=== PATIENT | male | born 1965 | race Caucasian/White ===

== ENCOUNTER 2019-12-31 07:48 | Outpatient (REF) | payer MEDICARE, MEDICAID, SELFPAY ==
[2019-12-31 09:22] LABS: MANUAL DIFF FLAG NO
[2019-12-31 09:36] LABS: Basophils Percent Auto 0.7 % (0-2); Eosinophils Absolute Auto 0.2 X10*3/uL (0.0-0.4); Eosinophils Percent Auto 3.9 % (0-4); Hematocrit 42.5 % (42-52); Hemoglobin 13.9 g/dl (14.0-18.0); Imm Gran Abs Auto 0.02 X10*3/uL (0.00-0.03); Imm Gran Pct Auto 0.5 % (0.0-0.4); Lymphocytes Absolute Auto 1.1 X10*3/uL (1.2-4.9); Lymphocytes Percent Auto 26.8 % (20-40); Mean Corpuscular HGB Conc 32.7 g/dl (31.0-36.0); Mean Corpuscular Hemoglobin 29.8 pg (27.0-33.0); Mean Corpuscular Volume 91.2 fL (80-98); Mean Platelet Volume 10.4 fL (9.4-12.4); Monocytes Absolute Auto 0.3 X10*3/uL (0.1-1.2); Monocytes Percent Auto 7.1 % (2-11); Neutrophils Absolute Auto 2.5 X10*3/uL (2.0-8.3); Platelet Count 204 X10*3/uL (160-400); Red Blood Count 4.66 X10*6/uL (4.60-5.80); White Blood Count 4.1 X10*3/uL (4.8-10.8)
[2019-12-31 10:09] LABS: Iron 78 mcg/dL (45-160); Percent Iron Saturation 22 % (15-50); Total Iron Binding Capacity 360 mcg/dL (228-428); Unsaturated Iron Binding 282 ug/dL
[2019-12-31 10:33] LABS: Ferritin 47 ng/mL (20-250); Free T4 (Free Thyroxine) 0.99 ng/dL (0.71-1.85); Prostate Specific Antigen Scr 1.31 ng/mL (<0.05-4.0); Thyroid Stimulating Hormone 1.93 mIU/mL (0.32-4.0)
[2020-01-01 07:32] LABS: Follicle Stimulating Hormone 2.2 mIU/mL (1.6-8.0); Lutenizing Hormone 1.6 mIU/mL (1.5-9.3); Prolactin 5.1 ng/mL (2.0-18.0)
[2020-01-02 03:11] LABS: Sex Hormone Binding Globulin 15 nmol/L (10-50)
[2020-01-05 11:47] LABS: Testosterone, Free 51.4 pg/mL (35.0-155.0); Testosterone, Total 217 ng/dL (250-1100)
== END 2019-12-31 07:49 | disposition home or self-care (01) ==
LOC: HO.LAB 07:48
PROVIDERS: PCP Internal Medicine; Visit Provider Student in an Organized Health Care Education/Training Program
DX: Z12.5 Encounter for screening for malignant neoplasm of prostate (principal); E29.1 Testicular hypofunction
CPT/HCPCS: 36415; 82728; 83001; 83002; 83540; 84146; 84153; 84270; 84402; 84403; 84439; 84443; 85025

== ENCOUNTER 2020-01-02 10:32 | Outpatient (REF) | payer MEDICARE, MEDICAID, SELFPAY ==
--- NOTE | 2020-01-02 10:43 | MM_ITS ---
EXAMINATION: BONE DENSITOMETRY CLINICAL INDICATION: Hypogonadism. COMPARISON: None (current study represents initial baseline exam). TECHNIQUE: Using a [employer] DXA System (software version: 13.1) manufactured by [employer], dual-energy x-ray absorptiometry was performed of the lumbar spine and left hip. The images are of good technical quality. Summary results are attached. FINDINGS: AP SPINE L1-L4: There is levocurvature lumbar spine and degenerative changes which may cause overestimation of the lumbar bone mineral density. BMD 1.431 g/cm2, Z-score 1.3, T-score 1.8, normal. LEFT FEMUR, NECK: BMD 1.536 g/cm2, Z-score 3.9, T-score 3.6, normal. LEFT FEMUR, TOTAL: BMD 1.487 g/cm2, Z-score 2.6, T-score 2.7, normal. IDENTIFIED RISK FACTORS: Secondary osteoporosis (hypogonadism). Anticonvulsant. HISTORY OF FRACTURE: None listed. MEDICATIONS: None listed. IMPRESSION: 1. DIAGNOSIS: Normal bone density based on the lowest T-score value of 1.8 in the lumbar spine applying World Health Organization criteria. 2. 10-YEAR FRACTURE RISK PREDICTION, FRAX: Major osteoporotic fracture (clinical spine, forearm, hip or shoulder) 2.7%. Hip fracture 0.0%. 3. Treatment Recommendations: NOF guidelines recommend consideration for treatment in postmenopausal women and men age 50 and older presenting with the following: -A hip or vertebral (clinical or morphometric) fracture. -T-score less than or equal to -2.5 at the femoral neck or spine after appropriate evaluation to exclude secondary causes. -Low bone mass at the hip or spine and a 10-year fracture probability by FRAX of greater than or equal to 3% for hip fracture or greater than or equal to 20% for major osteoporotic fracture based on the [place] adapted WHO algorithm. 4. Other Recommendations: All treatment decisions require clinical judgment and consideration of individual patient factors, including patient preferences, comorbidities, previous drug use, risk factors not captured in the FRAX model (e.g. frailty, falls, vitamin D deficiency, increased bone turnover, interval significant decline in bone density) and possible under or overestimation of fracture risk by FRAX. FUTURE SCAN RECOMMENDATION: People with diagnosed cases of osteoporosis or at high risk for fracture should have regular bone mineral density tests. For patients eligible for Medicare, routine testing is allowed once every 2 years. The testing frequency can be increased to one year for patients who have rapidly progressing disease, those who are receiving or discontinuing medical therapy to restore bone mass, or have additional risk factors.
== END 2020-01-02 10:33 | disposition home or self-care (01) ==
LOC: HO.MAMMO 10:32
PROVIDERS: PCP Internal Medicine; Visit Provider Internal Medicine
DX: Z13.820 Encounter for screening for osteoporosis (principal); E29.1 Testicular hypofunction; Z79.899 Other long term (current) drug therapy
CPT/HCPCS: 77080

== ENCOUNTER → 2020-02-26 13:27 | Outpatient (BNVA) | payer MEDICARE, MEDICAID, SELFPAY | PROVIDERS: PCP Internal Medicine; Visit Provider Urology | DX: Z76.89 Persons encountering health services in other specified circumstances (principal) | CPT/HCPCS: 99212 ==

== ENCOUNTER 2020-04-02 09:27 | Outpatient (REF) | payer MEDICARE, MEDICAID, SELFPAY ==
[2020-04-03 09:52] LABS: Lutenizing Hormone 1.4 mIU/mL (1.5-9.3)
[2020-04-10 09:17] LABS: Testosterone, Total 196 ng/dL (250-1100)
== END 2020-04-02 09:28 | disposition home or self-care (01) ==
LOC: HO.HMGCLDS 09:27
PROVIDERS: PCP Internal Medicine; Visit Provider Urology
DX: N52.01 Erectile dysfunction due to arterial insufficiency (principal); E29.1 Testicular hypofunction
CPT/HCPCS: 36415; 83002; 84403

== ENCOUNTER → 2020-04-11 11:35 | Outpatient (BNVA) | payer MEDICARE, MEDICAID, SELFPAY | PROVIDERS: PCP Internal Medicine; Visit Provider Urology | DX: N52.01 Erectile dysfunction due to arterial insufficiency (principal); E29.1 Testicular hypofunction | CPT/HCPCS: 99212 ==

== ENCOUNTER 2020-07-02 09:37 | Outpatient (REF) | payer MEDICARE, MEDICAID, SELFPAY ==
[2020-07-02 11:26] LABS: MANUAL DIFF FLAG NO
[2020-07-02 11:32] LABS: Basophils Percent Auto 0.4 % (0-2); Eosinophils Absolute Auto 0.3 X10*3/uL (0.0-0.4); Hematocrit 41.5 % (42-52); Hemoglobin 13.9 g/dl (14.0-18.0); Imm Gran Abs Auto 0.02 X10*3/uL (0.00-0.03); Imm Gran Pct Auto 0.4 % (0.0-0.4); Lymphocytes Absolute Auto 1.3 X10*3/uL (1.2-4.9); Lymphocytes Percent Auto 25.1 % (20-40); Mean Corpuscular HGB Conc 33.5 g/dl (31.0-36.0); Mean Corpuscular Hemoglobin 30.3 pg (27.0-33.0); Mean Corpuscular Volume 90.6 fL (80-98); Mean Platelet Volume 10.4 fL (9.4-12.4); Monocytes Absolute Auto 0.4 X10*3/uL (0.1-1.2); Monocytes Percent Auto 7.6 % (2-11); Neutrophils Absolute Auto 3.1 X10*3/uL (2.0-8.3); Neutrophils Percent Auto 61.5 % (45-73); Platelet Count 214 X10*3/uL (160-400); Red Blood Count 4.58 X10*6/uL (4.60-5.80); Red Cell Distribution Width 11.9 % (11.0-16.0)
[2020-07-02 12:27] LABS: Alanine Aminotransferase 13 U/L (0-40); Albumin Level 4.8 g/dL (3.5-5.0); Alkaline Phosphatase 51 U/L (39-117); Anion Gap 15 (12-20); Aspartate Amino Transferase 17 U/L (5-37); Bilirubin Total 0.8 mg/dL (0.0-1.0); Blood Urea Nitrogen 17 mg/dL (9-16); Calcium 9.3 mg/dL (8.4-10.2); Carbon Dioxide 24 mmol/L (22-29); Chloride 103 mmol/L (96-108); Cholesterol 196 mg/dL; Estimated Glomerular Filt Rate > 60; Glucose Fasting 97 mg/dL (60-99); HDL Cholesterol 28 mg/dL; LDL Cholesterol Calculated 101 mg/dl; Potassium 4.4 mmol/L (3.3-5.1); Sodium 138 mmol/L (135-145); Total Protein 7.7 g/dL (6.5-8.0); Triglycerides 335 mg/dL
== END 2020-07-02 09:38 | disposition home or self-care (01) ==
LOC: HO.HMGCLDS 09:37
PROVIDERS: PCP Internal Medicine; Visit Provider Internal Medicine
DX: E78.5 Hyperlipidemia, unspecified (principal)
CPT/HCPCS: 36415; 80053; 80061; 85025

== ENCOUNTER 2020-09-23 09:42 | Outpatient (REF) | payer MEDICARE, MEDICAID, SELFPAY ==
[2020-09-23 12:05] LABS: Prostate Specific Antigen 1.39 ng/mL (<0.05-4.0)
[2020-09-25 06:23] LABS: Lutenizing Hormone 1.9 mIU/mL (1.5-9.3)
[2020-09-25 23:26] LABS: Estradiol Ultra Sensitive 18 pg/mL (< OR = 29)
[2020-09-28 17:56] LABS: Testosterone, Free 54.3 pg/mL (35.0-155.0); Testosterone, Total 227 ng/dL (250-1100)
== END 2020-09-23 09:43 | disposition home or self-care (01) ==
LOC: HO.HMGCLDS 09:42
PROVIDERS: PCP Internal Medicine; Visit Provider Urology
DX: Z12.5 Encounter for screening for malignant neoplasm of prostate (principal); E29.1 Testicular hypofunction; N13.8 Other obstructive and reflux uropathy; N40.1 Benign prostatic hyperplasia with lower urinary tract symptoms
CPT/HCPCS: 36415; 82670; 83002; 84153; 84402; 84403

== ENCOUNTER 2020-10-09 11:22 | Outpatient (AMB) | payer MEDICARE, MEDICAID, SELFPAY ==
[2020-10-09 11:50] VITALS: BP 128/74; TEMP 35.8; BMI 29.7
--- NOTE | 2020-10-09 11:50 | A.OFFVIS_ITS ---
Intake Vital Signs 10/09/20 11:50 Height 6 ft Weight 219 lb BMI 29.7 BP 128/74 Blood Pressure Location Rt brachial Position Sitting Temp 96.5 F L Intake Visit Reasons: 6 month follow up labs Intake Note: patient here for follow up labs. Allergies aspirin [ASPIRIN] Allergy (Intermediate, Verified 10/07/22 11:57) STOMACH UPSET Medication List - Last Reconciled 10/09/20 by Israel Almonte MD albuterol sulfate 90 mcg/actuation inhalation alclometasone 0.05% appl topical DAILY PRN gabapentin 100 mg PO TID lithium carbonate ER 300 mg PO BID lorazepam 0 mg PO omeprazole 20 mg PO DAILY propranolol 10 mg PO Q6H tadalafil 20 mg PO DAILY tadalafil 20 mg PO DAILY 30 days PRN HPI HPI Comments History of Present Illness Details Mr Huerta is a very pleasant male. They are a patient of Dr Kelly and Dr Mooney. They are seen in the office today for the following urologic conditions. - hypogonadism. Testosterone 10/01 227, LH 1.9 Hypogonadism: Seen at [facility] for investigation Has depressed mood denies in hormone and low testosterone. This continues Does well with Cialis Have occurred with secondary hypogonadal hypogonadism. Presumed due to SSRI use. Treatment has previously been topical testosterone. Has been evaluated with Dr. Mooney and previously saw Dr Villalobos. Initial symptoms include erectile dysfunction Yes decreased libido Yes change in mood/depression Yes in muscle size/strength Yes increased fatigue/malaise Yes increased abdominal fat No tender breasts/gynecomastia No hair loss No osteopenia No The onset of symptoms has been gradual since 2009. Erectile status current ZHAO Score 1. Associate conditions include obstructive sleep apnea No CAD No obesity No stress - financial, family, employment No heavy alcohol or illicit drug use No prior ithium use, SSRI's He has been taking Prior therapy - injectable exogenous testosterone - SERM - positive response to clomiphene but not covered - trial of GnRH 12/27 with partial response - did have T recovery with combination of hCG and anastrazole. Laboratory results 10/2013 , testosterone 200, , FSH 1.9, , LH 1.9, prolactin 5.8 Other labs from [facility] - normal except low gonadotrophins, 10/2015 T 750 02/26 T 454, E 54 08/28 T 244, LH 1.6, E 19 03/31 T 490, Est 64 LH 8.8 07/29 T 385, Est 9, LH 9 09/28 T 195 LH 1.6 11/30 T 192, LH 1.6, FSH 2.1 09/30 T 192, LH 1.6, FSH 2.1 - 04/03 T 196, LH 1.4 Current therapy includes gonadotrophin - hCG - will add , aromatase inhibitor - anastrazole. Response to therapy has been improved, energy/wellbeing. Prior therapy includes - testosterone gels with minimal effect - SERM without effect - Brain dopaminergic stimulator without effect - GnRH low dose pulsed without effect - hCG and anstrazole with lower E but lower T as well 06/28. Diagnosis based on history and laboratory results Hypogonadotrophic Hypogonadism - imaging negative. Pituitary vs hypothalamic - other pituitary components normal. Therapuetic plan see in 6m LH low with low T. [facility] Medical History Anxiety Depression Erectile dysfunction Gait abnormality Hyperlipidemia Hypogonadism in male Hypopituitarism Knee pain Mild acid reflux OA (osteoarthritis) of knee Tendinitis of left rotator cuff Thrombosed external hemorrhoid Review of Systems Const Denies chills and Denies fever(s) Card Reports no additional complaints and Denies syncope Resp Denies cough GI Denies abdominal pain and Denies heartburn Reports as per HPI and Denies change in libido Neuro Denies syncope Psych Denies change in libido Endo Denies change in libido Physical Exam Vital Signs: Last Vital Signs Temp 96.5 F L 10/09/20 11:50 BP 128/74 10/09/20 11:50 BMI result Body Mass Index 29.7 Const General: cooperative, healthy appearing, comfortable and no acute distress Orientation/consciousness: patient oriented x3 HENMT Face and sinus: Yes normal facial exam Mouth: moist mucous membranes Neck Neck: Yes normal visual inspection, Yes full ROM and Yes trachea midline Chest Chest palpation & inspection: normal inspection of the chest Resp Effort & Inspection: normal respiratory effort, able to speak in complete sentences and no respiratory distress GI Inspection: Yes normal to inspection Back/Spine/Pelvis Cervical Spine: normal cervical lordosis Thoracic/Lumbar Spine: thoracic and lumbar spine normal to inspection Skin General skin exam: no rashes or lesions noted Neuro General: patient oriented x3, gait normal, tone normal and moves all extremities Extrem General: Yes normal to inspection and Yes capillary refill normal Results AMB Urinalysis, Automated UA Leukoctes 0 Tess/uL Last Edit by NORAH Sheikh on 10/09/20 12:07 UA Nitrite Negative Last Edit by María Elena Leach A on 10/09/20 12:07 UA Urobilinogen 0.2 mg/dL Last Edit by María Elena Leach [facility] on 10/09/20 12:07 UA Protein 0 mg/dL Last Edit by María Elena Leach A on 10/09/20 12:07 UA pH 6.0 Last Edit by María Elena Leach [facility] on 10/09/20 12:07 UA Blood 0 Yuriy/uL Last Edit by María Elena Leach [facility] on 10/09/20 12:07 UA Specific [place] 1.010 Last Edit by María Elena Leach [facility] on 10/09/20 12:07 UA Ketone Negative Last Edit by María Elena Leach [facility] on 10/09/20 12:07 UA Bilirubin 0 mg/dL Last Edit by María Elena Leach A on 10/09/20 12:07 UA Glucose 0 mg/dL Last Edit by María Elena Leach [facility] on 10/09/20 12:07 Results Reviewed Results Reviewed: Laboratory Last Values Urine pH (Auto) 6.0 10/09/20 12:00 Specific [place] (Auto) 1.010 10/09/20 12:00 Urine Protein (Auto) 0 mg/dL 10/09/20 12:00 Glucose (UA)(Auto) 0 mg/dL 10/09/20 12:00 Urine Ketones (Auto) Negative 10/09/20 12:00 Urine Blood (Auto) 0 Yuriy/uL 10/09/20 12:00 Urine Nitrite (Auto) Negative 10/09/20 12:00 Urine Bilirubin (Auto) 0 mg/dL 10/09/20 12:00 Urine Urobilinogen (Auto) 0.2 mg/dL 10/09/20 12:00 Leukocyte Esterase (Auto) 0 Tess/uL 10/09/20 12:00 Assessment & Plan Assessment & Plan (1) 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 - Hypopituitarism Plan 6m f/u labs Orders: Orders AMB Urinalysis Automated 10/09/20 Z13.9 - Encounter for screening, unspecified Testosterone, Total 6 Months [id number], E29.1 - Testicular hypofunction Lutenizing Hormone 6 Months E29.1 - Testicular hypofunction Medications: Refilled tadalafil 20 mg PO DAILY PRN 30 tabs 5RF sexual activity 30 days N52.01 - Erectile dysfunction due to arterial insufficiency Patient Instructions: Imaging studies, laboratory and physical exam results were discussed and reviewed in detail. No major barriers to patient understanding were identified. An opportunity to ask questions regarding the treatment plan was provided. All questions were answered. The patient expressed understanding and agreement with the above treatment plan. The patient is aware they should contact our office by phone for worsening of their current condition or the appearance of new urologic symptoms. Compliance is encouraged with any medications and followup testing that is ordered. It is a privilege to participate in the urologic care of your patient. If you have any questions or concerns regarding treatment for the above conditions, or other urologic issues, please do not hesitate to contact me. The office telephone contact is [phone]. This note is constructed using voice recognition software. While every effort has been made to ensure accuracy powerhouse electrician apprentice errors may have been included. Yours sincerely, Dr Israel Almonte MD, [facility] - Urology Providers of Expert, Compassionate Care for the Genitourinary System Coding Level of Care Code Est Pt Level 3 (33280) Diagnoses Hypogonadotropic hypogonadism E23.0
== END 2020-10-09 12:40 | disposition home or self-care (01) ==
LOC: HO.HUSH 11:22
PROVIDERS: PCP Internal Medicine; Visit Provider Urology
DX: E23.0 Hypopituitarism (principal)
CPT/HCPCS: 99499

== ENCOUNTER → 2020-10-09 11:22 | Outpatient (BNVA) | payer MEDICARE, MEDICAID, SELFPAY | PROVIDERS: PCP Internal Medicine; Visit Provider Urology ==

== ENCOUNTER 2020-12-29 10:17 | Outpatient (REF) | payer MEDICARE, MEDICAID, SELFPAY ==
[2020-12-29 11:34] LABS: MANUAL DIFF FLAG NO
[2020-12-29 11:37] LABS: Basophils Percent Auto 0.6 % (0-2); Eosinophils Absolute Auto 0.2 X10*3/uL (0.0-0.4); Hematocrit 40.8 % (42-52); Hemoglobin 13.7 g/dl (14.0-18.0); Imm Gran Abs Auto 0.02 X10*3/uL (0.00-0.03); Imm Gran Pct Auto 0.4 % (0.0-0.4); Lymphocytes Absolute Auto 1.1 X10*3/uL (1.2-4.9); Lymphocytes Percent Auto 23.1 % (20-40); Mean Corpuscular HGB Conc 33.6 g/dl (31.0-36.0); Mean Corpuscular Hemoglobin 30.2 pg (27.0-33.0); Mean Corpuscular Volume 90.1 fL (80-98); Mean Platelet Volume 10.2 fL (9.4-12.4); Monocytes Absolute Auto 0.3 X10*3/uL (0.1-1.2); Monocytes Percent Auto 6.7 % (2-11); Neutrophils Absolute Auto 3.1 X10*3/uL (2.0-8.3); Neutrophils Percent Auto 65.2 % (45-73); Platelet Count 201 X10*3/uL (160-400); Red Blood Count 4.53 X10*6/uL (4.60-5.80); Red Cell Distribution Width 11.9 % (11.0-16.0); White Blood Count 4.8 X10*3/uL (4.8-10.8)
[2020-12-29 12:08] LABS: Lithium < 0.10 mmol/L (0.60-1.20)
[2020-12-29 12:15] LABS: Alanine Aminotransferase 16 U/L (0-40); Albumin Level 4.7 g/dL (3.5-5.0); Alkaline Phosphatase 52 U/L (39-117); Anion Gap 13 (12-20); Aspartate Amino Transferase 19 U/L (5-37); Bilirubin Total 0.4 mg/dL (0.0-1.0); Blood Urea Nitrogen 14 mg/dL (9-16); Calcium 9.4 mg/dL (8.4-10.2); Carbon Dioxide 27 mmol/L (22-29); Chloride 105 mmol/L (96-108); Cholesterol 205 mg/dL; Estimated Glomerular Filt Rate > 60; Glucose Fasting 96 mg/dL (60-99); HDL Cholesterol 29 mg/dL; Iron 85 mcg/dL (45-160); Percent Iron Saturation 24 % (15-50); Potassium 4.5 mmol/L (3.3-5.1); Sodium 140 mmol/L (135-145); Total Iron Binding Capacity 353 mcg/dL (228-428); Total Protein 7.7 g/dL (6.5-8.0); Triglycerides 479 mg/dL; Unsaturated Iron Binding 268 ug/dL
== END 2020-12-29 10:18 | disposition home or self-care (01) ==
LOC: HO.HMGCLDS 10:17
PROVIDERS: PCP Internal Medicine; Visit Provider Internal Medicine
DX: E78.5 Hyperlipidemia, unspecified (principal); K21.9 Gastro-esophageal reflux disease without esophagitis; D64.9 Anemia, unspecified; F31.9 Bipolar disorder, unspecified; Z79.899 Other long term (current) drug therapy
CPT/HCPCS: 36415; 80053; 80061; 80178; 83540; 85025

== ENCOUNTER 2021-03-25 09:56 | Outpatient (REF) | payer MEDICARE, MEDICAID, SELFPAY ==
[2021-03-25 11:52] LABS: MANUAL DIFF FLAG NO
[2021-03-25 11:56] LABS: Basophils Percent Auto 0.6 % (0-2); Eosinophils Absolute Auto 0.3 X10*3/uL (0.0-0.4); Eosinophils Percent Auto 5.1 % (0-4); Hematocrit 43.2 % (42.0-52.0); Hemoglobin 14.3 g/dl (14.0-18.0); Imm Gran Abs Auto 0.03 X10*3/uL (0.00-0.03); Imm Gran Pct Auto 0.6 % (0.0-0.4); Lymphocytes Absolute Auto 1.3 X10*3/uL (1.2-4.9); Lymphocytes Percent Auto 24.4 % (20-40); Mean Corpuscular HGB Conc 33.1 g/dl (31.0-36.0); Mean Corpuscular Hemoglobin 30.2 pg (27.0-33.0); Mean Corpuscular Volume 91.1 fL (80.0-98.0); Mean Platelet Volume 10.7 fL (9.4-12.4); Monocytes Absolute Auto 0.4 X10*3/uL (0.1-1.2); Monocytes Percent Auto 7.2 % (2-11); Neutrophils Absolute Auto 3.3 x10*3/uL (2.0-8.3); Neutrophils Percent Auto 62.1 % (45-73); Platelet Count 217 X10*3/uL (160-400); Red Blood Count 4.74 X10*6/uL (4.60-5.80); Red Cell Distribution Width 11.8 % (11.0-16.0); White Blood Count 5.3 X10*3/uL (4.8-10.8)
[2021-03-25 12:25] LABS: Cholesterol 208 mg/dL; HDL Cholesterol 30 mg/dL; LDL Cholesterol Calculated 110 mg/dl; Triglycerides 344 mg/dL
[2021-03-26 10:41] LABS: Lutenizing Hormone 1.2 mIU/mL (1.5-9.3)
[2021-03-30 12:16] LABS: Testosterone, Total 280 ng/dL (250-1100)
== END 2021-03-25 09:57 | disposition home or self-care (01) ==
LOC: HO.HMGCLDS 09:56
PROVIDERS: Absent Provider Internal Medicine; PCP Internal Medicine; Visit Provider Urology
DX: K21.9 Gastro-esophageal reflux disease without esophagitis (principal); D64.9 Anemia, unspecified; E29.1 Testicular hypofunction
CPT/HCPCS: 36415; 80061; 83002; 84403; 85025

== ENCOUNTER → 2021-04-09 11:27 | Outpatient (BNVA) | payer MEDICARE, MEDICAID, SELFPAY | PROVIDERS: PCP Internal Medicine; Visit Provider Urology | DX: E23.0 Hypopituitarism (principal) | CPT/HCPCS: 99212 ==

== ENCOUNTER 2021-09-22 09:54 | Outpatient (REF) | payer MEDICARE, MEDICAID, SELFPAY ==
[2021-09-24 16:37] LABS: Follicle Stimulating Hormone 2.9 mIU/mL (1.6-8.0); Lutenizing Hormone 1.4 mIU/mL (1.5-9.3)
[2021-09-28 17:42] LABS: Testosterone, Free 63.6 pg/mL (35.0-155.0); Testosterone, Total 224 ng/dL (250-1100)
[2021-09-29 00:48] LABS: Estradiol Ultra Sensitive 16 pg/mL (< OR = 29)
== END 2021-09-22 09:55 | disposition home or self-care (01) ==
LOC: HO.HMGCLDS 09:54
PROVIDERS: PCP Internal Medicine; Visit Provider Urology
DX: Z12.5 Encounter for screening for malignant neoplasm of prostate (principal); E29.1 Testicular hypofunction
CPT/HCPCS: 36415; 81235; 82670; 83001; 83002; 84153; 84402; 84403

== ENCOUNTER 2021-10-08 11:32 | Outpatient (AMB) | payer MEDICARE, MEDICAID, SELFPAY ==
--- NOTE | 2021-10-08 11:42 | MHC.OFFVIS ---
Intake Intake Visit Reasons: 6 mth follow up labs(set) Intake Note: Patient is present for labs follow up patient reports no medication changes Currently taking tadalafil Clearance Cutter Required: No Accompanied by: Self / Same As Patient Allergies aspirin [ASPIRIN] Allergy (Intermediate, Verified 10/07/22 11:57) STOMACH UPSET HPI HPI Comments History of Present Illness Details Mr Huerta is a very pleasant male. They are a patient of Dr Kelly and Dr Mooney. They are seen in the office today for the following urologic conditions. - hypogonadism. Labs 04/04 T 289-, LH 1.2/FSH 2.2 - 10/02 LH 1.4 Discussed laboratories Borderline low testosterone with impaired pituitary function When previously had normalization with external testosterone did not have resolution of severe depressive symptoms Erections to respond to higher dose tadalafil which he sources through [email or web address] for particular generic product Continue with 6 month follow-up laboratories Hypogonadism: Seen at [facility] for investigation 2019 Has depressed mood denies in hormone and low testosterone. This continues Does well with Cialis Have occurred with secondary hypogonadal hypogonadism. Presumed due to SSRI use. Treatment has previously been topical testosterone. Has been evaluated with Dr. Mooney and previously saw Dr Villalobos. Initial symptoms include erectile dysfunction Yes decreased libido Yes change in mood/depression Yes in muscle size/strength Yes increased fatigue/malaise Yes increased abdominal fat No tender breasts/gynecomastia No hair loss No osteopenia No The onset of symptoms has been gradual since 2009. Erectile status current ZHAO Score 1. Associate conditions include obstructive sleep apnea No CAD No obesity No stress - financial, family, employment No heavy alcohol or illicit drug use No prior ithium use, SSRI's He has been taking Prior therapy - injectable exogenous testosterone - SERM - positive response to clomiphene but not covered - trial of GnRH 12/27 with partial response - did have T recovery with combination of hCG and anastrazole. Laboratory results 10/2013 , testosterone 200, , FSH 1.9, , LH 1.9, prolactin 5.8 Other labs from [facility] - normal except low gonadotrophins, 10/2015 T 750 02/26 T 454, E 54 08/28 T 244, LH 1.6, E 19 03/31 T 490, Est 64 LH 8.8 07/29 T 385, Est 9, LH 9 09/28 T 195 LH 1.6 11/30 T 192, LH 1.6, FSH 2.1 09/30 T 192, LH 1.6, FSH 2.1 - 04/03 T 196, LH 1.4 Current therapy includes gonadotrophin - hCG - will add , aromatase inhibitor - anastrazole. Response to therapy has been improved, energy/wellbeing. Prior therapy includes - testosterone gels with minimal effect - SERM without effect - Brain dopaminergic stimulator without effect - GnRH low dose pulsed without effect - hCG and anstrazole with lower E but lower T as well 06/28. Diagnosis based on history and laboratory results Hypogonadotrophic Hypogonadism - imaging negative. Pituitary vs hypothalamic - other pituitary components normal. Therapuetic plan see in 6m LH low with low T. [facility] Medical History Anxiety Depression Erectile dysfunction Gait abnormality Hyperlipidemia Hypogonadism in male Hypopituitarism Knee pain Mild acid reflux OA (osteoarthritis) of knee Tendinitis of left rotator cuff Thrombosed external hemorrhoid Review of Systems Const Denies chills and Denies fever(s) Card Reports no additional complaints and Denies syncope Resp Denies cough GI Denies abdominal pain and Denies heartburn Reports as per HPI and Denies change in libido Neuro Denies syncope Psych Denies change in libido Endo Denies change in libido Physical Exam Const General: cooperative, healthy appearing, comfortable and no acute distress Orientation/consciousness: patient oriented x3 HEENT Face and sinus: Yes normal facial exam Mouth: moist mucous membranes Neck Neck: Yes normal visual inspection, Yes full ROM and Yes trachea midline Chest Chest palpation & inspection: normal inspection of the chest Resp Effort & Inspection: normal respiratory effort, able to speak in complete sentences and no respiratory distress GI Inspection: Yes normal to inspection Back/Spine/Pelvis Cervical Spine: normal cervical lordosis Thoracic/Lumbar Spine: thoracic and lumbar spine normal to inspection Skin General skin exam: no rashes or lesions noted Neuro General: patient oriented x3, gait normal, tone normal and moves all extremities Extrem General: Yes normal to inspection and Yes capillary refill normal Assessment & Plan Assessment & Plan (1) 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 No major barriers to patient understanding were identified. An opportunity to ask questions regarding the treatment plan was provided. All questions were answered. The patient expressed understanding and agreement with the above treatment plan. The patient is aware they should contact our office by phone for worsening of their current condition or the appearance of new urologic symptoms. Compliance is encouraged with any medications and followup testing that is ordered. It is a privilege to participate in the urologic care of your patient. If you have any questions or concerns regarding treatment for the above conditions, or other urologic issues, please do not hesitate to contact me. The office telephone contact is [phone]. This note is constructed using voice recognition software. While every effort has been made to ensure accuracy service department manager errors may have been included. Yours sincerely, Dr Israel Almonte MD, [facility] - Urology Providers of Expert, Compassionate Care for the Genitourinary System Coding Level of Care Code Est Pt Level 3 (36738) Diagnoses Hypogonadotropic hypogonadism E23.0
== END 2021-10-08 12:41 | disposition home or self-care (01) ==
LOC: HO.HUSH 11:32
PROVIDERS: PCP Internal Medicine; Visit Provider Urology
DX: E23.0 Hypopituitarism (principal)
CPT/HCPCS: 99499

== ENCOUNTER 2021-12-30 09:51 | Outpatient (REF) | payer MEDICARE, MEDICAID, SELFPAY ==
[2021-12-30 11:27] LABS: MANUAL DIFF FLAG NO
[2021-12-30 11:39] LABS: Basophils Percent Auto 0.6 % (0-2); Eosinophils Absolute Auto 0.2 X10*3/uL (0.0-0.4); Eosinophils Percent Auto 4.9 % (0-4); Hematocrit 41.9 % (42.0-52.0); Hemoglobin 13.9 g/dl (14.0-18.0); Imm Gran Abs Auto 0.01 X10*3/uL (0.00-0.03); Imm Gran Pct Auto 0.2 % (0.0-0.4); Lymphocytes Absolute Auto 1.2 X10*3/uL (1.2-4.9); Mean Corpuscular HGB Conc 33.2 g/dl (31.0-36.0); Mean Corpuscular Volume 90.5 fL (80.0-98.0); Mean Platelet Volume 10.9 fL (9.4-12.4); Monocytes Absolute Auto 0.4 X10*3/uL (0.1-1.2); Monocytes Percent Auto 7.4 % (2-11); Neutrophils Absolute Auto 2.9 x10*3/uL (2.0-8.3); Neutrophils Percent Auto 61.9 % (45-73); Platelet Count 199 X10*3/uL (160-400); Red Blood Count 4.63 X10*6/uL (4.60-5.80); Red Cell Distribution Width 11.9 % (11.0-16.0); White Blood Count 4.7 X10*3/uL (4.8-10.8)
[2021-12-30 11:48] LABS: Alanine Aminotransferase 14 U/L (0-40); Albumin Level 4.7 g/dL (3.5-5.0); Alkaline Phosphatase 47 U/L (39-117); Anion Gap 16 (12-20); Aspartate Amino Transferase 18 U/L (5-37); Bilirubin Total 0.5 mg/dL (0.0-1.0); Blood Urea Nitrogen 21 mg/dL (9-16); Calcium 9.7 mg/dL (8.4-10.2); Carbon Dioxide 26 mmol/L (22-29); Chloride 102 mmol/L (96-108); Cholesterol 193 mg/dL; Estimated Glomerular Filt Rate > 60; Glucose Fasting 96 mg/dL (60-99); HDL Cholesterol 29 mg/dL; Potassium 4.5 mmol/L (3.3-5.1); Sodium 139 mmol/L (135-145); Total Protein 7.6 g/dL (6.5-8.0); Triglycerides 405 mg/dL
== END 2021-12-30 09:52 | disposition home or self-care (01) ==
LOC: HO.LAB 09:51
PROVIDERS: PCP Internal Medicine; Visit Provider Internal Medicine
DX: R79.89 Other specified abnormal findings of blood chemistry (principal)
CPT/HCPCS: 36415; 80053; 80061; 85025

== ENCOUNTER 2022-03-24 10:18 | Outpatient (REF) | payer MEDICARE, MEDICAID, SELFPAY ==
[2022-03-25 22:29] LABS: Follicle Stimulating Hormone 2.7 mIU/mL (1.6-8.0); Lutenizing Hormone 1.7 mIU/mL (1.5-9.3)
[2022-04-01 20:53] LABS: Testosterone, Total 209 ng/dL (250-1100)
== END 2022-03-24 10:19 | disposition home or self-care (01) ==
LOC: HO.HMGCLDS 10:18
PROVIDERS: PCP Internal Medicine; Visit Provider Urology
DX: E29.1 Testicular hypofunction (principal); E23.0 Hypopituitarism
CPT/HCPCS: 36415; 83001; 83002; 84403

== ENCOUNTER → 2022-04-08 11:35 | Outpatient (BNVA) | payer MEDICARE, MEDICAID, SELFPAY | PROVIDERS: PCP Internal Medicine; Visit Provider Urology | DX: E23.0 Hypopituitarism (principal); N52.01 Erectile dysfunction due to arterial insufficiency | CPT/HCPCS: 99212 ==

== ENCOUNTER 2022-06-30 10:11 | Outpatient (REF) | payer MEDICARE, MEDICAID, SELFPAY ==
[2022-06-30 11:23] LABS: MANUAL DIFF FLAG NO
[2022-06-30 11:36] LABS: Basophils Percent Auto 0.7 % (0-2); Eosinophils Absolute Auto 0.2 X10*3/uL (0.0-0.4); Eosinophils Percent Auto 4.1 % (0-4); Hematocrit 41.1 % (42.0-52.0); Hemoglobin 13.9 g/dl (14.0-18.0); Imm Gran Abs Auto 0.02 X10*3/uL (0.00-0.03); Imm Gran Pct Auto 0.4 % (0.0-0.4); Lymphocytes Absolute Auto 1.1 X10*3/uL (1.2-4.9); Mean Corpuscular HGB Conc 33.8 g/dl (31.0-36.0); Mean Corpuscular Hemoglobin 30.5 pg (27.0-33.0); Mean Corpuscular Volume 90.3 fL (80.0-98.0); Mean Platelet Volume 10.5 fL (9.4-12.4); Monocytes Absolute Auto 0.4 X10*3/uL (0.1-1.2); Monocytes Percent Auto 7.1 % (2-11); Neutrophils Absolute Auto 3.6 x10*3/uL (2.0-8.3); Neutrophils Percent Auto 66.7 % (45-73); Platelet Count 200 X10*3/uL (160-400); Red Blood Count 4.55 X10*6/uL (4.60-5.80); Red Cell Distribution Width 12.1 % (11.0-16.0); White Blood Count 5.4 X10*3/uL (4.8-10.8)
[2022-06-30 11:59] LABS: Cholesterol 191 mg/dL; HDL Cholesterol 29 mg/dL; Iron 89 mcg/dL (45-160); LDL Cholesterol Calculated 106 mg/dl; Percent Iron Saturation 28 % (15-50); Total Iron Binding Capacity 321 mcg/dL (228-428); Triglycerides 284 mg/dL; Unsaturated Iron Binding 232 ug/dL
== END 2022-06-30 10:12 | disposition home or self-care (01) ==
LOC: HO.HMGCLDS 10:11
PROVIDERS: PCP Internal Medicine; Visit Provider Internal Medicine
DX: E78.5 Hyperlipidemia, unspecified (principal)
CPT/HCPCS: 36415; 80061; 83540; 85025

== ENCOUNTER 2022-09-21 09:58 | Outpatient (REF) | payer MEDICARE, MEDICAID, SELFPAY ==
[2022-09-23 10:09] LABS: Follicle Stimulating Hormone 3.1 mIU/mL (1.6-8.0); Prolactin 5.2 ng/mL (2.0-18.0)
[2022-09-26 16:13] LABS: Testosterone, Total 192 ng/dL (250-1100)
== END 2022-09-21 09:59 | disposition home or self-care (01) ==
LOC: HO.HMGCLDS 09:58
PROVIDERS: PCP Internal Medicine; Visit Provider Urology
DX: E23.0 Hypopituitarism (principal)
CPT/HCPCS: 36415; 83001; 83002; 84146; 84403

== ENCOUNTER 2022-10-07 11:53 | Outpatient (AMB) | payer MEDICARE, MEDICAID, SELFPAY ==
--- NOTE | 2022-10-07 11:56 | A.OFFVIS_ITS ---
Intake Intake Visit Reasons: 6M LABS(set) Intake Note: Patient is present for Follow Up LABS Urology Med: Tadalafil Antibiotic Allergy: none Blood Thinner: none Pharmacy: [facility] Allergies aspirin [ASPIRIN] Allergy (Intermediate, Verified 10/07/22 11:57) STOMACH UPSET Medication List - Last Reconciled 10/07/22 by Israel Almonte MD albuterol sulfate 90 mcg/actuation inhalation alclometasone 0.05% appl topical DAILY PRN gabapentin 100 mg PO TID ketamine 20 mg (0.2 mL) intranasal .2x a week 30 days lithium carbonate ER 300 mg PO BID lorazepam 0 mg PO omeprazole 20 mg PO DAILY propranolol 10 mg PO Q6H tadalafil 20 mg PO DAILY tadalafil 20 mg PO DAILY 0 days HPI HPI Comments History of Present Illness Details Mr Huerta is a very pleasant male. They are a patient of Dr Kelly and Dr Mooney. They are seen in the office today for the following urologic conditions. - hypogonadism Labs - 04/04 T 289-, LH 1.2/FSH 2.2 - 10/02 LH 1.4 - 04/05 T 209 P 1.2 LH 1.7 FSH 2.7 - 10/03 192 F 65 1.2 3.1 2.0 Discussed laboratories Borderline low testosterone with impaired pituitary function When previously had normalization with external testosterone did not have resolution of severe depressive symptoms Erections do respond to higher dose tadalafil which he sources through [employer] for particular generic product Has post SSRI libido suppression Printed information regarding potential use of Tenex. Prescription provided Hypogonadism: Seen at [facility] for [facility] 2019 Has depressed mood denies in hormone and low testosterone. This continues Does well with Cialis Have occurred with secondary hypogonadal hypogonadism. Presumed due to SSRI use. Treatment has previously been topical testosterone. Has been evaluated with Dr. Mooney and previously saw Dr Villalobos. Initial symptoms include erectile dysfunction Yes decreased libido Yes change in mood/depression Yes in muscle size/strength Yes increased fatigue/malaise Yes increased abdominal fat No tender breasts/gynecomastia No hair loss No osteopenia No The onset of symptoms has been gradual since 2009. Erectile status current ZHAO Score 1. Associate conditions include obstructive sleep apnea No CAD No obesity No stress - financial, family, employment No heavy alcohol or illicit drug use No prior ithium use, SSRI's He has been taking Prior therapy - injectable exogenous testosterone - SERM - positive response to clomiphene but not covered - trial of GnRH 12/27 with partial response - did have T recovery with combination of hCG and anastrazole. Laboratory results 10/2013 , testosterone 200, , FSH 1.9, , LH 1.9, prolactin 5.8 Other labs from [facility] - normal except low gonadotrophins, 10/2015 T 750 02/26 T 454, E 54 08/28 T 244, LH 1.6, E 19 03/31 T 490, Est 64 LH 8.8 07/29 T 385, Est 9, LH 9 09/28 T 195 LH 1.6 11/30 T 192, LH 1.6, FSH 2.1 09/30 T 192, LH 1.6, FSH 2.1 - 04/03 T 196, LH 1.4 Current therapy includes gonadotrophin - hCG - will add , aromatase inhibitor - anastrazole. Response to therapy has been improved, energy/wellbeing. Prior therapy includes - testosterone gels with minimal effect - SERM without effect - Brain dopaminergic stimulator without effect - GnRH low dose pulsed without effect - hCG and anstrazole with lower E but lower T as well 06/28. Diagnosis based on history and laboratory results Hypogonadotrophic Hypogonadism - imaging negative. Pituitary vs hypothalamic - other pituitary components normal. Therapuetic plan see in 6m LH low with low T. [facility] Medical History Anxiety Depression Erectile dysfunction Gait abnormality Hyperlipidemia Hypogonadism in male Hypopituitarism Knee pain Mild acid reflux OA (osteoarthritis) of knee Tendinitis of left rotator cuff Thrombosed external hemorrhoid Review of Systems Const Denies chills and Denies fever(s) Card Reports no additional complaints and Denies syncope Resp Denies cough GI Denies abdominal pain and Denies heartburn Reports as per HPI and Denies change in libido Neuro Denies syncope Psych Denies change in libido Endo Denies change in libido Physical Exam Const General: cooperative, healthy appearing, comfortable and no acute distress Orientation/consciousness: patient oriented x3 HEENT Face and sinus: Yes normal facial exam Mouth: moist mucous membranes Neck Neck: Yes normal visual inspection, Yes full ROM and Yes trachea midline Chest Chest palpation & inspection: normal inspection of the chest Resp Effort & Inspection: normal respiratory effort, able to speak in complete sentences and no respiratory distress GI Inspection: Yes normal to inspection Back/Spine/Pelvis Cervical Spine: normal cervical lordosis Thoracic/Lumbar Spine: thoracic and lumbar spine normal to inspection Skin General skin exam: no rashes or lesions noted Neuro General: patient oriented x3, gait normal, tone normal and moves all extremities Extrem General: Yes normal to inspection and Yes capillary refill normal Assessment & Plan Assessment & Plan (1) Erectile dysfunction due to arterial insufficiency: Code(s): N52.01 - Erectile dysfunction due to arterial insufficiency (2) Hypogonadism in male: Code(s): E29.1 - Testicular hypofunction Plan Three month follow-up tele visit Orders: Orders Follicle Stimulating Hormone 6 Months E29.1 - Testicular hypofunction Lutenizing Hormone 6 Months E23.0 - Hypopituitarism Prostate Specific Antigen 6 Months E23.0 - Hypopituitarism Testosterone, Free/Total 6 Months E23.0 - Hypopituitarism Medications: New guanfacine 2 mg PO BEDTIME 30 tabs 1RF 30 days E29.1 - Testicular hypofunction Patient Instructions: Imaging studies, laboratory and physical exam results were discussed and reviewed in detail. No major barriers to patient understanding were identified. An opportunity to ask questions regarding the treatment plan was provided. All questions were answered. The patient expressed understanding and agreement with the above treatment plan. The patient is aware they should contact our office by phone for worsening of their current condition or the appearance of new urologic symptoms. Compliance is encouraged with any medications and followup testing that is ordered. It is a privilege to participate in the urologic care of your patient. If you have any questions or concerns regarding treatment for the above conditions, or other urologic issues, please do not hesitate to contact me. The office telephone contact is [phone]. This note is constructed using voice recognition software. While every effort has been made to ensure accuracy pharmacy informaticist errors may have been included. Yours sincerely, Dr Israel Almonte MD, [facility] - Urology Providers of Expert, Compassionate Care for the Genitourinary System Coding Level of Care Code Est Pt Level 4 (48558) Diagnoses Erectile dysfunction due to arterial insufficiency N52.01 Hypogonadism in male E29.1
== END 2022-10-07 13:35 | disposition home or self-care (01) ==
PROVIDERS: Visit Provider Urology
DX: N52.01 Erectile dysfunction due to arterial insufficiency (principal); E29.1 Testicular hypofunction
CPT/HCPCS: 99214

== ENCOUNTER → 2022-10-07 11:53 | Outpatient (BNVA) | payer MEDICARE, MEDICAID, SELFPAY | PROVIDERS: Visit Provider Urology | DX: N52.01 Erectile dysfunction due to arterial insufficiency (principal); E29.1 Testicular hypofunction | CPT/HCPCS: 99212 ==

== ENCOUNTER 2022-12-28 10:55 | Outpatient (REF) | payer MEDICARE, MEDICAID, SELFPAY ==
[2022-12-28 13:40] LABS: MANUAL DIFF FLAG NO
[2022-12-28 13:51] LABS: Basophils Percent Auto 0.9 % (0-2); Eosinophils Absolute Auto 0.3 X10*3/uL (0.0-0.4); Eosinophils Percent Auto 6.5 % (0-4); Hematocrit 41.3 % (42.0-52.0); Hemoglobin 13.8 g/dl (14.0-18.0); Imm Gran Abs Auto 0.02 X10*3/uL (0.00-0.03); Imm Gran Pct Auto 0.4 % (0.0-0.4); Lymphocytes Absolute Auto 1.1 X10*3/uL (1.2-4.9); Lymphocytes Percent Auto 23.3 % (20-40); Mean Corpuscular HGB Conc 33.4 g/dl (31.0-36.0); Mean Corpuscular Hemoglobin 30.3 pg (27.0-33.0); Mean Corpuscular Volume 90.8 fL (80.0-98.0); Mean Platelet Volume 11.1 fL (9.4-12.4); Monocytes Absolute Auto 0.4 X10*3/uL (0.1-1.2); Monocytes Percent Auto 8.1 % (2-11); Neutrophils Absolute Auto 2.8 x10*3/uL (2.0-8.3); Neutrophils Percent Auto 60.8 % (45-73); Platelet Count 209 X10*3/uL (160-400); Red Blood Count 4.55 X10*6/uL (4.60-5.80); Red Cell Distribution Width 12.2 % (11.0-16.0); White Blood Count 4.6 X10*3/uL (4.8-10.8)
[2022-12-28 14:38] LABS: Anion Gap 15 (12-20)
[2022-12-28 14:41] LABS: Alanine Aminotransferase 16 U/L (0-40); Albumin Level 4.5 g/dL (3.5-5.0); Alkaline Phosphatase 51 U/L (39-117); Aspartate Amino Transferase 19 U/L (5-37); Bilirubin Total 0.6 mg/dL (0.0-1.0); Blood Urea Nitrogen 20 mg/dL (9-16); Calcium 9.8 mg/dL (8.4-10.2); Carbon Dioxide 23 mmol/L (22-29); Chloride 104 mmol/L (96-108); Cholesterol 187 mg/dL (<200); Estimated Glomerular Filt Rate > 60; Glucose Fasting 98 mg/dL (60-99); HDL Cholesterol 30 mg/dL (>40); LDL Cholesterol Calculated 104 mg/dL (<100); Potassium 4.2 mmol/L (3.3-5.1); Sodium 138 mmol/L (135-145); Total Protein 7.8 g/dL (6.5-8.0); Triglycerides 265 mg/dL (<150)
== END 2022-12-28 10:56 | disposition home or self-care (01) ==
LOC: HO.HMGCLDS 10:55
PROVIDERS: PCP Internal Medicine; Visit Provider Internal Medicine
DX: E78.5 Hyperlipidemia, unspecified (principal); K21.9 Gastro-esophageal reflux disease without esophagitis; D64.9 Anemia, unspecified; M19.90 Unspecified osteoarthritis, unspecified site
CPT/HCPCS: 36415; 80053; 80061; 85025

== ENCOUNTER 2023-01-06 11:36 | Outpatient (AMB) | payer MEDICARE, MEDICAID, SELFPAY ==
--- NOTE | 2023-01-06 11:28 | MHC.OFFVIS ---
Intake Intake Visit Reasons: 3m follow up (pt will call) Allergies aspirin [ASPIRIN] Allergy (Intermediate, Verified 10/07/22 11:57) STOMACH UPSET Medication List - Last Reconciled 01/06/23 by Israel Almonte MD albuterol sulfate 90 mcg/actuation inhalation alclometasone 0.05% appl topical DAILY PRN gabapentin 100 mg PO TID guanfacine 2 mg PO BEDTIME 30 days ketamine 20 mg (0.2 mL) intranasal .2x a week 30 days lithium carbonate ER 300 mg PO BID lorazepam 0 mg PO omeprazole 20 mg PO DAILY pramipexole 1.5 mg PO BEDTIME 30 days propranolol 10 mg PO Q6H tadalafil 20 mg PO DAILY tadalafil 20 mg PO DAILY 0 days HPI HPI Comments History of Present Illness Details Mr Huerta is a very pleasant male. They are a patient of Dr Kelly and Dr Mooney. They are seen in the office today for the following urologic conditions. - hypogonadism Information regarding trial of pramipexole - in setting of post SSRI hypogonadism Labs - 04/04 T 289-, LH 1.2/FSH 2.2 - 10/02 LH 1.4 - 04/05 T 209 P 1.2 LH 1.7 FSH 2.7 - 10/03 192 F 65 1.2 3.1 2.0 - 01/03 Discussed laboratories Borderline low testosterone with impaired pituitary function When previously had normalization with external testosterone did not have resolution of severe depressive symptoms Erections do respond to higher dose tadalafil which he sources through [employer] for particular generic product Has post SSRI libido suppression Printed information regarding potential use of Tenex. Prescription provided Hypogonadism: Seen at [facility] for investigation 2019 Has depressed mood denies in hormone and low testosterone. This continues Does well with Cialis Have occurred with secondary hypogonadal hypogonadism. Presumed due to SSRI use. Treatment has previously been topical testosterone. Has been evaluated with Dr. Mooney and previously saw Dr Villalobos. Initial symptoms include erectile dysfunction Yes decreased libido Yes change in mood/depression Yes in muscle size/strength Yes increased fatigue/malaise Yes increased abdominal fat No tender breasts/gynecomastia No hair loss No osteopenia No The onset of symptoms has been gradual since 2009. Erectile status current ZHAO Score 1. Associate conditions include obstructive sleep apnea No CAD No obesity No stress - financial, family, employment No heavy alcohol or illicit drug use No prior ithium use, SSRI's He has been taking Prior therapy - injectable exogenous testosterone - SERM - positive response to clomiphene but not covered - trial of GnRH 12/27 with partial response - did have T recovery with combination of hCG and anastrazole. Laboratory results 10/2013 , testosterone 200, , FSH 1.9, , LH 1.9, prolactin 5.8 Other labs from [facility] - normal except low gonadotrophins, 10/2015 T 750 02/26 T 454, E 54 08/28 T 244, LH 1.6, E 19 03/31 T 490, Est 64 LH 8.8 07/29 T 385, Est 9, LH 9 09/28 T 195 LH 1.6 11/30 T 192, LH 1.6, FSH 2.1 09/30 T 192, LH 1.6, FSH 2.1 - 04/03 T 196, LH 1.4 Current therapy includes gonadotrophin - hCG - will add , aromatase inhibitor - anastrazole. Response to therapy has been improved, energy/wellbeing. Prior therapy includes - testosterone gels with minimal effect - SERM without effect - Brain dopaminergic stimulator without effect - GnRH low dose pulsed without effect - hCG and anstrazole with lower E but lower T as well 06/28. Diagnosis based on history and laboratory results Hypogonadotrophic Hypogonadism - imaging negative. Pituitary vs hypothalamic - other pituitary components normal. Therapuetic plan see in 6m LH low with low T. [facility] Medical History Anxiety Depression Erectile dysfunction Gait abnormality Hyperlipidemia Hypogonadism in male Hypopituitarism Knee pain Mild acid reflux OA (osteoarthritis) of knee Tendinitis of left rotator cuff Thrombosed external hemorrhoid Review of Systems Const Denies chills and Denies fever(s) Card Reports no additional complaints and Denies syncope Resp Denies cough GI Denies abdominal pain and Denies heartburn Reports as per HPI and Denies change in libido Neuro Denies syncope Psych Denies change in libido Endo Denies change in libido Physical Exam Const General: cooperative, healthy appearing, comfortable and no acute distress Orientation/consciousness: patient oriented x3 HEENT Face and sinus: Yes normal facial exam Mouth: moist mucous membranes Neck Neck: Yes normal visual inspection, Yes full ROM and Yes trachea midline Chest Chest palpation & inspection: normal inspection of the chest Resp Effort & Inspection: normal respiratory effort, able to speak in complete sentences and no respiratory distress GI Inspection: Yes normal to inspection Back/Spine/Pelvis Cervical Spine: normal cervical lordosis Thoracic/Lumbar Spine: thoracic and lumbar spine normal to inspection Skin General skin exam: no rashes or lesions noted Neuro General: patient oriented x3, gait normal, tone normal and moves all extremities Extrem General: Yes normal to inspection and Yes capillary refill normal Assessment & Plan Assessment & Plan (1) 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 No major barriers to patient understanding were identified. An opportunity to ask questions regarding the treatment plan was provided. All questions were answered. The patient expressed understanding and agreement with the above treatment plan. The patient is aware they should contact our office by phone for worsening of their current condition or the appearance of new urologic symptoms. Compliance is encouraged with any medications and followup testing that is ordered. It is a privilege to participate in the urologic care of your patient. If you have any questions or concerns regarding treatment for the above conditions, or other urologic issues, please do not hesitate to contact me. The office telephone contact is [phone]. This note is constructed using voice recognition software. While every effort has been made to ensure accuracy ict trainer errors may have been included. Yours sincerely, Dr Israel Almotne MD, [facility] - Urology Providers of Expert, Compassionate Care for the Genitourinary System Coding Level of Care Code Est Pt Level 4 (19085) Diagnoses Hypogonadotropic hypogonadism E23.0 Depression F32.9
== END 2023-01-06 12:50 | disposition home or self-care (01) ==
LOC: HO.HUSH 11:36
PROVIDERS: PCP Internal Medicine; Visit Provider Urology
DX: E23.0 Hypopituitarism (principal); F32.9 Major depressive disorder, single episode, unspecified
CPT/HCPCS: 99214

== ENCOUNTER → 2023-01-06 11:36 | Outpatient (BNVA) | payer MEDICARE, MEDICAID, SELFPAY | PROVIDERS: PCP Internal Medicine; Visit Provider Urology | DX: E23.0 Hypopituitarism (principal); F32.A Depression, unspecified | CPT/HCPCS: 99212 ==

== ENCOUNTER 2023-03-23 10:08 | Outpatient (REF) | payer MEDICARE, MEDICAID, SELFPAY ==
[2023-03-25 02:48] LABS: Follicle Stimulating Hormone 2.2 mIU/mL (1.4-12.8)
[2023-03-29 14:24] LABS: Testosterone, Free 44.5 pg/mL (35.0-155.0); Testosterone, Total 208 ng/dL (250-1100)
== END 2023-03-23 10:09 | disposition home or self-care (01) ==
LOC: HO.HMGCLDS 10:08
PROVIDERS: PCP Internal Medicine; Visit Provider Urology
DX: Z12.5 Encounter for screening for malignant neoplasm of prostate (principal); E29.1 Testicular hypofunction
CPT/HCPCS: 36415; 83001; 83002; 84153; 84402; 84403

== ENCOUNTER 2023-04-07 14:20 | Outpatient (AMB) | payer MEDICARE, MEDICAID, SELFPAY ==
--- NOTE | 2023-04-07 14:33 | A.OFFVIS_ITS ---
Intake Intake Visit Reasons: 6M PSA/TESTO(set) Intake Note: Patient is Present for Follow Up labs Urology Medication: Tadalafil Antibiotic Allergies: none Blood Thinners: none Allergies aspirin [ASPIRIN] Allergy (Intermediate, Verified 10/07/22 11:57) STOMACH UPSET Medication List - Last Reconciled 04/07/23 by Israel Almonte MD albuterol sulfate 90 mcg/actuation inhalation alclometasone 0.05% appl topical DAILY PRN gabapentin 100 mg PO TID guanfacine 2 mg PO BEDTIME 30 days ketamine 20 mg (0.2 mL) intranasal .2x a week 30 days lithium carbonate ER 300 mg PO BID lorazepam 0 mg PO omeprazole 20 mg PO DAILY pramipexole 1.5 mg PO BEDTIME 30 days propranolol 10 mg PO Q6H tadalafil 20 mg PO DAILY tadalafil 20 mg PO DAILY 0 days HPI HPI Comments History of Present Illness Details Mr Huerta is a very pleasant male. They are a patient of Dr Kelly and Dr Mooney. They are seen in the office today for the following urologic conditions. - hypogonadism Information regarding trial of pramipexole - in setting of post SSRI hypogonadism Labs - 04/04 T 289-, LH 1.2/FSH 2.2 - 10/02 LH 1.4 - 04/05 T 209 P 1.2 LH 1.7 FSH 2.7 - 10/03 192 F 65 1.2 3.1 2.0 Discussed laboratories - borderline low testosterone with low LH. Consistent with hypogonadism hypogonadism Refill provided for daily tadalafil Failed trial of Tenex - changed mood. Borderline low testosterone with impaired pituitary function When previously had normalization with external testosterone did not have resolution of severe depressive symptoms Erections do respond to higher dose tadalafil which he sources through [employer] for particular generic product Has post SSRI libido suppression Hypogonadism: Seen at [facility] for investigation 2019 Has depressed mood denies in hormone and low testosterone. This continues Does well with Cialis Have occurred with secondary hypogonadal hypogonadism. Presumed due to SSRI use. Treatment has previously been topical testosterone. Has been evaluated with Dr. Mooney and previously saw Dr Villalobos. Initial symptoms include erectile dysfunction Yes decreased libido Yes change in mood/depression Yes in muscle size/strength Yes increased fatigue/malaise Yes increased abdominal fat No tender breasts/gynecomastia No hair loss No osteopenia No The onset of symptoms has been gradual since 2009. Erectile status current ZHAO Score 1. Associate conditions include obstructive sleep apnea No CAD No obesity No stress - financial, family, employment No heavy alcohol or illicit drug use No prior ithium use, SSRI's He has been taking Prior therapy - injectable exogenous testosterone - SERM - positive response to clomiphene but not covered - trial of GnRH 12/27 with partial response - did have T recovery with combination of hCG and anastrazole. Laboratory results 10/2013 , testosterone 200, , FSH 1.9, , LH 1.9, prolactin 5.8 Other labs from [facility] - normal except low gonadotrophins, 10/2015 T 750 02/26 T 454, E 54 08/28 T 244, LH 1.6, E 19 03/31 T 490, Est 64 LH 8.8 07/29 T 385, Est 9, LH 9 09/28 T 195 LH 1.6 11/30 T 192, LH 1.6, FSH 2.1 09/30 T 192, LH 1.6, FSH 2.1 - 04/03 T 196, LH 1.4 Current therapy includes gonadotrophin - hCG - will add , aromatase inhibitor - anastrazole. Response to therapy has been improved, energy/wellbeing. Prior therapy includes - testosterone gels with minimal effect - SERM without effect - Brain dopaminergic stimulator without effect - GnRH low dose pulsed without effect - hCG and anstrazole with lower E but lower T as well 06/28. Diagnosis based on history and laboratory results Hypogonadotrophic Hypogonadism - imaging negative. Pituitary vs hypothalamic - other pituitary components normal. Therapuetic plan see in 6m LH low with low T. [facility] Medical History Anxiety Depression Erectile dysfunction Gait abnormality Hyperlipidemia Hypogonadism in male Hypopituitarism Knee pain Mild acid reflux OA (osteoarthritis) of knee Tendinitis of left rotator cuff Thrombosed external hemorrhoid Review of Systems Const Denies chills and Denies fever(s) Card Reports no additional complaints and Denies syncope Resp Denies cough GI Denies abdominal pain and Denies heartburn Reports as per HPI and Denies change in libido Neuro Denies syncope Psych Denies change in libido Endo Denies change in libido Physical Exam Const General: cooperative, healthy appearing, comfortable and no acute distress Orientation/consciousness: patient oriented x3 HEENT Face and sinus: Yes normal facial exam Mouth: moist mucous membranes Neck Neck: Yes normal visual inspection, Yes full ROM and Yes trachea midline Chest Chest palpation & inspection: normal inspection of the chest Resp Effort & Inspection: normal respiratory effort, able to speak in complete sentences and no respiratory distress GI Inspection: Yes normal to inspection Back/Spine/Pelvis Cervical Spine: normal cervical lordosis Thoracic/Lumbar Spine: thoracic and lumbar spine normal to inspection Skin General skin exam: no rashes or lesions noted Neuro General: patient oriented x3, gait normal, tone normal and moves all extremities Extrem General: Yes normal to inspection and Yes capillary refill normal Assessment & Plan Assessment & Plan (1) 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 - Hypopituitarism (2) Erectile dysfunction due to arterial insufficiency: Code(s): N52.01 - Erectile dysfunction due to arterial insufficiency Plan Six-month follow-up Orders: Orders Testosterone, Free/Total 6 Months E23.0 - Hypopituitarism, R68.82 - Decreased libido Lutenizing Hormone 6 Months E11.69 - Type 2 diabetes mellitus with other specified complication, E23.0 - Hypopituitarism, N52.1 - Erectile dysfunction due to diseases classified elsewhere Medications: Refilled tadalafil 20 mg PO DAILY 180 tabs 0RF sexual activity 0 days N52.01 - Erectile dysfunction due to arterial insufficiency Patient Instructions: Imaging studies, laboratory and physical exam results were discussed and reviewed in detail. No major barriers to patient understanding were identified. An opportunity to ask questions regarding the treatment plan was provided. All questions were answered. The patient expressed understanding and agreement with the above treatment plan. The patient is aware they should contact our office by phone for worsening of their current condition or the appearance of new urologic symptoms. Compliance is encouraged with any medications and followup testing that is ordered. It is a privilege to participate in the urologic care of your patient. If you have any questions or concerns regarding treatment for the above conditions, or other urologic issues, please do not hesitate to contact me. The office telephone contact is [phone]. This note is constructed using voice recognition software. While every effort has been made to ensure accuracy backend python developer errors may have been included. Yours sincerely, Dr Israel Almonte MD, [facility] - Urology Providers of Expert, Compassionate Care for the Genitourinary System Coding Level of Care Code Est Pt Level 4 (56565) Diagnoses Hypogonadotropic hypogonadism E23.0 Erectile dysfunction due to arterial insufficiency N52.01
== END 2023-04-07 15:29 | disposition home or self-care (01) ==
PROVIDERS: PCP Internal Medicine; Visit Provider Urology
DX: E23.0 Hypopituitarism (principal); N52.01 Erectile dysfunction due to arterial insufficiency
CPT/HCPCS: 99214

== ENCOUNTER → 2023-04-07 14:20 | Outpatient (BNVA) | payer MEDICARE, MEDICAID, SELFPAY | PROVIDERS: PCP Internal Medicine; Visit Provider Urology | DX: E23.0 Hypopituitarism (principal); N52.01 Erectile dysfunction due to arterial insufficiency | CPT/HCPCS: 99212 ==

== ENCOUNTER 2023-07-14 14:24 | Outpatient (AMB) | payer MEDICARE, MEDICAID, SELFPAY ==
--- NOTE | 2023-07-14 14:30 | MHC.OFFVIS ---
Intake Visit Reasons: discuss T and treatment plan- call [phone] Intake Note: Patient is present for telephone follow up Allergies aspirin [ASPIRIN] Allergy (Intermediate, Verified 10/07/22 11:57) STOMACH UPSET Medication List - Last Reconciled 07/14/23 by Israel Almonte MD albuterol sulfate 90 mcg/actuation inhalation alclometasone 0.05% appl topical DAILY PRN gabapentin 100 mg PO TID guanfacine 2 mg PO BEDTIME 30 days ketamine 20 mg (0.2 mL) intranasal .2x a week 30 days lithium carbonate ER 300 mg PO BID lorazepam 0 mg PO needle (disp) 18 G (BD Regular Bevel [place]) As directed - draw up testosterone omeprazole 20 mg PO DAILY pramipexole 1.5 mg PO BEDTIME 30 days propranolol 10 mg PO Q6H safety needles (Easy Touch FlipLock Needle) For injection syringe (disposable) (BD Bulk Syringe Slip Tip) As directed tadalafil 20 mg PO DAILY tadalafil 20 mg PO DAILY 0 days testosterone cypionate (Depo-Testosterone) 100 mg (0.5 mL) subcut QWEEK 4 weeks HPI Comments Details: Mr Huerta is a very pleasant male. They are a patient of Dr Kelly and Dr Mooney. They are seen in the office today for the following urologic conditions. - hypogonadism Information regarding trial of pramipexole - in setting of post SSRI hypogonadism Labs - 04/04 T 289-, LH 1.2/FSH 2.2, 10/02 LH 1.4, 04/05 T 209 P 1.2 LH 1.7 FSH 2.7, 10/03 192 F 65 1.2 3.1 2.0 Discussed laboratories - borderline low testosterone with low LH. Consistent with hypogonadism hypogonadism Refill provided for daily tadalafil Failed trial of Tenex - changed mood. Borderline low testosterone with impaired pituitary function When previously had normalization with external testosterone did not have resolution of severe depressive symptoms Erections do respond to higher dose tadalafil which he sources through [employer] for particular generic product Has post SSRI libido suppression Hypogonadism: Seen at [facility] for investigation 2019 Has depressed mood denies in hormone and low testosterone. This continues Does well with Cialis Have occurred with secondary hypogonadal hypogonadism. Presumed due to SSRI use. Treatment has previously been topical testosterone. Has been evaluated with Dr. Mooney and previously saw Dr Villalobos. Initial symptoms include erectile dysfunction Yes decreased libido Yes change in mood/depression Yes in muscle size/strength Yes increased fatigue/malaise Yes The onset of symptoms has been gradual since 2009. Erectile status current ZHAO Score 1. Associate conditions include obstructive sleep apnea No CAD No obesity No stress - financial, family, employment No heavy alcohol or illicit drug use No prior ithium use, SSRI's He has been taking Prior therapy - injectable exogenous testosterone - SERM - positive response to clomiphene but not covered - trial of GnRH 12/27 with partial response - did have T recovery with combination of hCG and anastrazole. Laboratory results 10/2013 , testosterone 200, , FSH 1.9, , LH 1.9, prolactin 5.8 Other labs from [facility] - normal except low gonadotrophins, 10/2015 T 750, 02/26 T 454, E 54, 08/28 T 244, LH 1.6, E 19, 03/31 T 490, Est 64 LH 8.8, 07/29 T 385, Est 9, LH 9, 09/28 T 195 LH 1.6, 11/30 T 192, LH 1.6, FSH 2.1, 09/30 T 192, LH 1.6, FSH 2.1 - 04/03 T 196, LH 1.4 Current therapy includes gonadotrophin - hCG - will add , aromatase inhibitor - anastrazole. Response to therapy has been improved, energy/wellbeing. Prior therapy includes - testosterone gels with minimal effect - SERM without effect - Brain dopaminergic stimulator without effect - GnRH low dose pulsed without effect - hCG and anstrazole with lower E but lower T as well 06/28. Diagnosis based on history and laboratory results Hypogonadotrophic Hypogonadism - imaging negative. Pituitary vs hypothalamic - other pituitary components normal. Therapuetic plan see in 6m LH low with low T. [facility] Medical History Anxiety Depression Erectile dysfunction Gait abnormality Hyperlipidemia Hypogonadism in male Hypopituitarism Knee pain Mild acid reflux OA (osteoarthritis) of knee Tendinitis of left rotator cuff Thrombosed external hemorrhoid Telehealth Telehealth Location of provider rendering services: practice address Location of patient: address on file Patient Identification confirmed using: Name, : Yes Telehealth method: voice only Patient verbally consented to treatment: Yes Patient verbally consented to billing insurance company: Yes Patient informed of any privacy concerns related to visit: Yes Assessment & Plan Assessment & Plan (1) 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 - Hypopituitarism Category: Medical (2) Erectile dysfunction due to arterial insufficiency: Code(s): N52.01 - Erectile dysfunction due to arterial insufficiency Category: Medical Plan T use Teaching Orders: Orders Testosterone, Free/Total 6 Weeks E23.0 - Hypopituitarism, R68.82 - Decreased libido Estradiol Ultra Sensitive 6 Weeks E23.0 - Hypopituitarism, E29.1 - Testicular hypofunction Medications: New safety needles (Easy Touch FlipLock Needle) For injection 50 ea 0RF E23.0 - Hypopituitarism, E29.1 - Testicular hypofunction syringe (disposable) (BD Bulk Syringe Slip Tip) As directed 30 ea 0RF E23.0 - Hypopituitarism testosterone cypionate (Depo-Testosterone) 100 mg (0.5 mL) subcut QWEEK 4 weeks 2 mL 5RF E23.0 - Hypopituitarism needle (disp) 18 G (BD Regular [employer] [place]) As directed - draw up testosterone 30 ea 0RF E23.0 - Hypopituitarism, E29.1 - Testicular hypofunction Patient Instructions: Imaging studies, laboratory and physical exam results were discussed and reviewed in detail. No major barriers to patient understanding were identified. An opportunity to ask questions regarding the treatment plan was provided. All questions were answered. The patient expressed understanding and agreement with the above treatment plan. The patient is aware they should contact our office by phone for worsening of their current condition or the appearance of new urologic symptoms. Compliance is encouraged with any medications and followup testing that is ordered. It is a privilege to participate in the urologic care of your patient. If you have any questions or concerns regarding treatment for the above conditions, or other urologic issues, please do not hesitate to contact me. The office telephone contact is [phone]. This note is constructed using voice recognition software. While every effort has been made to ensure accuracy public relations counselor errors may have been included. Yours sincerely, Dr Israel Almonte MD, [facility] - Urology Providers of Expert, Compassionate Care for the Genitourinary System Coding Level of Care Code Tele Est Pt Level 3 (73172) Complex EM visit Add On G2211 Diagnoses Hypogonadotropic hypogonadism E23.0 Erectile dysfunction due to arterial insufficiency N52.01
== END 2023-07-14 14:59 | disposition home or self-care (01) ==
LOC: HO.HUSH 14:24
PROVIDERS: PCP Internal Medicine; Visit Provider Urology
DX: E23.0 Hypopituitarism (principal); N52.01 Erectile dysfunction due to arterial insufficiency
CPT/HCPCS: 99442

== ENCOUNTER → 2023-07-14 14:24 | Outpatient (BNVA) | payer MEDICARE, MEDICAID, SELFPAY | PROVIDERS: PCP Internal Medicine; Visit Provider Urology ==

== ENCOUNTER → 2023-07-20 11:32 | Outpatient (BNVA) | payer MEDICARE, MEDICAID, SELFPAY | PROVIDERS: PCP Internal Medicine; Visit Provider Urology ==

== ENCOUNTER 2023-09-06 08:59 | Outpatient (REF) | payer MEDICARE, MEDICAID, SELFPAY ==
[2023-09-06 11:26] LABS: MANUAL DIFF FLAG NO
[2023-09-06 11:49] LABS: Basophils Percent Auto 0.8 % (0-2); Eosinophils Absolute Auto 0.2 X10*3/uL (0.0-0.4); Eosinophils Percent Auto 3.2 % (0-4); Hematocrit 42.5 % (42.0-52.0); Imm Gran Abs Auto 0.01 X10*3/uL (0.00-0.03); Imm Gran Pct Auto 0.2 % (0.0-0.4); Mean Corpuscular HGB Conc 32.9 g/dl (31.0-36.0); Mean Corpuscular Hemoglobin 30.2 pg (27.0-33.0); Mean Corpuscular Volume 91.8 fL (80.0-98.0); Monocytes Absolute Auto 0.4 X10*3/uL (0.1-1.2); Monocytes Percent Auto 7.9 % (2-11); Neutrophils Absolute Auto 3.7 x10*3/uL (2.0-8.3); Neutrophils Percent Auto 68.9 % (45-73); Platelet Count 200 X10*3/uL (160-400); Red Blood Count 4.63 X10*6/uL (4.60-5.80); Red Cell Distribution Width 12.3 % (11.0-16.0); White Blood Count 5.3 X10*3/uL (4.8-10.8)
[2023-09-06 12:19] LABS: Alanine Aminotransferase 9 U/L (0-40); Albumin Level 4.3 g/dL (3.5-5.0); Alkaline Phosphatase 47 U/L (39-117); Anion Gap 15 (12-20); Aspartate Amino Transferase 16 U/L (5-37); Bilirubin Total 0.4 mg/dL (0.0-1.0); Blood Urea Nitrogen 15 mg/dL (9-16); Calcium 9.5 mg/dL (8.4-10.2); Carbon Dioxide 22 mmol/L (22-29); Chloride 106 mmol/L (96-108); Estimated Glomerular Filt Rate > 60; Glucose Random 106 mg/dL (60-115); Iron 63 mcg/dL (45-160); Percent Iron Saturation 19 % (15-50); Potassium 4.3 mmol/L (3.3-5.1); Sodium 139 mmol/L (135-145); Total Iron Binding Capacity 328 mcg/dL (228-428); Total Protein 7.2 g/dL (6.5-8.0); Unsaturated Iron Binding 265 ug/dL
[2023-09-08 08:56] LABS: Lutenizing Hormone 0.2 mIU/mL (1.5-9.3)
[2023-09-11 15:28] LABS: Testosterone, Free 61.1 pg/mL (35.0-155.0); Testosterone, Total 287 ng/dL (250-1100)
[2023-09-13 02:22] LABS: Estradiol Ultra Sensitive 18 pg/mL (< OR = 29)
== END 2023-09-06 09:00 | disposition home or self-care (01) ==
LOC: HO.HMGCLDS 08:59
PROVIDERS: PCP Internal Medicine; Referring Provider Urology; Visit Provider Internal Medicine
DX: D64.9 Anemia, unspecified (principal); K21.9 Gastro-esophageal reflux disease without esophagitis; C80.1 Malignant (primary) neoplasm, unspecified; R68.82 Decreased libido; E23.0 Hypopituitarism; E11.69 Type 2 diabetes mellitus with other specified complication; N52.1 Erectile dysfunction due to diseases classified elsewhere
CPT/HCPCS: 36415; 80053; 82670; 83002; 83540; 84402; 84403; 85025

== ENCOUNTER 2023-09-20 13:59 | Outpatient (AMB) | payer MEDICARE, MEDICAID, SELFPAY ==
--- NOTE | 2023-09-20 14:24 | MHC.OFFVIS ---
Intake Visit Reasons: Follow up/Labs Intake Note: Patient is Present for Follow Up Urology Medication: Tadalafil, Testosterone Antibiotic Allergies: none Blood Thinners: none Allergies aspirin [ASPIRIN] Allergy (Intermediate, Verified 10/07/22 11:57) STOMACH UPSET HPI Comments Details: Mr Huerta is a very pleasant male. They are a patient of Dr Kelly and Dr Mooney. They are seen in the office today for the following urologic conditions. - hypogonadism Increase testosterone dose to 0.75 cc weekly Refill tadalafil Information regarding trial of pramipexole - in setting of post SSRI hypogonadism Labs - 04/04 T 289-, LH 1.2/FSH 2.2, 10/02 LH 1.4, 04/05 T 209 P 1.2 LH 1.7 FSH 2.7, 10/03 192 F 65 1.2 3.1 2.0. 09/04 T 290, Free 61.1 LH 0.2 E 18 Discussed laboratories - borderline low testosterone with low LH. Consistent with hypogonadism hypogonadism Refill provided for daily tadalafil Failed trial of Tenex - changed mood. Borderline low testosterone with impaired pituitary function When previously had normalization with external testosterone did not have resolution of severe depressive symptoms Erections do respond to higher dose tadalafil which he sources through [employer] for particular generic product Has post SSRI libido suppression Hypogonadism: Seen at [facility] for investigation 2019 Has depressed mood denies in hormone and low testosterone. This continues Does well with Cialis Have occurred with secondary hypogonadal hypogonadism. Presumed due to SSRI use. Treatment has previously been topical testosterone. Has been evaluated with Dr. Mooney and previously saw Dr Villalobos. Initial symptoms include erectile dysfunction Yes decreased libido Yes change in mood/depression Yes in muscle size/strength Yes increased fatigue/malaise Yes The onset of symptoms has been gradual since 2009. Erectile status current ZHAO Score 1. Associate conditions include obstructive sleep apnea No CAD No obesity No stress - financial, family, employment No heavy alcohol or illicit drug use No prior ithium use, SSRI's He has been taking Prior therapy - injectable exogenous testosterone - SERM - positive response to clomiphene but not covered - trial of GnRH 12/27 with partial response - did have T recovery with combination of hCG and anastrazole. Laboratory results 10/2013 , testosterone 200, , FSH 1.9, , LH 1.9, prolactin 5.8 Other labs from [facility] - normal except low gonadotrophins, 10/2015 T 750, 02/26 T 454, E 54, 08/28 T 244, LH 1.6, E 19, 03/31 T 490, Est 64 LH 8.8, 07/29 T 385, Est 9, LH 9, 09/28 T 195 LH 1.6, 11/30 T 192, LH 1.6, FSH 2.1, 09/30 T 192, LH 1.6, FSH 2.1 - 04/03 T 196, LH 1.4 Current therapy includes gonadotrophin - hCG - will add , aromatase inhibitor - anastrazole. Response to therapy has been improved, energy/wellbeing. Prior therapy includes - testosterone gels with minimal effect - SERM without effect - Brain dopaminergic stimulator without effect - GnRH low dose pulsed without effect - hCG and anstrazole with lower E but lower T as well 06/28. Diagnosis based on history and laboratory results Hypogonadotrophic Hypogonadism - imaging negative. Pituitary vs hypothalamic - other pituitary components normal. Therapuetic plan see in 6m LH low with low T. [facility] Medical History Anxiety Depression Erectile dysfunction Gait abnormality Hyperlipidemia Hypogonadism in male Hypopituitarism Knee pain Mild acid reflux OA (osteoarthritis) of knee Tendinitis of left rotator cuff Thrombosed external hemorrhoid Review of Systems Const Denies chills and Denies fever(s) Card Reports no additional complaints and Denies syncope Resp Denies cough GI Denies abdominal pain and Denies heartburn Reports as per HPI and Denies change in libido Neuro Denies syncope Psych Denies change in libido Endo Denies change in libido Physical Exam Const General: cooperative, healthy appearing, comfortable and no acute distress Orientation/consciousness: patient oriented x3 HEENT Face and sinus: Yes normal facial exam Mouth: moist mucous membranes Neck Neck: Yes normal visual inspection, Yes full ROM and Yes trachea midline Chest Chest palpation & inspection: normal inspection of the chest Resp Effort & Inspection: normal respiratory effort, able to speak in complete sentences and no respiratory distress GI Inspection: Yes normal to inspection Back/Spine/Pelvis Cervical Spine: normal cervical lordosis Thoracic/Lumbar Spine: thoracic and lumbar spine normal to inspection Skin General skin exam: no rashes or lesions noted Neuro General: patient oriented x3, gait normal, tone normal and moves all extremities Extrem General: Yes normal to inspection and Yes capillary refill normal Assessment & Plan Assessment & Plan (1) 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 - Hypopituitarism Category: Medical (2) Erectile dysfunction due to arterial insufficiency: Code(s): N52.01 - Erectile dysfunction due to arterial insufficiency Category: Medical Plan repeat labs in 2 months Orders: Orders Testosterone, Free/Total 2 Months E23.0 - Hypopituitarism Patient Instructions: Imaging studies, laboratory and physical exam results were discussed and reviewed in detail. No major barriers to patient understanding were identified. An opportunity to ask questions regarding the treatment plan was provided. All questions were answered. The patient expressed understanding and agreement with the above treatment plan. The patient is aware they should contact our office by phone for worsening of their current condition or the appearance of new urologic symptoms. Compliance is encouraged with any medications and followup testing that is ordered. It is a privilege to participate in the urologic care of your patient. If you have any questions or concerns regarding treatment for the above conditions, or other urologic issues, please do not hesitate to contact me. The office telephone contact is [phone]. This note is constructed using voice recognition software. While every effort has been made to ensure accuracy kitchen worker errors may have been included. Yours sincerely, Dr Israel Almonte MD, [facility] - Urology Providers of Expert, Compassionate Care for the Genitourinary System Coding Level of Care Code Est Pt Level 3 (26680) Diagnoses Hypogonadotropic hypogonadism E23.0 Erectile dysfunction due to arterial insufficiency N52.01
== END 2023-09-20 15:09 | disposition home or self-care (01) ==
PROVIDERS: PCP Internal Medicine; Visit Provider Urology
DX: E23.0 Hypopituitarism (principal); N52.01 Erectile dysfunction due to arterial insufficiency
CPT/HCPCS: 99213

== ENCOUNTER → 2023-09-20 13:59 | Outpatient (BNVA) | payer MEDICARE, MEDICAID, SELFPAY | PROVIDERS: PCP Internal Medicine; Visit Provider Urology | DX: N52.01 Erectile dysfunction due to arterial insufficiency (principal); E23.0 Hypopituitarism | CPT/HCPCS: 99212 ==

== ENCOUNTER 2023-11-08 09:53 | Outpatient (REF) | payer MEDICARE, MEDICAID, SELFPAY ==
[2023-11-12 22:34] LABS: Testosterone, Free 128.3 pg/mL (35.0-155.0); Testosterone, Total 608 ng/dL (250-1100)
== END 2023-11-08 09:54 | disposition home or self-care (01) ==
LOC: HO.HMGCLDS 09:53
PROVIDERS: PCP Internal Medicine; Visit Provider Urology
DX: E23.0 Hypopituitarism (principal)
CPT/HCPCS: 36415; 84402; 84403

== ENCOUNTER 2023-11-23 11:16 | Outpatient (AMB) | payer MEDICARE, MEDICAID, SELFPAY ==
--- NOTE | 2023-11-23 11:33 | MHC.OFFVIS ---
Intake Visit Reasons: 2m/Testosterone(set) Intake Note: Patient is Present for Follow Up Testosterone Urology Medication: Tadalafil, Testosterone Antibiotic Allergies: None Blood Thinners: None Testosterone- 11/08/23- 608 Last PSA- 1.40 Soda Tester Required: No Accompanied by: Self / Same As Patient Allergies aspirin [ASPIRIN] Allergy (Intermediate, Verified 11/23/23 11:37) STOMACH UPSET HPI Comments Details: Mr Huerta is a very pleasant male. They are a patient of Dr Kelly and Dr Mooney. They are seen in the office today for the following urologic conditions. - hypogonadism Testosterone dose to 0.75 cc weekly Refill tadalafil Lab work is in normal range Discussion regarding his anxiety and OCD Information regarding trial of pramipexole - in setting of post SSRI hypogonadism Labs - 04/04 T 289-, LH 1.2/FSH 2.2, 10/02 LH 1.4, 04/05 T 209 P 1.2 LH 1.7 FSH 2.7, 10/03 192 F 65 1.2 3.1 2.0. 09/04 T 290, Free 61.1 LH 0.2 E 18, 11/04 T 600 42 1.4 Discussed laboratories - borderline low testosterone with low LH. Consistent with hypogonadism hypogonadism Refill provided for daily tadalafil Failed trial of Tenex - changed mood. Borderline low testosterone with impaired pituitary function When previously had normalization with external testosterone did not have resolution of severe depressive symptoms Erections do respond to higher dose tadalafil which he sources through [employer] for particular generic product Has post SSRI libido suppression Hypogonadism: Seen at [facility] for investigation 2019 Has depressed mood denies in hormone and low testosterone. This continues Does well with Cialis Have occurred with secondary hypogonadal hypogonadism. Presumed due to SSRI use. Treatment has previously been topical testosterone. Has been evaluated with Dr. Mooney and previously saw Dr Villalobos. Initial symptoms include erectile dysfunction Yes decreased libido Yes change in mood/depression Yes in muscle size/strength Yes increased fatigue/malaise Yes The onset of symptoms has been gradual since 2009. Erectile status current ZHAO Score 1. Associate conditions include obstructive sleep apnea No CAD No obesity No stress - financial, family, employment No heavy alcohol or illicit drug use No prior ithium use, SSRI's He has been taking Prior therapy - injectable exogenous testosterone - SERM - positive response to clomiphene but not covered - trial of GnRH 12/27 with partial response - did have T recovery with combination of hCG and anastrazole. Laboratory results 10/2013 , testosterone 200, , FSH 1.9, , LH 1.9, prolactin 5.8 Other labs from [facility] - normal except low gonadotrophins, 10/2015 T 750, 02/26 T 454, E 54, 08/28 T 244, LH 1.6, E 19, 03/31 T 490, Est 64 LH 8.8, 07/29 T 385, Est 9, LH 9, 09/28 T 195 LH 1.6, 11/30 T 192, LH 1.6, FSH 2.1, 09/30 T 192, LH 1.6, FSH 2.1 - 04/03 T 196, LH 1.4 Current therapy includes gonadotrophin - hCG - will add , aromatase inhibitor - anastrazole. Response to therapy has been improved, energy/wellbeing. Prior therapy includes - testosterone gels with minimal effect - SERM without effect - Brain dopaminergic stimulator without effect - GnRH low dose pulsed without effect - hCG and anstrazole with lower E but lower T as well 06/28. Diagnosis based on history and laboratory results Hypogonadotrophic Hypogonadism - imaging negative. Pituitary vs hypothalamic - other pituitary components normal. Therapuetic plan see in 6m LH low with low T. [facility] Medical History Mild acid reflux Erectile dysfunction Depression Anxiety Hyperlipidemia Hypopituitarism Hypogonadism in male Tendinitis of left rotator cuff Gait abnormality Knee pain OA (osteoarthritis) of knee Thrombosed external hemorrhoid Review of Systems Const Denies chills and Denies fever(s) Card Reports no additional complaints and Denies syncope Resp Denies cough GI Denies abdominal pain and Denies heartburn Reports as per HPI and Denies change in libido Neuro Denies syncope Psych Denies change in libido Endo Denies change in libido Physical Exam Const General: cooperative, healthy appearing, comfortable and no acute distress Orientation/consciousness: patient oriented x3 HEENT Face and sinus: Yes normal facial exam Mouth: moist mucous membranes Neck Neck: Yes normal visual inspection, Yes full ROM and Yes trachea midline Chest Chest palpation & inspection: normal inspection of the chest Resp Effort & Inspection: normal respiratory effort, able to speak in complete sentences and no respiratory distress GI Inspection: Yes normal to inspection Back/Spine/Pelvis Cervical Spine: normal cervical lordosis Thoracic/Lumbar Spine: thoracic and lumbar spine normal to inspection Skin General skin exam: no rashes or lesions noted Neuro General: patient oriented x3, gait normal, tone normal and moves all extremities Extrem General: Yes normal to inspection and Yes capillary refill normal Assessment & Plan Assessment & Plan (1) 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 - Hypopituitarism Category: Medical (2) Erectile dysfunction due to arterial insufficiency: Code(s): N52.01 - Erectile dysfunction due to arterial insufficiency Category: Medical Plan 4 month follow-up labs Orders: Orders Prostate Specific Antigen 4 Months E23.0 - Hypopituitarism Testosterone, Total 4 Months E23.0 - Hypopituitarism Medications: Refilled testosterone cypionate (Depo-Testosterone) Dispose of vial after each use 150 mg (0.75 mL) subcut QWEEK 4 mL 5RF 4 weeks E23.0 - Hypopituitarism Patient Instructions: Imaging studies, laboratory and physical exam results were discussed and reviewed in detail. No major barriers to patient understanding were identified. An opportunity to ask questions regarding the treatment plan was provided. All questions were answered. The patient expressed understanding and agreement with the above treatment plan. The patient is aware they should contact our office by phone for worsening of their current condition or the appearance of new urologic symptoms. Compliance is encouraged with any medications and followup testing that is ordered. It is a privilege to participate in the urologic care of your patient. If you have any questions or concerns regarding treatment for the above conditions, or other urologic issues, please do not hesitate to contact me. The office telephone contact is [phone]. This note is constructed using voice recognition software. While every effort has been made to ensure accuracy lead caster helper errors may have been included. Yours sincerely, Dr Israel Almonte MD, [facility] - Urology Providers of Expert, Compassionate Care for the Genitourinary System Coding Level of Care Code Est Pt Level 4 (83857) Diagnoses Hypogonadotropic hypogonadism E23.0 Erectile dysfunction due to arterial insufficiency N52.01
== END 2023-11-23 12:09 | disposition home or self-care (01) ==
PROVIDERS: PCP Internal Medicine; Visit Provider Urology
DX: E23.0 Hypopituitarism (principal); N52.01 Erectile dysfunction due to arterial insufficiency
CPT/HCPCS: 99214

== ENCOUNTER → 2023-11-23 11:16 | Outpatient (BNVA) | payer MEDICARE, MEDICAID, SELFPAY | PROVIDERS: PCP Internal Medicine; Visit Provider Urology | DX: E23.0 Hypopituitarism (principal); N52.01 Erectile dysfunction due to arterial insufficiency | CPT/HCPCS: 99212 ==

== ENCOUNTER 2024-03-13 09:52 | Outpatient (REF) | payer MEDICARE, MEDICAID, SELFPAY ==
[2024-03-13 10:13] LABS: MANUAL DIFF FLAG NO
[2024-03-13 10:59] LABS: Basophils Percent Auto 0.8 % (0-2); Eosinophils Absolute Auto 0.1 X10*3/uL (0.0-0.4); Eosinophils Percent Auto 2.4 % (0-4); Hematocrit 42.8 % (42.0-52.0); Hemoglobin 14.2 g/dl (14.0-18.0); Imm Gran Abs Auto 0.02 X10*3/uL (0.00-0.03); Imm Gran Pct Auto 0.4 % (0.0-0.4); Lymphocytes Absolute Auto 0.9 X10*3/uL (1.2-4.9); Lymphocytes Percent Auto 18.1 % (20-40); Mean Corpuscular HGB Conc 33.2 g/dl (31.0-36.0); Mean Corpuscular Hemoglobin 27.6 pg (27.0-33.0); Mean Corpuscular Volume 83.3 fL (80.0-98.0); Mean Platelet Volume 10.7 fL (9.4-12.4); Monocytes Absolute Auto 0.4 X10*3/uL (0.1-1.2); Monocytes Percent Auto 8.4 % (2-11); Neutrophils Absolute Auto 3.4 x10*3/uL (2.0-8.3); Neutrophils Percent Auto 69.9 % (45-73); Platelet Count 212 X10*3/uL (160-400); Red Blood Count 5.14 X10*6/uL (4.60-5.80); Red Cell Distribution Width 14.5 % (11.0-16.0); White Blood Count 4.9 X10*3/uL (4.8-10.8)
[2024-03-13 11:51] LABS: Alanine Aminotransferase 14 U/L (0-40); Albumin Level 4.4 g/dL (3.5-5.0); Alkaline Phosphatase 42 U/L (39-117); Anion Gap 10 (12-20); Aspartate Amino Transferase 25 U/L (5-37); Bilirubin Total 0.7 mg/dL (0.0-1.0); Blood Urea Nitrogen 14 mg/dL (9-16); Calcium 9.2 mg/dL (8.4-10.2); Carbon Dioxide 25 mmol/L (22-29); Chloride 107 mmol/L (96-108); Cholesterol 165 mg/dL (<200); Estimated Glomerular Filt Rate > 60; Glucose Fasting 95 mg/dL (60-99); HDL Cholesterol 30 mg/dL (>40); LDL Cholesterol Calculated 106 mg/dL (<100); Potassium 4.2 mmol/L (3.3-5.1); Sodium 138 mmol/L (135-145); Total Protein 7.3 g/dL (6.5-8.0); Triglycerides 148 mg/dL (<150)
[2024-03-13 11:57] LABS: Prostate Specific Antigen 1.45 ng/mL (<0.05-4.0)
[2024-03-18 15:03] LABS: Testosterone, Free 225.8 pg/mL (35.0-155.0); Testosterone, Total 821 ng/dL (250-1100)
== END 2024-03-13 09:53 | disposition home or self-care (01) ==
LOC: HO.LAB 09:52
PROVIDERS: PCP Internal Medicine; Referring Provider Internal Medicine; Visit Provider Urology
DX: E23.0 Hypopituitarism (principal); R68.82 Decreased libido; Z12.5 Encounter for screening for malignant neoplasm of prostate; E78.5 Hyperlipidemia, unspecified; K21.9 Gastro-esophageal reflux disease without esophagitis; D64.9 Anemia, unspecified
CPT/HCPCS: 36415; 80053; 80061; 84153; 84402; 84403; 85025

== ENCOUNTER 2024-03-27 11:41 | Outpatient (AMB) | payer MEDICARE, MEDICAID, SELFPAY ==
--- NOTE | 2024-03-27 11:44 | A.OFFVIS_ITS ---
Intake Visit Reasons: 4M Labs(set) Intake Note: Patient is present for 4M/LABS Urology Medication:TADALAFIL,TESTOSTERONE Antibiotic Allergy:NONE Blood Thinner:NONE Wireless Network Engineer Required: No Allergies aspirin [ASPIRIN] Allergy (Intermediate, Verified 03/27/24 11:45) STOMACH UPSET HPI Comments Details: Mr Huerta is a very pleasant male. They are a patient of Dr Kelly and Dr Mooney. They are seen in the office today for the following urologic conditions. 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 Testosterone running in the 600-800 range Refill tadalafil Lab work is in normal range Discussion regarding his anxiety and OCD Plan for trial of transcranial stimulation Previously discussed ECT Information regarding trial of pramipexole - in setting of post SSRI hypogonadism Labs - 04/04 T 289-, LH 1.2/FSH 2.2, 10/02 LH 1.4, 04/05 T 209 P 1.2 LH 1.7 FSH 2.7, 10/03 192 F 65 1.2 3.1 2.0. 09/04 T 290, Free 61.1 LH 0.2 E 18, 11/04 T 600 42 1.4, 03/06 820 1.4 Discussed laboratories - borderline low testosterone with low LH. Consistent with hypogonadism hypogonadism Refill provided for daily tadalafil Failed trial of Tenex - changed mood. Borderline low testosterone with impaired pituitary function When previously had normalization with external testosterone did not have resolution of severe depressive symptoms Erections do respond to higher dose tadalafil which he sources through [email or web address] for particular generic product Has post SSRI libido suppression Testosterone does result in morning erections Hypogonadism: Seen at [facility] for investigation 2019 Has depressed mood denies in hormone and low testosterone. This continues Does well with Cialis Have occurred with secondary hypogonadal hypogonadism. Presumed due to SSRI use. Treatment has previously been topical testosterone. Has been evaluated with Dr. Mooney and previously saw Dr Villalobos. Initial symptoms include erectile dysfunction Yes decreased libido Yes change in mood/depression Yes in muscle size/strength Yes increased fatigue/malaise Yes The onset of symptoms has been gradual since 2009. Erectile status current ZHAO Score 1. Associate conditions include obstructive sleep apnea No CAD No obesity No stress - financial, family, employment No heavy alcohol or illicit drug use No prior ithium use, SSRI's He has been taking Prior therapy - injectable exogenous testosterone - SERM - positive response to clomiphene but not covered - trial of GnRH 12/27 with partial response - did have T recovery with combination of hCG and anastrazole. Laboratory results 10/2013 , testosterone 200, , FSH 1.9, , LH 1.9, prolactin 5.8 Other labs from [facility] - normal except low gonadotrophins, 10/2015 T 750, 02/26 T 454, E 54, 08/28 T 244, LH 1.6, E 19, 03/31 T 490, Est 64 LH 8.8, 07/29 T 385, Est 9, LH 9, 09/28 T 195 LH 1.6, 11/30 T 192, LH 1.6, FSH 2.1, 09/30 T 192, LH 1.6, FSH 2.1 - 04/03 T 196, LH 1.4 Current therapy includes gonadotrophin - hCG - will add , aromatase inhibitor - anastrazole. Response to therapy has been improved, energy/wellbeing. Prior therapy includes - testosterone gels with minimal effect - SERM without effect - Brain dopaminergic stimulator without effect - GnRH low dose pulsed without effect - hCG and anstrazole with lower E but lower T as well 06/28. Diagnosis based on history and laboratory results Hypogonadotrophic Hypogonadism - imaging negative. Pituitary vs hypothalamic - other pituitary components normal. Therapuetic plan see in 6m LH low with low T Treatment resistant depression Prior SSRI use which significantly impacted testosterone signal in PFSH Medical History Mild acid reflux Erectile dysfunction Depression Anxiety Hyperlipidemia Hypopituitarism Hypogonadism in male Tendinitis of left rotator cuff Gait abnormality Knee pain OA (osteoarthritis) of knee Thrombosed external hemorrhoid Review of Systems Const Denies chills and Denies fever(s) Card Reports no additional complaints and Denies syncope Resp Denies cough GI Denies abdominal pain and Denies heartburn Reports as per HPI and Denies change in libido Neuro Denies syncope Psych Denies change in libido Endo Denies change in libido Physical Exam Const General: cooperative, healthy appearing, comfortable and no acute distress Orientation/consciousness: patient oriented x3 HEENT Face and sinus: Yes normal facial exam Mouth: moist mucous membranes Neck Neck: Yes normal visual inspection, Yes full ROM and Yes trachea midline Chest Chest palpation & inspection: normal inspection of the chest Resp Effort & Inspection: normal respiratory effort, able to speak in complete sentences and no respiratory distress GI Inspection: Yes normal to inspection Back/Spine/Pelvis Cervical Spine: normal cervical lordosis Thoracic/Lumbar Spine: thoracic and lumbar spine normal to inspection Skin General skin exam: no rashes or lesions noted Neuro General: patient oriented x3, gait normal, tone normal and moves all extremities Extrem General: Yes normal to inspection and Yes capillary refill normal Assessment & Plan Assessment & Plan (1) Hypogonadism in male: Code(s): E29.1 - Testicular hypofunction Category: Medical (2) Major depression, recurrent: Code(s): F33.9 - Major depressive disorder, recurrent, unspecified Category: Medical (3) Treatment-resistant depression: Code(s): F32.9 - Major depressive disorder, single episode, unspecified Category: Medical Plan Psychiatric referral for transcranial stimulation Continue tadalafil Rescheduled testosterone Orders: Orders Prostate Specific Antigen 6 Months E23.0 - Hypopituitarism Testosterone, Total 6 Months E23.0 - Hypopituitarism Complete Blood Count no Diff 6 Months E23.0 - Hypopituitarism Referrals Psychiatry Referral F32.9 - Major depressive disorder, single episode, unspecified Patient Instructions: Imaging studies, laboratory and physical exam results were discussed and reviewed in detail. No major barriers to patient understanding were identified. An opportunity to ask questions regarding the treatment plan was provided. All questions were answered. The patient expressed understanding and agreement with the above treatment plan. The patient is aware they should contact our office by phone for worsening of their current condition or the appearance of new urologic symptoms. Compliance is encouraged with any medications and followup testing that is ordered. It is a privilege to participate in the urologic care of your patient. If you have any questions or concerns regarding treatment for the above conditions, or other urologic issues, please do not hesitate to contact me. The office telephone contact is [phone]. This note is constructed using voice recognition software. While every effort has been made to ensure accuracy swimming pool cleaner errors may have been included. Yours sincerely, Dr Israel Almonte MD, [facility] - Urology Providers of Expert, Compassionate Care for the Genitourinary System Coding Level of Care Code Est Pt Level 3 (67471) Diagnoses Hypogonadism in male E29.1 Major depression, recurrent F33.9 Treatment-resistant depression F32.9
== END 2024-03-27 12:34 | disposition home or self-care (01) ==
PROVIDERS: PCP Internal Medicine; Visit Provider Urology
DX: E29.1 Testicular hypofunction (principal); F32.9 Major depressive disorder, single episode, unspecified
CPT/HCPCS: 99213

== ENCOUNTER → 2024-03-27 11:41 | Outpatient (BNVA) | payer MEDICARE, MEDICAID, SELFPAY | PROVIDERS: PCP Internal Medicine; Visit Provider Urology | DX: E29.1 Testicular hypofunction (principal); F33.9 Major depressive disorder, recurrent, unspecified; F32.9 Major depressive disorder, single episode, unspecified | CPT/HCPCS: 99212 ==

== ENCOUNTER 2024-05-14 13:46 | Emergency (ER) | payer MEDICARE, MEDICAID, SELFPAY ==
[2024-05-14 14:31] VITALS: BP 131/98; PULSE 65; RESP 18; TEMP 36.6; O2SAT 98; BMI 26.3
--- NOTE | 2024-05-14 14:31 | ED_ITS ---
HPI - General Adult General Chief complaint: Skin/Abscess/Foreign Body Stated complaint: tailbone issues Related Data Home Medications ?Medication ?Instructions ?Recorded ?Confirmed alclometasone 0.05 % topical cream appl topical DAILY PRN 02/26/20 07/14/23 lithium carbonate 300 mg 300 mg PO BID 02/26/20 07/14/23 tablet,extended release lorazepam 1 mg tablet 0 mg PO 02/26/20 07/14/23 omeprazole 20 mg capsule,delayed 20 mg PO DAILY 02/26/20 07/14/23 release propranolol 10 mg tablet 10 mg PO Q6H 02/26/20 07/14/23 tadalafil 20 mg tablet 20 mg PO DAILY 02/26/20 07/14/23 gabapentin 100 mg capsule 100 mg PO TID 04/11/20 07/14/23 Previous Rx's ?Medication ?Instructions ?Recorded ketamine 100 mg/mL injection 20 mg (0.2 mL) intranasal .2x a 10/16/20 solution week sedation 30 days #2 mL guanfacine 2 mg tablet 2 mg PO BEDTIME 30 days #30 tabs 10/07/22 pramipexole 1.5 mg tablet 1.5 mg PO BEDTIME 30 days #30 tabs 01/06/23 needle (disp) 25 gauge 25 gauge x #50 ea 07/14/2307/19 (BD Regular Bevel [place]) tadalafil 20 mg tablet 20 mg PO DAILY sexual activity 0 09/20/23 days #180 tabs needle (disp) 18 G 18 gauge x 1 #30 ea 11/28/23 (BD Regular Bevel [place]) syringe (disposable) 1 mL (BD Bulk #30 ea 12/27/23 Syringe Slip Tip) tadalafil 20 mg tablet 20 mg PO DAILY sexual activity 90 03/27/24 days #90 tabs testosterone cypionate 200 mg/mL 150 mg (0.75 mL) subcut QWEEK 4 05/15/24 intramuscular oil weeks #4 mL (Depo-Testosterone) Allergies Allergy/AdvReac Type Severity Reaction Status Date / Time aspirin [ASPIRIN] Allergy Intermediate STOMACH Verified 05/14/24 14:35 UPSET PMFSH Past Medical History Medical History (Updated 05/16/24 @ 08:12 by PAL Basilio) Panic disorder Generalized anxiety disorder Major depressive disorder, recurrent severe without psychotic features Depression Mild acid reflux Erectile dysfunction Depression Anxiety Hyperlipidemia Hypopituitarism Hypogonadism in male Tendinitis of left rotator cuff Gait abnormality Knee pain OA (osteoarthritis) of knee Thrombosed external hemorrhoid Physical Exam ED Vital Signs: BMI result Body Mass Index 26.3 Course Course Course Narrative: RME performed by Melania Finney PA-C. Patient is a 58 year old assigned male at presenting to the emergency department with upper buttock pain. Patient states over the last couple of days he has had some swelling to the upper buttock. Detailed physical exam and review of systems are deferred to the intake clinician. Patient placed back in the waiting room pending room availability. Melania Finney PA-C ---> Patient left without completing treatment. Physical examination of the patient's area of concern could not be visualized in triage due to the location of said area. Discharge Plan Discharge Clinical Impression: Coccyx pain Patient Disposition: Left W/O Completing Treatment Prescriptions: No Action ketamine 100 mg/mL solution 20 mg intranasal .2x a week 30 Days Qty: 2 0RF Rx Instructions: Two sprays on Tuesday and (DME) BD Regular Bevel A[place]ander 25 gauge x 5/8 needle See Rx Instructions .MEDSUPPLY Qty: 50 0RF Rx Instructions: As directed for weekly Testosterone injection (DME) needle (disp) 18 G [BD Regular Bevel A[place]ander] 18 gauge x 1 needle See Rx Instructions .MEDSUPPLY Qty: 30 0RF Rx Instructions: As directed - draw up testosterone (DME) BD Bulk Syringe Slip Tip 1 mL syringe See Rx Instructions miscellaneous .MEDSUPPLY Qty: 30 0RF Rx Instructions: As directed testosterone cypionate [Depo-Testosterone] 200 mg/mL oil 150 mg subcut QWEEK 28 Days Qty: 4 5RF Rx Instructions: Dispose of vial after each use gabapentin 100 mg capsule 100 mg PO TID lorazepam 1 mg tablet 0 mg PO lithium carbonate 300 mg tablet extended release 300 mg PO BID omeprazole 20 mg capsule,delayed release(DR/EC) 20 mg PO DAILY propranolol 10 mg tablet 10 mg PO Q6H alclometasone 0.05 % cream topical DAILY PRN tadalafil 20 mg tablet 20 mg PO DAILY guanfacine 2 mg tablet 2 mg PO BEDTIME 30 Days Qty: 30 1RF tadalafil 20 mg tablet 20 mg PO DAILY Qty: 180 0RF tadalafil 20 mg tablet 20 mg PO DAILY 90 Days Qty: 90 2RF pramipexole 1.5 mg tablet 1.5 mg PO BEDTIME 30 Days Qty: 30 4RF Discharge Date/Time: 05/15/24 03:58
[2024-05-14 23:42] VITALS: BP 150/97; PULSE 63; RESP 19; TEMP 36.6; O2SAT 97
--- NOTE | 2024-05-15 01:39 | PC.NURSE ---
Pt with complaints about wait times, t/w apologized for wait times and pt states he wishes someone could just put him in a bed in the hallway to examine him. Explained that to preserve his privacy we could not do that at this time. Also explained that we are making every effort to get people seen when we can, pt states he has a treatment later today that he has to get some sleep for, pt continued to be repetitive in conversation, became frustrated when answers did not change, and ultimately pt states that he is leaving at this time. States he wouldnt come back even if i had the plague . T/w again apologized and pt states no youre not, you dont care and stormed out out triage room with steady gait and in no acute distress.
== END 2024-05-15 03:58 | disposition left against medical advice (07) ==
PROVIDERS: Emergency Provider Emergency Medicine; PCP Internal Medicine
DX: M53.3 Sacrococcygeal disorders, not elsewhere classified (principal); Z79.899 Other long term (current) drug therapy
CPT/HCPCS: 99281; 99283

== ENCOUNTER 2024-05-23 10:59 | Outpatient (AMB) | payer MEDICARE, MEDICAID, SELFPAY ==
[2024-05-23 11:05] VITALS: BP 134/82; PULSE 82; RESP 14; TEMP 36.4; O2SAT 98; BMI 27.1
--- NOTE | 2024-05-23 11:05 | A.OFFPC_ITS ---
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 Required: No Accompanied by: Self / Same As Patient Allergies aspirin [ASPIRIN] Allergy (Intermediate, Verified 05/24/24 18:57) STOMACH UPSET Medication List - Last Reconciled 05/24/24 by Edward Snider MD alclometasone 0.05% appl topical DAILY PRN lithium carbonate ER 300 mg PO BID lorazepam 0 mg PO needle (disp) 18 G (BD Regular Bevel [place]) As directed - draw up testosterone needle (disp) 25 gauge (BD Regular Bevel [place]) As directed for weekly Testosterone injection omeprazole 20 mg PO DAILY syringe (disposable) (BD Bulk Syringe Slip Tip) As directed tadalafil 20 mg PO DAILY 0 days testosterone cypionate (Depo-Testosterone) 150 mg (0.75 mL) subcut QWEEK 4 weeks Tobacco use date assessed: 05/23/24 Dental Screening Dental Screen Date: 05/23/24 Did you have a dental visit in the last 12 months?: Yes Did you have a dental problem in the last 6 months where you did not have access to dental care?: No [facility] Medical History Panic disorder Generalized anxiety disorder Major depressive disorder, recurrent severe without psychotic features Depression Mild acid reflux Erectile dysfunction Depression Anxiety Hyperlipidemia Hypopituitarism Hypogonadism in male Tendinitis of left rotator cuff Gait abnormality Knee pain OA (osteoarthritis) of knee Thrombosed external hemorrhoid Social History (Updated 05/23/24 @ 11:17 by NORAH Mills) Housing: Apartment Alcohol intake: current Alcohol intake frequency: holidays/special occasions only Patient Tobacco Use Status: Never used Tobacco service: No Current occupational status: disabled Cognitive needs: No Hearing needs: No Vision needs: No Questionnaire PHQ-9 Over the last 2 weeks, how often have you been bothered by any of the following problems? 1. Little interest or pleasure in doing things: nearly every day 2. Feeling down, depressed, or hopeless: nearly every day 3. Trouble falling or staying asleep, or sleeping too much: nearly every day 4. Feeling tired or having little energy: nearly every day 5. Poor appetite or overeating: nearly every day 6. Feeling bad about yourself - or that you are a failure or have let yourself or your family down: nearly every day 7. Trouble concentrating on things, such as reading the newspaper or watching television: nearly every day 8. Moving or speaking so slowly that other people could have noticed. Or the opposite - being so fidgety or restless that you have been moving around a lot more than usual: not at all 9. Thoughts that you would be better off or of hurting yourself in some way: not at all Total score: 21 Source: Developed by Drs. Rico Rondon, Gladis Zhang, Silvio Tucker and colleagues, with an educational jessica from [employer]. Thrive Questionnaire Date Thrive assessed: 05/23/24 I am a: Patient What is your living situation today?: I have a steady place to live Within the past 12 months, did the food you bought not last and you didn't have the money to get more?: Never true Within the past 12 months, did you worry whether your food would run out before you got money to buy more?: Never true Do you have trouble paying for medicines?: No Do you have trouble getting transportation to medical appointments?: No Do you have trouble paying your heating and electricity bill?: No Do you have trouble taking care of your child, family member or friend?: No Do you have trouble with day-to-day activities such as bathing, preparing meals, shopping, managing finances, etc.?: No Are you currently unemployed and looking for a job?: No Are you interested in more education?: No THRIVE Score: 0 AUDIT C Alcohol Use Questionnaire (AUDIT-C) 1. How often do you have a drink containing alcohol?: Monthly or less 2. How many drinks containing alcohol do you have on a typical day when you are drinking?: 1 or 2 3. How often do you have six or more drinks on one occasion?: Never Total Score: 1 CHRISTOPHER-7 AMB Questionnaire CHRISTOPHER-7 Date CHRISTOPHER - 7 assessed: 05/23/24 Feeling nervous, anxious, or on edge: 3 = Nearly every day Not being able to stop or control worryin = Nearly every day Worrying too much about different things: 3 = Nearly every day Trouble relaxin = Nearly every day Being so restless that it is hard to sit still: 3 = Nearly every day Becoming easily annoyed or irritable: 0 = Not at all Feeling afraid as if something awful might happen: 0 = Not at all Total CHRISTOPHER-7 score (0-4 normal; 5-9 mild; 10-14 moderate; 15-21 severe): 15 Source: Developed by Drs. Rico Rondon, Gladis Zhang, Silvio Tucker and colleagues, with an educational jessica from [employer]. Physical exam (Primary Care) Vital Signs: Last Vital Signs Temp 97.6 F 05/23/24 11:05 Pulse 82 05/23/24 11:05 Resp 14 05/23/24 11:05 BP 134/82 05/23/24 11:05 Pulse Ox 98 05/23/24 11:05 Oxygen Delivery Method Room Air 05/23/24 11:05 BMI result Body Mass Index 27.1 Tobacco/Smoking Status: Tobacco use Status Tobacco use date assessed 05/23/24 05/23/24 11:19 Patient Tobacco Use Status Never used Tobacco 05/23/24 11:19 PHQ-9: PHQ-9 Score PHQ-9: Total score 21 05/23/24 11:20 Thrive Assessment: Date of Thrive Assessment Date Thrive assessed 05/23/24 05/23/24 11:19 Coding Level of Care Code New Pt Level 4 (86414) Complex EM visit Add On G2211 Diagnoses Major depression, recurrent F33.9 Assessment & Plan Assessment & Plan (1) Major depression, recurrent: Code(s): F33.9 - Major depressive disorder, recurrent, unspecified Category: Medical Plan: Continue current medications. Plan History of Present Illness The patient is a 58 year old male presenting with a request for a Medicare history and physical examination for health maintenance purposes. He also complains of discomfort in the coccygeal region, which was assessed at a walk-in clinic. The assessment ruled out a cyst and identified inflammation as the likely cause. The patient has a minor hemorrhoid for which he uses Tux medicated pads for symptomatic relief. In addition, he has longstanding issues with major depressive disorder and generalized anxiety disorder, managed with lorazepam. There is concern regarding prescription refill practices which may exacerbate his anxiety. Social History - No lifestyle or activity details discussed during the visit. Review of Systems - Musculoskeletal: Reports discomfort in the coccygeal region, exacerbated by prolonged sitting, with no history of injury or fall. Physical Exam General: Cooperative and healthy appearing Nutritional Appearance: Well nourished Orientation/consciousness: Patient oriented x3 Limitations: No limitations Head: Normal to inspection General: Appearance normal, both eyes and all related structures Neck: Normal visual inspection Chest: Normal palpation of entire chest wall Respiratory: Normal respiratory effort Neurology: Patient oriented x3 Results - Tests: X-rays of the coccygeal region noted inflammation, as per prior walk-in clinic visit. Plan The upcoming Medicare history and physical examination will be completed during the next appointment. For the coccygeal discomfort, the use of Salonpas and Tux medicated pads provide symptomatic relief, with no current requirement for further diagnostic assessments or interventions. The ongoing management of major depressive disorder and generalized anxiety disorder can continue with lorazepam, ensuring the stability of dosage and refill management to avert associated anxiety. Patient was informed and verbally consented to the use of an ambient scribe for clinic note documentation during this visit. Discussion Notes I confirmed with the patient that his coccyx is properly aligned and likely inflamed, as indicated by prior assessment and imaging results from the walk-in clinic. I assured the patient of our approach to maintaining his mental health management by guaranteeing regular lorazepam prescriptions, stressing the vigilance required when dealing with refill protocols. We discussed his coccygeal discomfort, emphasizing topical treatments for now, and agreed on fully addressing his Medicare physical examination in our next session. The patient exhibited understanding and compliance with this proposed approach. Patient Instructions - Continue use of Salonpas for coccygeal discomfort as self-directed. - Utilize Tux medicated pads for hemorrhoid symptoms. - Ensure lorazepam prescriptions are refilled monthly to maintain medication access. - Return in three months for the Medicare history and physical examination co mpletion. - Report any significant changes in symptoms or new concerns before the scheduled follow-up.
--- OUTSIDE RECORDS SUMMARY | 2024-05-23 12:51 | XMS_ITS | Clinical Summary ---
Author Organization [employer] Address [address] [place] [address] [address] [place] [address] Care Team Providers Care Vessel Slagman Name Role Phone Unavailable Primary Care Provider Unavailabl e Allergies No known active allergies Medications lithium ER (Lithobid) 300 MG 12 hr tablet TAKE 2 TABLETS BY MOUTH ONCE DAILY 4 Active LORazepam (Ativan) 1 MG tablet TAKE 1 TABLET BY MOUTH TWICE DAILY AND AN EXTRA 1/2 (ONE-HALF) TABLET NEEDED 4 Active omeprazole (PriLOSEC) [address] capsule Take 20 mg by mouth Once per day. 4 Active propranolol (Inderal) 10 MG tablet Take 10 mg by mouth every 6 (six) hours. 4 Active alclometasone (Aclovate) 0.05 % cream Apply topically every 12 (twelve) hours. Active Social History Tobacco Use Types Packs/Day Years Used Date Smoking Tobacco: Never Smokeless Tobacco: Never Tobacco Cessation:Counseling Given: Not Answered Sex and Gender Information Value Date Recorded Sex Assigned at Male 01/11/2022 10:22 AM EDT Legal Sex Male 10:22 AM EDT Gender Identity Male 01/11/2022 10:22 AM EDT Sexual Orientation Straight 01/11/2022 10 :22 AM EDT Last Filed Vital Signs Vital Sign Reading Time Taken Comments Blood Pressure 120/80 02/03/2024 11:12 AM EST Pulse 65 11/18/2023 1:03 PM EDT Temperature - - Respiratory Rate - - Oxygen Saturation - - Inhaled Oxygen Concentration - - Weight - - Height - - Body Mass Index - - Plan of Treatment Health Maintenance Due Date Last Done Comments CT Colonography 1964 Colonoscopy 1964 Colorectal Cancer Screening 1964 Depression Screening 1964 FIT DNA/Cologuard 1964 FIT 1964 FOBT 1964 HIV Screening 1964 Lipid Panel 1964 SDOH Screening 1964 Sigmoidoscopy 1964 Alcohol/Substance Use Screening 1976 Hepatitis C Screening 1982 DTaP/Tdap/Td Vaccines (1 - Tdap) 09/03/1983 Hepatitis B Vaccines (1 of 3 - 19+ 3-dose series) 09/03/1983 Pneumococcal Vaccine: 50+ Years (1 of 1 - PCV) 2014 Zoster Vaccines (1 of 2) 2014 COVID-19 Vaccine (5 - season) 2023 06/10/2021, 01/26/2021, 07/22/2020, Additional history exists Influenza Vaccine (#1) 2023 Dental Oral Exam 05/12/2024 11/11/2023, , 03/20/2019, Additional history exists Dental Prophylaxis 05/18/2024 11/18/2023, 1 04/30/2020, 09/30/2020, Additional history exists Dental X-Ray: Bitewings 11/11/2024 11/11/19 24, 10/21/2023, 02/16/2021, Additional history exists Tobacco Screening 02/02/2025 02/03/2024 Dental X-Ray: Full Mouth 11/11/2026 11/11/2023, 11/13 RSV Patients and Patients Aged 60 years or older (1 - 1-dose 75+ series) 09/03/2039 HIB Vaccines Aged Out No longer eligi ble based on patient's age to complete this topic HPV Vaccines Aged Out No longer eligi ble based on patient's age to complete this topic Hepatitis A Vaccines Aged Out No long er eligible based on patient's age to complete this topic IPV Vaccines Aged Out No longer eligi ble based on patient's age to complete this topic Meningococcal Vaccine Aged Out No dank eliane eligible based on patient's age to complete this topic RSV under 20 months Aged Out No longe r eligible based on patient's age to complete this topic Rotavirus Vaccines Aged Out No longer eligible based on patient's age to complete this topic Procedures Procedure Name Priority Date/Time Associated Diagnosis Comments PROPHYLAXIS - ADULT Routine 11/18/2023 1 :00 PM EDT INTRAORAL - COMPLETE SERIES OF RADIOGRAPHIC IMAGES Routine 11/11/2023 11:00 AM EDT PERIODIC ORAL EVALUATION - ESTABLISHED PATIENT Routine 11/11/2023 11:00 AM EDT from Last 3 Months or Most Recently Relevant to Health Maintenance Insurance [facility] MEDICAID STAND ADULT
--- OUTSIDE RECORDS SUMMARY | 2024-05-23 12:51 | XMS_ITS | Encounter Summary ---
Author Organization [employer] Address [address] [facility] [address] [place] [address] Care Team Providers Care Brand Inspector Name Role Phone Unavailable Primary Care Provider Unavailabl e Encounter Details Date Type Department Care Team (Latest Contact Info) Description 09/05/2018 Abstract C CONVERSIONS Dental, Provider, DDS Social History Tobacco Use Types Packs/Day Years Used Date Smoking Tobacco: Never Assessed Sex and Gender Information Value Date Recorded Sex Assigned at Male 01/11/2022 10:22 AM EDT Legal Sex Male 10:22 AM EDT Gender Identity Male 01/11/2022 10:22 AM EDT Sexual Orientation Straight 01/11/2022 10 :22 AM EDT documented as of this encounter Plan of Treatment Not on file documented as of this encounter Visit Diagnoses Not on filedocumented in this encounter
--- OUTSIDE RECORDS SUMMARY | 2024-05-23 12:51 | XMS_ITS | Encounter Summary ---
Author Organization [employer] Address [address] [place] [address] [address] [place] [address] Care Team Providers Care Cell Plasterer Name Role Phone Unavailable Primary Care Provider Unavailabl e Encounter Details Date Type Department Care Team (Latest Contact Info) Description 09/30/2020 Abstract [facility]HC CONVERSIONS Dental, Provider, DDS Social History Tobacco [...]
== END 2024-05-23 11:34 | disposition home or self-care (01) ==
LOC: HO.HMCHD 10:59
PROVIDERS: PCP Internal Medicine; Visit Provider Internal Medicine
DX: F33.9 Major depressive disorder, recurrent, unspecified (principal)

== ENCOUNTER → 2024-05-23 10:59 | Outpatient (BNVA) | payer MEDICARE, MEDICAID, SELFPAY | PROVIDERS: PCP Internal Medicine; Visit Provider Internal Medicine | DX: F33.9 Major depressive disorder, recurrent, unspecified (principal) | CPT/HCPCS: 99202 ==

== ENCOUNTER 2024-05-30 12:30 | Outpatient (RCR) | payer MEDICARE, MEDICAID, SELFPAY ==
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
--- NOTE | 2024-05-11 14:50 | HO.TMSDAILY2 ---
TMS Daily Progress Note Daily TMS Progress Note Date of Service: 04/18/24 Week #: 1 Treatment #(04-12): 1 PHQ-9 Pre-Treatment (-): 15 PHQ-9 Most Recent (04-09): 15 CHRISTOPHER-7 Pre-Treatment (0-21): 20 CHRISTOPHER-7 Most Recent (0-): 20 Reviewed: TMS Mapping/Re-mapping completed Verification: I have reviewed the TMS Inseam Trimmer Note and agree with the contents. The patient remains a candidate to continue TMS treatment per protocol. Assessment and Plan (1) Major depressive disorder, recurrent severe without psychotic features: Status: Acute (2) Panic disorder: Status: Acute (3) OCD (obsessive compulsive disorder): Status: Acute Plan The patient's with high anxiety obsessional thinking poor response to medication in the past. Informed consent obtained tolerated initial mapping. All questions answered
--- NOTE | 2024-05-28 11:06 | P.PNPS_ITS ---
TMS Daily Progress Note Daily TMS Progress Note Date of Service: 04/26/24 Week #: 2 Treatment #(-30): 6 PHQ-9 Pre-Treatment (-): 15 PHQ-9 Most Recent (04-09): 15 CHRISTOPHER-7 Pre-Treatment (0-21): 20 CHRISTOPHER-7 Most Recent (0-21): 20 Reviewed: TMS Tech Note Reviewed Verification: I have reviewed the TMS Torts Law Professor Note and agree with the contents. The patient remains a candidate to continue TMS treatment per protocol. Assessment and Plan (1) Major depressive disorder, recurrent severe without psychotic features: Status: Acute Plan Patient cooperative with care comes to treatment on time no significant side effects noted, hopeful regarding care. Continue current treatment plan.
--- NOTE | 2024-05-28 11:06 | P.PNPS_ITS ---
TMS Daily Progress Note Daily TMS Progress Note Date of Service: 04/24/24 Week #: 1 Treatment #(04-12): 4 PHQ-9 Pre-Treatment (-): 15 PHQ-9 Most Recent (04-09): 14 CHRISTOPHER-7 Pre-Treatment (0-21): 20 CHRISTOPHER-7 Most Recent (0-): 20 Reviewed: TMS Tech Note Reviewed Verification: I have reviewed the TMS Commercial Sewing Instructor Note and agree with the contents. The patient remains a candidate to continue TMS treatment per protocol. Assessment and Plan (1) Major depressive disorder, recurrent severe without psychotic features: Status: Acute (2) OCD (obsessive compulsive disorder): Status: Acute Plan He is considering working with a more specialized therapist some decrease in anxiety today tolerating treatment
--- NOTE | 2024-05-28 11:06 | P.PNPS_ITS ---
TMS Daily Progress Note Daily TMS Progress Note Date of Service: 04/19/24 Week #: 1 Treatment #(04-12): 2 PHQ-9 Pre-Treatment (-): 15 PHQ-9 Most Recent (04-09): 15 CHRISTOPHER-7 Pre-Treatment (0-): 20 CHRISTOPHER-7 Most Recent (0-): 20 Reviewed: TMS Tech Note Reviewed Verification: I have reviewed the TMS Founder And President Note and agree with the contents. The patient remains a candidate to continue TMS treatment per protocol. Assessment and Plan (1) Major depressive disorder, recurrent severe without psychotic features: Status: Acute (2) Panic disorder: Status: Acute (3) OCD (obsessive compulsive disorder): Status: Acute Plan Patient has some fatigue post treatment treated with typical left-sided protocol and added low-frequency right given significant anxiety
--- NOTE | 2024-05-28 11:06 | P.PNPS_ITS ---
TMS Daily Progress Note Daily TMS Progress Note Date of Service: 05/02/24 Week #: 2 Treatment #(04-12): 9 PHQ-9 Pre-Treatment (-): 15 PHQ-9 Most Recent (04-09): 15 CHRISTOPHER-7 Pre-Treatment (0-): 20 CHRISTOPHER-7 Most Recent (0-): 20 Reviewed: TMS Tech Note Reviewed Verification: I have reviewed the TMS Heavy Equipment Plumbing Supervisor Note and agree with the contents. The patient remains a candidate to continue TMS treatment per protocol. Assessment and Plan (1) Major depressive disorder, recurrent severe without psychotic features: Status: Acute (2) OCD (obsessive compulsive disorder): Status: Acute Plan Patient remains depressed anxious periods of irritability and frustration limited coping strategies. We have discussed possibility of partial hospital I have also discussed with him other treatment options including spravato and other therapy if this were not helpful
--- NOTE | 2024-05-28 11:06 | P.PNPS_ITS ---
TMS Daily Progress Note Daily TMS Progress Note Date of Service: 05/01/24 Week #: 2 Treatment #(04-12): 8 PHQ-9 Pre-Treatment (-): 15 PHQ-9 Most Recent (04-09): 15 CHRISTOPHER-7 Pre-Treatment (0-): 20 CHRISTOPHER-7 Most Recent (0-): 20 Reviewed: TMS Tech Note Reviewed Verification: I have reviewed the TMS Distillery Supervisor Note and agree with the contents. The patient remains a candidate to continue TMS treatment per protocol. Assessment and Plan (1) Major depressive disorder, recurrent severe without psychotic features: Status: Acute (2) OCD (obsessive compulsive disorder): Status: Acute Plan Have encourage patient to find a more regular therapist who might specialized and anxiety disorders. He had an episode irritability at home and has felt increasingly frustrated. 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
--- NOTE | 2024-05-28 11:06 | P.PNPS_ITS ---
TMS Daily Progress Note Daily TMS Progress Note Date of Service: 04/23/24 Week #: 1 Treatment #(04-12): 3 PHQ-9 Pre-Treatment (04-09): 15 PHQ-9 Most Recent (04-09): 14 CHRISTOPHER-7 Pre-Treatment (0-): 20 CHRISTOPHER-7 Most Recent (0-): 20 Reviewed: TMS Tech Note Reviewed Verification: I have reviewed the TMS Dry Room Attendant Note and agree with the contents. The patient remains a candidate to continue TMS treatment per protocol. 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 Almonte. Patient is hoping that this will cure his hypogonadism I have explained that that would not be the target , he has a difficult time ongoing with change in sexual functioning for many years ago
--- NOTE | 2024-05-28 11:06 | P.PNPS_ITS ---
TMS Daily Progress Note Daily TMS Progress Note Date of Service: 04/27/24 Week #: 2 Treatment #(-): 7 PHQ-9 Pre-Treatment (-): 15 PHQ-9 Most Recent (04-09): 14 CHRISTOPHER-7 Pre-Treatment (0-21): 20 CHRISTOPHER-7 Most Recent (0-): 20 Reviewed: TMS Tech Note Reviewed Verification: I have reviewed the TMS Steam Conditioning Operator Note and agree with the contents. The patient remains a candidate to continue TMS treatment per protocol. Assessment and Plan (1) Major depressive disorder, recurrent severe without psychotic features: Status: Acute (2) OCD (obsessive compulsive disorder): Status: Acute Plan Patient cooperative with care comes to treatment on time no significant side effects noted, hopeful regarding care. Continue current treatment plan
--- NOTE | 2024-05-28 11:06 | HO.TMSDAILY2 ---
TMS Daily Progress Note Daily TMS Progress Note Date of Service: 04/25/24 Week #: 1 Treatment #(04-12): 5 PHQ-9 Pre-Treatment (-): 15 PHQ-9 Most Recent (04-09): 14 CHRISTOPHER-7 Pre-Treatment (0-): 20 CHRISTOPHER-7 Most Recent (0-): 20 Reviewed: TMS Tech Note Reviewed Verification: I have reviewed the TMS Education Reporter Note and agree with the contents. The patient remains a candidate to continue TMS treatment per protocol. Assessment and Plan (1) Major depressive disorder, recurrent severe without psychotic features: Status: Acute (2) Generalized anxiety disorder: Status: Acute (3) OCD (obsessive compulsive disorder): Status: Acute Plan Patient states he has been tolerating treatment continue plan of care
--- NOTE | 2024-05-28 11:06 | HO.TMSDAILY2 ---
TMS Daily Progress Note Daily TMS Progress Note Date of Service: 05/03/24 Week #: 2 Treatment #(04-12): 10 PHQ-9 Pre-Treatment (-): 15 PHQ-9 Most Recent (04-09): 15 CHRISTOPHER-7 Pre-Treatment (0-): 20 CHRISTOPHER-7 Most Recent (0-): 20 Reviewed: TMS Tech Note Reviewed Verification: I have reviewed the TMS Certified Nurse Operating Room Note and agree with the contents. The patient remains a candidate to continue TMS treatment per protocol. Assessment and Plan (1) Major depressive disorder, recurrent severe without psychotic features: Status: Acute (2) OCD (obsessive compulsive disorder): Status: Acute (3) Generalized anxiety disorder: Status: Acute (4) Panic disorder: Status: Acute Plan The patient is starting to have significant anxiety in relationship to what happens if this treatment does not work complains of years of emotional blunting empathic listening and problem-solving also had discussed option of re mapping if needed and that this treatment is based on cumulative effects
--- NOTE | 2024-05-28 11:07 | HO.TMSDAILY2 ---
TMS Daily Progress Note Daily TMS Progress Note Date of Service: 05/04/24 Week #: 3 Treatment #(04-12): 11 PHQ-9 Pre-Treatment (04-09): 15 PHQ-9 Most Recent (04-09): 15 CHRISTOPHER-7 Pre-Treatment (0-): 20 CHRISTOPHER-7 Most Recent (0-): 20 Reviewed: TMS Tech Note Reviewed Verification: I have reviewed the TMS Nutrition Worker Note and agree with the contents. The patient remains a candidate to continue TMS treatment per protocol. 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
--- NOTE | 2024-05-28 11:07 | HO.TMSDAILY2 ---
TMS Daily Progress Note Daily TMS Progress Note Date of Service: 05/08/24 Week #: 3 Treatment #(04-12): 13 PHQ-9 Pre-Treatment (-): 15 PHQ-9 Most Recent (04-09): 15 CHRISTOPHER-7 Pre-Treatment (0-21): 20 CHRISTOPHER-7 Most Recent (0-): 20 Reviewed: TMS Tech Note Reviewed Verification: I have reviewed the TMS Clinical Research Monitor Note and agree with the contents. The patient remains a candidate to continue TMS treatment per protocol. Assessment and Plan (1) Major depressive disorder, recurrent severe without psychotic features: Status: Acute (2) Generalized anxiety disorder: Status: Acute (3) OCD (obsessive compulsive disorder): Status: Acute Plan Patient feeling some relief post treatment
--- NOTE | 2024-05-28 12:13 | P.PNPS_ITS ---
TMS Daily Progress Note Daily TMS Progress Note Date of Service: 05/09/24 Week #: 3 Treatment #(04-12): 14 PHQ-9 Pre-Treatment (-): 15 PHQ-9 Most Recent (04-09): 15 CHRISTOPHER-7 Pre-Treatment (0-): 20 CHRISTOPHER-7 Most Recent (0-): 20 Reviewed: TMS Tech Note Reviewed Verification: I have reviewed the TMS Flake Miller Helper Note and agree with the contents. The patient remains a candidate to continue TMS treatment per protocol. Assessment and Plan (1) Major depressive disorder, recurrent severe without psychotic features: Status: Acute (2) Generalized anxiety disorder: Status: Acute (3) OCD (obsessive compulsive disorder): Status: Acute Plan Patient intermittently ruminating times hopeless helpless and focused on the fact that he took sertraline years ago and his fixation on this seems to in some ways block him from moving forward. At other times more engaged denies active SI
--- NOTE | 2024-05-28 12:13 | HO.TMSDAILY2 ---
TMS Daily Progress Note Daily TMS Progress Note Date of Service: 05/10/24 Week #: 3 Treatment #(04-12): 15 PHQ-9 Pre-Treatment (04-09): 15 PHQ-9 Most Recent (04-09): 15 CHRISTOPHER-7 Pre-Treatment (0-): 20 CHRISTOPHER-7 Most Recent (0-): 20 Reviewed: TMS Tech Note Reviewed Verification: I have reviewed the TMS Personal Protection Specialist Note and agree with the contents. The patient remains a candidate to continue TMS treatment per protocol. Assessment and Plan (1) Major depressive disorder, recurrent severe without psychotic features: Status: Acute (2) Generalized anxiety disorder: Status: Acute (3) OCD (obsessive compulsive disorder): Status: Acute Plan Patient continues to tolerate treatment. He unfortunately dismisses most recommendations for socialization. Continues tolerate treatment no significant change . Would benefit from additional coaching Cognitive rigidity is a difficult problem patient has difficulty looking at different alternatives perspectives for managing his symptoms and life
--- NOTE | 2024-05-28 12:13 | HO.TMSDAILY2 ---
TMS Daily Progress Note Daily TMS Progress Note Date of Service: 05/14/24 Week #: 4 Treatment #(04-12): 17 PHQ-9 Pre-Treatment (-): 15 PHQ-9 Most Recent (04-09): 15 CHRISTOPHER-7 Pre-Treatment (0-21): 20 CHRISTOPHER-7 Most Recent (0-): 20 Reviewed: TMS Tech Note Reviewed Verification: I have reviewed the TMS Executive Administrative Asst Note and agree with the contents. The patient remains a candidate to continue TMS treatment per protocol. Assessment and Plan (1) Major depressive disorder, recurrent severe without psychotic features: Status: Acute (2) Generalized anxiety disorder: Status: Acute (3) OCD (obsessive compulsive disorder): Status: Acute Plan Patient tolerating treatment can be reactive irritable have discussed option of re mapping
--- NOTE | 2024-05-28 12:14 | P.PNPS_ITS ---
TMS Daily Progress Note Daily TMS Progress Note Date of Service: 05/15/24 Week #: 4 Treatment #(04-12): 18 PHQ-9 Pre-Treatment (-): 15 PHQ-9 Most Recent (04-09): 15 CHRISTOPHER-7 Pre-Treatment (0-21): 20 CHRISTOPHER-7 Most Recent (0-): 20 Reviewed: TMS Tech Note Reviewed Verification: I have reviewed the TMS Cylinder Devalver Note and agree with the contents. The patient remains a candidate to continue TMS treatment per protocol. Assessment and Plan (1) Major depressive disorder, recurrent severe without psychotic features: Status: Acute (2) Generalized anxiety disorder: Status: Acute (3) OCD (obsessive compulsive disorder): Status: Acute Plan Patient is going to go back on testosterone with Dr. Almonte his urologist. Had difficult ER experience over a minor issue the day prior otherwise tolerating t reatment no significant side effects noted
--- NOTE | 2024-05-28 12:14 | P.PNPS_ITS ---
TMS Daily Progress Note Daily TMS Progress Note Date of Service: 05/17/24 Week #: 4 Treatment #(-30): 20 PHQ-9 Pre-Treatment (-): 15 PHQ-9 Most Recent (04-09): 15 CHRISTOPHER-7 Pre-Treatment (0-): 20 CHRISTOPHER-7 Most Recent (0-): 21 Reviewed: TMS Tech Note Reviewed Verification: I have reviewed the TMS Forwarder Operator Note and agree with the contents. The patient remains a candidate to continue TMS treatment per protocol. Assessment and Plan (1) Generalized anxiety disorder: Status: Acute (2) Major depressive disorder, recurrent severe without psychotic features: Status: Acute (3) OCD (obsessive compulsive disorder): Status: Acute Plan Patient seems somewhat more hopeful does brighten no complaints of side effects
--- NOTE | 2024-05-28 12:14 | P.PNPS_ITS ---
TMS Daily Progress Note Daily TMS Progress Note Date of Service: 05/21/24 Week #: 5 Treatment #(04-12): 22 PHQ-9 Pre-Treatment (-): 15 PHQ-9 Most Recent (04-09): 15 CHRISTOPHER-7 Pre-Treatment (0-): 20 CHRISTOPHER-7 Most Recent (0-): 20 Reviewed: TMS Tech Note Reviewed Verification: I have reviewed the TMS Wellness Specialist Note and agree with the contents. The patient remains a candidate to continue TMS treatment per protocol. Assessment and Plan (1) Major depressive disorder, recurrent severe without psychotic features: Status: Acute (2) Generalized anxiety disorder: Status: Acute (3) OCD (obsessive compulsive disorder): Status: Acute Plan Patient has had some increased anxiety that he has not feeling better he is asking about seeing a therapist has intermittant odd sensation difficult to describe no change in conciousness stereotypy or otherwise
--- NOTE | 2024-05-28 12:14 | HO.TMSDAILY2 ---
TMS Daily Progress Note Daily TMS Progress Note Date of Service: 05/16/24 Week #: 4 Treatment #(-30): 19 PHQ-9 Pre-Treatment (-): 15 PHQ-9 Most Recent (04-09): 15 CHRISTOPHER-7 Pre-Treatment (0-21): 20 CHRISTOPHER-7 Most Recent (0-): 20 Reviewed: TMS Mapping/Re-mapping completed Verification: I have reviewed the TMS Ground Support Agent Note and agree with the contents. The patient remains a candidate to continue TMS treatment per protocol. Assessment and Plan (1) Major depressive disorder, recurrent severe without psychotic features: Status: Acute (2) Generalized anxiety disorder: Status: Acute (3) OCD (obsessive compulsive disorder): Status: Acute Plan Re mapping completed secondary to patient's lack of change to this point continue plan of care otherwise. Some changes were made patient tolerated treatment
--- NOTE | 2024-05-28 12:14 | HO.TMSDAILY2 ---
TMS Daily Progress Note Daily TMS Progress Note Date of Service: 05/18/24 Week #: 5 Treatment #(30): 21 PHQ-9 Pre-Treatment (-): 15 PHQ-9 Most Recent (04-09): 15 CHRISTOPHER-7 Pre-Treatment (0-21): 20 CHRISTOPHER-7 Most Recent (0-): 20 Reviewed: TMS Tech Note Reviewed Verification: I have reviewed the TMS Interventional Cardiologist Note and agree with the contents. The patient remains a candidate to continue TMS treatment per protocol. Assessment and Plan (1) Major depressive disorder, recurrent severe without psychotic features: Status: Acute (2) Generalized anxiety disorder: Status: Acute (3) OCD (obsessive compulsive disorder): Status: Acute Plan Patient tolerating treatment had some increased anxiety secondary to traffic and will be meeting his new provider PCP at an open house. Patient tends to be somewhat rigid and routinized which works for him and when this is not possible can be difficult Continues tolerate treatment monitoring for changes with re map
--- NOTE | 2024-05-28 12:14 | HO.TMSDAILY2 ---
TMS Daily Progress Note Daily TMS Progress Note Date of Service: 05/22/24 Week #: 5 Treatment #(04-12): 23 PHQ-9 Pre-Treatment (04-09): 15 PHQ-9 Most Recent (04-09): 15 CHRISTOPHER-7 Pre-Treatment (0-): 20 CHRISTOPHER-7 Most Recent (0-): 20 Reviewed: TMS Tech Note Reviewed Verification: I have reviewed the TMS Programming Development Project Manager Note and agree with the contents. The patient remains a candidate to continue TMS treatment per protocol. Assessment and Plan (1) Major depressive disorder, recurrent severe without psychotic features: Status: Acute (2) Generalized anxiety disorder: Status: Acute (3) OCD (obsessive compulsive disorder): Status: Acute Plan Patient did have a good day insight pulled back into depression. We have talked about the need to work with someone to help manage his anxiety and alter his ability to engage with others in the world. He does tend to be quite isolative unfortunately does not feel like he could tolerate partial hospital patient does have periods of anxiety has odd sensation at times that things are in developing his head for long periods of time but no derealization depersonalization altered consciousness clouding or other symptoms
--- NOTE | 2024-05-28 13:46 | P.PNPS_ITS ---
TMS Daily Progress Note Daily TMS Progress Note Date of Service: 05/28/24 Week #: 6 Treatment #(-30): 27 PHQ-9 Pre-Treatment (-): 15 PHQ-9 Most Recent (04-09): 15 CHRISTOPHER-7 Pre-Treatment (0-21): 20 CHRISTOPHER-7 Most Recent (0-): 21 Reviewed: TMS Tech Note Reviewed Verification: I have reviewed the TMS Paper Inserter Note and agree with the contents. The patient remains a candidate to continue TMS treatment per protocol. Assessment and Plan (1) Major depressive disorder, recurrent severe without psychotic features: Status: Acute (2) OCD (obsessive compulsive disorder): Status: Acute (3) Generalized anxiety disorder: Status: Acute Plan Patient awake alert with clear sensorium has been having anxiety regarding taper protocol. Also describes sensation under his head that stays with him not re ally describe does not appear to be superficial pain no altered sensorium clotting of consciousness change in consciousness alteration thinking stereotypic or other sensation that he could be blacking out. While patient is speaking about this and saying he is having this he is totally alert clear and has significant anxiety about TMS not being helpful and what would be the next step. Have strongly urged more regular psychotherapy and might benefit from spravato that may help him in changing sets which is a very difficult thing for him to do Spoke with patient went over details does not seem to be preseizure related I have given him some outpatient referrals for psychotherapy Total time managing care of this patient today: 15 minutes.
--- NOTE | 2024-05-28 13:46 | HO.TMSDAILY2 ---
TMS Daily Progress Note Daily TMS Progress Note Date of Service: 05/23/24 Week #: 5 Treatment #(-30): 24 PHQ-9 Pre-Treatment (-): 15 PHQ-9 Most Recent (04-09): 15 CHRISTOPHER-7 Pre-Treatment (0-21): 20 CHRISTOPHER-7 Most Recent (0-): 21 Reviewed: TMS Tech Note Reviewed Verification: I have reviewed the TMS Grounds Foreman Note and agree with the contents. The patient remains a candidate to continue TMS treatment per protocol. Assessment and Plan (1) Major depressive disorder, recurrent severe without psychotic features: Status: Acute (2) Generalized anxiety disorder: Status: Acute (3) OCD (obsessive compulsive disorder): Status: Acute Plan Patient has been having more anxiety some of this relates to having to find a new primary care physician and will be working with a new primary care doctor which will be a big adjustment for him. Patient does have difficulty changing sets Continue plan of care I have discussed option of spravato if TMS not helpful
--- NOTE | 2024-05-28 13:46 | HO.TMSDAILY2 ---
TMS Daily Progress Note Daily TMS Progress Note Date of Service: 05/25/24 Week #: 6 Treatment #(-): 26 PHQ-9 Pre-Treatment (-): 15 PHQ-9 Most Recent (04-09): 15 CHRISTOPHER-7 Pre-Treatment (0-21): 20 CHRISTOPHER-7 Most Recent (0-): 21 Reviewed: TMS Tech Note Reviewed Verification: I have reviewed the TMS Claim Administrator Note and agree with the contents. The patient remains a candidate to continue TMS treatment per protocol. Assessment and Plan (1) Major depressive disorder, recurrent severe without psychotic features: Status: Acute (2) Generalized anxiety disorder: Status: Acute (3) OCD (obsessive compulsive disorder): Status: Acute Plan Patient has been increasingly anxious that he has not started to feel better we have discussed alternatives if TMS were not to be effective. Does have anxiety with change and is preoccupied with the process of taper
--- NOTE | 2024-06-08 10:35 | HO.TMSDAILY2 ---
TMS Daily Progress Note Daily TMS Progress Note Date of Service: 05/29/24 Week #: 6 Treatment #(04-12): 28 PHQ-9 Pre-Treatment (-): 15 PHQ-9 Most Recent (04-09): 15 CHRISTOPHER-7 Pre-Treatment (0-): 20 CHRISTOPHER-7 Most Recent (0-): 21 Reviewed: TMS Tech Note Reviewed Verification: I have reviewed the TMS Safety Compliance Specialist Note and agree with the contents. The patient remains a candidate to continue TMS treatment per protocol. Assessment and Plan (1) Major depressive disorder, recurrent severe without psychotic features: Status: Acute (2) Panic disorder: Status: Acute (3) OCD (obsessive compulsive disorder): Status: Acute Plan The patient had an odd sensation with left-sided treatment hope was right-sided treatment would have decreased sensation was difficult for him to describe he has had some post treatment fatigue no clouding of consciousness no altered sensorium some sensation unclear if scalp related and this seemed to cause increased anxiety and rumination
--- NOTE | 2024-06-08 11:52 | HO.TMSDAILY2 ---
TMS Daily Progress Note Daily TMS Progress Note Date of Service: 05/30/24 Week #: 6 Treatment #(04-12): 29 PHQ-9 Pre-Treatment (-): 15 PHQ-9 Most Recent (04-09): 15 CHRISTOPHER-7 Pre-Treatment (0-): 20 CHRISTOPHER-7 Most Recent (0-): 21 Reviewed: TMS Tech Note Reviewed Verification: I have reviewed the TMS Ski Binding Fitter And Repairer Note and agree with the contents. The patient remains a candidate to continue TMS treatment per protocol. Assessment and Plan (1) Major depressive disorder, recurrent severe without psychotic features: Status: Acute (2) Panic disorder: Status: Acute (3) OCD (obsessive compulsive disorder): Status: Acute Plan Patient was again treated with right-sided treatment at a lower MT the patient continued to have a strange sensation unclear if we will continue to go forward there is no symptoms of seizure his thinking consciousness or otherwise unchanged
--- NOTE | 2024-06-08 11:56 | PM.EVENT ---
Event Note Date of Service: 05/31/24 Event Note: Spoke with patient who arrives for treatment given that he continues to have odd sensation has focused anxiety regarding this again sensorium totally clear patient clear speaking no alteration thought clouding or other physical sensations accept what appears to be the scalp but given patient's lack of risks onset after 29 treatments increase anxiety regarding sensations I would discontinue treatment at this time does not appear to be effective. Will see the patient and can discuss other alternatives and an outpatient visit Time Spent With Patient Time: Total time managing care of this patient today ____ minutes.
== END 2024-05-31 12:07 | disposition home or self-care (01) ==
LOC: HO.PTMS 12:30
PROVIDERS: Visit Provider Psychiatry & Neurology Psychiatry
DX: F33.2 Major depressive disorder, recurrent severe without psychotic features (principal); F41.0 Panic disorder [episodic paroxysmal anxiety]; F42.9 Obsessive-compulsive disorder, unspecified
CPT/HCPCS: 90867; 90868; 90869; 99205

== ENCOUNTER 2024-06-04 13:07 | Outpatient (AMB) | payer MEDICARE, MEDICAID, SELFPAY ==
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
== END 2024-06-04 13:41 | disposition home or self-care (01) ==
LOC: HO.HOP 13:07
PROVIDERS: PCP Internal Medicine; Visit Provider Psychiatry & Neurology Psychiatry
DX: F33.9 Major depressive disorder, recurrent, unspecified (principal); F41.1 Generalized anxiety disorder; F42.9 Obsessive-compulsive disorder, unspecified; F41.0 Panic disorder [episodic paroxysmal anxiety]
CPT/HCPCS: 90833; 99213

== ENCOUNTER → 2024-06-04 13:07 | Outpatient (BNVA) | payer MEDICARE, MEDICAID, SELFPAY | PROVIDERS: PCP Internal Medicine; Visit Provider Psychiatry & Neurology Psychiatry | DX: F33.9 Major depressive disorder, recurrent, unspecified (principal); F41.1 Generalized anxiety disorder; F42.9 Obsessive-compulsive disorder, unspecified; F41.0 Panic disorder [episodic paroxysmal anxiety]; Z71.89 Other specified counseling | CPT/HCPCS: 99212 ==

== ENCOUNTER 2024-06-14 07:24 | Outpatient (REF) | payer MEDICARE, MEDICAID, SELFPAY ==
--- NOTE | ~2024-06-14 | CT_ITS ---
CLINICAL HISTORY: G44.211 - Episodic tension-type headache, intractable CT head without contrast Comparison: None Findings: No intra-axial mass, midline shift, hydrocephalus, or acute hemorrhage. No significant atrophy-like change or white matter disease. The visualized paranasal sinuses and mastoid air cells are normal. The orbits are within normal limits. There is no acute fracture. IMPRESSION: 1. No acute intracranial findings. This document has been electronically signed by: Beth Shipman MD on 06/14/2024 17:10:25
== END 2024-06-14 07:25 | disposition home or self-care (01) ==
LOC: HO.CT 07:24
PROVIDERS: PCP Internal Medicine; Visit Provider Psychiatry & Neurology Psychiatry
DX: G44.211 Episodic tension-type headache, intractable (principal)
CPT/HCPCS: 70450

== ENCOUNTER → 2024-06-14 07:26 | Outpatient (BNV) | payer MEDICARE, MEDICAID, SELFPAY | PROVIDERS: PCP Internal Medicine; Visit Provider Specialist | DX: G44.211 Episodic tension-type headache, intractable (principal) | CPT/HCPCS: 70450 ==

== ENCOUNTER 2024-07-19 14:11 | Outpatient (AMB) | payer MEDICARE, MEDICAID, SELFPAY ==
--- NOTE | 2024-07-19 13:31 | A.OFFPC_ITS ---
Vital Signs 07/19/24 13:32 Height 6 ft Weight 202 lb BMI 27.4 BP 130/78 Blood Pressure Location Lt brachial Position Sitting Pulse 85 Pulse Source Pulse Oximeter Temp 97.5 F Temp Source Axillary Pulse Oximetry (%) 98 Oxygen Delivery Method Room Air Intake Visit Reasons: Routine Rx Refill - see comments Cashiers Bussers Food Runners Required: No Accompanied by: Self / Same As Patient Allergies aspirin [ASPIRIN] Allergy (Intermediate, Verified 07/19/24 13:32) STOMACH UPSET Tobacco use date assessed: 07/19/24 Dental Screening Dental Screen Date: 07/19/24 Did you have a dental visit in the last 12 months?: Yes Did you have a dental problem in the last 6 months where you did not have access to dental care?: No HPI HPI Comments History of Present Illness Details The patient is a 58 year old male with a past medical history of bipolar disorder, anxiety, hyperlipidemia, GERD presenting for follow up BH: received TMS therapy. After the 29th visit got left sided occital neuritis. Anxiety-requires lorazepam Follows with urology post SSRI hypogonadism. hypogonadal hypogonadism. Previously Dr. Mooney and previously saw Dr Villalobos. Right sided lymph node painand enlargement ROS see HPI PHYSICAL EXAM: GENERAL: Alert and oriented x 3. NAD EYES: EOMI. Anicteric. HENT: Moist mucous membranes. No scleral icterus. enlarged right submandibular node LUNGS: Clear to auscultation bilaterally. CARDIOVASCULAR: Regular rate and rhythm. No murmur. No JVD. ABDOMEN: Soft, non-tender +bs EXTREMITIES: No edema. Non-tender. SKIN: No rashes or lesions. Warm. NEUROLOGIC: No focal neurological deficits. CN II-XII grossly intact PSYCHIATRIC: Cooperative. Appropriate mood and a [facility] Medical History Panic disorder Generalized anxiety disorder Major depressive disorder, recurrent severe without psychotic features Depression Mild acid reflux Erectile dysfunction Depression Anxiety Hyperlipidemia Hypopituitarism Hypogonadism in male Tendinitis of left rotator cuff Gait abnormality Knee pain OA (osteoarthritis) of knee Thrombosed external hemorrhoid Family History (Updated 07/19/24 @ 14:20 by Ilda Obregon MA) Mother No problems noted. Father No problems noted. Other Mental health disorder Social History Housing: Apartment Alcohol intake: current Alcohol intake frequency: holidays/special occasions only Patient Tobacco Use Status: Never used Tobacco e-Cigarette/Vaping Use: Never Used service: No Current occupational status: disabled Cognitive needs: No Hearing needs: No Vision needs: Yes (reading glasses) Questionnaire PHQ-9 Over the last 2 weeks, how often have you been bothered by any of the following problems? 1. Little interest or pleasure in doing things: not at all 2. Feeling down, depressed, or hopeless: not at all 3. Trouble falling or staying asleep, or sleeping too much: not at all 4. Feeling tired or having little energy: not at all 5. Poor appetite or overeating: not at all 6. Feeling bad about yourself - or that you are a failure or have let yourself or your family down: not at all 7. Trouble concentrating on things, such as reading the newspaper or watching television: not at all 8. Moving or speaking so slowly that other people could have noticed. Or the opposite - being so fidgety or restless that you have been moving around a lot more than usual: not at all 9. Thoughts that you would be better off or of hurting yourself in some way: not at all Total score: 0 Depression Screening Interpretation: Negative Depression Screening Done: Yes [id number] - PHQ-9 Billing: Yes Source: Developed by Drs. Rico Rondon, Gladis Zhang, Silvio Tucker and colleagues, with an educational jessica from [employer]. Thrive Questionnaire Date Thrive assessed: 07/19/24 I am a: Patient Within the past 12 months, did the food you bought not last and you didn't have the money to get more?: Never true Within the past 12 months, did you worry whether your food would run out before you got money to buy more?: Never true Do you have trouble paying for medicines?: No Do you have trouble getting transportation to medical appointments?: No Do you have trouble paying your heating and electricity bill?: No Do you have trouble taking care of your child, family member or friend?: No Do you have trouble with day-to-day activities such as bathing, preparing meals, shopping, managing finances, etc.?: No Are you currently unemployed and looking for a job?: No Are you interested in more education?: No THRIVE Score: 0 AUDIT C Alcohol Use Questionnaire (AUDIT-C) 1. How often do you have a drink containing alcohol?: Monthly or less 2. How many drinks containing alcohol do you have on a typical day when you are drinking?: 1 or 2 3. How often do you have six or more drinks on one occasion?: Less than monthly Total Score: 2 CHRISTOPHER-7 AMB Questionnaire CHRISTOPHER-7 Date CHRISTOPHER - 7 assessed: 07/19/24 Feeling nervous, anxious, or on edge: 0 = Not at all Not being able to stop or control worryin = Not at all Worrying too much about different things: 0 = Not at all Trouble relaxin = Not at all Being so restless that it is hard to sit still: 0 = Not at all Becoming easily annoyed or irritable: 0 = Not at all Feeling afraid as if something awful might happen: 0 = Not at all Total CHRISTOPHER-7 score (0-4 normal; 5-9 mild; 10-14 moderate; 15-21 severe): 0 Source: Developed by Drs. Rico Rondon, Glaids Zhang, Silvio Tucker and colleagues, with an educational jessica from [employer]. Physical exam (Primary Care) Vital Signs: Last Vital Signs Temp 97.5 F 07/19/24 13:32 Pulse 85 07/19/24 13:32 BP 130/78 07/19/24 13:32 Pulse Ox 98 07/19/24 13:32 Oxygen Delivery Method Room Air 07/19/24 13:32 BMI result Body Mass Index 27.4 Tobacco/Smoking Status: Tobacco use Status Tobacco use date assessed 07/19/24 07/19/24 13:33 Patient Tobacco Use Status Never used Tobacco 07/19/24 13:33 e-Cigarette/Vaping Use Never Used 07/19/24 13:33 PHQ-9: PHQ-9 Score PHQ-9: Total score 0 07/19/24 14:43 Depression Screening Interpretation: Negative Thrive Assessment: Date of Thrive Assessment Date Thrive assessed 07/19/24 07/19/24 13:33 Coding Level of Care Code Est Pt Level 4 (66263) Diagnoses Lymph node enlargement R59.9 Obsessive-compulsive disorder, unspecified type F42.9 Obsessive-compulsive disorder type: unspecified Major depressive disorder, recurrent severe without psychotic features F33.2 Hypogonadotropic hypogonadism E23.0 Additional Codes PHQ-9 - 75710 - PHQ-9 Billing: Yes ([id number]) Assessment & Plan Assessment & Plan (1) Lymph node enlargement: Code(s): R59.9 - Enlarged lymph nodes, unspecified Category: Medical (2) OCD (obsessive compulsive disorder): Code(s): F42.9 - Obsessive-compulsive disorder, unspecified Category: Medical Qualifiers: Obsessive-compulsive disorder type: unspecified Qualified Code(s): F42.9 - Obsessive-compulsive disorder, unspecified (3) Major depressive disorder, recurrent severe without psychotic features: Code(s): F33.2 - Major depressive disorder, recurrent severe without psychotic features Category: Medical (4) 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 - Hypopituitarism Category: Medical Plan 58 yo with anxiety, ocd presenting for follow up Following for TMS. has had some cervicogenic headache following therapy continue current medications labs ordered Orders: Orders XR cervical spine 4V 07/19/24 M54.12 - Radiculopathy, cervical region [place] 07/19/24 F33.2 - Major depressive disorder, recurrent severe without psychotic features, F41.1 - Generalized anxiety disorder TSH reflex Free T4 07/19/24 F33.2 - Major depressive disorder, recurrent severe without psychotic features, F41.1 - Generalized anxiety disorder Catecholamines, Frac., Plasma 07/19/24 F33.2 - Major depressive disorder, recurrent severe without psychotic features, F41.1 - Generalized anxiety disorder Catecholamines,Frac.,Random Ur 07/19/24 F33.2 - Major depressive disorder, recurrent severe without psychotic features, F41.1 - Generalized anxiety disorder Tryptase 07/19/24 F41.1 - Generalized anxiety disorder Complete Blood Count Auto Diff 07/19/24 R59.9 - Enlarged lymph nodes, unspecified US soft tiss head and/or neck 07/19/24 R59.9 - Enlarged lymph nodes, unspecified Medications: New omeprazole 20 mg PO DAILY 90 caps 3RF lithium carbonate ER 300 mg PO BID 60 tabs 11RF sumatriptan succinate take 1 tab at onset of headache; if no relief may repeat 1 tab after at least 2 hrs; max = 4 tabs/24 hr PO 12 tabs 0RF Changed From lorazepam take 1 tab by mouth twice a daily with an extra 1/2 tab as needed. 1 mg PO DAILY PRN 85 tabs 0RF anxiety To lorazepam take 1 tab by mouth twice a daily with an extra 1/2 tab as needed. Max 3 tab oral daily 30 days 85 tabs 0RF anxiety From alclometasone 0.05% topical DAILY PRN To alclometasone 0.05% 1 appl topical DAILY PRN 60 grams 3RF rash Refilled lorazepam take 1 tab by mouth twice a daily with an extra 1/2 tab as needed. Max 3 tab oral daily 85 tabs 3RF anxiety 30 days
[2024-07-19 13:32] VITALS: BP 130/78; PULSE 85; TEMP 36.4; O2SAT 98; BMI 27.4
--- OUTSIDE RECORDS SUMMARY | 2024-07-19 15:03 | XMS_ITS | Encounter Summary ---
Author Organization [employer] Address [address] [place] [address] Care Team Providers Care Egg And Spice Mixer Name Role Phone Unavailable Primary Care Provider [...]
--- OUTSIDE RECORDS SUMMARY | 2024-07-19 15:03 | XMS_ITS | Clinical Summary ---
Author Organization [employer] Address [address] [place] [address] Care Team Providers Care Machine Feeder Raw Stock Name Role Phone Unavailable Primary Care Provider [...] Vaccines (1 of 2) 2014 COVID-19 Vaccine ( - season) 2023 06/10/2021, 01/26/2021, 07/22/2020, Additional [...] Most Recently Relevant to Health Maintenance Insurance [facility] MEDICAID STAND ADULT
--- OUTSIDE RECORDS SUMMARY | 2024-07-19 15:03 | XMS_ITS | Encounter Summary ---
Author Organization [employer] Address [address] [facility] 7t [place] [address] Care Team Providers Care Solar Panel Technician Name Role Phone Unavailable Primary Care Provider Unavailabl e Encounter Details Date Type Department Care Team (Latest Contact Info) Description 09/30/2020 Abstract C CONVERSIONS Dental, Provider, DDS Social [...]
== END 2024-07-19 14:56 | disposition home or self-care (01) ==
LOC: HO.HMCHD 14:12
PROVIDERS: PCP Internal Medicine; Visit Provider Internal Medicine
DX: R59.9 Enlarged lymph nodes, unspecified (principal); F42.9 Obsessive-compulsive disorder, unspecified; F33.2 Major depressive disorder, recurrent severe without psychotic features; E23.0 Hypopituitarism

== ENCOUNTER 2024-07-19 14:11 | Outpatient (REF) | payer MEDICARE, MEDICAID, SELFPAY ==
[2024-07-19 15:26] LABS: MANUAL DIFF FLAG NO
[2024-07-19 15:31] LABS: Basophils Percent Auto 0.5 % (0-2); Eosinophils Absolute Auto 0.1 X10*3/uL (0.0-0.4); Eosinophils Percent Auto 2.4 % (0-4); Hematocrit 43.2 % (42.0-52.0); Hemoglobin 14.5 g/dl (14.0-18.0); Imm Gran Abs Auto 0.02 X10*3/uL (0.00-0.03); Imm Gran Pct Auto 0.3 % (0.0-0.4); Lymphocytes Percent Auto 16.7 % (20-40); Mean Corpuscular HGB Conc 33.6 g/dl (31.0-36.0); Mean Corpuscular Hemoglobin 29.8 pg (27.0-33.0); Mean Corpuscular Volume 88.9 fL (80.0-98.0); Mean Platelet Volume 10.3 fL (9.4-12.4); Monocytes Absolute Auto 0.6 X10*3/uL (0.1-1.2); Monocytes Percent Auto 9.4 % (2-11); Neutrophils Absolute Auto 4.2 x10*3/uL (2.0-8.3); Neutrophils Percent Auto 70.7 % (45-73); Platelet Count 206 X10*3/uL (160-400); Red Blood Count 4.86 X10*6/uL (4.60-5.80); Red Cell Distribution Width 13.8 % (11.0-16.0); White Blood Count 5.9 X10*3/uL (4.8-10.8)
--- OUTSIDE RECORDS SUMMARY | 2024-07-19 15:39 | XMS_ITS | Clinical Summary ---
Author Organization [employer] Address [address] [facility] 7t [place] [address] Care Team Providers Care Coffee Shop Aide Name Role Phone Unavailable Primary Care Provider [...] Most Recently Relevant to Health Maintenance Insurance [facility] MEDICAID STAND ADULT
--- OUTSIDE RECORDS SUMMARY | 2024-07-19 15:39 | XMS_ITS | Encounter Summary ---
Author Organization [employer] Address [address] [facility] 7t [place] [address] Care Team Providers Care Shoe Laster Name Role Phone Unavailable Primary Care Provider [...]
--- OUTSIDE RECORDS SUMMARY | 2024-07-19 15:39 | XMS_ITS | Encounter Summary ---
Author Organization [employer] Address [address] [facility] 7t [place] [address] Care Team Providers Care Drywall Taper Helper Name Role Phone Unavailable Primary Care Provider [...]
[2024-07-19 16:25] LABS: Lithium 0.11 mmol/L (0.60-1.20)
[2024-07-19 16:33] LABS: TSH reflex Free T4 1.33 uIU/mL (0.32-4.0)
[2024-07-25 18:44] LABS: Catecholamine,Calc Tot.(E+NE) 29 mcg/g cr (9-74); Creatinine, Random Urine 123 mg/dL (20-320); Dopamine, Random Urine 126 mcg/g cr (40-390); Epinephrine, Random Urine 3 mcg/g cr (2-16); Norepinephrine, Random Urine 26 mcg/g cr (7-65)
[2024-07-27 13:24] LABS: Catecholamine Frac, Total 231 pg/mL
== END 2024-07-19 14:12 | disposition home or self-care (01) ==
LOC: HO.LAB 14:11
PROVIDERS: PCP Internal Medicine; Visit Provider Internal Medicine
DX: R59.9 Enlarged lymph nodes, unspecified (principal); F42.9 Obsessive-compulsive disorder, unspecified; F33.2 Major depressive disorder, recurrent severe without psychotic features; E23.0 Hypopituitarism; F41.1 Generalized anxiety disorder
CPT/HCPCS: 80178; 82384; 83520; 84443; 85025; 96127; 99212

== ENCOUNTER 2024-08-20 15:35 | Outpatient (REF) | payer MEDICARE, MEDICAID, SELFPAY ==
--- NOTE | ~2024-08-20 | US_ITS ---
EXAMINATION: US THYROID CLINICAL INFORMATION: Palpable lump right neck COMPARISON: None available. TECHNIQUE: Linear transducer gardiner-scale and color Doppler examination with attention to the region of the thyroid. FINDINGS: A well-defined hypoechoic mass corresponding to palpable lump in the right lateral submandibular space. It measures 3.1 x 2.4 x 1.6 cm and most likely represents a complex lymph node, suspicious. There is increased central and peripheral vascularity. US/US soft tiss head and/or neck IMPRESSION: Hypoechoic solid mass right lateral submandibular space likely suspicious lymph node with increased vascularity. Recommend ultrasound-guided biopsy. Electronically signed by: Kelvin Lange MD 08/21/2024 07:08 AM EDT
--- OUTSIDE RECORDS SUMMARY | 2024-08-20 17:18 | XMS_ITS | Encounter Summary ---
Author Organization [employer] Address [address] [facility] 7t [place] [address] Care Team Providers Care Assistant Professor Of Radiology Name Role Phone Unavailable Primary Care Provider [...]
== END 2024-08-20 15:36 | disposition home or self-care (01) ==
LOC: HO.US 15:35
PROVIDERS: PCP Internal Medicine; Visit Provider Internal Medicine
DX: R59.9 Enlarged lymph nodes, unspecified (principal)
CPT/HCPCS: 76536

== ENCOUNTER → 2024-08-20 15:37 | Outpatient (BNV) | payer MEDICARE, MEDICAID, SELFPAY | PROVIDERS: PCP Internal Medicine; Visit Provider Radiology Diagnostic Radiology | DX: R22.1 Localized swelling, mass and lump, neck (principal) | CPT/HCPCS: 76536 ==

== ENCOUNTER 2024-08-24 14:42 | Outpatient (AMB) | payer MEDICARE, MEDICAID, SELFPAY ==
--- OUTSIDE RECORDS SUMMARY | 2024-08-24 14:45 | XMS_ITS | Encounter Summary ---
Author Organization [employer] Address [address] [facility] 7t [place] [address] Care Team Providers Care Preschool Associate Teacher Name Role Phone Unavailable Primary Care Provider [...]
[2024-08-24 14:50] VITALS: BP 128/82; PULSE 79; TEMP 36.8; O2SAT 97; BMI 27.0
--- NOTE | 2024-08-24 14:50 | MHC.PC.OV ---
Vital Signs 08/24/24 14:50 Height 6 ft Weight 199 lb BMI 27.0 BP 128/82 Blood Pressure Location Lt brachial Position Sitting Pulse 79 Pulse Source Pulse Oximeter Temp 98.2 F Temp Source Axillary Pulse Oximetry (%) 97 Oxygen Delivery Method Room Air Intake Visit Reasons: Review Results Iron Assorter Required: No Accompanied by: Self / Same As Patient Allergies aspirin [ASPIRIN] Allergy (Intermediate, Verified 08/24/24 14:50) STOMACH UPSET acetaminophen [From Fioricet] Adverse Reaction (Intermediate, Verified 08/24/24 15:07) Headache butalbital [From Fioricet] Adverse Reaction (Intermediate, Verified 08/24/24 15:07) Headache caffeine [From Fioricet] Adverse Reaction (Intermediate, Verified 08/24/24 15:07) Headache Tobacco use date assessed: 08/24/24 Dental Screening Dental Screen Date: 08/24/24 Did you have a dental visit in the last 12 months?: Yes Did you have a dental problem in the last 6 months where you did not have access to dental care?: No HPI HPI Comments History of Present Illness Details The patient is a 58 year old male with a past medical history of bipolar disorder, anxiety, hyperlipidemia, GERD presenting for follow up BH: received TMS therapy. After the th visit got left sided occital neuritis. Anxiety-requires lorazepam. Headaches-started aimovig. Tried fioricet which caused immediate nasal congestion and worsening headache. He has been having a persistent headache for the past week. Additionally notes that when he starts to become sexually aroused/gets an erection he gets a sudden onset of head pressure and pain Follows with urology post SSRI hypogonadism. hypogonadal hypogonadism. Previously Dr. Mooney and previously saw Dr Villalobos. Right sided lymph node pain and enlargement. Recent ultrasound shows possibly suspicious. Referred today to surgery. Labs with elevated tryptase-he has an appt pending with PHOEBE CARPIO see HPI PHYSICAL EXAM: GENERAL: Alert and oriented x 3. NAD EYES: EOMI. Anicteric. HENT: Moist mucous membranes. No scleral icterus. enlarged right submandibular node LUNGS: Clear to auscultation bilaterally. CARDIOVASCULAR: Regular rate and rhythm. ABDOMEN: Soft, non-tender +bs EXTREMITIES: No edema. Non-tender. SKIN: No rashes or lesions. Warm. NEUROLOGIC: No focal neurological deficits. CN II-XII grossly intact PSYCHIATRIC: Cooperative. Appropriate mood and a [facility] Medical History Panic disorder Generalized anxiety disorder Major depressive disorder, recurrent severe without psychotic features Depression Mild acid reflux Erectile dysfunction Depression Anxiety Hyperlipidemia Hypopituitarism Hypogonadism in male Tendinitis of left rotator cuff Gait abnormality Knee pain OA (osteoarthritis) of knee Thrombosed external hemorrhoid Family History Mother No problems noted. Father No problems noted. Other Mental health disorder Social History Housing: Apartment Alcohol intake: current Alcohol intake frequency: holidays/special occasions only Patient Tobacco Use Status: Never used Tobacco e-Cigarette/Vaping Use: Never Used service: No Current occupational status: disabled Cognitive needs: No Hearing needs: No Vision needs: Yes (reading glasses) Questionnaire PHQ-9 Over the last 2 weeks, how often have you been bothered by any of the following problems? 1. Little interest or pleasure in doing things: not at all 2. Feeling down, depressed, or hopeless: nearly every day 3. Trouble falling or staying asleep, or sleeping too much: not at all 4. Feeling tired or having little energy: not at all 5. Poor appetite or overeating: not at all 6. Feeling bad about yourself - or that you are a failure or have let yourself or your family down: not at all 7. Trouble concentrating on things, such as reading the newspaper or watching television: not at all 8. Moving or speaking so slowly that other people could have noticed. Or the opposite - being so fidgety or restless that you have been moving around a lot more than usual: not at all 9. Thoughts that you would be better off or of hurting yourself in some way: not at all Total score: 3 Depression Screening Interpretation: Negative Depression Screening Done: Yes 32316 - PHQ-9 Billing: Yes Source: Developed by Drs. Rico Rondon, Gladis Zhang, Silvio Tucker and colleagues, with an educational jessica from [employer]. Thrive Questionnaire Date Thrive assessed: 08/24/24 I am a: Patient Within the past 12 months, did the food you bought not last and you didn't have the money to get more?: Never true Within the past 12 months, did you worry whether your food would run out before you got money to buy more?: Never true Do you have trouble paying for medicines?: No Do you have trouble getting transportation to medical appointments?: No Do you have trouble paying your heating and electricity bill?: No Do you have trouble taking care of your child, family member or friend?: No Do you have trouble with day-to-day activities such as bathing, preparing meals, shopping, managing finances, etc.?: No Are you currently unemployed and looking for a job?: No Are you interested in more education?: No THRIVE Score: 0 AUDIT C Alcohol Use Questionnaire (AUDIT-C) 1. How often do you have a drink containing alcohol?: Monthly or less 2. How many drinks containing alcohol do you have on a typical day when you are drinking?: 1 or 2 3. How often do you have six or more drinks on one occasion?: Less than monthly Total Score: 2 CHRISTOPHER-7 AMB Questionnaire CHRISTOPHER-7 Date CHRISTOPHER - 7 assessed: 08/24/24 Feeling nervous, anxious, or on edge: 0 = Not at all Not being able to stop or control worryin = Not at all Worrying too much about different things: 0 = Not at all Trouble relaxin = Not at all Being so restless that it is hard to sit still: 0 = Not at all Becoming easily annoyed or irritable: 0 = Not at all Feeling afraid as if something awful might happen: 0 = Not at all Total CHRISTOPHER-7 score (0-4 normal; 5-9 mild; 10-14 moderate; 15-21 severe): 0 Source: Developed by Drs. Rico Rondon, Gladis Zhang, Silvio Tucker and colleagues, with an educational jessica from [employer]. Physical exam (Primary Care) Vital Signs: Last Vital Signs Temp 98.2 F 08/24/24 14:50 Pulse 79 08/24/24 14:50 BP 128/82 08/24/24 14:50 Pulse Ox 97 08/24/24 14:50 Oxygen Delivery Method Room Air 08/24/24 14:50 BMI result Body Mass Index 27.0 Tobacco/Smoking Status: Tobacco use Status Tobacco use date assessed 08/24/24 08/24/24 15:00 Patient Tobacco Use Status Never used Tobacco 08/24/24 14:53 e-Cigarette/Vaping Use Never Used 08/24/24 14:53 PHQ-9: PHQ-9 Score PHQ-9: Total score 3 08/24/24 15:01 Depression Screening Interpretation: Negative Thrive Assessment: Date of Thrive Assessment Date Thrive assessed 08/24/24 08/24/24 14:53 Coding Level of Care Code Est Pt Level 4 (05654) Complex EM visit Add On G2211 Diagnoses Lymph node enlargement R59.9 Elevated serum tryptase R74.8 Additional Codes PHQ-9 - 21830 - PHQ-9 Billing: Yes ([id number]) Assessment & Plan Assessment & Plan (1) Lymph node enlargement: Code(s): R59.9 - Enlarged lymph nodes, unspecified Category: Medical (2) Elevated serum tryptase: Code(s): R74.8 - Abnormal levels of other serum enzymes Category: Medical Plan Suspicious lymph node-referral for biopsy Headaches-change in frequency and severity. Additional development of headache with sexual activity. Continue aimovig. Elevated tryptase, anxiety, GRANDE-appt pending PHOEBE Orders: Orders CT angio head neck 08/24/24 G44.82 - Headache associated with sexual activity, H93.19 - Tinnitus, unspecified ear, R51.9 - Headache, unspecified Referrals General Surgery Referral R59.9 - Enlarged lymph nodes, unspecified Medications: New ketorolac 10 mg PO Q8H PRN 15 tabs 0RF pain 5 days
== END 2024-08-24 15:22 | disposition home or self-care (01) ==
LOC: HO.HMCHD 14:43
PROVIDERS: PCP Internal Medicine; Visit Provider Internal Medicine
DX: R59.9 Enlarged lymph nodes, unspecified (principal); R74.8 Abnormal levels of other serum enzymes

== ENCOUNTER → 2024-08-24 14:42 | Outpatient (BNVA) | payer MEDICARE, MEDICAID, SELFPAY | PROVIDERS: PCP Internal Medicine; Visit Provider Internal Medicine | DX: R59.9 Enlarged lymph nodes, unspecified (principal); R74.8 Abnormal levels of other serum enzymes; F31.9 Bipolar disorder, unspecified; F41.9 Anxiety disorder, unspecified; E78.5 Hyperlipidemia, unspecified; K21.9 Gastro-esophageal reflux disease without esophagitis; R51.9 Headache, unspecified | CPT/HCPCS: 96127; 99212 ==

== ENCOUNTER 2024-09-05 10:56 | Outpatient (REF) | payer MEDICARE, MEDICAID, SELFPAY ==
--- NOTE | ~2024-09-05 | CT_ITS ---
CLINICAL HISTORY: H93.19 - Tinnitus, unspecified ear CT temporal bone with contrast Comparison: CT/REG/SR - CT HEAD/BRAIN W IV CON - 09/05/24 11:16 EDT Findings: Bilateral external auditory canals and tympanic membranes are unremarkable (except for mild likely cerumen in the external auditory canals bilaterally). Middle ear ossicles are intact. Focal dehiscence of the roof of the right superior circular canal on series 6, image 47. Cochlea and semicircular canals are otherwise normal. Unremarkable facial canals. Opacified left eustachian tube possibly due to secretions. Temporomandibular joints are intact. Orbits normal. Visualized sinuses and mastoid air cells clear (except for small left maxillary sinus polyp/retention cyst). No foreign bodies. IMPRESSION: 1. Focal dehiscence of the roof of the right superior circular canal. 2. Opacified left eustachian tube possibly due to secretions. 3. No abnormal enhancement. MRI would be more sensitive for evaluation for possible CPA cisternal/internal auditory canal lesions. This document has been electronically signed by: Laure Morales MD on 09/06/2024 08:44:13
--- NOTE | ~2024-09-05 | CT_ITS ---
CLINICAL HISTORY: H93.19 - Tinnitus, unspecified ear CT head with contrast Comparison: None provided Findings: No intracranial mass, midline shift, hydrocephalus, or acute hemorrhage. Mild chronic ischemic white matter disease without volume loss. No acute process in sinuses or mastoids. No acute bony abnormality. Impression: No acute intracranial process This document has been electronically signed by: Andres Duque MD on 09/05/2024 19:40:43
[2024-09-05] MEDS: iohexoL 350 MG/ML 100 ML INFUS..BTL IV (11:46)
--- OUTSIDE RECORDS SUMMARY | 2024-09-05 12:55 | XMS_ITS | Encounter Summary ---
Author Organization [employer] Address [address] [facility] 7t [place] [address] Care Team Providers Care Engine Hostler Name Role Phone Unavailable Primary Care Provider [...]
[2024-09-05 14:12] LABS: Creatinine POC 1.1 mg/dL (0.5-1.4); GFR POC > 60
== END 2024-09-05 10:57 | disposition home or self-care (01) ==
LOC: HO.CT 10:56
PROVIDERS: PCP Internal Medicine; Visit Provider Internal Medicine
DX: H93.19 Tinnitus, unspecified ear (principal); G44.82 Headache associated with sexual activity
CPT/HCPCS: 70460; 70480; 82565; Q9967

== ENCOUNTER → 2024-09-05 10:59 | Outpatient (BNV) | payer MEDICARE, MEDICAID, SELFPAY | PROVIDERS: PCP Internal Medicine; Visit Provider Radiology Diagnostic Radiology | DX: H93.19 Tinnitus, unspecified ear (principal) | CPT/HCPCS: 70460 ==

== ENCOUNTER 2024-09-10 09:34 | Outpatient (REF) | payer MEDICARE, MEDICAID, SELFPAY ==
--- OUTSIDE RECORDS SUMMARY | 2024-09-10 09:57 | XMS_ITS | Patient Health Record ---
Author Organization [facility] Address [address] [place] [address] Care Team Providers Care Claims Account Manager Name Role Phone Tod Kelly MD Primary Care Provider Unavaila Rico Melissa [phone] Reason For Referral No Information Medications Medication SIG (Take, Route, Frequency, Duration) Notes Start Date End Date Status Propranolol HCl 10 MG 1 tablet Orally prn Active Omeprazole 20 MG 1 capsule Orally Once a day Active [place] Carbonate 300 MG 1 capsule Orall y twice a day Active LORazepam 0.5 MG 1 tablet as needed O rally every 6 hrs Active tylenol 1 tab Oral daily Act satish Problems Problem Type SNOMED Code ICD Code Onset Dates Problem Status W/U Status Risk Notes Problem 711249057 Encounter for screening for malignant neoplasm of colon (Z12.11) Active confirmed Problem 730011622 Esophageal obstruction (K22.2) Active confirmed Problem Screening for malignant neoplasm of rectum (381460386) Encounter for screening for malignant neoplasm of rectum (Z12.12) Active confirmed Problem 897850981 Gastroesophageal reflux disease without esophagitis (K21.9) Active confirmed Problem 123221947 Gastroesophageal reflux disease, esophagitis presence not specified (K21.9) Active confirmed Problem 649348996 Esophageal ring (K22.2) Active confirmed Problem 13357045 Dysphagia, unspecified type (R13.10) Active confirmed Plan Of Treatment Future Test Test Name Order Date UPPER GI ENDOSCOPY BALLOOON DILATION OF ESOPH 12/10/2015 Insurance Providers Payer Name Payer Address Payer Phone Subscriber Number Group Number Insured Name Patient Relationship to Insured Coverage Start Date Coverage End Date MEDICARE OF [place] [address] [place] [address] [id number] GISELA EDDY Self - patient is the insured MEDICAID OF [facility] [address] [place] [address] [id number] GISELA EDDY Self - patient is the insured Medical (General) History Medical History History ICD Code Denies [place],DM,CVA,Lung disease,renal dise ase Depression/Anxiety GERD--UGI in the past with reflux Esophageal ring--esophageal obstruction--EGD in 11/2015--meat bolus removed and a distal esophageal ring was dilated with an 18-20mm balloon
[2024-09-10 10:37] LABS: Hematocrit 44.4 % (42.0-52.0); Hemoglobin 14.8 g/dl (14.0-18.0); Mean Corpuscular HGB Conc 33.3 g/dl (31.0-36.0); Mean Corpuscular Hemoglobin 29.6 pg (27.0-33.0); Mean Corpuscular Volume 88.8 fL (80.0-98.0); Mean Platelet Volume 10.6 fL (9.4-12.4); Platelet Count 198 X10*3/uL (160-400); Red Cell Distribution Width 12.4 % (11.0-16.0); White Blood Count 4.7 X10*3/uL (4.8-10.8)
[2024-09-10 11:22] LABS: Prostate Specific Antigen 1.84 ng/mL (<0.05-4.0)
[2024-09-13 16:14] LABS: Testosterone, Total 787 ng/dL (250-1100)
== END 2024-09-10 09:35 | disposition home or self-care (01) ==
LOC: HO.LAB 09:34
PROVIDERS: PCP Internal Medicine; Visit Provider Urology
DX: E23.0 Hypopituitarism (principal); Z12.5 Encounter for screening for malignant neoplasm of prostate
CPT/HCPCS: 36415; 84153; 84403; 85027

== ENCOUNTER 2024-09-12 09:34 | Outpatient (AMB) | payer MEDICARE, MEDICAID, SELFPAY ==
--- NOTE | 2024-09-12 09:37 | A.OFFVIS_ITS ---
Vital Signs 09/12/24 09:48 Height 6 ft Weight 198 lb BMI 26.9 BP 133/71 Blood Pressure Location Rt brachial Position Sitting Pulse 82 Intake Visit Reasons: Enlarged lymph nodes Intake Note: Patient referred by pcp Jeana Corrigan for enlarged lymph nodes on Rt neck. Previous mohs surgery for basal cell carcinoma on Rt cheek October 2023. Patient c/o: tender with touch. Pt would like it surgically removed. Head and neck US: 08-20-[address]: 09-05-2024 Bottom Precipitator Operator Required: No Accompanied by: Self / Same As Patient Allergies aspirin (ASPIRIN) Allergy (Intermediate, Verified 09/12/24 09:45) STOMACH UPSET acetaminophen (From Fioricet) Adverse Reaction (Intermediate, Verified 09/12/24 09:45) Headache butalbital (From Fioricet) Adverse Reaction (Intermediate, Verified 09/12/24 09:45) Headache caffeine (From Fioricet) Adverse Reaction (Intermediate, Verified 09/12/24 09:45) Headache HPI HPI Enlarged lymph nodes: Details: 59-year-old male referred for a right neck mass. He says that he had noticed this about a year and a half ago. He does not recall significant increased in size. He does state that he thinks this started after he had excision of a basal cell skin cancer on his right cheek around that time. He had an ultrasound last month of the neck showing a mass on the submandibular aspect of the right neck suggestive of an enlarged lymph node. An ultrasound biopsy had been recommended by the radiologist. He denies oral lesions or any dental caries. He denies history of smoking. He admits to severe anxiety and depression. [facility] Medical History Cervical lymphadenopathy Panic disorder Generalized anxiety disorder Major depressive disorder, recurrent severe without psychotic features Depression Mild acid reflux Erectile dysfunction Depression Anxiety Hyperlipidemia Hypopituitarism Hypogonadism in male Tendinitis of left rotator cuff Gait abnormality Knee pain OA (osteoarthritis) of knee Thrombosed external hemorrhoid Family History Mother No problems noted. Father No problems noted. Other Mental health disorder Social History Housing: Apartment Alcohol intake: current Alcohol intake frequency: holidays/special occasions only Patient Tobacco Use Status: Never used Tobacco e-Cigarette/Vaping Use: Never Used service: No Current occupational status: disabled Cognitive needs: No Hearing needs: No Vision needs: Yes (reading glasses) Review of Systems Const Denies chills and Denies fever(s) Card Denies chest pain, Denies dyspnea and Denies dyspnea on exertion Resp Denies cough, Denies dyspnea and Denies dyspnea on exertion GI Denies hematochezia and Denies change in bowel habits Denies hematuria and Denies difficulty urinating Musc Denies back pain and Denies limited range of motion Neuro Details: Migraine Denies focal weakness and Denies convulsions Psych Reports anxiety, Reports depression and Denies mood swings Physical Exam Const General: comfortable and no acute distress Orientation/consciousness: patient oriented x3 Neck Other: Palpable lymph node, about almost 3 cm in size, on the right submandibular area nontender Neck: Yes no lymphadenopathy Resp Auscultation: clear to auscultation bilaterally Cardio Rhythm: regular rhythm GI Palpation (GI): Soft to palpation, nontender and no guarding Neuro General: patient oriented x3 Results Reviewed Results Reviewed: IMPRESSION: Hypoechoic solid mass right lateral submandibular space likely suspicious lymph node with increased vascularity. Recommend ultrasound-guided biopsy. Electronically signed by: Kelvin Lange MD 08/21/2024 07:08 AM EDT RP Assessment & Plan Assessment & Plan (1) Cervical lymphadenopathy: Code(s): R59.0 - Localized enlarged lymph nodes Category: Medical Plan: He has a large, palpable right submandibular lymph node. I am going to arrange for him to have an ultrasound-guided biopsy for good pathologic sampling of this lymph node. I will see him again in the office after his biopsy to discuss the path report. Orders: Orders US biopsy lymph node Today R59.0 - Localized enlarged lymph nodes Coding Level of Care Code New Pt Level 3 (14500) Diagnoses Cervical lymphadenopathy R59.0
[2024-09-12 09:48] VITALS: BP 133/71; PULSE 82; BMI 26.9
--- OUTSIDE RECORDS SUMMARY | 2024-09-12 09:53 | XMS_ITS | Encounter Summary ---
Author Organization [employer] Address [address] [facility] 7t [place] [address] Care Team Providers Care Metal Miner Name Role Phone Unavailable Primary Care Provider [...]
--- OUTSIDE RECORDS SUMMARY | 2024-09-12 09:54 | XMS_ITS | Patient Health Record ---
Author Organization [facility] Address [address] [place] [address] Care Team Providers Care Autocad Name Role Phone Tod Kelly MD Primary Care Provider Unavaila Rico Melissa [phone] Reason For Referral No Information Medications Medication SIG (Take, Route, Frequency, Duration) Notes Start Date End Date Status Propranolol HCl 10 MG 1 tablet Orally prn Active Omeprazole 20 MG 1 capsule Orally Once a day Active [place] Carbonate 300 MG 1 capsule Orall y twice a day Active LORazepam 0.5 MG 1 tablet as needed O rally every 6 hrs Active tylenol 1 tab Oral daily Act satish Problems Problem Type SNOMED Code ICD Code Onset Dates Problem Status W/U Status Risk Notes Problem 199954736 Encounter for screening for malignant neoplasm of colon (Z12.11) Active confirmed Problem 456806582 Esophageal obstruction (K22.2) Active confirmed Problem Screening for malignant neoplasm of rectum (326607076) Encounter for screening for malignant neoplasm of rectum (Z12.12) Active confirmed Problem 902195972 Gastroesophageal reflux disease without esophagitis (K21.9) Active confirmed Problem 160555357 Gastroesophageal reflux disease, esophagitis presence not specified (K21.9) Active confirmed Problem 238712738 Esophageal ring (K22.2) Active confirmed Problem 74481211 Dysphagia, unspecified type (R13.10) Active confirmed Plan Of Treatment Future Test Test Name Order Date UPPER GI ENDOSCOPY BALLOOON DILATION OF ESOPH 12/10/2015 Insurance Providers Payer Name Payer Address Payer Phone Subscriber Number Group Number Insured Name Patient Relationship to Insured Coverage Start Date Coverage End Date MEDICARE OF [place] [address] [place] [address] [id number] GISELA EDDY Self - patient is the insured MEDICAID OF [facility] [address] [place] [address] [id number] GISELA EDDY Self - patient is the insured Medical (General) History Medical History History ICD Code Denies [place],DM,CVA,Lung disease,renal dise ase Depression/Anxiety GERD--UGI in the past with reflux Esophageal ring--esophageal obstruction--EGD in 11/2015--meat bolus removed and a distal esophageal ring was dilated with an 18-20mm balloon
== END 2024-09-12 10:27 | disposition home or self-care (01) ==
PROVIDERS: PCP Internal Medicine; Visit Provider Surgery
DX: R59.0 Localized enlarged lymph nodes (principal)
CPT/HCPCS: 99203

== ENCOUNTER → 2024-09-12 09:34 | Outpatient (BNVA) | payer MEDICARE, MEDICAID, SELFPAY | PROVIDERS: PCP Internal Medicine; Visit Provider Surgery | DX: R59.0 Localized enlarged lymph nodes (principal); Z85.828 Personal history of other malignant neoplasm of skin | CPT/HCPCS: 99202 ==

== ENCOUNTER 2024-09-13 12:25 | Outpatient (REF) | payer MEDICARE, MEDICAID, SELFPAY ==
--- OUTSIDE RECORDS SUMMARY | 2024-09-13 12:43 | XMS_ITS | Patient Health Record ---
Author Organization [facility] Address [address] [place] [address] Care Team Providers Care Senior Marketing Specialist Name Role Phone Tod Kelly MD Primary Care Provider Rusha Rico Melissa Unavailable [phone] Reason For Referral No Information Medications Medication SIG (Take, Route, Frequency, Duration) Notes Start Date End Date Status Propranolol HCl 10 MG 1 tablet Orally prn Active Omeprazole 20 MG 1 capsule Orally Once a day Active [place] Carbonate 300 MG 1 capsule Orall y twice a day Active LORazepam 0.5 MG 1 tablet as needed O rally every 6 hrs Active tylenol 1 tab Oral daily Act satish Problems Problem Type SNOMED Code ICD Code Onset Dates Problem Status W/U Status Risk Notes Problem 960606206 Encounter for screening for malignant neoplasm of colon (Z12.11) Active confirmed Problem 781602474 Esophageal obstruction (K22.2) Active confirmed Problem Encounter for screening for malignant neoplasm of rectum (Z12.12) Active confirmed Problem 313779397 Gastroesophageal reflux disease without esophagitis (K21.9) Active confirmed Problem 621031875 Gastroesophageal reflux disease, esophagitis presence not specified (K21.9) Active confirmed Problem 347421486 Esophageal ring (K22.2) Active confirmed Problem 79893237 Dysphagia, unspecified type (R13.10) Active confirmed Plan Of Treatment Future Test Test Name Order Date UPPER GI ENDOSCOPY BALLOOON DILATION OF ESOPH 12/10/2015 Insurance Providers Payer Name Payer Address Payer Phone Subscriber Number Group Number Insured Name Patient Relationship to Insured Coverage Start Date Coverage End Date MEDICARE OF [place] [address] [place] [id number] [id number] GISELA EDDY Self - patient is the insured MEDICAID OF [facility] [address] [place] [address] [id number] GISELA EDDY Self - patient is the insured Medical (General) History Medical History History ICD Code Denies [place],DM,CVA,Lung disease,renal dise ase Depression/Anxiety GERD--UGI in the past with reflux Esophageal ring--esophageal obstruction--EGD in 11/2015--meat bolus removed and a distal esophageal ring was dilated with an 18-20mm balloon
--- OUTSIDE RECORDS SUMMARY | 2024-09-13 12:43 | XMS_ITS | Encounter Summary ---
Author Organization [employer] Address [address] [facility] [address] [place] [address] Care Team Providers Care Transcribing Machine Operator Name Role Phone Unavailable Primary Care Provider [...]
[2024-09-13 13:03] LABS: MANUAL DIFF FLAG NO
[2024-09-13 13:30] LABS: Hematocrit 45.8 % (42.0-52.0); Hemoglobin 15.0 g/dl (14.0-18.0); Imm Gran Abs Auto 0.01 X10*3/uL (0.00-0.03); Imm Gran Pct Auto 0.2 % (0.0-0.4); Lymphocytes Absolute Auto 0.8 X10*3/uL (1.2-4.9); Mean Corpuscular HGB Conc 32.8 g/dl (31.0-36.0); Mean Corpuscular Hemoglobin 29.1 pg (27.0-33.0); Mean Corpuscular Volume 88.9 fL (80.0-98.0); NRBC Abs Auto 0.000 X10*3/uL (0.0-0.012); NRBC Pct Auto 0.0 /100WBC (0.0-0.2); Platelet Count 194 X10*3/uL (160-400); Red Blood Count 5.15 X10*6/uL (4.60-5.80); White Blood Count 5.3 X10*3/uL (4.8-10.8)
[2024-09-13 14:19] LABS: Alanine Aminotransferase 15 U/L (0-40); Albumin Level 5.2 g/dL (3.5-5.0); Alkaline Phosphatase 44 U/L (39-117); Anion Gap 11 (12-20); Aspartate Amino Transferase 21 U/L (5-37); Blood Urea Nitrogen 12 mg/dL (9-16); Calcium 9.5 mg/dL (8.4-10.2); Carbon Dioxide 27 mmol/L (22-29); Chloride 102 mmol/L (96-108); Estimated Glomerular Filt Rate > 60; Potassium 3.9 mmol/L (3.3-5.1); Sodium 136 mmol/L (135-145); Total Protein 8.3 g/dL (6.5-8.0)
[2024-09-13 14:36] LABS: Free T4 (Free Thyroxine) 0.90 ng/dL (0.71-1.85); Thyroid Stimulating Hormone 2.40 uIU/mL (0.32-4.0)
[2024-09-14 07:54] LABS: Immunoglobulin A 166 mg/dL (47-310); Immunoglobulin G 1358 mg/dL (600-1640); Immunoglobulin M 55 mg/dL (50-300)
[2024-09-18 12:09] LABS: Anti Nuclear Antibody Screen NEGATIVE (NEGATIVE)
[2024-09-18 18:58] LABS: Class Alternaria alternata 0; Class Aspergillus fumigatus 0; Class Bermuda Grass 0; Class Birch 0; Class Cat Dander 0; Class Cladosporium herbarum 0; Class Cockroach 0; Class Common Ragweed 0; Class Cottonwood 0; Class Derm. pterony 0; Class Dermatophagoides farinae 0; Class Dog Dander 0; Class Elm 0; Class Maple Box Elder 0; Class Mountain Cedar 0; Class Mouse Urine Protein 0; Class Mugwort 0; Class Oak 0; Class Penicillium crysogenum 0; Class Rough Pigweed 0; Class Sheep Sorrel 0; Class Sycamore 0; Class Timothy Grass 0; Class Walnut Tree 0; Class White Ash 0; Class White Mulberry 0; D002 - IgE D farinae <0.10 kU/L; E001 - IgE Cat Dander <0.10 kU/L; E005 - IgE Dog Dander <0.10 kU/L; G006 - IgE Timothy Grass <0.10 kU/L; I006-IgE Cockroach, German <0.10 kU/L; M002 - IgE Cladosporium herbar <0.10 kU/L; M003 - IgE Aspergillus fumigat <0.10 kU/L; M006 - IgE Alternaria alternat <0.10 kU/L; T001 IgE Maple/Box Elder <0.10 kU/L; T006 - IgE Cedar, Mountain <0.10 kU/L; T007 - IgE Oak, White <0.10 kU/L; T008 IgE Elm, American <0.10 kU/L; T010 - IgE Walnut <0.10 kU/L; T011 - IgE Maple Leaf Sycamore <0.10 kU/L; T014 - IgE Cottonwood <0.10 kU/L; T015 - IgE Ash, White <0.10 kU/L; T070 - IgE White Mulberry <0.10 kU/L; W001 - IgE Ragweed, Short <0.10 kU/L; W006 - IgE Mugwort <0.10 kU/L; W014 IgE Pigweed, Common <0.10 kU/L; W018 IgE Sheep Sorrel <0.10 kU/L
[2024-09-19 19:18] LABS: VITAMIN D (1,25 OH) D3 32 pg/mL; Vit D (1,25-Dihydroxy) Total 32 pg/mL (18-72); Vitamin D (1,25 OH) D2 <8 pg/mL
[2024-09-27 14:29] LABS: Babesia duncani Ab IgG (WA1) <1:256; E chaffeensis IgG <1:64 (<1:64); E chaffeensis IgM <1:20 (<1:20)
== END 2024-09-13 12:26 | disposition home or self-care (01) ==
LOC: HO.LAB 12:25
PROVIDERS: PCP Internal Medicine; Visit Provider Physician Assistant
DX: D89.44 Hereditary alpha tryptasemia (principal)
CPT/HCPCS: 36415; 80053; 82652; 82784; 82785; 83520; 84439; 84443; 85025; 86003; 86038; 86140; 86160; 86618; 86666; 86753

== ENCOUNTER 2024-09-25 11:38 | Outpatient (AMB) | payer MEDICARE, MEDICAID, SELFPAY ==
--- NOTE | 2024-09-25 11:43 | A.OFFVIS_ITS ---
Intake Visit Reasons: 6 month follow up/ Testo / PSA Intake Note: Patient is present for 6 mo follow up for hypogonadism labs done 08/14/24 : PSA :1.84, Testosterone : 787 Urology Medication:TADALAFIL,TESTOSTERONE Antibiotic Allergy:NONE Blood Thinner:NONE Assignment Desk Assistant Required: No Accompanied by: Self / Same As Patient Allergies aspirin (ASPIRIN) Allergy (Intermediate, Verified 09/25/24 11:44) STOMACH UPSET acetaminophen (From Fioricet) Adverse Reaction (Intermediate, Verified 09/25/24 11:44) Headache butalbital (From Fioricet) Adverse Reaction (Intermediate, Verified 09/25/24 11:44) Headache caffeine (From Fioricet) Adverse Reaction (Intermediate, Verified 09/25/24 11:44) Headache HPI Comments Details: Mr Huerta is a very pleasant male. They are a patient of Dr Kelly and Dr Mooney. They are seen in the office today for the following urologic conditions. 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 Testosterone running in the 600-800 range Refill tadalafil Lab work is in normal range Has been undergoing TMS - apparently has had migraine associated events Six-month follow-up Information regarding trial of pramipexole - in setting of post SSRI hypogonadism Labs - 04/04 T 289-, LH 1.2/FSH 2.2, 10/02 LH 1.4, 04/05 T 209 P 1.2 LH 1.7 FSH 2.7, 10/03 192 F 65 1.2 3.1 2.0. 09/04 T 290, Free 61.1 LH 0.2 E 18, 11/04 T 600 42 1.4, 03/06 820 1.4, 09/05 780 1.9 Failed trial of Tenex - changed mood. Borderline low testosterone with impaired pituitary function When previously had normalization with external testosterone did not have resolution of severe depressive symptoms Erections do respond to higher dose tadalafil which he sources through [employer] for particular generic product Has post SSRI libido suppression Testosterone does result in morning erections Hypogonadism: Seen at [facility] for investigation 2019 Has depressed mood denies in hormone and low testosterone. This continues Does well with Cialis Have occurred with secondary hypogonadal hypogonadism. Presumed due to SSRI use. Treatment has previously been topical testosterone. Has been evaluated with Dr. Mooney and previously saw Dr Villalobos. Initial symptoms include erectile dysfunction Yes decreased libido Yes change in mood/depression Yes in muscle size/strength Yes increased fatigue/malaise Yes The onset of symptoms has been gradual since 2009. Erectile status current ZHAO Score 1. Associate conditions include obstructive sleep apnea No CAD No obesity No stress - financial, family, employment No heavy alcohol or illicit drug use No prior ithium use, SSRI's He has been taking Prior therapy - injectable exogenous testosterone - SERM - positive response to clomiphene but not covered - trial of GnRH 12/27 with partial response - did have T recovery with combination of hCG and anastrazole. Laboratory results 10/2013 , testosterone 200, , FSH 1.9, , LH 1.9, prolactin 5.8 Other labs from [facility] - normal except low gonadotrophins, 10/2015 T 750, 02/26 T 454, E 54, 08/28 T 244, LH 1.6, E 19, 03/31 T 490, Est 64 LH 8.8, 07/29 T 385, Est 9, LH 9, 09/28 T 195 LH 1.6, 11/30 T 192, LH 1.6, FSH 2.1, 09/30 T 192, LH 1.6, FSH 2.1 - 04/03 T 196, LH 1.4 Current therapy includes gonadotrophin - hCG - will add , aromatase inhibitor - anastrazole. Response to therapy has been improved, energy/wellbeing. Prior therapy includes - testosterone gels with minimal effect - SERM without effect - Brain dopaminergic stimulator without effect - GnRH low dose pulsed without effect - hCG and anstrazole with lower E but lower T as well 06/28. Diagnosis based on history and laboratory results Hypogonadotrophic Hypogonadism - imaging negative. Pituitary vs hypothalamic - other pituitary components normal. Therapuetic plan see in 6m LH low with low T Treatment resistant depression Prior SSRI use which significantly impacted testosterone signal in PFSH Medical History Cervical lymphadenopathy Panic disorder Generalized anxiety disorder Major depressive disorder, recurrent severe without psychotic features Depression Mild acid reflux Erectile dysfunction Depression Anxiety Hyperlipidemia Hypopituitarism Hypogonadism in male Tendinitis of left rotator cuff Gait abnormality Knee pain OA (osteoarthritis) of knee Thrombosed external hemorrhoid Family History Mother No problems noted. Father No problems noted. Other Mental health disorder Social History Housing: Apartment Alcohol intake: current Alcohol intake frequency: holidays/special occasions only Patient Tobacco Use Status: Never used Tobacco e-Cigarette/Vaping Use: Never Used service: No Current occupational status: disabled Cognitive needs: No Hearing needs: No Vision needs: Yes (reading glasses) Review of Systems Const Denies chills and Denies fever(s) Card Reports no additional complaints and Denies syncope Resp Denies cough GI Denies abdominal pain and Denies heartburn Reports as per HPI and Denies change in libido Neuro Denies syncope Psych Denies change in libido Endo Denies change in libido Physical Exam Const General: cooperative, healthy appearing, comfortable and no acute distress Orientation/consciousness: patient oriented x3 HEENT Face and sinus: Yes normal facial exam Mouth: moist mucous membranes Neck Neck: Yes normal visual inspection, Yes full ROM and Yes trachea midline Chest Chest palpation & inspection: normal inspection of the chest Resp Effort & Inspection: normal respiratory effort, able to speak in complete sentences and no respiratory distress GI Inspection: Yes normal to inspection Back/Spine/Pelvis Cervical Spine: normal cervical lordosis Thoracic/Lumbar Spine: thoracic and lumbar spine normal to inspection Skin General skin exam: no rashes or lesions noted Neuro General: patient oriented x3, gait normal, tone normal and moves all extremities Extrem General: Yes normal to inspection and Yes capillary refill normal Assessment & Plan Assessment & Plan (1) Erectile dysfunction due to arterial insufficiency: Code(s): N52.01 - Erectile dysfunction due to arterial insufficiency Category: Medical (2) 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 - Hypopituitarism Category: Medical Plan Continue testosterone Tadalafil refilled Six-month follow-up Medications: Changed From tadalafil 20 mg PO DAILY 180 tabs 0RF sexual activity N52.01 - Erectile dysfunction due to arterial insufficiency To tadalafil 20 mg PO DAILY 90 tabs 1RF sexual activity 90 days N52.01 - Erectile dysfunction due to arterial insufficiency Refilled testosterone cypionate (Depo-Testosterone) Dispose of vial after each use 150 mg (0.75 mL) subcut QWEEK 4 mL 5RF 4 weeks E23.0 - Hypopituitarism Patient Instructions: This note is constructed using voice recognition software. While every effort has been made to ensure accuracy protocol manager errors may have been included. Imaging studies, laboratory and physical exam results were discussed and reviewed in detail. No major barriers to patient understanding were identified. An opportunity to ask questions regarding the treatment plan was provided. All questions were answered. The patient expressed understanding and agreement with the above treatment plan. The patient is aware they should contact our office by phone for worsening of their current condition or the appearance of new urologic symptoms. Compliance is encouraged with any medications and followup testing that is ordered. It is a privilege to participate in the urologic care of your patient. If you have any questions or concerns regarding treatment for the above conditions, or other urologic issues, please do not hesitate to contact me. The office telephone contact is [phone]. Sincerely, Dr Israel Almonte MD, [facility] - Urology Compassionate Specialist Care for the Genitourinary System Coding Level of Care Code Est Pt Level 5 (34234) Diagnoses Erectile dysfunction due to arterial insufficiency N52.01 Hypogonadotropic hypogonadism E23.0
--- OUTSIDE RECORDS SUMMARY | 2024-09-25 12:59 | XMS_ITS | Patient Health Record ---
Author Organization [facility] Address [address] [place] [address] Care Team Providers Care Harbor Police Launch Commander Name Role Phone Robin (RETIRED) Tod LEHMAN Primary Care Provide r Unavailable Rico Vega Unavailable [phone] Reason For Referral No Information Medications Medication SIG (Take, Route, Frequency, Duration) Notes Start Date End Date Status Propranolol HCl 10 MG 1 tablet Orally prn Active Omeprazole 20 MG 1 capsule Orally Once a day Active [place] Carbonate 300 MG 1 capsule Orall y twice a day Active LORazepam 0.5 MG 1 tablet as needed O rally every 6 hrs Active tylenol 1 tab Oral daily Act satish Problems Problem Type SNOMED Code ICD Code Onset Dates Problem Status W/U Status Risk Notes Problem [id number] Encounter for screening for malignant neoplasm of colon (Z12.11) Active confirmed Problem 917479453 Esophageal obstruction (K22.2) Active confirmed Problem Encounter for screening for malignant neoplasm of rectum (Z12.12) Active confirmed Problem 371144617 Gastroesophageal reflux disease without esophagitis (K21.9) Active confirmed Problem 563241206 Gastroesophageal reflux disease, esophagitis presence not specified (K21.9) Active confirmed Problem 174196662 Esophageal ring (K22.2) Active confirmed Problem 59742082 Dysphagia, unspecified type (R13.10) Active confirmed Plan Of Treatment Future Test Test Name Order Date UPPER GI ENDOSCOPY BALLOOON DILATION OF ESOPH 12/10/2015 Insurance Providers Payer Name Payer Address Payer Phone Subscriber Number Group Number Insured Name Patient Relationship to Insured Coverage Start Date Coverage End Date MEDICARE OF [place] [address] [place] [address] [id number] GISELA EDDY Self - patient is the insured MEDICAID OF [facility] [address] [place] [address] [id number] GISELA EDYD Self - patient is the insured Medical (General) History Medical History History ICD Code Denies [place],DM,CVA,Lung disease,renal dise ase Depression/Anxiety GERD--UGI in the past with reflux Esophageal ring--esophageal obstruction--EGD in 11/2015--meat bolus removed and a distal esophageal ring was dilated with an 18-20mm balloon
--- OUTSIDE RECORDS SUMMARY | 2024-09-25 12:59 | XMS_ITS | Encounter Summary ---
Author Organization [employer] Address [address] [facility] [address] [place] [address] Care Team Providers Care Line Assigner Name Role Phone Unavailable Primary Care Provider [...]
== END 2024-09-25 12:28 | disposition home or self-care (01) ==
LOC: HO.HUSH 11:38
PROVIDERS: PCP Internal Medicine; Visit Provider Urology
DX: N52.01 Erectile dysfunction due to arterial insufficiency (principal); E23.0 Hypopituitarism
CPT/HCPCS: 99214

== ENCOUNTER → 2024-09-25 11:38 | Outpatient (BNVA) | payer MEDICARE, MEDICAID, SELFPAY | PROVIDERS: PCP Internal Medicine; Visit Provider Urology | DX: N52.01 Erectile dysfunction due to arterial insufficiency (principal); E23.0 Hypopituitarism | CPT/HCPCS: 99212 ==

== ENCOUNTER 2024-10-02 10:41 | Outpatient (REF) | payer MEDICARE, MEDICAID, SELFPAY ==
--- OUTSIDE RECORDS SUMMARY | 2024-09-19 14:11 | XMS_ITS | Encounter Summary ---
Author Organization [employer] Address [address] [facility] [address]t [place] [address] Care Team Providers Care Wallpaper Hanger Name Role Phone Unavailable Primary Care Provider [...]
--- OUTSIDE RECORDS SUMMARY | 2024-09-19 14:11 | XMS_ITS | Patient Health Record ---
Author Organization [facility] Address [address] [place] [address] Care Team Providers Care Rice Farmer Name Role Phone Tod Kelly MD Primary Care Provider Unavaila Rico Melissa [phone] Reason For Referral No Information Medications Medication SIG (Take, Route, Frequency, Duration) Notes Start Date End Date Status Propranolol HCl 10 MG 1 tablet Orally prn Active Omeprazole 20 MG 1 capsule Orally Once a day Active [place] Carbonate 300 MG 1 capsule Orall y twice a day Active LORazepam 0.5 MG 1 tablet as needed O rally every 6 hrs Active tylenol 1 tab Oral daily Act satish Problems Problem Type SNOMED Code ICD Code Onset Dates Problem Status W/U Status Risk Notes Problem [id number] Encounter for screening for malignant neoplasm of colon (Z12.11) Active confirmed Problem 159545719 Esophageal obstruction (K22.2) Active confirmed Problem Screening for malignant neoplasm of rectum (717909685) Encounter for screening for malignant neoplasm of rectum (Z12.12) Active confirmed Problem 304569427 Gastroesophageal reflux disease without esophagitis (K21.9) Active confirmed Problem 000690495 Gastroesophageal reflux disease, esophagitis presence not specified (K21.9) Active confirmed Problem 078130294 Esophageal ring (K22.2) Active confirmed Problem 59186602 Dysphagia, unspecified type (R13.10) Active confirmed Plan Of Treatment Future Test Test Name Order Date UPPER GI ENDOSCOPY BALLOOON DILATION OF ESOPH 12/10/2015 Insurance Providers Payer Name Payer Address Payer Phone Subscriber Number Group Number Insured Name Patient Relationship to Insured Coverage Start Date Coverage End Date MEDICARE OF [place] [address] [place] [address] [id number] GISELA EDDY Self - patient is the insured MEDICAID OF [facility] [address] [place] [address] [id number] GISELA EDDY Self - patient is the insured Medical (General) History Medical History History ICD Code Denies [place],DM,CVA,Lung disease,renal dise ase Depression/Anxiety GERD--UGI in the past with reflux Esophageal ring--esophageal obstruction--EGD in 11/2015--meat bolus removed and a distal esophageal ring was dilated with an 18-20mm balloon
--- NOTE | ~2024-10-02 | US_ITS ---
US BIOPSY LYMPH NODE HISTORY: 59-year-old male with history of right facial basal cell carcinoma status post Mohs procedure, with subsequent development of palpable right submandibular mass/abnormal lymph node several weeks after the Mohs procedure. Lymph node for FNA. COMPARISON: 08/20/2024 neck soft tissue ultrasound. TECHNIQUE/FINDINGS: Patient was counseled on risks and benefits. Informed consent was obtained. Timeout was performed. Using ultrasound guidance, the right neck submandibular mass/ abnormal lymph node measuring 2.6 x 1.7 x 2.1 cm was localized, and the skin was prepped and draped in sterile fashion. Skin and subcutaneous soft tissues were subsequently anesthetized with 1% lidocaine. Under direct ultrasound guidance, 3 FNA passes were performed using 25-gauge needles and gentle syringe suction. FNA material was transferred to [facility]to[facility], and forwarded to the laboratory for cytology. The patient tolerated the procedure well. There were no immediate complications. US/US biopsy lymph node IMPRESSION: 3 x 25-gauge FNA of a right submandibular mass/lymph node as detailed. Await cytology results. Electronically signed by: Manuelito Harden MD 10/02/2024 12:28 PM EDT
[2024-10-02] MEDS: Lidocaine HCl 1 % MPF 5 ML VIAL SUBCUT (11:34)
--- OUTSIDE RECORDS SUMMARY | 2024-10-02 11:52 | XMS_ITS | Encounter Summary ---
Author Organization [employer] Address [address] [facility] [address]t [place] [address] Care Team Providers Care Marketing Analytics Analyst Name Role Phone Unavailable Primary Care Provider [...]
--- OUTSIDE RECORDS SUMMARY | 2024-10-02 11:52 | XMS_ITS | Patient Health Record ---
Author Organization [facility] Address [address] [place] [address] Care Team Providers Care Customer Service Cashier Name Role Phone Robin (RETIRED) Tod LEHMAN Primary Care Provide r Unavailable Rico Vega Unavailable [phone] Reason For Referral No Information Medications Medication SIG (Take, Route, Frequency, Duration) Notes Start Date End Date Status Propranolol HCl 10 MG 1 tablet Orally prn Active Omeprazole 20 MG 1 capsule Orally Once a day Active [place] Carbonate 300 MG 1 capsule Orall y twice a day Active LORazepam 0.5 MG 1 tablet as needed O rally every 6 hrs Active tylenol 1 tab Oral daily Act satish Problems Problem Type SNOMED Code ICD Code Onset Dates Problem Status W/U Status Risk Notes Problem 815728043 Encounter for screening for malignant neoplasm of colon (Z12.11) Active confirmed Problem 139473962 Esophageal obstruction (K22.2) Active confirmed Problem Screening for malignant neoplasm of rectum (698371180) Encounter for screening for malignant neoplasm of rectum (Z12.12) Active confirmed Problem 311530875 Gastroesophageal reflux disease without esophagitis (K21.9) Active confirmed Problem 902777236 Gastroesophageal reflux disease, esophagitis presence not specified (K21.9) Active confirmed Problem 450862765 Esophageal ring (K22.2) Active confirmed Problem 20767890 Dysphagia, unspecified type (R13.10) Active confirmed Plan Of Treatment Future Test Test Name Order Date UPPER GI ENDOSCOPY BALLOOON DILATION OF ESOPH 12/10/2015 Insurance Providers Payer Name Payer Address Payer Phone Subscriber Number Group Number Insured Name Patient Relationship to Insured Coverage Start Date Coverage End Date MEDICARE OF [place] [address] [place] [address] [id number] GISELA EDDY Self - patient is the insured MEDICAID OF [facility] [address] [place] [address] [id number] GISELA EDDY Self - patient is the insured Medical (General) History Medical History History ICD Code Denies [place],DM,CVA,Lung disease,renal dise ase Depression/Anxiety GERD--UGI in the past with reflux Esophageal ring--esophageal obstruction--EGD in 11/2015--meat bolus removed and a distal esophageal ring was dilated with an 18-20mm balloon
--- OUTSIDE RECORDS SUMMARY | 2024-10-02 11:52 | XMS_ITS | Clinical Summary ---
Author Organization [facility] Address [address] [address] Phone Care Team Providers Care Customer Support Technician Name Role Phone Tod Kelly MD Primary Care Provider Social History Tobacco Use Types Packs/Day Years Used Date Smoking Tobacco: Never Assessed Education Answer Date Recorded Are you interested in more education? Not on rudy e 07/11/2022 Are you concerned about learning? Not on file 07/11/2022 No 07/11/2022 No 07/11/2022 Digital Access Answer Date Recorded No 08/08/2022 No 08/08/2022 No 08/08/2022 Reliable internet access at home? Not on file 08/08/2022 Device with a working camera? Not on file Sex and Gender Information Value Date Recorded Sex Assigned at Male 12/05/2019 10:02 AM EDT Legal Sex Male 4:53 PM EST Gender Identity Male 12/05/2019 10:02 AM EDT Sexual Orientation Straight 12/05/2019 10 :02 AM EDT Plan of Treatment Health Maintenance Due Date Last Done Comments Adult Td,Tdap Booster 1964 LIPID PANEL 1964 DEPRESSION SCREENING 1976 SMOKING Hx and SMOKELESS TOBACCO SCREENING 1977 HEPATITIS C SCREENING 1982 HIV ONE-TIME SCREENING (18-6 5 YEARS) 1982 COLOGUARD 2009 COLONOSCOPY 2009 COLORECTAL CANCER SCREENING 2009 FIT TEST 2009 FOBT 2009 SIGMOIDOSCOPY 2009 VIRTUAL COLONOSCOPY 2009 PNEUMOCOCCAL VACCINES (50+ years) (1 of 1 - PCV) 2014 ZOSTER VACCINES (1 of 2) 2014 COVID-19 VACCINE (3 - 2023-2 5 season) 2023 07/22/2020, 06/24/2020 RSV VACCINE (1 - 1-dose 75+ series) 09/03/2039 HEPATITIS A VACCINES Aged Out No long er eligible based on patient's age to complete this topic HIB VACCINES Aged Out No longer eligi ble based on patient's age to complete this topic MENINGOCOCCAL VACCINES (ACWY) Aged Out No longer eligible based on patient's age to complete this topic MENINGOCOCCAL VACCINES (B) Aged Out N o longer eligible based on patient's age to complete this topic Medical Devices Not on file Insurance MEDICARE PART A & B [facility] MEDICARE PART A & [place] [address] [place] [address] MEDICARE PART A & B [facility] MEDICARE PART A & B HEALTH MEDICARE PART A & B [id number] [place] [address] MEDICARE PART A & B HEALTH MEDICARE PART A & B [place] MEDICARE PART A & [place] [place] [address] MEDICARE PART A & B [facility] Care Teams Customer Support Technician Relationship Specialty Start Date End Date Tod Kelly MD [address] [place] [address] [place] [address] PCP - General Internal Medicine 12/05/19 Additional Source Comments The information contained in this document represents components of the legal health record. It is not the complete legal health record.[facility]
== END 2024-10-02 10:42 | disposition home or self-care (01) ==
LOC: HO.US 10:41
PROVIDERS: PCP Internal Medicine; Visit Provider Surgery
DX: R59.0 Localized enlarged lymph nodes (principal)
CPT/HCPCS: 38505; 76942; 88173; 88305; J2003

== ENCOUNTER → 2024-10-02 10:43 | Outpatient (BNV) | payer MEDICARE, MEDICAID, SELFPAY | PROVIDERS: PCP Internal Medicine; Visit Provider Radiology Diagnostic Radiology | DX: R59.0 Localized enlarged lymph nodes (principal) | CPT/HCPCS: 38505; 76942 ==

== ENCOUNTER 2024-10-15 15:22 | Outpatient (AMB) | payer MEDICARE, MEDICAID, SELFPAY ==
--- NOTE | 2024-10-15 15:24 | A.OFFVIS_ITS ---
Vital Signs 10/15/24 15:29 Height 6 ft Weight 199 lb BMI 27.0 BP 140/76 H Blood Pressure Location Rt brachial Position Sitting Pulse 78 Intake Visit Reasons: Lymph node bx results Intake Note: Patient here s/p Lymph node, right submandibular, fine needle aspiration on 10-02-2024. Patient c/o: no concerns. Director Building Required: No Accompanied by: Self / Same As Patient Allergies aspirin (ASPIRIN) Allergy (Intermediate, Verified 10/15/24 15:29) STOMACH UPSET acetaminophen (From Fioricet) Adverse Reaction (Intermediate, Verified 10/15/24 15:29) Headache butalbital (From Fioricet) Adverse Reaction (Intermediate, Verified 10/15/24 15:29) Headache caffeine (From Fioricet) Adverse Reaction (Intermediate, Verified 10/15/24 15:29) Headache Medication List - Last Reconciled 10/15/24 by Tod Izquierdo MD Aimovig Autoinjector (erenumab-aooe) 70 mg subcut .q4 weeks NS lithium carbonate ER 300 mg PO BID lorazepam take 1 tab by mouth twice a daily with an extra 1/2 tab as needed. Max 3 tab oral daily 30 days needle (disp) 18 G (BD Regular Bevel [place]) As directed - draw up testosterone needle (disp) 25 gauge (BD Regular Bevel [place]) As directed for weekly Testosterone injection omeprazole 20 mg PO DAILY syringe (disposable) (BD Bulk Syringe Slip Tip) As directed tadalafil 20 mg PO DAILY 90 days testosterone cypionate (Depo-Testosterone) 150 mg (0.75 mL) subcut QWEEK 4 weeks HPI HPI Lymph node bx results: Details: 59-year-old male here for a follow-up for a right neck mass. He says that he had noticed this about a year and a half ago. He does not recall significant increased in size. He does state that he thinks this started after he had excision of a basal cell skin cancer on his right cheek around that time. He had an ultrasound last month of the neck showing a mass on the submandibular aspect of the right neck suggestive of an enlarged lymph node. I therefore sent him for an ultrasound biopsy which was done last 10/02/2024. He is here to discuss the path report. He denies any changes in the right neck mass. He denies oral lesions or any dental caries. He denies history of smoking. He admits to severe anxiety and depression. [facility] Medical History (Updated 10/15/24 @ 15:45 by Tod Izquierdo MD) Mass of right side of neck Cervical lymphadenopathy Panic disorder Generalized anxiety disorder Major depressive disorder, recurrent severe without psychotic features Depression Mild acid reflux Erectile dysfunction Depression Anxiety Hyperlipidemia Hypopituitarism Hypogonadism in male Tendinitis of left rotator cuff Gait abnormality Knee pain OA (osteoarthritis) of knee Thrombosed external hemorrhoid Family History Mother No problems noted. Father No problems noted. Other Mental health disorder Social History Housing: Apartment Alcohol intake: current Alcohol intake frequency: holidays/special occasions only Patient Tobacco Use Status: Never used Tobacco e-Cigarette/Vaping Use: Never Used service: No Current occupational status: disabled Cognitive needs: No Hearing needs: No Vision needs: Yes (reading glasses) Review of Systems Const Denies chills and Denies fever(s) Card Denies chest pain, Denies dyspnea and Denies dyspnea on exertion Resp Denies cough, Denies dyspnea and Denies dyspnea on exertion GI Denies hematochezia and Denies change in bowel habits Denies hematuria and Denies difficulty urinating Musc Denies back pain and Denies limited range of motion Neuro Denies focal weakness and Denies convulsions Psych Reports anxiety, Reports depression and Reports mood swings Physical Exam Vital Signs: Last Vital Signs Pulse 78 10/15/24 15:29 BP 140/76 H 10/15/24 15:29 BMI result Body Mass Index 27.0 Const General: comfortable and no acute distress Orientation/consciousness: patient oriented x3 Neck Other: Right neck submandibular mass, about 3 cm in widest dimension Resp Auscultation: clear to auscultation bilaterally Cardio Rhythm: regular rhythm GI Palpation (GI): Soft to palpation, nontender and no guarding Neuro General: patient oriented x3 Assessment & Plan Assessment & Plan (1) Mass of right side of neck: Code(s): R22.1 - Localized swelling, mass and lump, neck Category: Medical Plan: He has this submandibular mass on the right neck as described above. I had him sent for an ultrasound biopsy and this shows moderately cellular specimen with ovoid and spindle cells, scanty moderate has a neoplasm and nuclei with variable chromatin and small nucleoli suggestive with a pleomorphic adenoma. I explained the findings to him. I told him that it may be best for us to refer him to head and neck surgeon to have this surgically excised in view of the size and pathology. I told him I will assist him with this process. I did tell him that if he any questions about this down the line or if he needs any guidance, he is welcome to call the office. He is comfortable with the plan above. We will send a referral for him to be seen by a head and neck surgeon in [place]. Coding Level of Care Code Est Pt Level 3 (91928) Diagnoses Mass of right side of neck R22.1
--- OUTSIDE RECORDS SUMMARY | 2024-10-15 15:24 | XMS_ITS | Encounter Summary ---
Author Organization [employer] Address [address] [facility] [address] [place] [address] Care Team Providers Care Tearoom Hostess Name Role Phone Unavailable Primary Care Provider [...]
--- OUTSIDE RECORDS SUMMARY | 2024-10-15 15:25 | XMS_ITS | Clinical Summary ---
Author Organization [facility] Address [address] [address] Phone Care Team Providers Care Marine Equipment Research Engineer Name Role Phone Tod Kelly MD Primary [...] file Insurance MEDICARE PART A & B [facility] MEDICARE PART A & [place] [address] [address] MEDICARE PART A & B [facility] MEDICARE PART A & B HEALTH MEDICARE PART A & B [id number] [place] [address] MEDICARE PART A & B HEALTH MEDICARE PART A & B [place] MEDICARE PART A & [place] [place] [address] MEDICARE PART A & B [facility] Care Teams Marine Equipment Research Engineer Relationship Specialty Start Date End Date Tod Kelly MD [address] [place] [address] [place] [address] PCP - General Internal Medicine 12/05/19 Additional Source Comments The information contained in this document represents components of the legal health record. It is not the complete legal health record.[facility]
--- OUTSIDE RECORDS SUMMARY | 2024-10-15 15:25 | XMS_ITS | Patient Health Record ---
Author Organization [facility] Address [address] [place] [address] Care Team Providers Care Portable Feed Mill Operator Name Role Phone Robin (RETIRED) Tod LEHMAN Primary Care Provide r Unavailable Rico Vega Unavailable [phone] Reason For Referral No Information Medications Medication SIG (Take, Route, Frequency, Duration) Notes Start Date End Date Status Propranolol HCl 10 MG 1 tablet Orally prn Active Omeprazole 20 MG 1 capsule Orally Once a day Active [place] Carbonate 300 MG 1 capsule Orall y twice a day Active LORazepam 0.5 MG 1 tablet as needed O rally every 6 hrs Active tylenol 1 tab Oral daily Act satish Problems Problem Type SNOMED Code ICD Code Onset Dates Problem Status W/U Status Risk Notes Problem [id number] Encounter for screening for malignant neoplasm of colon (Z12.11) Active confirmed Problem 576270151 Esophageal obstruction (K22.2) Active confirmed Problem Screening for malignant neoplasm of rectum (929917117) Encounter for screening for malignant neoplasm of rectum (Z12.12) Active confirmed Problem 329525108 Gastroesophageal reflux disease without esophagitis (K21.9) Active confirmed Problem 384106838 Gastroesophageal reflux disease, esophagitis presence not specified (K21.9) Active confirmed Problem 779192993 Esophageal ring (K22.2) Active confirmed Problem 77900167 Dysphagia, unspecified type (R13.10) Active confirmed Plan Of Treatment Future Test Test Name Order Date UPPER GI ENDOSCOPY BALLOOON DILATION OF ESOPH 12/10/2015 Insurance Providers Payer Name Payer Address Payer Phone Subscriber Number Group Number Insured Name Patient Relationship to Insured Coverage Start Date Coverage End Date [place] OF [place] [address] [place] [address] [phone] [id number] GISELA EDDY Self - patient is the insured MEDICAID OF [facility] [address] [place] [address] [id number] GISELA EDDY Self - patient is the insured Medical (General) History Medical History History ICD Code Denies [place],DM,CVA,Lung disease,renal dise ase Depression/Anxiety GERD--UGI in the past with reflux Esophageal ring--esophageal obstruction--EGD in 11/2015--meat bolus removed and a distal esophageal ring was dilated with an 18-20mm balloon
[2024-10-15 15:29] VITALS: BP 140/76; PULSE 78; BMI 27.0
== END 2024-10-15 15:35 | disposition home or self-care (01) ==
LOC: HO.HGS 15:23
PROVIDERS: PCP Internal Medicine; Visit Provider Surgery
DX: R22.1 Localized swelling, mass and lump, neck (principal)
CPT/HCPCS: 99213

== ENCOUNTER → 2024-10-15 15:22 | Outpatient (BNVA) | payer MEDICARE, MEDICAID, SELFPAY | PROVIDERS: PCP Internal Medicine; Visit Provider Surgery | DX: R22.1 Localized swelling, mass and lump, neck (principal); Z98.890 Other specified postprocedural states | CPT/HCPCS: 99212 ==

== ENCOUNTER 2024-10-18 13:46 | Outpatient (AMB) | payer MEDICARE, MEDICAID, SELFPAY ==
--- NOTE | 2024-10-18 13:48 | A.OFFPC_ITS ---
Vital Signs 10/18/24 13:50 Height 6 ft Weight 198 lb BMI 26.9 BP 138/70 Blood Pressure Location Lt brachial Position Sitting Respiration 18 Pulse 76 Pulse Source Pulse Oximeter Temp 97.6 F Temp Source Temporal Artery Scan Pulse Oximetry (%) 96 Oxygen Delivery Method Room Air Intake Visit Reasons: 3 Month F/U - see comments Senior Operations Manager Required: No Accompanied by: Self / Same As Patient Allergies aspirin (ASPIRIN) Allergy (Intermediate, Verified 10/18/24 13:48) STOMACH UPSET acetaminophen (From Fioricet) Adverse Reaction (Intermediate, Verified 10/18/24 13:48) Headache butalbital (From Fioricet) Adverse Reaction (Intermediate, Verified 10/18/24 13:48) Headache caffeine (From Fioricet) Adverse Reaction (Intermediate, Verified 10/18/24 13:48) Headache Tobacco use date assessed: 08/24/24 Dental Screening Dental Screen Date: 08/24/24 HPI HPI Comments History of Present Illness Details The patient is a 59 year old male with a past medical history of bipolar disorder, anxiety, hyperlipidemia, GERD presenting for follow up BH: received TMS therapy. After the th visit got left sided occital neuritis. Anxiety-requires lorazepam. Continues follow up psychiatry. Follows with urology post SSRI hypogonadism. hypogonadal hypogonadism. Previously Dr. Mooney and previously saw Dr Villalobos. Heme/Onc: Pleomorphic adenoma-right neck. Has ENT appt scheduled for Nov. Headaches-intractable. started aimovig-has taken third injection. Feels like they have just gotten worse/more persistent. Tried fioricet which caused immediate nasal congestion and worsening headache. Recent imaging-1. Focal dehiscence of the roof of the right superior circular canal. 2. Opacified left eustachian tube possibly due to secretions. Labs with elevated tryptase-saw [facility]OE[facility]. Repeat still elevated, less so. Follow up labs otherwise reassuring. he will follow up there as needed. ROS see HPI Mass lower abdomen PHYSICAL EXAM: GENERAL: Alert and oriented x 3. NAD EYES: EOMI. Anicteric. HENT: Moist mucous membranes. No scleral icterus. enlarged right submandibular node LUNGS: Clear to auscultation bilaterally. CARDIOVASCULAR: Regular rate and rhythm. ABDOMEN: Soft, non-tender +bs EXTREMITIES: No edema. Non-tender. SKIN: sbucutaneous 2cm mobile mass mid/lower abdomen. NEUROLOGIC: No focal neurological deficits. CN II-XII grossly intact PSYCHIATRIC: Cooperative. Appropriate mood and a [facility] Medical History Depression Mass of right side of neck Cervical lymphadenopathy Panic disorder Generalized anxiety disorder Major depressive disorder, recurrent severe without psychotic features Mild acid reflux Erectile dysfunction Depression Anxiety Hyperlipidemia Hypopituitarism Hypogonadism in male Tendinitis of left rotator cuff Gait abnormality Knee pain OA (osteoarthritis) of knee Thrombosed external hemorrhoid Family History Mother No problems noted. Father No problems noted. Other Mental health disorder Social History Housing: Apartment Alcohol intake: current Alcohol intake frequency: holidays/special occasions only Patient Tobacco Use Status: Never used Tobacco e-Cigarette/Vaping Use: Never Used service: No Current occupational status: disabled Cognitive needs: No Hearing needs: No Vision needs: Yes (reading glasses) Questionnaire Thrive Questionnaire Date Thrive assessed: 08/24/24 CHRISTOPHER-7 AMB Questionnaire CHRISTOPHER-7 Date CHRISTOPHER - 7 assessed: 08/24/24 Source: Developed by Drs. Rico Rondon, Gladis Zhang, Silvio Tucker and colleagues, with an educational jessica from [employer]. Physical exam (Primary Care) Vital Signs: Last Vital Signs Temp 97.6 F 10/18/24 13:50 Pulse 76 10/18/24 13:50 Resp 18 10/18/24 13:50 BP 138/70 10/18/24 13:50 Pulse Ox 96 10/18/24 13:50 Oxygen Delivery Method Room Air 10/18/24 13:50 BMI result Body Mass Index 26.9 Tobacco/Smoking Status: Tobacco use Status Tobacco use date assessed 08/24/24 10/18/24 13:55 Patient Tobacco Use Status Never used Tobacco 10/18/24 13:55 e-Cigarette/Vaping Use Never Used 10/18/24 13:55 Thrive Assessment: Date of Thrive Assessment Date Thrive assessed 08/24/24 10/18/24 13:55 Coding Level of Care Code Est Pt Level 4 (31579) Complex EM visit Add On G2211 Diagnoses Chronic intractable headache, unspecified headache type R51.9; G89.29 Headache type: unspecified Headache chronicity pattern: chronic headache Intractability: intractable Mass of right side of neck R22.1 Major depressive disorder, recurrent severe without psychotic features F33.2 Assessment & Plan Assessment & Plan (1) Headache: Code(s): R51.9 - Headache, unspecified Category: Medical Qualifiers: Headache type: unspecified Headache chronicity pattern: chronic headache Intractability: intractable Qualified Code(s): R51.9 - Headache, unspecified; G89.29 - Other chronic pain (2) Mass of right side of neck: Code(s): R22.1 - Localized swelling, mass and lump, neck Category: Medical (3) Major depressive disorder, recurrent severe without psychotic features: Code(s): F33.2 - Major depressive disorder, recurrent severe without psychotic features Category: Medical Plan Headaches-worsened in frequency and severity. Referral to neurology. Consider MRI brain. 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 Lorazepam refilled. Lipoma/bmom-nefgdcn-e/s ordered. Orders: Orders US abdomen limited 10/18/24 R19.00 - Intra-abdominal and pelvic swelling, mass and lump, unspecified site IRON PROFILE 10/18/24 F32.9 - Major depressive disorder, single episode, unspecified Referrals Ear/Nose/Throat Referral R22.1 - Localized swelling, mass and lump, neck Neurology Referral G43.909 - Migraine, unspecified, not intractable, without status migrainosus Medications: New [knee brace-b/l] As directed 2 ea 0RF M17.0 - Bilateral primary osteoarthritis of knee hydrocodone-acetaminophen 7.5-325 mg Partial Fill upon patient request. 1 tab PO Q6H PRN 28 tabs 0RF pain Refilled lorazepam take 1 tab by mouth twice a daily with an extra 1/2 tab as needed. Max 3 tab oral daily 85 tabs 3RF anxiety 30 days
--- OUTSIDE RECORDS SUMMARY | 2024-10-18 13:49 | XMS_ITS | Encounter Summary ---
Author Organization [employer] Address [address] [facility] [address] [place] [address] Care Team Providers Care Block Bolter Mule Operator Name Role Phone Unavailable Primary Care [...]
[2024-10-18 13:50] VITALS: BP 138/70; PULSE 76; RESP 18; TEMP 36.4; O2SAT 96; BMI 26.9
--- OUTSIDE RECORDS SUMMARY | 2024-10-18 13:50 | XMS_ITS | Clinical Summary ---
Author Organization [facility] Address [address] [address] Phone Care Team Providers Care Tc Operator Name Role Phone Tod Kelly MD Primary [...] file Insurance MEDICARE PART A & B Member Subscriber Plan / Payer (Ef fective 2007-Present) Name:Henri Huerta Member ID:[id number] Relation to Subscriber:Self Name:Henri Huerta Subscriber ID:[id number] Payer ID:[id number] Group ID:Not on file Type:Medicare Address: [facility] [employer] [facility] [address] [place] [address] [facility] MEDICARE PART A & [place] [place] [address] MEDICARE PART A & B [facility] MEDICARE PART A & B HEALTH MEDICARE PART A & B [id number] [place] [address] MEDICARE PART A & B HEALTH MEDICARE PART A & [place] MEDICARE PART A [place] [place] [address] MEDICARE PART A & B [facility] Care Teams Tc Operator Relationship Specialty Start Date End Date Tod Kelly MD [address] [place] [address] [place] [address] PCP - General Internal Medicine 12/05/19 Additional Source Comments The information contained in this document represents components of the legal health record. It is not the complete legal health record.[facility]
--- OUTSIDE RECORDS SUMMARY | 2024-10-18 13:51 | XMS_ITS | Patient Health Record ---
Author Organization [facility] Address [address] [place] [address] Care Team Providers Care Hospitality Services Manager Name Role Phone Robin (RETIRED) Tod LEHMAN Primary Care Provide r Unavailable Rico Vega Unavailable [phone] Reason For Referral No Information Medications Medication SIG (Take, Route, Frequency, Duration) Notes Start Date End Date Status Propranolol HCl 10 MG 1 tablet Orally prn Active Omeprazole 20 MG 1 capsule Orally Once a day Active [place] Carbonate 300 MG 1 capsule Orall y twice a day Active LORazepam 0.5 MG 1 tablet as needed O rally every 6 hrs Active tylenol 1 tab Oral daily Act satish Problems Problem Type SNOMED Code ICD Code Onset Dates Problem Status W/U Status Risk Notes Problem [id number] Encounter for screening for malignant neoplasm of colon (Z12.11) Active confirmed Problem 452206511 Esophageal obstruction (K22.2) Active confirmed Problem Screening for malignant neoplasm of rectum (842660813) Encounter for screening for malignant neoplasm of rectum (Z12.12) Active confirmed Problem 294470343 Gastroesophageal reflux disease without esophagitis (K21.9) Active confirmed Problem 109173476 Gastroesophageal reflux disease, esophagitis presence not specified (K21.9) Active confirmed Problem 172418390 Esophageal ring (K22.2) Active confirmed Problem 16828665 Dysphagia, unspecified type (R13.10) Active confirmed Plan Of Treatment Future Test Test Name Order Date UPPER GI ENDOSCOPY BALLOOON DILATION OF ESOPH 12/10/2015 Insurance Providers Payer Name Payer Address Payer Phone Subscriber Number Group Number Insured Name Patient Relationship to Insured Coverage Start Date Coverage End Date [place] [address] [place] [address] [id number] GISELA EDDY Self - patient is the insured MEDICAID OF [facility] [address] [place] [address] [id number] GISELA EDDY Self - patient is the insured Medical (General) History Medical History History ICD Code Denies [place],DM,CVA,Lung disease,renal dise ase Depression/Anxiety GERD--UGI in the past with reflux Esophageal ring--esophageal obstruction--EGD in 11/2015--meat bolus removed and a distal esophageal ring was dilated with an 18-20mm balloon
== END 2024-10-18 14:31 | disposition home or self-care (01) ==
LOC: HO.HMCHD 13:46
PROVIDERS: PCP Internal Medicine; Visit Provider Internal Medicine
DX: R51.9 Headache, unspecified (principal); G89.29 Other chronic pain; R22.1 Localized swelling, mass and lump, neck; F33.2 Major depressive disorder, recurrent severe without psychotic features

== ENCOUNTER → 2024-10-18 13:46 | Outpatient (BNVA) | payer MEDICARE, MEDICAID, SELFPAY | PROVIDERS: PCP Internal Medicine; Visit Provider Internal Medicine | DX: F33.2 Major depressive disorder, recurrent severe without psychotic features (principal); R51.9 Headache, unspecified; G89.29 Other chronic pain; R22.1 Localized swelling, mass and lump, neck; Z79.899 Other long term (current) drug therapy | CPT/HCPCS: 99212 ==

== ENCOUNTER 2024-10-26 11:52 | Outpatient (AMB) | payer MEDICARE, MEDICAID, SELFPAY ==
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
[2024-10-26 11:52] VITALS: BP 130/80; PULSE 85; O2SAT 96; BMI 26.4
--- OUTSIDE RECORDS SUMMARY | 2024-10-26 11:55 | XMS_ITS | Patient Health Record ---
Author Organization [facility] Address [address] [place] [address] Care Team Providers Care Radiologic Tech Name Role Phone Robin (RETIRED) Tod LEHMAN Primary Care Provide r Unavailable Rico Vega Unavailable [phone] Reason For Referral No Information Medications Medication SIG (Take, Route, Frequency, Duration) Notes Start Date End Date Status Propranolol HCl 10 MG 1 tablet Orally prn Active Omeprazole 20 MG 1 capsule Orally Once a day Active [place] Carbonate 300 MG 1 capsule Orall y twice a day Active LORazepam 0.5 MG 1 tablet as needed O rally every 6 hrs Active tylenol 1 tab Oral daily Act satish Problems Problem Type SNOMED Code ICD Code Onset Dates Problem Status W/U Status Risk Notes Problem [id number] Encounter for screening for malignant neoplasm of colon (Z12.11) Active confirmed Problem 573438722 Esophageal obstruction (K22.2) Active confirmed Problem Screening for malignant neoplasm of rectum (804560271) Encounter for screening for malignant neoplasm of rectum (Z12.12) Active confirmed Problem 378639544 Gastroesophageal reflux disease without esophagitis (K21.9) Active confirmed Problem 546171184 Gastroesophageal reflux disease, esophagitis presence not specified (K21.9) Active confirmed Problem 675162100 Esophageal ring (K22.2) Active confirmed Problem 17104772 Dysphagia, unspecified type (R13.10) Active confirmed Plan Of Treatment Future Test Test Name Order Date UPPER GI ENDOSCOPY BALL[place]ON DILATION OF ESOPH 12/10/2015 Insurance Providers Payer Name Payer Address Payer Phone Subscriber Number Group Number Insured Name Patient Relationship to Insured Coverage Start Date Coverage End Date [place] [address] [place] [id number] GISELA EDDY Self - patient is the insured [facility] [address] [place] [address] [id number] GISELA EDDY Self - patient is the insured Medical (General) History Medical History History ICD Code Denies [place],DM,CVA,Lung disease,renal dise ase Depression/Anxiety GERD--UGI in the past with reflux Esophageal ring--esophageal obstruction--EGD in 11/2015--meat bolus removed and a distal esophageal ring was dilated with an 18-20mm balloon
--- OUTSIDE RECORDS SUMMARY | 2024-10-26 11:55 | XMS_ITS | Encounter Summary ---
Author Organization [employer] Address [address] [facility] [address] [place] [address] Care Team Providers Care Medical Claims Examiner Name Role Phone Unavailable Primary Care Provider [...]
--- OUTSIDE RECORDS SUMMARY | 2024-10-26 11:55 | XMS_ITS | Clinical Summary ---
Author Organization [facility] Address [address] [address] Phone Care Team Providers Care Drafting Technician Name Role Phone Tod Kelly MD [...] file Insurance MEDICARE PART A & B [facility] MEDICARE PART A [place] [address] [place] [address] MEDICARE PART A & B [facility] MEDICARE PART A & B HEALTH MEDICARE PART A & B [id number] [place] [id number] MEDICARE PART A & B HEALTH MEDICARE PART A & [place] MEDICARE PART A [place] [address] [place] [address] MEDICARE PART A & B [facility] Care Teams Drafting Technician Relationship Specialty Start Date End Date Tod Kelly MD [address] [place] [address] [place] [address] PCP - General Internal Medicine 12/05/19 Additional Source Comments The information contained in this document represents components of the legal health record. It is not the complete legal health record.[facility]
== END 2024-10-26 13:56 | disposition home or self-care (01) ==
LOC: HO.HSMS 11:53
PROVIDERS: PCP Internal Medicine; Visit Provider Nurse Practitioner Family
DX: R51.9 Headache, unspecified (principal); G89.29 Other chronic pain; F41.1 Generalized anxiety disorder; F33.2 Major depressive disorder, recurrent severe without psychotic features
CPT/HCPCS: 99205; 99417; G2212

== ENCOUNTER → 2024-10-26 11:52 | Outpatient (BNVA) | payer MEDICARE, MEDICAID, SELFPAY | PROVIDERS: PCP Internal Medicine; Visit Provider Nurse Practitioner Family | DX: R51.9 Headache, unspecified (principal); G89.29 Other chronic pain; F41.1 Generalized anxiety disorder; F33.2 Major depressive disorder, recurrent severe without psychotic features | CPT/HCPCS: 99202 ==

== ENCOUNTER 2024-10-30 09:58 | Outpatient (REF) | payer MEDICARE, MEDICAID, SELFPAY ==
[2024-10-30 10:24] LABS: MANUAL DIFF FLAG NO
[2024-10-30 10:51] LABS: Hematocrit 44.4 % (42.0-52.0); Hemoglobin 14.6 g/dl (14.0-18.0); Imm Gran Abs Auto 0.02 X10*3/uL (0.00-0.03); Imm Gran Pct Auto 0.4 % (0.0-0.4); Lymphocytes Absolute Auto 1.0 X10*3/uL (1.2-4.9); Mean Corpuscular HGB Conc 32.9 g/dl (31.0-36.0); Mean Corpuscular Hemoglobin 28.7 pg (27.0-33.0); Mean Corpuscular Volume 87.4 fL (80.0-98.0); NRBC Abs Auto 0.000 X10*3/uL (0.0-0.012); NRBC Pct Auto 0.0 /100WBC (0.0-0.2); Platelet Count 205 X10*3/uL (160-400); Red Blood Count 5.08 X10*6/uL (4.60-5.80); White Blood Count 5.0 X10*3/uL (4.8-10.8)
[2024-10-30 11:00] LABS: Hemoglobin A1C 128.7977 umol/L; Total Hemoglobin (HGBA1C) 3849.6374 umol/L
--- OUTSIDE RECORDS SUMMARY | 2024-10-30 11:12 | XMS_ITS | Clinical Summary ---
Author Organization [facility] Address [address] [address] Phone Care Team Providers Care Wheel Presser Name Role Phone Tod Kelly MD Primary [...] file Insurance MEDICARE PART A & B [facility] MEDICARE PART A & [place] [address] [address] MEDICARE PART A & B [facility] MEDICARE PART A & B HEALTH MEDICARE PART A & B [id number] [place] [address] MEDICARE PART A & B HEALTH MEDICARE PART A & [place] MEDICARE PART A & [place] [address] MEDICARE PART A & B [facility] Care Teams Wheel Presser Relationship Specialty Start Date End Date Tod Kelly MD [address] [place] [address] [place] [address] PCP - General Internal Medicine 12/05/19 Additional Source Comments The information contained in this document represents components of the legal health record. It is not the complete legal health record.[facility]
--- OUTSIDE RECORDS SUMMARY | 2024-10-30 11:12 | XMS_ITS | Encounter Summary ---
Author Organization [employer] Address [address] [facility] 7t [place] [address] Care Team Providers Care Senior Asic Design Engineer Name Role Phone Unavailable Primary Care Provider [...]
--- OUTSIDE RECORDS SUMMARY | 2024-10-30 11:12 | XMS_ITS | Patient Health Record ---
Author Organization [facility] Address [address] [place] [address] Care Team Providers Care Manager Behavior Name Role Phone Robin (RETIRED) Tod LEHMAN Primary Care Provide r Unavailable Rico Vega Unavailable [phone] Reason For Referral No Information Medications Medication SIG (Take, Route, Frequency, Duration) Notes Start Date End Date Status Propranolol HCl 10 MG 1 tablet Orally prn Active Omeprazole 20 MG 1 capsule Orally Once a day Active [place] Carbonate 300 MG 1 capsule Orall y twice a day Active LORazepam 0.5 MG 1 tablet as needed O rally every 6 hrs Active tylenol 1 tab Oral daily Act satish Problems Problem Type SNOMED Code ICD Code Onset Dates Problem Status W/U Status Risk Notes Problem 065993863 Encounter for screening for malignant neoplasm of colon (Z12.11) Active confirmed Problem 454532376 Esophageal obstruction (K22.2) Active confirmed Problem Screening for malignant neoplasm of rectum (271091993) Encounter for screening for malignant neoplasm of rectum (Z12.12) Active confirmed Problem 497130237 Gastroesophageal reflux disease without esophagitis (K21.9) Active confirmed Problem 433660258 Gastroesophageal reflux disease, esophagitis presence not specified (K21.9) Active confirmed Problem 762215447 Esophageal ring (K22.2) Active confirmed Problem 82865976 Dysphagia, unspecified type (R13.10) Active confirmed Plan Of Treatment Future Test Test Name Order Date UPPER GI ENDOSCOPY BALLOOON DILATION OF ESOPH 12/10/2015 Insurance Providers Payer Name Payer Address Payer Phone Subscriber Number Group Number Insured Name Patient Relationship to Insured Coverage Start Date Coverage End Date MEDICARE OF [place] [address] [place] [address] [id number] GISELA EDDY Self - patient is the insured MEDICAID OF [facility] [address] [place] [address] [id number] GISELA EDDY Self - patient is the insured Medical (General) History Medical History History ICD Code Denies [place],DM,CVA,Lung disease,renal dise ase Depression/Anxiety GERD--UGI in the past with reflux Esophageal ring--esophageal obstruction--EGD in 11/2015--meat bolus removed and a distal esophageal ring was dilated with an 18-20mm balloon
[2024-10-30 11:41] LABS: Alanine Aminotransferase 12 U/L (0-40); Albumin Level 4.7 g/dL (3.5-5.0); Alkaline Phosphatase 41 U/L (39-117); Anion Gap 13 (12-20); Aspartate Amino Transferase 23 U/L (5-37); Blood Urea Nitrogen 16 mg/dL (9-16); Calcium 9.2 mg/dL (8.4-10.2); Carbon Dioxide 25 mmol/L (22-29); Chloride 104 mmol/L (96-108); Estimated Glomerular Filt Rate > 60; Iron 46 mcg/dL (45-160); Magnesium 2.1 mg/dL (1.6-2.6); Percent Iron Saturation 12 % (15-50); Potassium 4.2 mmol/L (3.3-5.1); Sodium 138 mmol/L (135-145); Total Iron Binding Capacity 369 mcg/dL (228-428); Total Protein 7.4 g/dL (6.5-8.0); Unsaturated Iron Binding 323 ug/dL
[2024-10-30 11:54] LABS: Syphilis Screen Nonreactive (Nonreactive)
[2024-10-30 12:00] LABS: Ferritin 11 ng/mL (20-250)
[2024-10-30 12:09] LABS: HIV Num 1 0.04 S/CO (0.00-0.99)
[2024-10-30 12:11] LABS: Folate 4.2 ng/mL (> or = 4.0); Vitamin B12 338 pg/mL (200-900)
== END 2024-10-30 09:59 | disposition home or self-care (01) ==
LOC: HO.LAB 09:58
PROVIDERS: PCP Internal Medicine; Visit Provider Nurse Practitioner Family
DX: Z13.1 Encounter for screening for diabetes mellitus (principal); C44.91 Basal cell carcinoma of skin, unspecified; D64.9 Anemia, unspecified; R51.9 Headache, unspecified
CPT/HCPCS: 36415; 80053; 82607; 82728; 82746; 83036; 83090; 83540; 83735; 83921; 85025; 85652; 86140; 86431; 86780; 87389

== ENCOUNTER → 2024-11-06 15:28 | Outpatient (BNV) | payer MEDICARE, MEDICAID, SELFPAY | PROVIDERS: PCP Internal Medicine; Visit Provider Radiology Diagnostic Radiology | DX: G45.0 Vertebro-basilar artery syndrome (principal) | CPT/HCPCS: 70553 ==

== ENCOUNTER 2024-11-06 15:29 | Outpatient (REF) | payer MEDICARE, MEDICAID, SELFPAY ==
--- NOTE | ~2024-11-06 | MR_ITS ---
EXAMINATION: MR BRAIN WITHOUT AND WITH CONTRAST CLINICAL INFORMATION: Headache. COMPARISON: Correlated to CT IAC/temporal bones dated September 05, 2024 TECHNIQUE: Multiplanar, multisequence MRI of the brain was obtained before and after the intravenous administration of 9.0 mL gadolinium based without reported immediate complications. FINDINGS: Patient's motion artifact. No restricted diffusion. No acute intracranial hemorrhage, mass effect, midline shift, hydrocephalus or herniation. Susceptibility signal within the right temporal white matter. Nonspecific 3 mm nonenhancing hyperintense T2 FLAIR signal in the white matter right frontal gyrus. Flow-void signal within the main cerebral vessels is normal. There is a dolichoectatic right vertebral basilar system resulting in ventral deformity of the mid to lower. No abnormal enhancement within the intra-axial or the extra-axial compartment of the cranium. No abnormal enhancement within the cochlear or vestibular components of the 8th cranial nerves at either side. No enhancing lesion at the cerebellopontine angle cistern. Sellar/suprasellar region is normal. Craniocervical junction demonstrates normal position of the cerebellar tonsils. MR/MR head/brain wo/w con IMPRESSION: No acute stroke/nonhemorrhagic ischemia. No acute hemorrhage. No abnormal enhancement. 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 Nonspecific 3 mm T2 FLAIR signal, superior right frontal gyrus. Electronically signed by: Andrea Dudley MD 11/06/2024 04:40 PM EDT
--- OUTSIDE RECORDS SUMMARY | 2024-11-06 11:00 | XMS_ITS | Encounter Summary ---
Author Organization [employer] Address [address] [facility] 7 [place] [address] Care Team Providers Care Horse Breeder Name Role Phone Unavailable Primary Care Provider Unavailabl e Reason for Visit * Reason Comments Filling Encounter Details Date Type Department Care Team ([facility] st Contact Info) Description 11/06/2024 11:00 AM EDT Office Visit [facility] ADULT D[facility]AL [address] [place] [address] Meer Tabares DDS [address] [place] [address] Social History Tobacco Use Types Packs/Day Years Used Date Smoking Tobacco: Never Smokeless Tobacco: Never Sex and Gender Information Value Date Recorded Sex Assigned at Male 01/11/2022 10:22 AM EDT Legal Sex Male 10:22 AM EDT Gender Identity Male 01/11/2022 10:22 AM EDT Sexual Orientation Straight 01/11/2022 10 :22 AM EDT documented as of this encounter Plan of Treatment Not on file documented as of this encounter Procedures Procedure Name Priority Date/Time Associated Diagnosis Comments 22 DL RESIN-BASED COMPOSITE - 2 SURF, ANTERIOR Routine 11/06/2024 11:00 AM EDT CASE PRESENTATION, DETAILED AND EXTENSIVE TREATMENT PLANNING Routine 11/06/2024 11:00 AM EDT documented in this encounter Visit Diagnoses Not on filedocumented in this encounter
--- OUTSIDE RECORDS SUMMARY | 2024-11-06 16:31 | XMS_ITS | Clinical Summary ---
Author Organization [employer] Address [address] [facility] 7t [place] [address] Care Team Providers Care Groundskeeper Name Role Phone Unavailable Primary Care Provider [...] Apply topically every 12 (twelve) hours. Active Encounters Date Type Department Care Team Description 11/06/2024 11:00 AM EDT Office Visit [facility] ADULT DENTAL [address] [place] [address] Mere Tabares DDS from Last 3 Months Social History Tobacco Use Types Packs/Day Years [...] Sign Reading Time Taken Comments Blood Pressure 122/62 08/01/2024 1:05 PM EDT Pulse 65 08/01/2024 1:05 PM EDT Temperature - - Respiratory Rate [...] Panel 1964 SDOH Screening 1964 Sigmoidoscopy 1964 Disability Screening 1964 Alcohol/Substance Use Screening 1976 Hepatitis C Screening 1982 DTaP/Tdap/Td Vaccines (1 - Tdap) 09/03/1983 Pneumococcal Vaccine: 50+ Years (1 of 1 - PCV) 2014 Zoster Vaccines (1 of 2) 2014 COVID-19 Vaccine (5 - season) 2023 06/10/2021, 01/26/2021, 07/22/2020, Additional history exists Dental X-Ray: Bitewings 11/11/2024 11/11/19 24, 10/21/2023, 02/16/2021, Additional history exists Influenza Vaccine (#1) 2024 Dental Oral Exam 02/02/2025 08/01/2024, , 09/30/2020, Additional history exists Dental Prophylaxis 02/02/2025 08/01/2024, 0 11/18/2023, 02/27/2021, Additional history exists Tobacco Screening 08/01/2025 08/01/2024 Dental X-Ray: Full Mouth 11/11/2026 11/11/2023, 11/13 [...] patient's age to complete this topic Hepatitis B Vaccines Aged Out No long er eligible based on patient's age to complete this topic IPV Vaccines Aged Out No longer eligi ble based on patient's age to complete this topic Meningococcal B Vaccine Aged Out No l onger eligible based on patient's age to complete [...] TREATMENT PLANNING Routine 11/06/2024 11:00 AM EDT PROPHYLAXIS - ADULT Routine 08/01/2024 1 :00 PM EDT PERIODIC ORAL EVALUATION - ESTABLISHED PATIENT Routine 08/01/2024 1:00 PM EDT INTRAORAL - COMPLETE SERIES OF RADIOGRAPHIC IMAGES Routine 11/11/2023 11:00 AM EDT from Last 3 Months or Most Recently Relevant to Health Maintenance Insurance [place] [address]
--- OUTSIDE RECORDS SUMMARY | 2024-11-06 16:31 | XMS_ITS | Patient Health Record ---
Author Organization [facility] Address [address] [place] [address] Care Team Providers Care Self Rising Flour Mixer Name Role Phone Robin (RETIRED) Tod LEHMAN Primary Care Provide r Unavailable Rico Vega Unavailable [phone] Reason For Referral No Information Medications Medication SIG (Take, Route, Frequency, Duration) Notes Start Date End Date Status Propranolol HCl 10 MG 1 tablet Orally prn Active Omeprazole 20 MG 1 capsule Orally Once a day Active [place] Carbonate 300 MG 1 capsule Orall y twice a day Active LORazepam 0.5 MG 1 tablet as needed O rally every 6 hrs Active tylenol 1 tab Oral daily Act satish Problems Problem Type SNOMED Code ICD Code Onset Dates Problem Status W/U Status Risk Notes Problem [id number] Encounter for screening for malignant neoplasm of colon (Z12.11) Active confirmed Problem 647246871 Esophageal obstruction (K22.2) Active confirmed Problem Screening for malignant neoplasm of rectum (820556765) Encounter for screening for malignant neoplasm of rectum (Z12.12) Active confirmed Problem 790507278 Gastroesophageal reflux disease without esophagitis (K21.9) Active confirmed Problem 759371582 Gastroesophageal reflux disease, esophagitis presence not specified (K21.9) Active confirmed Problem 107186873 Esophageal ring (K22.2) Active confirmed Problem 95842335 Dysphagia, unspecified type (R13.10) Active confirmed Plan Of Treatment Future Test Test Name Order Date UPPER GI ENDOSCOPY BALLOOON DILATION OF ESOPH 12/10/2015 Insurance Providers Payer Name Payer Address Payer Phone Subscriber Number Group Number Insured Name Patient Relationship to Insured Coverage Start Date Coverage End Date MEDICARE OF [place] [address] [place] [address] [id number] GISELA EDDY Self - patient is the insured MEDICAID OF [facility] [address] [place] [address] [id number] GISELA EDDY Self - patient is the insured Medical (General) History Medical History History ICD Code Denies [place],DM,CVA,Lung disease,renal dise ase Depression/Anxiety GERD--UGI in the past with reflux Esophageal ring--esophageal obstruction--EGD in 11/2015--meat bolus removed and a distal esophageal ring was dilated with an 18-20mm balloon
--- OUTSIDE RECORDS SUMMARY | 2024-11-06 16:31 | XMS_ITS | Encounter Summary ---
Author Organization [employer] Address [address] [facility] 7t [place] [address] Care Team Providers Care Qa Software Tester Name Role Phone Unavailable Primary Care Provider [...]
--- OUTSIDE RECORDS SUMMARY | 2024-11-06 16:31 | XMS_ITS | Clinical Summary ---
Author Organization [facility] Address [address] [address] Phone Care Team Providers Care Swing Ride Operator Name Role Phone Tod Kelly MD [...] - 2023-2 5 season) 2023 07/22/2020, 06/24/2020 INFLUENZA VACCINE (#1) 2024 RSV VACCINE (1 - 1-dose 75+ series) [...] file Insurance MEDICARE PART A & B [facility] MEDICARE PART A & B HEALTH ([address] [address] MEDICARE PART A & B [facility] MEDICARE PART A & B HEALTH MEDICARE PART A & B [id number] [place] [address] MEDICARE PART A & B MEDICARE PART A & B [id number] [place] [address] MEDICARE PART A & B Member Subscriber Plan / Payer (Ef fective 2007-Present) Name:Henri Huerta Member ID:[id number] Relation to Subscriber:Self Name:Henri Huerta Subscriber ID:[id number] Payer ID:[id number] Group ID:Not on file Type:Medicare Address: [employer] [address] [facility] MEDICARE PART A & B [facility] Care Teams Swing Ride Operator Relationship Specialty Start Date End Date Tod Kelly MD [address] [place] [address] [place] [address] PCP - General Internal Medicine 12/05/19 Additional Source Comments The information contained in this document represents components of the legal health record. It is not the complete legal health record.[facility]
--- OUTSIDE RECORDS SUMMARY | 2024-11-06 16:31 | XMS_ITS | Encounter Summary ---
Author Organization [employer] Address [address] [facility] 7t [place] [address] Care Team Providers Care Automatic Wheel Line Operator Name Role Phone Unavailable Primary Care [...]
== END 2024-11-06 15:30 | disposition home or self-care (01) ==
LOC: HO.MRI 15:29
PROVIDERS: PCP Internal Medicine; Visit Provider Nurse Practitioner Family
DX: R51.9 Headache, unspecified (principal); R59.0 Localized enlarged lymph nodes; C44.91 Basal cell carcinoma of skin, unspecified
CPT/HCPCS: 70553; A9585

== ENCOUNTER 2024-11-16 12:25 | Outpatient (AMB) | payer MEDICARE, MEDICAID, SELFPAY ==
[2024-11-16 12:31] VITALS: BP 130/80; PULSE 86; O2SAT 96; BMI 27.1
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
--- OUTSIDE RECORDS SUMMARY | 2024-11-16 12:50 | XMS_ITS | Encounter Summary ---
Author Organization [facility] Address [address] [facility] [address] [place] [address] Care Team Providers Care Color Repairer Name Role Phone Unavailable Primary Care Provider [...]
--- OUTSIDE RECORDS SUMMARY | 2024-11-16 12:50 | XMS_ITS | Clinical Summary ---
Author Organization [facility] Address [address] [address] Phone Care Team Providers Care Frame Stripper And Crusher Name Role Phone Tod Kelly MD Primary [...] file Insurance MEDICARE PART A & B [facility] MEDICARE PART A & B HEALTH ([address] [address] MEDICARE PART A & B [facility] MEDICARE PART A & B HEALTH MEDICARE PART A & B [id number] [place] [address] MEDICARE PART A & B MEDICARE PART A & B [id number] [place] [address] MEDICARE PART A & B Member Subscriber Plan / Payer (Ef fective 2007-Present) Name:Henri Huerta Member ID:[id number] Relation to Subscriber:Self Name:Henri Huerta Subscriber ID:[id number] Payer ID:[id number] Group ID:Not on file Type:Medicare Address: [employer] [address] [facility] PART A & B [facility] Care Teams Frame Stripper And Crusher Relationship Specialty Start Date End Date Tod Kelly MD [address] [place] [address] [place] [address] PCP - General Internal Medicine 12/05/19 Additional Source Comments The information contained in this document represents components of the legal health record. It is not the complete legal health record.[facility]
--- OUTSIDE RECORDS SUMMARY | 2024-11-16 12:50 | XMS_ITS | Clinical Summary ---
Author Organization [facility] Address [address] [facility] [address] [place] [address] Care Team Providers Care Animal Cruelty Investigation Supervisor Name Role Phone Unavailable Primary Care Provider [...] Encounters Date Type Department Care Team Description 11/09/2024 10:00 AM EDT Office Visit [facility] [address] [place] [address] Mere Tabares DDS 11/06/2024 11:00 AM EDT Office Visit [facility] [address] [place] [address] Mere Tabares DDS from Last 3 Months [...] 2014 Zoster Vaccines (1 of 2) 2014 Dental X-Ray: Bitewings 11/11/2024 11/11/19 24, 10/21/2023, 02/16/2021, Additional history exists COVID-19 Vaccine ( season) 2024 06/10/2021, 01/26/2021, 07/22/2020, Additional history exists Influenza Vaccine (#1) 2024 Dental Oral Exam 02/02/2025 08/01/2024, , 09/30/2020, Additional history exists Dental Prophylaxis 02/02/2025 08/01/2024, 0 11/18/2023, 02/27/2021, Additional history exists Tobacco Screening 11/09/2025 11/09/2024 Dental X-Ray: Full Mouth 11/11/2026 11/11/2023, 11/13 [...] Procedure Name Priority Date/Time Associated Diagnosis Comments NO CHARGE PROCEDURE Routine 11/09/2024 1 0:00 AM EDT 22 DL RESIN-BASED COMPOSITE - 2 SURF, [...] Health Maintenance Insurance [facility] [address] [place] [address]
--- OUTSIDE RECORDS SUMMARY | 2024-11-16 12:50 | XMS_ITS | Encounter Summary ---
Author Organization [facility] Address [address] [facility] 7[address] [place] [address] Care Team Providers Care Flight Crew Ordnanceman Name Role Phone Unavailable Primary Care Provider [...]
--- OUTSIDE RECORDS SUMMARY | 2024-11-16 12:51 | XMS_ITS | Patient Health Record ---
Author Organization [facility] Address [address] [place] [address] Care Team Providers Care Dye Tank Tender Name Role Phone Robin (RETIRED) Tod LEHMAN Primary Care Provide r Unavailable Rico Vega Unavailable [phone] Reason For Referral No Information Medications Medication SIG (Take, Route, Frequency, Duration) Notes Start Date End Date Status Propranolol HCl 10 MG 1 tablet Orally prn Active Omeprazole 20 MG 1 capsule Orally Once a day Active [place] Carbonate 300 MG 1 capsule Orall y twice a day Active LORazepam 0.5 MG 1 tablet as needed O rally every 6 hrs Active tylenol 1 tab Oral daily Act satish Problems Problem Type SNOMED Code ICD Code Onset Dates Problem Status W/U Status Risk Notes Problem 298098142 Encounter for screening for malignant neoplasm of colon (Z12.11) Active confirmed Problem 352991154 Esophageal obstruction (K22.2) Active confirmed Problem Screening for malignant neoplasm of rectum (501764929) Encounter for screening for malignant neoplasm of rectum (Z12.12) Active confirmed Problem 193378622 Gastroesophageal reflux disease without esophagitis (K21.9) Active confirmed Problem 624774613 Gastroesophageal reflux disease, esophagitis presence not specified (K21.9) Active confirmed Problem 148266294 Esophageal ring (K22.2) Active confirmed Problem 07210403 Dysphagia, unspecified type (R13.10) Active confirmed Plan Of Treatment Future Test Test Name Order Date UPPER GI ENDOSCOPY BALLOOON DILATION OF ESOPH 12/10/2015 Insurance Providers Payer Name Payer Address Payer Phone Subscriber Number Group Number Insured Name Patient Relationship to Insured Coverage Start Date Coverage End Date [place] OF [place] [address] [place] [address] [phone] [id number] GISELA EDDY Self - patient is the insured MEDICAID OF [facility] [address] [place] [address] [id number] GISELA EDDY Self - patient is the insured Medical (General) History Medical History History ICD Code Denies [place],DM,CVA,Lung disease,renal dise ase Depression/Anxiety GERD--UGI in the past with reflux Esophageal ring--esophageal obstruction--EGD in 11/2015--meat bolus removed and a distal esophageal ring was dilated with an 18-20mm balloon
== END 2024-11-16 13:51 | disposition home or self-care (01) ==
LOC: HO.HSMS 12:26
PROVIDERS: PCP Internal Medicine; Visit Provider Nurse Practitioner Family
DX: R51.9 Headache, unspecified (principal); G89.29 Other chronic pain; F41.1 Generalized anxiety disorder; F33.2 Major depressive disorder, recurrent severe without psychotic features; G44.82 Headache associated with sexual activity; D18.00 Hemangioma unspecified site
CPT/HCPCS: 99214; G2211

== ENCOUNTER → 2024-11-16 12:25 | Outpatient (BNVA) | payer MEDICARE, MEDICAID, SELFPAY | PROVIDERS: PCP Internal Medicine; Visit Provider Nurse Practitioner Family | DX: R51.9 Headache, unspecified (principal); G89.29 Other chronic pain; F33.2 Major depressive disorder, recurrent severe without psychotic features; F41.1 Generalized anxiety disorder; D18.02 Hemangioma of intracranial structures; Z98.890 Other specified postprocedural states | CPT/HCPCS: 99212 ==

== ENCOUNTER 2024-11-20 13:31 | Outpatient (REF) | payer MEDICARE, MEDICAID, SELFPAY ==
--- NOTE | ~2024-11-20 | MR_ITS ---
CLINICAL HISTORY: G44.82 - Headache associated with sexual activity MR Venography head with and without gadolinium Comparison: None provided Findings: Patent sagittal, transverse, sigmoid, inferior sagittal and straight sinuses. Patent internal cerebral and basal veins. Internal jugular veins are patent. IMPRESSION: Normal MRV brain This document has been electronically signed by: Stefania Garcia MD on 11/20/2024 18:19:11
--- NOTE | ~2024-11-20 | MR_ITS ---
EXAMINATION: MR ANGIOGRAPHY BRAIN WITHOUT CONTRAST CLINICAL INFORMATION: D18.00 - Hemangioma unspecified site , recurring headaches not improved with conservative therapy for 5 months COMPARISON: MRI brain November 06, 2024 TECHNIQUE: 3D [id number]-zvnkan imaging was performed to evaluate for intracranial arterial structures. 3D/3D MIP rendering was performed FINDINGS: -INTRACRANIAL INTERNAL CAROTID ARTERIES: No focal stenosis or occlusion. -RIGHT ANTERIOR CEREBRAL ARTERY: Normal A1 segment.. Normal arborization of the distal segments. -LEFT ANTERIOR CEREBRAL ARTERY: Normal A1 segment.. Normal arborization of the distal segments. -ANTERIOR COMMUNICATING ARTERY: Normal. -RIGHT MIDDLE CEREBRAL ARTERY: Normal M1 segment of the MCA without focal stenosis or occlusion. Normal bifurcation. Normal arborization of the distal segments. -LEFT MIDDLE CEREBRAL ARTERY: Normal M1 segment of the MCA without focal stenosis or occlusion. Normal bifurcation. Normal arborization of the distal segments. -RIGHT VERTEBRAL ARTERY V4: Right vertebral artery is tortuous in its course. Normal PICA branch. -LEFT VERTEBRAL ARTERY V4: Normal in course and caliber. Normal PICA branch. -BASILAR ARTERY: Normal without focal stenosis or occlusion. Normal appearance of the proximal superior cerebellar arteries. Normal basilar tip. -RIGHT POSTERIOR CEREBRAL ARTERY: Normal P1 segment. Normal visualization of the distal WASTE COLLECTION DRIVER segments. -LEFT POSTERIOR CEREBRAL ARTERY: Normal P1 segment. Normal visualization of the distal WASTE COLLECTION DRIVER segments. -POSTERIOR COMMUNICATING ARTERIES: Not clearly demonstrated. MR/MR angio head wo con IMPRESSION: Unremarkable examination. Tortuous right vertebral artery, previously described. Electronically signed by: Hilario Abreu MD 11/20/2024 05:11 PM EDT
--- OUTSIDE RECORDS SUMMARY | 2024-11-20 16:04 | XMS_ITS | Clinical Summary ---
Author Organization [facility] Address [address] [address] Phone Care Team Providers Care Dosimetrist Name Role Phone Tod Kelly MD Primary [...] 2014 ZOSTER VACCINES (1 of 2) 2014 INFLUENZA VACCINE (#1) 2024 COVID-19 VACCINE (3 - 2024-2 6 season) 2024 07/22/2020, 06/24/2020 RSV VACCINE (1 - 1-dose [...] file Insurance MEDICARE PART A & B [facility] MEDICARE PART A & B HEALTH ([address] [address] MEDICARE PART A & B [facility] MEDICARE PART A & B HEALTH MEDICARE PART A & B [id number] [place] [address] MEDICARE PART A & B MEDICARE PART A & B [id number] [place] [address] MEDICARE PART A & B Member Subscriber Plan / Payer (Ef fective 2007-Present) Name:Henri Huerta Member ID:[id number] Relation to Subscriber:Self Name:Henri Huerta Subscriber ID:[id number] Payer ID:[id number] Group ID:Not on file Type:Medicare Address: [employer] [address] [facility] MED[facility] PART A & B [facility] Care Teams Dosimetrist Relationship Specialty Start Date End Date Tod Kelly MD [address] [place] [address] [place] [address] PCP - General Internal Medicine 12/05/19 Additional Source Comments The information contained in this document represents components of the legal health record. It is not the complete legal health record.[facility]
--- OUTSIDE RECORDS SUMMARY | 2024-11-20 16:04 | XMS_ITS | Encounter Summary ---
Author Organization [employer] Address [address] [place] [address] Care Team Providers Care Janitor Caretaker Name Role Phone Unavailable Primary Care Provider [...]
--- OUTSIDE RECORDS SUMMARY | 2024-11-20 16:04 | XMS_ITS | Encounter Summary ---
Author Organization [employer] Address [address] [facility] [address]t [place] [address] Care Team Providers Care Peoplesoft Name Role Phone Unavailable Primary Care Provider [...]
--- OUTSIDE RECORDS SUMMARY | 2024-11-20 16:04 | XMS_ITS | Patient Health Record ---
Author Organization [facility] Address [address] [place] [address] Care Team Providers Care Manager Workers Compensation Name Role Phone Robin (RETIRED) Tod LEHMAN Primary Care Provide r Unavailable Rico Vega Unavailable [phone] Reason For Referral No Information Medications Medication SIG (Take, Route, Frequency, Duration) Notes Start Date End Date Status Propranolol HCl 10 MG 1 tablet Orally prn Active Omeprazole 20 MG 1 capsule Orally Once a day Active [place] Carbonate 300 MG 1 capsule Orall y twice a day Active LORazepam 0.5 MG 1 tablet as needed O rally every 6 hrs Active tylenol 1 tab Oral daily Act satish Problems Problem Type SNOMED Code ICD Code Onset Dates Problem Status W/U Status Risk Notes Problem 475402113 Encounter for screening for malignant neoplasm of colon (Z12.11) Active confirmed Problem 085478086 Esophageal obstruction (K22.2) Active confirmed Problem Screening for malignant neoplasm of rectum (958336651) Encounter for screening for malignant neoplasm of rectum (Z12.12) Active confirmed Problem 684634238 Gastroesophageal reflux disease without esophagitis (K21.9) Active confirmed Problem 710617361 Gastroesophageal reflux disease, esophagitis presence not specified (K21.9) Active confirmed Problem 969116709 Esophageal ring (K22.2) Active confirmed Problem 03143718 Dysphagia, unspecified type (R13.10) Active confirmed Plan Of Treatment Future Test Test Name Order Date UPPER GI ENDOSCOPY BALLOOON DILATION OF ESOPH 12/10/2015 Insurance Providers Payer Name Payer Address Payer Phone Subscriber Number Group Number Insured Name Patient Relationship to Insured Coverage Start Date Coverage End Date [place] OF [place] [address] [place] [address] [phone] [id number] GISELA EDDY Self - patient is the insured MEDICAID OF [facility] [address] [place] [address] [id number] GISELA EDDY Self - patient is the insured Medical (General) History Medical History History ICD Code Denies [place],DM,CVA,Lung disease,renal dise ase Depression/Anxiety GERD--UGI in the past with reflux Esophageal ring--esophageal obstruction--EGD in 11/2015--meat bolus removed and a distal esophageal ring was dilated with an 18-20mm balloon
--- OUTSIDE RECORDS SUMMARY | 2024-11-20 16:04 | XMS_ITS | Clinical Summary ---
Author Organization [employer] Address [address] [facility] 7t [place] [address] Care Team Providers Care Tire Bagger Name Role Phone Unavailable Primary Care Provider [...] [facility] [address] [place] [address] Mere Tabares DDS 11/06/2024 11:00 AM EDT Office Visit [facility] [address] [place] [address] Mere Tabares DDS from Last 3 Months [...] [place] [address] [place] [address]
--- NOTE | 2024-11-26 | ECG_ITS ---
Test Reason : pre op Blood Pressure : */* mmHG Vent. Rate : 90 BPM Atrial Rate : 90 BPM P-R Int : 158 ms QRS Dur : 84 ms QT Int : 342 ms P-R-T Axes : 53 -42 17 degrees QTcB Int : 418 ms Normal sinus rhythm Possible Left atrial enlargement Left axis deviation Minimal voltage criteria for LVH, may be normal variant ( R in aVL ) Abnormal ECG No previous ECGs available Referred By: Generic ED Physician Electronically Signed By: MARNI ONEILL
== END 2024-11-20 13:32 | disposition home or self-care (01) ==
LOC: HO.MRI 13:31
PROVIDERS: PCP Internal Medicine; Visit Provider Nurse Practitioner Family
DX: D18.00 Hemangioma unspecified site (principal); G44.82 Headache associated with sexual activity
CPT/HCPCS: 70544; 70546; 93005; A9585

== ENCOUNTER → 2024-11-20 15:00 | Outpatient (BNV) | payer MEDICARE, MEDICAID, SELFPAY | PROVIDERS: PCP Internal Medicine; Visit Provider Radiology Diagnostic Radiology | DX: I77.1 Stricture of artery (principal) | CPT/HCPCS: 70544; 70546 ==

== ENCOUNTER → 2024-11-26 10:29 | Outpatient (BNV) | payer MEDICARE, MEDICAID, SELFPAY | PROVIDERS: PCP Internal Medicine; Visit Provider Internal Medicine | DX: R94.31 Abnormal electrocardiogram [ECG] [EKG] (principal); Z01.810 Encounter for preprocedural cardiovascular examination | CPT/HCPCS: 93010 ==

== ENCOUNTER 2024-12-12 14:21 | Outpatient (REF) | payer MEDICARE, MEDICAID, SELFPAY ==
--- NOTE | ~2024-12-12 | US_ITS ---
EXAMINATION: US PELVIS LIMITED HISTORY: R19.00 - Intra-abdominal and pelvic swelling, mass and lump, unspecified... COMPARISON: There are no prior studies available for comparison. TECHNIQUE: Sonographic examination of the right lower quadrant anterior abdominal wall was performed. FINDINGS: Multiple cystic spaces are identified in the subcutaneous fat measuring up to 1.9 x 0.7 x 0.9 cm. These may represent areas of fat necrosis. US/US pelvic limited IMPRESSION: Multiple cystic spaces are noted in the subcutaneous fat of the anterior abdominal wall and the right lower quadrant corresponding to the palpable findings. Findings could represent fat necrosis. Clinical correlation is recommended. Electronically signed by: Rico Montano MD 12/12/2024 03:24 PM EDT
--- OUTSIDE RECORDS SUMMARY | 2024-12-12 15:33 | XMS_ITS | Clinical Summary ---
Author Organization [employer] Address [address] [facility] 7t [place] [address] Care Team Providers Care Operations Engineer Name Role Phone Unavailable Primary Care [...] Description 11/09/2024 10:00 AM EDT Office Visit [facility] [address] [place] [address] Mere Tabares DDS 11/06/2024 11:00 AM EDT Office Visit [facility] [address] [place] [address] Mere Tabares DDS from Last 3 Months [...] [facility] [address] [place] [address]
--- OUTSIDE RECORDS SUMMARY | 2024-12-12 15:33 | XMS_ITS | Clinical Summary ---
Author Organization [facility] Address [address] [address] Phone Care Team Providers Care Recreation Leader Name Role Phone Tod Kelly MD Primary [...] PART A & B [facility] MEDICARE PART A & B HEALTH ([address] [address] MEDICARE PART A & B [facility] MEDICARE PART A & B HEALTH MEDICARE PART A & B [id number] [place] [address] MEDICARE PART A & B MEDICARE PART A & B [id number] [place] [address] MEDICARE PART A & B Member Subscriber Plan / Payer (Ef fective 2007-Present) Name:Henri Huerta Member ID:[id number] Relation to Subscriber:Self Name:Henri Huerta Subscriber ID:[id number] Payer ID:[id number] Group ID:Not on file Type:Medicare Address: [employer] [address] [facility] PART A & B [facility] Care Teams Recreation Leader Relationship Specialty Start Date End Date Tod Kelly MD [address] [place] [address] [place] [address] PCP - General Internal Medicine 12/05/19 Additional Source Comments The information contained in this document represents components of the legal health record. It is not the complete legal health record.[facility]
--- OUTSIDE RECORDS SUMMARY | 2024-12-12 15:33 | XMS_ITS | Encounter Summary ---
Author Organization [employer] Address [address] [facility] 7t [place] [address] Care Team Providers Care Syruper Name Role Phone Unavailable Primary Care Provider Unavailabl e Encounter Details Date Type Department Care Team (Latest Contact Info) Description 09/05/[address] [facility] CONVERSIONS Dental, Provider, DDS Social History Tobacco [...]
--- OUTSIDE RECORDS SUMMARY | 2024-12-12 15:33 | XMS_ITS | Encounter Summary ---
Author Organization [employer] Address [address] [facility] 7t [place] [address] Care Team Providers Care Senior Corporate Recruiter Name Role Phone Unavailable Primary Care Provider [...]
== END 2024-12-12 14:22 | disposition home or self-care (01) ==
LOC: HO.US 14:21
PROVIDERS: PCP Internal Medicine; Visit Provider Internal Medicine
DX: R19.00 Intra-abdominal and pelvic swelling, mass and lump, unspecified site (principal)
CPT/HCPCS: 76857

== ENCOUNTER → 2024-12-12 14:23 | Outpatient (BNV) | payer MEDICARE, MEDICAID, SELFPAY | PROVIDERS: PCP Internal Medicine; Visit Provider Radiology Diagnostic Radiology | DX: R22.2 Localized swelling, mass and lump, trunk (principal) | CPT/HCPCS: 76857 ==

== ENCOUNTER 2024-12-20 14:34 | Outpatient (REF) | payer MEDICARE, MEDICAID, SELFPAY ==
--- NOTE | ~2024-12-20 | CT_ITS ---
EXAMINATION: CT ANGIOGRAM HEAD AND NECK CLINICAL INFORMATION: Headache unspecified. COMPARISON: CT head 09/05/2024. MRA brain and MR of brain 11/20/2024, 11/06/2024. No prior CT angiography. TECHNIQUE: Noncontrast axial imaging of the head was performed. This was followed by test bolus sequences and head and neck intravenous bolus administration 85 mL of Omnipaque 350. Helical imaging was performed in the axial plane from the aortic arch to the skull vertex. The data was processed at the operating room technologist's workstation for generation of MIP sequences. Angled MIPs and volume rendered reformatted images were also generated at an offline 3D workstation. Stenoses are assessed in accordance with NASCET criteria unless otherwise indicated. This CT examination was performed using dose optimization techniques as appropriate, variously including the following: *Automated exposure control *Adjustment of mA and/or kV according to patient size (this includes techniques or standardized protocols for targeted exams where dose is matched to indication/reason for exam; i.e. extremities or head) *Use of iterative reconstruction technique FINDINGS: NONCONTRAST HEAD CT: There is no evidence of intracranial hemorrhage or extra-axial fluid collection. There is no mass effect, or edema. No CT evidence of acute territorial infarct. Ventricles, sulci, and cisterns are normal in size and configuration for patient age. No hydrocephalus. No midline shift. Mild supratentorial white matter foci of hypoattenuation in keeping with mild small vessel ischemic changes. There is ossification of the anterior falx. There is atheromatous calcification of the carotid siphons and bilateral vertebral artery V4 segments. Globes and orbital contents image normally. No extracranial soft tissue abnormalities. The paranasal sinuses, mastoid air cells, and tympanic cavities are normally aerated. No suspicious bony abnormalities. NECK CTA: -AORTIC ARCH: Normal in caliber. Minimal atheromatous calcification. Three-vessel branching pattern. -GREAT VESSEL ORIGINS: Widely patent. No stenosis. -RIGHT COMMON CAROTID ARTERY: Normal in course and caliber to the level of the bifurcation. -CERVICAL RIGHT INTERNAL CAROTID ARTERY: Mild calcific atherosclerotic disease of the carotid bulb and proximal internal carotid artery without flow-limiting stenosis. -LEFT COMMON CAROTID ARTERY: Normal in course and caliber to the level of the bifurcation. -CERVICAL LEFT INTERNAL CAROTID ARTERY: Mild calcific atherosclerotic disease of the carotid bulb and proximal internal carotid artery without flow-limiting stenosis. -CERVICAL RIGHT VERTEBRAL ARTERY: Codominant. Patent origin. Normal in course and caliber into the skull base. -CERVICAL LEFT VERTEBRAL ARTERY: Codominant. Patent origin. Normal in course and caliber into the skull base. OTHER, SOFT TISSUES: -Within the right inferior parotid gland there is a circumscribed oval mass measuring 2.3 x 2.0 x 2.3 cm. -No lymphadenopathy. No abnormal fluid collection or soft tissue swelling. -Grossly normal thyroid. -Imaged superior mediastinal structures normal. -Imaged lung apices clear. CTA OF THE BRAIN: -INTRACRANIAL INTERNAL CAROTID ARTERIES: Mild calcific atherosclerotic disease of the intracranial internal carotid arteries without occlusion or flow-limiting stenosis. -RIGHT ANTERIOR CEREBRAL ARTERY: Normal A1 segment. Normal arborization of the distal segments. -LEFT ANTERIOR CEREBRAL ARTERY: Normal A1 segment. Normal arborization of the distal segments. -ANTERIOR COMMUNICATING ARTERY: Normal. -RIGHT MIDDLE CEREBRAL ARTERY: Normal M1 segment of the MCA without focal stenosis or occlusion. Normal bifurcation. Normal arborization of the distal segments. -LEFT MIDDLE CEREBRAL ARTERY: Normal M1 segment of the MCA without focal stenosis or occlusion. Normal bifurcation. Normal arborization of the distal segments. -RIGHT VERTEBRAL ARTERY V4: Mild atheromatous calcification. Normal in course and caliber. Normal PICA branch. -LEFT VERTEBRAL ARTERY V4: Mild atheromatous calcification. Normal in course and caliber. Normal PICA branch. -BASILAR ARTERY: Tortuous course. Normal without focal stenosis or occlusion. Normal appearance of the proximal superior cerebellar arteries. Normal basilar tip. -RIGHT POSTERIOR CEREBRAL ARTERY: Normal P1 segment. Normal opacification of the distal PAYROLL AND BENEFITS MANAGER segments. -LEFT POSTERIOR CEREBRAL ARTERY: Normal P1 segment. Normal opacification of the distal PAYROLL AND BENEFITS MANAGER segments. -POSTERIOR COMMUNICATING ARTERIES: Very diminutive, however present bilaterally. Normal opacification of the superior sagittal, straight, transverse, and sigmoid sinuses. No venous thrombosis. No space-occupying hemorrhage or definite evolving infarct. CT/CT angio head neck IMPRESSION: NONCONTRAST HEAD CT: 1. No intracranial hemorrhage or mass effect. No CT evidence of acute territorial infarct. CTA NECK: 1. There is no evidence of hemodynamically significant stenosis, occlusion, dissection, or aneurysm of the major cervical arterial vasculature. 2. There is an oval mass abutting the right inferior parotid gland measuring 2.3 x 2.0 x 2.3 cm. 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 It is grossly stable in size. From his EMR, he was referred to an ENT surgeon in [place]. CTA HEAD: 1. There is no evidence of hemodynamically significant stenosis, occlusion, dissection, or aneurysm within the major intracranial arterial vasculature. 2. Major cortical and dural venous sinuses are patent. Electronically signed by: Manuelito Harden MD 12/21/2024 10:26 AM EDT
[2024-12-20 16:12] LABS: Blood Urea Nitrogen 15 mg/dL (9-16); Estimated Glomerular Filt Rate > 60
[2024-12-20] MEDS: iohexoL 350 MG/ML 100 ML INFUS..BTL 70 ML IV (17:17)
== END 2024-12-20 14:35 | disposition home or self-care (01) ==
LOC: HO.CT 14:34
PROVIDERS: PCP Internal Medicine; Visit Provider Otolaryngology
DX: G44.82 Headache associated with sexual activity (principal); H93.19 Tinnitus, unspecified ear; D49.0 Neoplasm of unspecified behavior of digestive system
CPT/HCPCS: 36415; 70496; 70498; 82565; 84520; Q9967

== ENCOUNTER → 2024-12-20 14:39 | Outpatient (BNV) | payer MEDICARE, MEDICAID, SELFPAY | PROVIDERS: PCP Internal Medicine; Visit Provider Radiology Diagnostic Radiology | DX: R51.9 Headache, unspecified (principal); D37.030 Neoplasm of uncertain behavior of the parotid salivary glands | CPT/HCPCS: 70496; 70498 ==

== ENCOUNTER 2024-12-25 10:29 | Emergency (ER) | payer MEDICARE, MEDICAID, SELFPAY ==
[2024-12-25 10:37] VITALS: BP 186/88; PULSE 81; RESP 18; TEMP 36.6; O2SAT 98; BMI 27.1
--- NOTE | 2024-12-25 10:45 | ED.GENADULT ---
HPI - General Adult General Chief complaint: Headache Stated complaint: headache Time Seen by Provider: 12/25/24 17:08 Source: patient Mode of arrival: ambulatory Limitations: no limitations History of Present Illness ED Provider: Fredy Garzon HPI narrative: 59 yold male with pmh of anxiety and depression presents to the ED for 6 months of headache due trans magnetic stimulation for her anxiety and depression. patient has been seen by neurology and PCP multiple times. Shoshana has had multiple CT scans, MRA, MRIs that were normal. Last imaging was in 11/06/24. Patient has been on every medication that has not helpd. patient denies any nausea, vomitting, fever, chills, neck pain, change in vision, dizziness, paralysis of exremties, or slurred speech. Related Data Home Medications ?Medication ?Instructions ?Recorded ?Confirmed safety needles 25 gauge x 5/8 (BD #50 ea 10/18/24 SafetyGlide Needle) Previous Rx's ?Medication ?Instructions ?Recorded lithium carbonate 300 mg 300 mg PO BID #60 tabs 07/19/24 tablet,extended release omeprazole 20 mg capsule,delayed 20 mg PO DAILY #90 caps 07/19/24 release needle (disp) 25 gauge 25 gauge x #50 ea 08/13/24 5/8 (BD Regular [place]vel [place]) tadalafil 20 mg tablet 20 mg PO DAILY sexual activity 90 09/25/24 days #90 tabs testosterone cypionate 200 mg/mL 150 mg (0.75 mL) subcut QWEEK 4 09/25/24 intramuscular oil weeks #4 mL (Depo-Testosterone) knee brace-b/l #2 ea 10/18/24 lorazepam 1 mg tablet See Rx Instructions .Route 10/18/24 .COMPLEX anxiety 30 days #85 tabs ascorbic acid (vitamin C) 500 mg 500 mg PO DAILY 90 days #90 tabs 11/16/24 tablet cyanocobalamin (vitamin B-12) 500 500 mcg PO DAILY 90 days #90 tabs 11/16/24 mcg tablet ferrous gluconate 324 mg (38 mg 324 mg PO DAILY 90 days #90 tabs 11/16/24 iron) tablet folic acid 400 mcg tablet 400 mcg PO DAILY 90 days #90 tabs 11/16/24 famotidine 20 mg tablet (Pepcid) 20 mg PO BID 4 weeks #56 tabs 11/30/24 prednisone 10 mg tablet See Rx Instructions PO DAILY 21 11/30/24 days #63 tabs needle (disp) 18 G 18 gauge x 1 #30 ea 12/13/24 (BD Regular [place]) syringe (disposable) 1 mL (BD Bulk #30 ea 12/13/24 Syringe Slip Tip) ketorolac 10 mg tablet 10 mg PO Q6H PRN pain #20 tabs 12/25/24 Allergies Allergy/AdvReac Type Severity Reaction Status Date / Time aspirin (ASPIRIN) Allergy Intermediate STOMACH Verified 12/25/24 10:39 UPSET acetaminophen (From Fioricet) AdvReac Intermediate Headache Verified 12/25/24 10:39 butalbital (From Fioricet) AdvReac Intermediate Headache Verified 12/25/24 10:39 caffeine (From Fioricet) AdvReac Intermediate Headache Verified 12/25/24 10:39 Review of Systems Review of Systems: Headache for 6 months Yes all other systems are reviewed and are negative [facility] Past Medical History Medical History (Updated 12/26/24 @ 00:01 by Kellie Renee) Basal cell carcinoma Anemia Depression Mass of right side of neck Cervical lymphadenopathy Panic disorder Generalized anxiety disorder Major depressive disorder, recurrent severe without psychotic features Mild acid reflux Erectile dysfunction Depression Anxiety Hyperlipidemia Hypopituitarism Hypogonadism in male Tendinitis of left rotator cuff Gait abnormality Knee pain OA (osteoarthritis) of knee Thrombosed external hemorrhoid Family History Family History Mother No problems noted. Father No problems noted. Other Mental health disorder Social History Social History Housing: Apartment Alcohol intake: current Alcohol intake frequency: holidays/special occasions only Patient Tobacco Use Status: Never used Tobacco Smoked in Last 30 Days: No e-Cigarette/Vaping Use: Never Used Use of substances other than those prescribed or required for medical reasons: No Advance Directives: No Advance Directives Information Provided: No Do you have a plan to hurt others: No Plan service: No Current occupational status: disabled Cognitive needs: No Hearing needs: No Vision needs: Yes (reading glasses) Physical Exam ED Vital Signs: Vital Signs - 24 hr 12/25/24 16:57 12/25/24 20:57 12/25/24 20:58 Temperature 98.2 F 98.4 F 98.4 F Pulse Rate 67 62 62 Respiratory Rate 15 18 18 Blood Pressure 162/88 H 155/96 H 155/96 H Pulse Oximetry 98 97 97 Oxygen Delivery Method Room Air Room Air Room Air BMI result Body Mass Index 27.1 Const General: cooperative, healthy appearing, comfortable, no acute distress, well developed, alert, awake and Physically active Orientation/consciousness: patient oriented x3 [facility] Head: Yes normal to inspection, Yes No palpable skull fracture present, Yes normocephalic and Yes atraumatic Eyes General: appearance normal, both eyes and all related structures Visual Banks: normal visual banks by confrontation Alignment and Position: alignment normal Periorbital: periorbital findings normal Eyelids: Yes eyelids normal Conjunctivae: conjunctivae normal Sclerae: sclerae normal Corneas: corneas normal Pupils: Equal, round and reactive pupils present EOM: EOMs intact bilaterally Direct Ophthalmoscopy: normal light reflex Neck Neck: Yes normal visual inspection, Yes full ROM, Yes no lymphadenopathy, Yes no meningeal signs, Yes trachea midline, Yes supple, No anterior neck swelling and No tender Chest Chest palpation & inspection: normal inspection of the chest and normal palpation of entire chest wall Resp Effort & Inspection: normal respiratory effort and able to speak in complete sentences Auscultation: clear to auscultation bilaterally Cardio Jugular venous distension: no JVD Heart sounds: S1 normal heart sound present and S2 normal heart sound present GI Inspection: Yes normal to inspection Palpation (GI): Soft to palpation, not firm, nontender, no guarding and not rigid General: Yes no CVA tenderness Back/Spine/Pelvis Back: no CVA tenderness and No back tenderness Skin General skin exam: no rashes or lesions noted, elasticity normal and turgor normal Neuro General: patient oriented x3, gait normal, tone normal, no meningeal signs, no focal motor deficits and CN's II-XI intact bilaterally Cranial nerves: Yes Equal, round and reactive pupils present Extrem General: Yes normal to inspection, Yes full ROM and Yes capillary refill normal Psych Appearance: grossly normal, well kempt and not disheveled NIH Stroke Scale Internal: Initial- Upon Arrival Level of Consciousness: Alert Level of Consciousness Questions: Answers both questions correctly Level of Consciousness Commands: Performs both tasks correctly Best Gaze: Normal Visual: No visual loss Facial Palsy: Normal Motor Arm (Right): No drift Motor Arm (Left): No drift Motor Leg (Right): No drift Motor Leg (Left): No drift Limb Ataxia: Absent Sensory: Normal Best Language: No aphasia Dysarthia: Normal Extinction and Inattention: No abnormality Score: 0 Course Course Course Narrative: This is a rapid medical exam performed by Deirdre Navas NP: Additional HPI, ROS, PE not included below will be deferred to primary provider. Patient is a 59y/o M presenting to the ED with complaint of severe headaches for the past 6 mos after having TMS treatment. Has seen neuro, was treated with course of prednisone without improvement, has had MRI, MRA, CTA. Told to come to ED for pain management if sxs persist. Plan: basic labs Medications Administered Discontinued Medications Generic Name Dose Route Start Last Admin Trade Name Freq PRN Reason Stop Dose Admin Sodium Chloride 1,000 mls @ 999 mls/hr 12/25/24 19:00 12/25/24 20:00 Ns IV 12/25/24 20:00 Infused .Q1H1M LA Infusion Ketorolac Tromethamine 15 mg 12/25/24 18:49 12/25/24 19:00 Ketorolac Tromethamine 15 Mg/Ml Vial IVPUSH 12/25/24 18:50 15 mg ONCE ONE Administration Ondansetron HCl 4 mg 12/25/24 18:49 12/25/24 19:00 Ondansetron Hcl 4 Mg/2 Ml Vial IVPUSH 12/25/24 18:50 4 mg ONCE ONE Administration Medical Decision Making Medical Decision Making [facility] Narrative: A male NIH score is 0 presents to ED for major depressive disorder, anxiety, rectal dysfunction depression, presents to ED for chronic headache for the past 6 months. EKG labs ordered will order pain medication. Due to patient coming to the ED for the headache will do basic Head CT scan. not suspecting stroke or aneursym. patient is not in distress. NIH Score is zero. 8:36pm: patient feels better. Upon review of imagings patient has CTA head nad neck on 12/20 that was normal and recent MRV, MRI, MRA in . Case discussed [facility] SARAI who stated patient did not need any repeat head CT. Patietn was givne toradol, zofran, and fluids, which was ordered by Dr. Alvarez. Dr. Alvarez Evaluated patient and agrees patient can be discharged. Patient informed to follow up with primary care provider and neurology. Not suspecting meningitis, brain bleed, stroke, encephalitis, temporal arteritis, or any other life threatening etiology. Patient would like to be discharged. Differential Diagnosis Differential Diagnoses: The differential diagnosis associated with the presentation includes (Headache) Admission/Observation Consideration of admission/observation: Escalation of care including admission/observation considered Lab Data MDM Lab Attestation statement: I reviewed the patient's lab results. 12/25/24 10:54 12/25/24 10:54 Labs: Lab Results 12/25/24 12/25/24 12/25/24 Range/Units 10:54 17:48 17:55 WBC 4.2 L (4.8-10.8) X10*3/uL RBC 5.23 (4.60-5.80) X10*6/uL Hgb 14.9 (14.0-18.0) g/dl Hct 46.7 (42.0-52.0) % MCV 89.3 (80.0-98.0) fL MCH 28.5 (27.0-33.0) pg MCHC 31.9 (31.0-36.0) g/dl RDW 14.3 (11.0-16.0) % Plt Count 166 (160-400) X10*3/uL MPV 9.3 L (9.4-12.4) fL Immature Gran % (Auto) 0.5 H (0.0-0.4) % Neut % (Auto) 71.3 (45-73) % Lymph % (Auto) 18.9 L (20-40) % [place] % (Auto) 6.4 (2-11) % Eos % (Auto) 2.4 (0-4) % Baso % (Auto) 0.5 (0-2) % Lymph # (Auto) 0.8 L (1.2-4.9) X10*3/uL [place] # (Auto) 0.3 (0.1-1.2) X10*3/uL Eos # (Auto) 0.1 (0.0-0.4) X10*3/uL Baso # (Auto) 0.0 (0.0-0.2) X10*3/uL Abs Immat Gran (auto) 0.02 (0.00-0.03) X10*3/uL Absolute Neuts (auto) 3.0 (2.0-8.3) x10*3/uL Absolute Nucleated RBC 0.000 (0.0-0.012) X10*3/uL Nucleated RBC % (auto) 0.0 (0.0-0.2) /100WBC Hold Purple Top SEE NOTE PT 10.6 L (10.9-12.4) SEC INR 0.9 (0.9-1.1) APTT 27.9 (26.7-34.1) SEC Sodium 139 (135-145) mmol/L Potassium 4.4 (3.3-5.1) mmol/L Chloride 104 (96-108) mmol/L Carbon Dioxide 28 (22-29) mmol/L Anion Gap 11 L (12-20) BUN 14 (9-16) mg/dL Creatinine 1.15 (0.5-1.4) mg/dL Estim Creat Clear Calc 74.9 Estimated GFR > 60 Random Glucose 88 (60-115) mg/dL Calcium 9.6 (8.4-10.2) mg/dL Total Bilirubin 0.6 (0.0-1.0) mg/dL AST 28 (5-37) U/L ALT 21 (0-40) U/L Alkaline Phosphatase 41 (39-117) U/L Troponin I High Sens 4.1 (<3.5-35.0) ng/L Total Protein 7.2 (6.5-8.0) g/dL Albumin 4.6 (3.5-5.0) g/dL Independent Interpretation I performed an independent interpretation of an: CT Scan Radiology Impression Discussion of test interpretation with radiology: I have reviewed the radiologist's reading. Independent Historian Clinical information obtained from an independent historian. History obtained from or confirmed by: Other (Patient) Critical Care Time Critical Care Time Critical Care Time: Yes Total Critical Care Time: 60 Attestation: Headache. pain meds ordered. toradol, zofran, and IV fluids. Discharge Plan Discharge Clinical Impression: Chronic headache Qualifiers: Headache type: unspecified Intractability: intractable Qualified Code(s): R51.9 - Headache, unspecified Patient Disposition: Home, Self-Care Instructions: General Headache (ED) Additional Instructions: Recommend follow-up with primary care provider. Also recommend follow up with Neurology. Return to the ED immediately for any slurred speech, facial droop, paralysis of extremities, chest pain, shortness of breath, nausea, vomiting, loss of vision, or any other concerning symptoms. Prescriptions: New ketorolac 10 mg tablet 10 mg PO Q6H PRN (Reason: pain) Qty: 20 0RF Rx Instructions: patient received 30mg IM toradol in the ED. No Action (DME) BD Regular [place]vel [place] 25 gauge x 5/8 needle See Rx Instructions .MEDSUPPLY Qty: 50 0RF Rx Instructions: As directed for weekly Testosterone injection prednisone 10 mg tablet See Rx Instructions PO DAILY 21 Days Qty: 63 0RF Rx Instructions: 6 tabs x's 3 days, 5 tabs x's 3 days, 4 tabs x's 3 days, 3 tabs x's 3 days, 2 tabs x's 3 days, 1 tab x's 3 days, then stop. orally daily; famotidine [Pepcid] 20 mg tablet 20 mg PO BID 28 Days Qty: 56 0RF Rx Instructions: For GI prophylaxis while on prednisone (DME) needle (disp) 18 G [BD Regular [place]] 18 gauge x 1 needle See Rx Instructions .MEDSUPPLY Qty: 30 0RF Rx Instructions: As directed - draw up testosterone (DME) BD Bulk Syringe Slip Tip 1 mL syringe See Rx Instructions miscellaneous .MEDSUPPLY Qty: 30 0RF Rx Instructions: As directed testosterone cypionate [Depo-Testosterone] 200 mg/mL oil 150 mg subcut QWEEK 28 Days Qty: 4 5RF Rx Instructions: Dispose of vial after each use tadalafil 20 mg tablet 20 mg PO DAILY 90 Days Qty: 90 1RF folic acid 400 mcg tablet 400 mcg PO DAILY 90 Days Qty: 90 1RF cyanocobalamin (vitamin B-12) 500 mcg tablet 500 mcg PO DAILY 90 Days Qty: 90 1RF ascorbic acid (vitamin C) 500 mg tablet 500 mg PO DAILY 90 Days Qty: 90 1RF Rx Instructions: take w/ ferrous gluconate ferrous gluconate 324 mg (38 mg iron) tablet 324 mg PO DAILY 90 Days Qty: 90 1RF Rx Instructions: take w/ vitamin C lithium carbonate 300 mg tablet extended release 300 mg PO BID Qty: 60 11RF omeprazole 20 mg capsule,delayed release(DR/EC) 20 mg PO DAILY Qty: 90 3RF (DME) BD SafetyGlide Needle 25 gauge x 5/8 needle See Rx Instructions .ROUTE DIRECTED Qty: 50 Rx Instructions: As directed lorazepam 1 mg tablet See Rx Instructions .ROUTE .COMPLEX 30 Days Qty: 85 3RF Rx Instructions: take 1 tab by mouth twice a daily with an extra 1/2 tab as needed. Max 3 tab oral daily (DME) knee brace-b/l medium/large See Rx Instructions .Route .MEDSUPPLY Qty: 2 0RF Rx Instructions: As directed Referrals: [facility] [Provider Group, Neurology] - 2 days Referral Note: Headache Clinical Impression: Chronic headache Francie'Jeana Peres MD [Primary Care Provider, Endocrinology] - 2 days Referral Note: Headache Stand Alone Forms: Work/School Release Interventions: ED Discharge Assessment Last Done: 12/25/24 20:58 Discharge Date/Time: 12/25/24 20:59 Print Language: Telugu
[2024-12-25 10:57] LABS: MANUAL DIFF FLAG NO
[2024-12-25 10:59] LABS: Hematocrit 46.7 % (42.0-52.0); Hemoglobin 14.9 g/dl (14.0-18.0); Imm Gran Abs Auto 0.02 X10*3/uL (0.00-0.03); Imm Gran Pct Auto 0.5 % (0.0-0.4); Lymphocytes Absolute Auto 0.8 X10*3/uL (1.2-4.9); Mean Corpuscular HGB Conc 31.9 g/dl (31.0-36.0); Mean Corpuscular Hemoglobin 28.5 pg (27.0-33.0); Mean Corpuscular Volume 89.3 fL (80.0-98.0); NRBC Abs Auto 0.000 X10*3/uL (0.0-0.012); NRBC Pct Auto 0.0 /100WBC (0.0-0.2); Platelet Count 166 X10*3/uL (160-400); Red Blood Count 5.23 X10*6/uL (4.60-5.80); White Blood Count 4.2 X10*3/uL (4.8-10.8)
[2024-12-25 11:18] LABS: Alanine Aminotransferase 21 U/L (0-40); Albumin Level 4.6 g/dL (3.5-5.0); Alkaline Phosphatase 41 U/L (39-117); Anion Gap 11 (12-20); Aspartate Amino Transferase 28 U/L (5-37); Blood Urea Nitrogen 14 mg/dL (9-16); Calcium 9.6 mg/dL (8.4-10.2); Carbon Dioxide 28 mmol/L (22-29); Chloride 104 mmol/L (96-108); Creatinine Clr Calc Pharmacy 74.9; Estimated Glomerular Filt Rate > 60; Potassium 4.4 mmol/L (3.3-5.1); Sodium 139 mmol/L (135-145); Total Protein 7.2 g/dL (6.5-8.0)
--- NOTE | 2024-12-25 16:36 | MHC.EDTECH ---
Mr. Rico Huerta called hospital administration to complain about not being seen fast enough stating his head feels like it is going to explode Lizett Young
--- NOTE | 2024-12-25 16:42 | MHC.EDTECH ---
I called Doc in triage per Sanjuana Young's Call he was aware of patient , said he is next to come in tell Charge nurse
--- NOTE | 2024-12-25 16:43 | MHC.EDTECH ---
I told Charge nurse Rico Busch is next to come in and called back Lizett Young to let her know he is next to come in
[2024-12-25 16:57] VITALS: BP 162/88; PULSE 67; RESP 15; TEMP 36.8; O2SAT 98
--- NOTE | 2024-12-25 17:39 | ECG_ITS ---
Test Reason : HEADACHE Blood Pressure : */* mmHG Vent. Rate : 58 BPM Atrial Rate : 58 BPM P-R Int : 166 ms QRS Dur : 90 ms QT Int : 386 ms P-R-T Axes : 16 -31 19 degrees QTcB Int : 378 ms Sinus bradycardia Left axis deviation Minimal voltage criteria for LVH, may be normal variant ( R in aVL ) Abnormal ECG When compared with ECG of 26-Nov-2024 10:29, Vent. rate has decreased by 32 bpm Referred By: Fredy Onofre Electronically Signed By: Mike Orourke
[2024-12-25 18:04] LABS: INTERNATIONAL NORM RATIO 0.9 (0.9-1.1); Prothrombin Time 10.6 SEC (10.9-12.4)
[2024-12-25 18:07] LABS: Partial Thromboplastin Time 27.9 SEC (26.7-34.1)
--- NOTE | 2024-12-25 18:14 | PC.NURSE ---
Pt has strong opinions about his care and medications. He states that he is here for the cocktail for his headache, which has been ongoing for 6 months. He has urinary frequency and ambulates to toilet.
[2024-12-25 18:24] LABS: Troponin-I High Sensitivity 4.1 ng/L (<3.5-35.0)
--- OUTSIDE RECORDS SUMMARY | 2024-12-25 18:44 | XMS_ITS | Encounter Summary ---
Author Organization [employer] Address [address] [facility] [address] [place] [address] Care Team Providers Care Duplicating Machine Servicer Name Role Phone Unavailable Primary Care Provider [...]
--- OUTSIDE RECORDS SUMMARY | 2024-12-25 18:44 | XMS_ITS | Patient Health Record ---
Author Organization [facility] Address [address] [place] [address] Care Team Providers Care Machine Puller Over Name Role Phone Robin (RETIRED) Tod LEHMAN Primary Care Provide r Unavailable Rico Vega Unavailable [phone] Reason For Referral No Information Medications Medication SIG (Take, Route, Frequency, Duration) Notes Start Date End Date Status Propranolol HCl 10 MG 1 tablet Orally prn Active Omeprazole 20 MG 1 capsule Orally Once a day Active [place] Carbonate 300 MG 1 capsule Orall y twice a day Active LORazepam 0.5 MG 1 tablet as needed O rally every 6 hrs Active tylenol 1 tab Oral daily Act satish Problems Problem Type SNOMED Code ICD Code Onset Dates Problem Status W/U Status Risk Notes Problem Screening for malignant neoplasm of colon (470476445) Encounter for screening for malignant neoplasm of colon (Z12.11) Active confirmed Problem Stricture of esophagus (35717507) Esophageal obstruction (K22.2) Active confirmed Problem Screening for malignant neoplasm of rectum (732245002) Encounter for screening for malignant neoplasm of rectum (Z12.12) Active confirmed Problem Gastroesophageal reflux disease without esophagitis (233363460) Gastroesophageal reflux disease without esophagitis (K21.9) Active confirmed Problem Gastroesophageal reflux disease (243191565) Gastroesophageal reflux disease, esophagitis presence not specified (K21.9) Active confirmed Problem Esophageal ring (32459845) Esophageal ring (K22.2) Active confirmed Problem Dysphagia (02641782) Dysphagia, unspecified type (R13.10) Active confirmed Plan Of Treatment Future Test Test Name Order Date UPPER GI ENDOSCOPY [place] DILATION OF ESOPH 12/10/2015 Insurance Providers Payer Name Payer Address Payer Phone Subscriber Number Group Number Insured Name Patient Relationship to Insured Coverage Start Date Coverage End Date MEDICARE OF [place] [address] [place] [id number] AMALIAAUGUSTO DESHPANDEMOND Self - patient is the insured MEDICAID OF [facility] [address] [place] [phone] [id number] AUGUSTO EDDYMOND Self - patient is the insured Medical (General) History Medical History History ICD Code Denies GA,DM,CVA,Lung disease,renal dise ase Depression/Anxiety GERD--UGI in the past with reflux Esophageal ring--esophageal obstruction--EGD in 11/2015--meat bolus removed and a distal esophageal ring was dilated with an 18-20mm balloon
--- OUTSIDE RECORDS SUMMARY | 2024-12-25 18:44 | XMS_ITS | Encounter Summary ---
Author Organization [employer] Address [address] [facility] [address] [place] [address] Care Team Providers Care Wedding Photographer Name Role Phone Unavailable Primary Care Provider [...]
--- OUTSIDE RECORDS SUMMARY | 2024-12-25 18:44 | XMS_ITS | Clinical Summary ---
Author Organization [employer] Address [address] [facility] [address] [place] [address] Care Team Providers Care Staff Air Tactical Officer Name Role Phone Unavailable Primary Care Provider [...] Description 11/09/2024 10:00 AM EDT Office Visit [facility] [address] [place] [address] Mere Tabares DDS 11/06/2024 11:00 AM EDT Office Visit [facility] [address] [place] [address] Mere Tabares DDS from Last 3 Months [...] DENTAL-[place] [address] [place] [address]
--- OUTSIDE RECORDS SUMMARY | 2024-12-25 18:44 | XMS_ITS | Clinical Summary ---
Author Organization [facility] Address [address] [address] Phone Care Team Providers Care Non Destructive Testing Engineer Name Role Phone Tod Kelly MD [...] HEALTH MEDICARE PART A & B HEALTH ([address] [address] MEDICARE PART A & B [facility] MEDICARE PART A & B HEALTH MEDICARE PART A & B [id number] [place] [address] MEDICARE PART A & B MEDICARE PART A & B [id number] [place] [address] MEDICARE PART A & B Member Subscriber Plan / Payer (Ef fective 2007-Present) Name:Henri Huerta Member ID:[id number] Relation to Subscriber:Self Name:Henri Huerta Subscriber ID:[id number] Payer ID:[id number] Group ID:Not on file Type:Medicare Address: [employer] [id number] [facility] A & B [facility] Care Teams Non Destructive Testing Engineer Relationship Specialty Start Date End Date Tod Kelly MD [address] [place] [address] [place] [address] PCP - General Internal Medicine 12/05/19 Additional Source Comments The information contained in this document represents components of the legal health record. It is not the complete legal health record.[facility]
[2024-12-25 20:57] VITALS: BP 155/96; PULSE 62; RESP 18; TEMP 36.9; O2SAT 97
[2024-12-25 20:58] VITALS: BP 155/96; PULSE 62; RESP 18; TEMP 36.9; O2SAT 97
== END 2024-12-25 20:59 | disposition home or self-care (01) ==
PROVIDERS: Emergency Medicine Emergency Medical Services; Physician Assistant; Registered Nurse Emergency; Emergency Provider Emergency Medicine Emergency Medical Services; PCP Internal Medicine
DX: R51.9 Headache, unspecified (principal); G89.29 Other chronic pain; E78.5 Hyperlipidemia, unspecified; R00.1 Bradycardia, unspecified; R94.31 Abnormal electrocardiogram [ECG] [EKG]; F41.9 Anxiety disorder, unspecified
CPT/HCPCS: 36415; 80053; 84484; 85025; 85610; 85730; 93005; 96361; 96374; 96375; 99284; 99285; J1885; J2405

== ENCOUNTER → 2024-12-25 17:39 | Outpatient (BNV) | payer MEDICARE, MEDICAID, SELFPAY | PROVIDERS: Emergency Provider Emergency Medicine Emergency Medical Services; PCP Internal Medicine; Visit Provider Internal Medicine Cardiovascular Disease | DX: R00.1 Bradycardia, unspecified (principal) | CPT/HCPCS: 93010 ==

== ENCOUNTER 2025-01-07 11:38 | Outpatient (AMB) | payer MEDICARE, MEDICAID, SELFPAY ==
--- NOTE | 2025-01-07 11:59 | A.OFFPC_ITS ---
Vital Signs 01/07/25 12:00 Height 6 ft Weight 196 lb 2 oz BMI 26.6 BP 146/80 H Blood Pressure Location Lt brachial Position Sitting Respiration 14 Pulse 74 Pulse Source Pulse Oximeter Temp 97.1 F Temp Source Skin Pulse Oximetry (%) 96 Oxygen Delivery Method Room Air Intake Visit Reasons: ed from [facility] Manufacturing Inspector Required: No Allergies aspirin (ASPIRIN) Allergy (Intermediate, Verified 01/07/25 12:03) STOMACH UPSET acetaminophen (From Fioricet) Adverse Reaction (Intermediate, Verified 01/07/25 12:03) Headache butalbital (From Fioricet) Adverse Reaction (Intermediate, Verified 01/07/25 12:03) Headache caffeine (From Fioricet) Adverse Reaction (Intermediate, Verified 01/07/25 12:03) Headache Medication List - Last Reconciled 01/07/25 by Butch Sim RN ascorbic acid (vitamin C) 500 mg PO DAILY 90 days cyanocobalamin (vitamin B-12) 500 mcg PO DAILY 90 days dihydroergotamine (Migranal) 1 spray intranasal Q15M 2 doses ketorolac 10 mg PO Q6H PRN [knee brace-b/l As directed] lithium carbonate ER 300 mg PO BID lorazepam take 1 tab by mouth twice a daily with an extra 1/2 tab as needed. Max 3 tab oral daily 30 days needle (disp) 18 G (BD Regular [place]) As directed - draw up testosterone needle (disp) 25 gauge (BD Regular [place]vel [place]) As directed for weekly Testosterone injection omeprazole 20 mg PO DAILY safety needles (BD SafetyGlide Needle) As directed syringe (disposable) (BD Bulk Syringe Slip Tip) As directed tadalafil 20 mg PO DAILY 90 days testosterone cypionate (Depo-Testosterone) 150 mg (0.75 mL) subcut QWEEK 4 weeks Tobacco use date assessed: 08/24/24 Dental Screening Dental Screen Date: 01/07/25 Did you have a dental visit in the last 12 months?: Yes Did you have a dental problem in the last 6 months where you did not have access to dental care?: No Was dental information given to patient?: Patient has dentist HPI HPI Comments History of Present Illness Details This is a 59-year-old male chronic headaches, OCD, depression, anxiety, panic disorder and osteoarthritis presenting for ER follow up. The patient was seen at the emergency department on 12/25/2024 for a six-month history of headaches due to trans magnetic stimulation which was done for anxiety and depression. The ER notes read that he had multiple CT scans, MRA and MRIs. Patient reported being on many medications that were not helpful. The patient says he was treated with meds at the ER that also did not help him. The patient denies nausea, vomiting, vision changes, neck pain, numbness, paralysis, difficulty speaking. Patient says he continues to have daily headaches that are severe and feels like his head will explode. He says this is a result of the trans magnetic stimulation that was done. The patient says he is very frustrated, and he continued to talk aboutnot being able to see his primary care provider today and wanted to know why there is a call center, why he can not be seen by his primary care provider or call the office directly. He brought in an article about his specific condition, and he instructed me to give it to his primary care provider and that I should not read it. He repeatedly requested medication for his headaches. His primary care provider did send a prescription of migranal on 01/03/2025, and a prior authorization was submitted the following day. A response is pending. Patient says he contacted his Neurology office at the end of last week, and he is not satisfied with the conversation, and he does not plan to follow up any further with his neurologist. He says he is very upset today, and he does not understand why I am seeing him. ROS: Constitutional: No fevers or chills Eyes: No vision changes Gastrointestinal: No nausea or vomiting Neurologic: No syncope, weakness, numbness, difficulty with speech, seizures Musculoskeletal: No neck pain .Physical exam: Constitutional: Alert, in no distress. Neurologic: No focal neurological deficits observed. Normal speech. Moves extremities spontaneously. Psychiatric: The patient is agitated which prevented further physical examination today. [facility] Medical History (Updated 12/26/24 @ 00:01 by Background Daemon) Basal cell carcinoma Anemia Depression Mass of right side of neck Cervical lymphadenopathy Panic disorder Generalized anxiety disorder Major depressive disorder, recurrent severe without psychotic features Mild acid reflux Erectile dysfunction Depression Anxiety Hyperlipidemia Hypopituitarism Hypogonadism in male Tendinitis of left rotator cuff Gait abnormality Knee pain OA (osteoarthritis) of knee Thrombosed external hemorrhoid Family History Mother No problems noted. Father No problems noted. Other Mental health disorder Social History Housing: Apartment Alcohol intake: current Alcohol intake frequency: holidays/special occasions only Patient Tobacco Use Status: Never used Tobacco e-Cigarette/Vaping Use: Never Used service: No Current occupational status: disabled Cognitive needs: No Hearing needs: No Vision needs: Yes (reading glasses) Questionnaire Thrive Questionnaire Date Thrive assessed: 08/24/24 CHRISTOPHER-7 AMB Questionnaire CHRISTOPHER-7 Date CHRISTOPHER - 7 assessed: 08/24/24 Source: Developed by Drs. Rico Rondon, Gladis Zhang, Silvio Tucker and colleagues, with an educational jessica from [employer]. Physical exam (Primary Care) Vital Signs: Last Vital Signs Temp 97.1 F 01/07/25 12:00 Pulse 74 01/07/25 12:00 Resp 14 01/07/25 12:00 BP 146/80 H 01/07/25 12:00 Pulse Ox 96 01/07/25 12:00 Oxygen Delivery Method Room Air 01/07/25 12:00 BMI result Body Mass Index 26.6 Tobacco/Smoking Status: Tobacco use Status Tobacco use date assessed 08/24/24 01/07/25 12:09 Patient Tobacco Use Status Never used Tobacco 01/07/25 12:09 e-Cigarette/Vaping Use Never Used 01/07/25 12:09 Thrive Assessment: Date of Thrive Assessment Date Thrive assessed 08/24/24 01/07/25 12:09 Coding Level of Care Code Est Pt Level 4 (46208) Complex EM visit Add On G2211 Diagnoses Chronic intractable headache, unspecified headache type R51.9; G89.29 Headache type: unspecified Intractability: intractable Assessment & Plan Assessment & Plan (1) Chronic headache: Code(s): R51.9 - Headache, unspecified; G89.29 - Other chronic pain Category: Medical Qualifiers: Headache type: unspecified Intractability: intractable Qualified Code(s): R51.9 - Headache, unspecified; G89.29 - Other chronic pain Plan In summary this is a 59-year-old male who has been suffering with daily chronic headaches. He has followed closely with Neurology and his primary care provider. It was difficult today to assess the patient due to his agitation. He was upset about his appointment being changed on to my schedule today, and he had questions about why he can not have the number to his primary care or the office that his direct. He wanted to know why she could not see him today and why I could not make that happen. I explained that this is not within my scope, and I offered to get the clerical and office support workers on more than 1 occasion which he declined. I offered to contact his neurologist regarding further evaluation and pharmacotherapy, but he adamantly declined this. I advised the patient I would speak to his primary care provider, and I could provide her with the article he printed. I informed him that his primary care provider already submitted the prior authorization and prescription he requested. When I presented the patient with suggestions to move the appointment forward he became more agitated, and he continued to ask the same questions that I had answered and wanted to provide additional details about unrelated topics. Eventually I advised the patient that I needed to and the appointment, but I would speak to his primary care provider and recommended follow up with her.
[2025-01-07 12:00] VITALS: BP 146/80; PULSE 74; RESP 14; TEMP 36.2; O2SAT 96; BMI 26.6
--- OUTSIDE RECORDS SUMMARY | 2025-01-07 15:02 | XMS_ITS | Patient Health Record ---
Author Organization [facility] Address [address] [place] [address] Care Team Providers Care Diagnostic Technician Name Role Phone Robin (RETIRED) Tod LEHMAN Primary Care Provide r Unavailable Rico Vega Unavailable [phone] Reason For Referral No Information Medications Medication SIG (Take, Route, Frequency, Duration) Notes Start Date End Date Status Propranolol HCl 10 MG 1 tablet Orally prn Active Omeprazole 20 MG 1 capsule Orally Once a day Active [place] Carbonate 300 MG 1 capsule Orall y twice a day Active LORazepam 0.5 MG 1 tablet as needed O rally every 6 hrs Active tylenol 1 tab Oral daily Act satish Problems Problem Type SNOMED Code ICD Code Onset Dates Problem Status W/U Status Risk Notes Problem Screening for malignant neoplasm of colon (237145173) Encounter for screening for malignant neoplasm of colon (Z12.11) Active confirmed Problem Stricture of esophagus (21185185) Esophageal obstruction (K22.2) Active confirmed Problem Screening for malignant neoplasm of rectum (454758750) Encounter for screening for malignant neoplasm of rectum (Z12.12) Active confirmed Problem Gastroesophageal reflux disease without esophagitis (701034485) Gastroesophageal reflux disease without esophagitis (K21.9) Active confirmed Problem Gastroesophageal reflux disease (443114308) Gastroesophageal reflux disease, esophagitis presence not specified (K21.9) Active confirmed Problem Esophageal ring (65592472) Esophageal ring (K22.2) Active confirmed Problem Dysphagia (74869289) Dysphagia, unspecified type (R13.10) Active confirmed Plan Of Treatment Future Test Test Name Order Date UPPER GI ENDOSCOPY [place] DILATION OF ESOPH 12/10/2015 Insurance Providers Payer Name Payer Address Payer Phone Subscriber Number Group Number Insured Name Patient Relationship to Insured Coverage Start Date Coverage End Date MEDICARE OF [place] [address] [place] [id number] AMALIAAUGUSTO DESHPANDEMOND Self - patient is the insured MEDICAID OF [facility] [address] [place] [phone] [id number] AUGUSTO EDDYMOND Self - patient is the insured Medical (General) History Medical History History ICD Code Denies [place],DM,CVA,Lung disease,renal dise ase Depression/Anxiety GERD--UGI in the past with reflux Esophageal ring--esophageal obstruction--EGD in 11/2015--meat bolus removed and a distal esophageal ring was dilated with an 18-20mm balloon
--- OUTSIDE RECORDS SUMMARY | 2025-01-07 15:02 | XMS_ITS | Data Portability ---
Author Organization [place] - [facility] Address [address] [address] Care Team Providers Care Full Stack Developer Name Role Phone ABDIRASHID SAAD Primary Care Provider CAMERON BAIRD Primary Care Provider [phone] Assessment Encounter Date Assessment Date Assessment LastModified by Organization Details LastModified Time 12/07/2024 12/07/2024 Pleomorphic adenoma, right submandibular gland. 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 These tumors are benign and slow-growing. I recommended surgical removal of the tumor to prevent further growth and potential complications. I explained the surgical procedure, including the risks associated with nearby nerves that control lower lip movement and sensation. The surgery is expected to take approximately an hour and a half, and the patient will be under general anesthesia. Postoperative care may involve either discharge on the same day or overnight observation depending on healing progress. I ordered a CT scan of the neck to better evaluate the tumor and surrounding structures for surgical planning. The patient requested that the imaging be marked as urgent due to his anxiety, and I noted this in the order. The patient prefers to have the imaging performed at [facility] and will ensure that the imaging disc is obtained and brought to the next appointment for review. I advised the patient to call the office once the imaging is completed to schedule a follow-up appointment to discuss the results and finalize surgical plans. 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 This diagnosis was confirmed by a needle biopsy, which indicated the mass is of salivary gland origin. The patient has been informed that the mass is benign but has a small chance of becoming malignant if left untreated for many years. The risks of surgery, including potential facial nerve injury and permanent facial weakness, were discussed in detail. The patient was reassured that the risk of facial nerve injury is low, and the majority of patients with benign tumors recover fully if nerve injury occurs. The surgical plan involves making an incision starting in front of the ear, sweeping down across the side of the jawline to the upper part of the neck. The surgery is expected to take approximately three hours, and the patient will likely stay overnight in the hospital and be discharged the following day. A surgical drain will be placed in the area to collect saliva and small amounts of blood, which will be removed two to three days postoperatively. The patient was informed about the possibility of paresthesia in the skin due to nerve cutting during the procedure, which may result in numbness in the area. This numbness is expected to decrease over time but may persist in a small area permanently. The patient has decided to proceed with the surgery and will contact the hand molder and caster, Mallorie, to arrange the procedure. Counseling was provided regarding the risks and benefits of the surgery, and the patient was encouraged to address his anxiety and depression with his primary care provider to ensure emotional stability prior to the procedure. The patient expressed understanding of the risks and rationale for the surgery and plans to consult with his flag signaler for additional emotional support. [email or web address] Not available 12/28/2024 16:06:40 Plan of Treatment Reminders Order Date Submit Date Provider Last Modified By Organization Details Last Modified Time Details Appointments None recorded. Lab None recorded. Referral None recorded. Procedures None recorded. Surgeries parotidecto my (SURG) 2024 025 9 Not available 16:12:[address], neck, w/ contrast - MD requests urgent imaging scheduling at [facility] due to patient anxiety 2024 025 [email or web address] [facility] (Imaging), [address] [place] [address], [address], 15:37:44 Medication Orders None recorded. Patient TargetsNo targets recorded. Patient Instructions Encounter Date Encounter Id Patient Instructions Last Modified By Organization Details Last Modified Time 12/07/2024 [id number] - Obtain the imaging disc from [facility] after the CT scan and bring it to the next appointment. - Call the office once the imaging is completed to schedule a follow-up appointment. - Follow up to discuss imaging results and finalize surgical plans. [email or web address] Not available 12/07/2024 16:12:58 Please note: Parts of this encounter note have been generated by AI based on audio conversation. Patient consent was required prior to utilizing this technology. Content review was required prior to finalizing the note. [email or web address] Not available 12/07/2024 16:12:58 12/28/2024 [id number] - Contact the hand molder and caster, Mallorie, to arrange the procedure. - Consult with primary care provider to address anxiety and depression. - Consider meeting with a flag signaler for emotional support prior to surgery. [email or web address] Not available 12/28/2024 16:06:40 Please note: Parts of this encounter note have been generated by AI based on audio conversation. Patient consent was required prior to utilizing this technology. Content review was required prior to finalizing the note. [email or web address] Not available 12/28/2024 16:06:41 Reason for Referral None Reported. Results Created Date Observation Date Name Description Value Unit Range Abnormal Flag Note LastModifiedBy Organization Detail LastModifiedTime 01/01/2012/20/2024 CT, angio gram, head, w/wo contr ast No observ ation record ed. [email or web address] Not Available 12/13 09:15:04 Result Notes None recorded. Problems Name Problem SNOMED Code Status Onset Date Resolution Date Notes Provider Name and Address Organization Details Recorded Time Neoplasm of submaxillary gland 536676322 Active 2024 SHILPA LARA MD [address] [place] [address], [facility] [place], [address], [facility] - [facility] 15:55:43 Generalized anxiety disorder 35210996 Active 2024 SHILPA LARA MD [address] [place] [address], [facility] [place], [address], [facility] - [facility] 16:02:59 Panic attack 025021181 Active 2024 SHILPA LARA MD [address] [place] [address], [place], [address], [facility] - [facility] 5 16:03:03 Neoplasm of parotid gland 491720302 Active 2024 SHILPA LARA MD [address] [facility] 100, [place], [address], [facility] - [facility] 5 15:47:42 Problem Notes None recorded. Medical Equipment None Reported. Allergies Allergen ID Allergen Name Allergen Category Reaction Reaction Severity Criticality Documentation Date Start Date Code Code System Note Provider Name and Address Organization Details Recorded Time 962986 aspirin medicatio n Not available Not available Not available 12/07/2024 1191 RxNorm TANNER GRIGGS [facility] [place] - [facility] 5 15:49:24 Medications Name Sig Start Date Stop Date Status Note LastModified by Organization Details LastModified Time prednisone 10 mg tablet TAKE 6 TABLETS BY MOUTH ONCE DAILY FOR 3 DAYS THEN 5 ONCE DAILY FOR 3 DAYS THEN 4 ONCE DAILY FOR 3 DAYS THEN 3 ONCE DAILY FOR 3 DAYS THEN 2 ONCE DAILY FOR 3 DAYS THEN 1 ONCE DAILY FOR 3 DAYS THEN STOP 12/07 completed Not Available Not Available Not Available alclometaso ne 0.05 % topical cream APPLY CREAM TOPICALLY ONCE DAILY NEEDED FOR RASH active Not Available Not Available No t Available sumatriptan 50 mg tablet TAKE 1 TABLET AT ONSET OF HEADACHE. IF NO RELIEF MAY REPEAT 1 TABLET AFTER AT LEAST 2 HOURS. MAX OF 4 TABLETS IN 24 HOURS active Not Available Not Available No t Available lithium carbonate ER 300 mg tablet,exte nded release TAKE 1 TABLET BY MOUTH TWICE DAILY active Not Available Not Available No t Available topiramate 25 mg tablet TAKE 1 TABLET BY MOUTH ONCE DAILY active Not Available Not Available No t Available folic acid 400 mcg tablet TAKE 1 TABLET BY MOUTH ONCE DAILY active Not Available Not Available No t Available butalbital- acetaminoph en-caffeine 50 mg-325 mg-40 mg tablet TAKE 1 TABLET BY MOUTH EVERY 4 TO 6 HOURS NEEDED FOR HEADACHE active Not Available Not Available No t Available ketorolac 10 mg tablet TAKE 1 TABLET BY MOUTH EVERY 8 HOURS NEEDED FOR PAIN FOR 5 DAYS 12/07 completed Not Available Not Available Not Available BD Regular Bevel Mays 18 gauge x 1 USE DIRECTED TO DRAW UP TESTOSTER ONE active Not Available Not Available No t Available propranolol 10 mg tablet TAKE 1 TABLET BY MOUTH EVERY 6 HOURS active Not Available Not Available No t Available famotidine 20 mg tablet TAKE 1 TABLET BY MOUTH TWICE DAILY FOR 4 WEEKS FOR GI PROPHYLAX IS WHILE ON PREDNISON E active Not Available Not Available No t Available cyanocobala min (vit B-12) 500 mcg tablet TAKE 1 TABLET BY MOUTH ONCE DAILY active Not Available Not Available No t Available hydrocodone 7.5 mg-acetamin ophen 325 mg tablet TAKE 1 TABLET BY MOUTH EVERY 6 HOURS NEEDED FOR PAIN active Not Available Not Available No t Available ascorbic acid (vitamin C) ER 500 mg capsule,ext ended release TAKE 1 CAPSULE BY MOUTH ONCE DAILY WITH FERROUS GLUCONATE active Not Available Not Available No t Available omeprazole 20 mg capsule,del ayed release TAKE 1 CAPSULE BY MOUTH ONCE DAILY active Not Available Not Available No t Available lorazepam 1 mg tablet TAKE 1 TABLET BY MOUTH TWICE DAILY WITH AN EXTRA 1/2 (ONE-HALF ) TABLET NEEDED. MAX OF 3 TABLETS DAILY active Not Available Not Available No t Available testosteron e cypionate 200 mg/mL intramuscul ar oil INJECT 150MG (.75ML) SUBCUTANE OUSLY EVERY WEEK FOR 4 WEEKS. DISPOSE OF VIAL AFTER EACH USE active Not Available Not Available No t Available oxycodone 5 mg tablet TAKE 1/2 TO 1 TABLET BY MOUTH 2 TIMES A DAY NEEDED FOR PAIN 12/07 completed Not Available Not Available Not Available tadalafil 20 mg tablet TAKE 1 TABLET BY MOUTH ONCE DAILY active Not Available Not Available No t Available BD SafetyGlide Needle 25 gauge x 5/8 USE DIRECTED FOR WEEKLY TESTOSTER ONE INJECTION active Not Available Not Available No t Available ferrous gluconate 324 mg (38 mg iron) tablet TAKE 1 TABLET BY MOUTH ONCE DAILY WITH VITAMIN C active Not Available Not Available No t Available BD Luer-Kenyatta Syringe 1 mL USE DIRECTED active Not Available Not Available No t Available naloxone 4 mg/actuatio n nasal spray ADMINISTE R A SINGLE SPRAY OF NALOXONE IN ONE NOSTRIL. REPEAT AFTER 3 MINUTES IF NO OR MINIMAL RESPONSE. active Not Available Not Available No t Available Aimovig Autoinjecto r 70 mg/mL subcutaneou s auto-inject or INJECT 70 MG SUBCUTANE OUSLY EVERY 4 WEEKS active Not Available Not Available No t Available Vitals Date Recorded Body height Body mass index (BMI) Body weight Provider Name and Address Organization Details Last Updated DateTime 12/07/2024 182.88 cm 27.4 kg/m2 26533.66 g [facility] [place] [facility] 12/07/2024 15:49:14 Date Recorded Body height Provider Name an d Address Organization Details Last Updated DateTime 12/28/2024 182.88 cm [facility] [place] [facility] 12/28/2024 15:27:13 Social History None recorded. Functional Status Question Answer Note LastModified by Organizat ion Details LastModified Time What is your level of alcohol consumption? Occasional ccomi Information not available 12/07/2024 Mental Status None recorded. Family History Nothing Reported. Medical History Condition Response Anxiety Y Cancer Y Headaches Y Past Encounters Encounter ID Performer Location Encounter Start Date Encounter Closed Date Diagnosis/Indication Diagnosis SNOMED-CT Code Diagnosis ICD10 Code Diagnosis IMO Codes Diagnosis Note [id number] SHILPA LARA MD [facility] [address] [address] 12/07/2024 15:20:04 12/07/2024 16:14:16 Neoplasm of submaxillary gland 924096854 D49.0 26640547 Generalize d anxiety disorder 71092553 F41.1 295075 Panic attack 652158350 F 41.0 96284 [id number] SHILPA LARA MD [facility] [address] [address] 12/28/2024 15:02:21 12/28/2024 16:19:20 Generalized anxiety disorder 85504700 F41.1 305406 Panic attack 081671415 F 41.0 94653 Neoplasm o f parotid gland 960420385 D49.0 3cm right inferior pleomorphi c adenoma Patient has a lesion of the RIGHT parotid salivary gland. We have discussed treatment options including observatio n as well as surgical interventi on to remove the lesion. Surgery is performed under general anesthesia at either [facility] or [facility]. The surgery is typically booked for approximat [email or web address] 3 hours but can take longer. Patient is expected to stay overnight and would likely be discharged the following morning. During the surgery special instrument ation to identify and protect the facial nerve will be used. Despite our best efforts there are risks to the surgery including temporary or permanent facial nerve paralysis. Gustatory sweating, first bite syndrome are also possible. I have outlined the surgical incision so the patient understand s the size and location of the scar. As the incision is carried through the skin it is expected there will be some area of paresthesi a that may improve somewhat over time. There is a risk of postoperat satish bleeding or sialocele which may require drainage. To help minimize this risk a surgical drain will be placed and removed in the office several days after surgery. I typically do not send the patient home with antibiotic s but if they develop signs of infection they will contact the office for treatment. Previous tissue sampling with needle aspiration biopsy is helpful when planning the extent of surgery. Ultimately final pathology will determine if there is any additional treatment that is necessary such as further surgery or consultati on with other parts of the care team such as radiation and medical oncology Health Concerns Section Related Observation LastModified by Organization Detai ls LastModified Time None Recorded Concern Status LastModified by Organization Details LastModified Time None Recorded Advance Directives Directive None Recorded Payers Insurance Date Sequence Insurance Name Policy Number Policy Murrell Covered Member ID Murrell Member ID Guarantor Name 12/25/2024 2 [place] [facility] Henri Huerta [id number] Henri Huerta 12/28/2024 1 [place] [employer] Henri Huerta [id number] Henri Huerta Notes Date Note Type Note Provider Name and Address Organization Details Recorded Time 12/07/2024 text/html Right neck mass Onset early 2023 History 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 08/20/2024 [facility] ultrasound neck Well-defined hypoechoic mass right lateral submandibular space. 31 x 24 x 16 mm. Likely a complex lymph node. 09/05/2024 [facility], CT head with contrast no acute intracranial process 09/05/[address] [facility] [address] temporal bone with contrast Focal dehiscence of the roof of the right superior circular canal. Opacified left eustachian tube. 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 Most consistent with pleomorphic adenoma. Henri Huerta is a 59-year-old male who presents for evaluation of a lump on the right side of his neck. The patient reports that the lump was initially noticed following Mohs surgery for basal cell skin cancer in 2022, with a touch-up procedure performed the following year. Initially, it was suspected to be fluid trapped in a lymph node, but subsequent evaluation revealed it to be unrelated. An ultrasound performed on 08/20/2024 demonstrated a mass measuring 31 x 24 x 16 millimeters in the right submandibular gland. A needle biopsy performed on 10/02 confirmed the mass as a pleomorphic adenoma, a benign salivary gland tumor. The patient experiences significant anxiety, depression, OCD, and PTSD, which impact his daily life and social interactions. He is on Social Security disability and spends his time walking at the mall, visiting the library, and reading to manage his anxiety. He has no internet access at home and reports feeling socially isolated due to his condition. 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 08/20/2024 [facility] ultrasound neck Well-defined hypoechoic mass right lateral submandibular space. 31 x 24 x 16 mm. Likely a complex lymph node. 09/05/2024 [facility], CT head with contrast no acute intracranial process 09/05/[address] [facility] [address] temporal bone with contrast Focal dehiscence of the roof of the right superior circular canal. Opacified left eustachian tube. 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 Most consistent with pleomorphic adenoma. 12/20/2024 [facility], CT Angio head and neck w contrast Right inferior parotid gland circumscribed oval mass measuring 23 x 20 x 23 mm. Henri Huerta is a 59-year-old male who presents for evaluation of a lump on the right side of the neck. The lump was initially thought to be part of the submandibular gland based on a prior ultrasound, but subsequent imaging has demonstrated that it is part of the parotid gland. The patient reports no pain associated with the lump but expresses concern about its presence and potential growth. He notes that the lump appeared approximately four to six months after treatment for skin cancer on the right side of his face, but a previous doctor suggested that the lump is unrelated to the skin cancer. A needle biopsy indicated that the lump is of salivary gland origin and is a pleomorphic adenoma. The patient has a history of generalized anxiety disorder, which he reports has been exacerbated by his current condition. He is concerned about the risks of surgery, including potential facial nerve injury and permanent facial weakness, but has decided to proceed with the surgery to remove the mass. SHILPA LARA MD [address] [place] [address], [phone], [place] - [facility] 12/28/2024 16:07:21
--- OUTSIDE RECORDS SUMMARY | 2025-01-07 15:02 | XMS_ITS | Encounter Summary ---
Author Organization [employer] Address [address] [facility] [address] [place] [address] Care Team Providers Care Onion Tier Name Role Phone Unavailable Primary Care Provider [...]
--- OUTSIDE RECORDS SUMMARY | 2025-01-07 15:02 | XMS_ITS | Encounter Summary ---
Author Organization [employer] Address [address] [facility] [address] [place] [address] Care Team Providers Care Application Architect Manager Name Role Phone Unavailable Primary Care Provider [...]
--- OUTSIDE RECORDS SUMMARY | 2025-01-07 15:02 | XMS_ITS | Clinical Summary ---
Author Organization [facility] Address [address] [address] Phone Care Team Providers Care Heat Plant Specialist Name Role Phone Tod Kelly MD [...] file Insurance MEDICARE PART A & B [facility] MEDICARE PART A & B HEALTH ([address] [address] MEDICARE PART A & B [facility] MEDICARE PART A & B HEALTH MEDICARE PART A & B [id number] [place] [address] MEDICARE PART A & B MEDICARE PART A & B [id number] [place] [address] MEDICARE PART A & B Member Subscriber Plan / Payer (Ef fective 2007-Present) Name:Henri Huerta Member ID:[id number] Relation to Subscriber:Self Name:Henri Huerta Subscriber ID:[id number] Payer ID:[id number] Group ID:Not on file Type:Medicare Address: [employer] [facility] [address] [facility] MEDIC[facility] PART A & B [facility] Care Teams Heat Plant Specialist Relationship Specialty Start Date End Date Tod Kelly MD [address] [place] [address] [place] [address] PCP - General Internal Medicine 12/05/19 Additional Source Comments The information contained in this document represents components of the legal health record. It is not the complete legal health record.[facility]
--- OUTSIDE RECORDS SUMMARY | 2025-01-07 15:02 | XMS_ITS | Clinical Summary ---
Author Organization [employer] Address [address] [facility] [address] [place] [address] Care Team Providers Care Manufacturing Maintenance Manager Name Role Phone Unavailable Primary Care [...] Description 11/09/2024 10:00 AM EDT Office Visit [facility] [address] [place] [address] Mere Tabares DDS 11/06/2024 11:00 AM EDT Office Visit [facility] [address] [place] [address] Mere Tabares DDS from Last 3 Months [...] [place] [address] [place] [address]
== END 2025-01-07 12:43 | disposition home or self-care (01) ==
PROVIDERS: PCP Internal Medicine; Visit Provider Physician Assistant Medical
DX: R51.9 Headache, unspecified (principal); G89.29 Other chronic pain

== ENCOUNTER → 2025-01-07 11:38 | Outpatient (BNVA) | payer MEDICARE, MEDICAID, SELFPAY | PROVIDERS: PCP Internal Medicine; Visit Provider Physician Assistant Medical | DX: R51.9 Headache, unspecified (principal); G89.29 Other chronic pain | CPT/HCPCS: 99212 ==

== ENCOUNTER 2025-01-08 08:04 | Outpatient (AMB) | payer MEDICARE, MEDICAID, SELFPAY ==
--- NOTE | 2025-01-08 08:09 | A.OFFPC_ITS ---
Vital Signs 01/08/25 08:15 Height 6 ft Weight 197 lb 4 oz BMI 26.7 BP 136/71 Blood Pressure Location Lt brachial Position Sitting Respiration 16 Pulse 82 Pulse Source Pulse Oximeter Temp 97.5 F Temp Source Oral Pulse Oximetry (%) 99 Oxygen Delivery Method Room Air Intake Visit Reasons: head issues/ed follow up Intake Note: patient here c/o head issues/ ED follow up Sap Administrator Required: No Allergies aspirin (ASPIRIN) Allergy (Intermediate, Verified 01/11/25 08:23) STOMACH UPSET acetaminophen (From Fioricet) Adverse Reaction (Intermediate, Verified 01/11/25 08:23) Headache butalbital (From Fioricet) Adverse Reaction (Intermediate, Verified 01/11/25 08:23) Headache caffeine (From Fioricet) Adverse Reaction (Intermediate, Verified 01/11/25 08:23) Headache Tobacco use date assessed: 01/08/25 Dental Screening Dental Screen Date: 01/08/25 Did you have a dental visit in the last 12 months?: Yes Did you have a dental problem in the last 6 months where you did not have access to dental care?: No Was dental information given to patient?: Patient has dentist HPI HPI Comments History of Present Illness Details The patient is a 59 year old male with a past medical history of bipolar disorder, anxiety, hyperlipidemia, GERD presenting for follow up Neuro: persistent despite multiple medication trials. Following with neurology who recommend inpatient stay. received TMS therapy for depression. Says patient reported headaches during treatment. After the visit got left sided occital neuritis. Headaches-Following with neurology. Intractable. started aimovig-has taken third injection. Feels like they have just gotten worse/more persistent. Tried fioricet which caused immediate nasal congestion and worsening headache. Tried an 18 day course of prednisone-which did not improve symptomsRecent imaging-1. Focal dehiscence of the roof of the right superior circular canal. 2. Opacified left eustachian tube possibly due to secretions. BH: Anxiety-requires lorazepam. Continues follow up psychiatry. Follows with urology post SSRI hypogonadism. hypogonadal hypogonadism. Previously Dr. Mooney and previously saw Dr Villalobos. Heme/Onc: Pleomorphic adenoma-right neck. Has ENT appt scheduled for Nov. Labs with elevated tryptase-saw [facility]. Repeat still elevated, less so. Follow up labs otherwise reassuring. he will follow up there as neede ROS see HPI PHYSICAL EXAM: GENERAL: Alert and oriented x 3. NAD EYES: EOMI. Anicteric. HENT: Moist mucous membranes. No scleral icterus. enlarged right submandibular node LUNGS: Clear to auscultation bilaterally. CARDIOVASCULAR: Regular rate and rhythm. ABDOMEN: Soft, non-tender +bs EXTREMITIES: No edema. Non-tender. SKIN: Warm, dry NEUROLOGIC: No focal neurological deficits. CN II-XII grossly intact PSYCHIATRIC: Cooperative. Appropriate mood and a [facility] Medical History Basal cell carcinoma Anemia Depression Mass of right side of neck Cervical lymphadenopathy Panic disorder Generalized anxiety disorder Major depressive disorder, recurrent severe without psychotic features Mild acid reflux Erectile dysfunction Depression Anxiety Hyperlipidemia Hypopituitarism Hypogonadism in male Tendinitis of left rotator cuff Gait abnormality Knee pain OA (osteoarthritis) of knee Thrombosed external hemorrhoid Family History Mother No problems noted. Father No problems noted. Other Mental health disorder Social History Housing: Apartment Alcohol intake: current Alcohol intake frequency: holidays/special occasions only Patient Tobacco Use Status: Never used Tobacco e-Cigarette/Vaping Use: Never Used service: No Current occupational status: disabled Current occupational exposures/hazards: No Cognitive needs: No Hearing needs: No Vision needs: Yes (reading glasses) Questionnaire Thrive Questionnaire Date Thrive assessed: 08/24/24 CHRISTOPHER-7 AMB Questionnaire CHRISTOPHER-7 Date CHRISTOPHER - 7 assessed: 08/24/24 Source: Developed by Drs. Rico Rondon, Gladis Zhang, Silvio Tucker and colleagues, with an educational jessica from [employer]. Physical exam (Primary Care) Vital Signs: Last Vital Signs Temp 97.5 F 01/08/25 08:15 Pulse 82 01/08/25 08:15 Resp 16 01/08/25 08:15 BP 136/71 01/08/25 08:15 Pulse Ox 99 01/08/25 08:15 Oxygen Delivery Method Room Air 01/08/25 08:15 BMI result Body Mass Index 26.7 Tobacco/Smoking Status: Tobacco use Status Tobacco use date assessed 01/08/25 01/08/25 08:18 Patient Tobacco Use Status Never used Tobacco 01/08/25 08:11 e-Cigarette/Vaping Use Never Used 01/08/25 08:11 Thrive Assessment: Date of Thrive Assessment Date Thrive assessed 08/24/24 01/08/25 08:11 Coding Level of Care Code Est Pt Level 4 (60096) Diagnoses Chronic intractable headache, unspecified headache type R51.9; G89.29 Headache type: unspecified Headache chronicity pattern: chronic headache Intractability: intractable Mass of right side of neck R22.1 Major depressive disorder, recurrent severe without psychotic features F33.2 Assessment & Plan Assessment & Plan (1) Headache: Code(s): R51.9 - Headache, unspecified Category: Medical Qualifiers: Headache type: unspecified Headache chronicity pattern: chronic headache Intractability: intractable Qualified Code(s): R51.9 - Headache, unspecified; G89.29 - Other chronic pain (2) Mass of right side of neck: Code(s): R22.1 - Localized swelling, mass and lump, neck Category: Medical (3) Major depressive disorder, recurrent severe without psychotic features: Code(s): F33.2 - Major depressive disorder, recurrent severe without psychotic features Category: Medical Plan Headache, started with TMS therapy Trial of indomethacin Continue close follow up with neurology Right submandibular mass-follow up with ENT Medications: New indomethacin administer with food or milk 50 mg PO BID 60 caps 1RF gabapentin 100 - 200 mg (1 - 2 x 100 mg) PO TID 180 caps 3RF
[2025-01-08 08:15] VITALS: BP 136/71; PULSE 82; RESP 16; TEMP 36.4; O2SAT 99; BMI 26.7
--- OUTSIDE RECORDS SUMMARY | 2025-01-08 08:22 | XMS_ITS | Clinical Summary ---
Author Organization [facility] Address [address] [address] Phone Care Team Providers Care Hearing Aid Mechanic Name Role Phone Tod Kelly MD Primary [...] file Insurance MEDICARE PART A & B [facility] MEDICARE PART A & B HEALTH ([address] [address] MEDICARE PART A & B [facility] MEDICARE PART A & B HEALTH MEDICARE PART A & B [id number] [place] [address] MEDICARE PART A & B MEDICARE PART A & B [id number] [place] [address] MEDICARE PART A & B Member Subscriber Plan / Payer (Ef fective 2007-Present) Name:Henri Huerta Member ID:[id number] Relation to Subscriber:Self Name:Henri Huerta Subscriber ID:[id number] Payer ID:[id number] Group ID:Not on file Type:Medicare Address: [employer] [address] [facility]24[facility] MEDICARE PART A & B [facility] Care Teams Hearing Aid Mechanic Relationship Specialty Start Date End Date Tod Kelly MD [address] [place] [address] [place] [address] PCP - General Internal Medicine 12/05/19 Additional Source Comments The information contained in this document represents components of the legal health record. It is not the complete legal health record.[facility]
--- OUTSIDE RECORDS SUMMARY | 2025-01-08 08:22 | XMS_ITS | Clinical Summary ---
Author Organization [employer] Address [address] [facility] 7[address] [place] [address] Care Team Providers Care Carton Folder Name Role Phone Unavailable Primary Care Provider [...] Description 11/09/2024 10:00 AM EDT Office Visit [facility] [address] [place] [address] Mere Tabares DDS 11/06/2024 11:00 AM EDT Office Visit [facility] [address] [place] [address] Mere Tabares DDS from Last 3 Months [...] DENT[place] [address] [place] [address]
--- OUTSIDE RECORDS SUMMARY | 2025-01-08 08:22 | XMS_ITS | Encounter Summary ---
Author Organization [employer] Address [address] [facility] 7[address] [place] [address] Care Team Providers Care Commercial Census Taker Name Role Phone Unavailable Primary Care Provider [...]
--- OUTSIDE RECORDS SUMMARY | 2025-01-08 08:22 | XMS_ITS | Encounter Summary ---
Author Organization [employer] Address [address] [facility] 7t [place] [address] Care Team Providers Care Cold Working Supervisor Name Role Phone Unavailable Primary Care [...]
--- OUTSIDE RECORDS SUMMARY | 2025-01-08 08:23 | XMS_ITS | Patient Health Record ---
Author Organization [facility] Address [address] [place] [address] Care Team Providers Care Diet Therapist Name Role Phone Robin (RETIRED) Tod LEHMAN Primary Care Provide r Unavailable Rico Vega Unavailable [phone] Reason For Referral No Information Medications Medication SIG (Take, Route, Frequency, Duration) Notes Start Date End Date Status Propranolol HCl 10 MG 1 tablet Orally prn Active Omeprazole 20 MG 1 capsule Orally Once a day Active Gilby Carbonate 300 MG 1 capsule Orall y twice a day Active LORazepam 0.5 MG 1 tablet as needed O rally every 6 hrs Active tylenol 1 tab Oral daily Act satish Problems Problem Type SNOMED Code ICD Code Onset Dates Problem Status W/U Status Risk Notes Problem Screening for malignant neoplasm of colon (411634633) Encounter for screening for malignant neoplasm of colon (Z12.11) Active confirmed Problem Stricture of esophagus (85161814) Esophageal obstruction (K22.2) Active confirmed Problem Screening for malignant neoplasm of rectum (916909333) Encounter for screening for malignant neoplasm of rectum (Z12.12) Active confirmed Problem Gastroesophageal reflux disease without esophagitis (043429802) Gastroesophageal reflux disease without esophagitis (K21.9) Active confirmed Problem Gastroesophageal reflux disease (069090656) Gastroesophageal reflux disease, esophagitis presence not specified (K21.9) Active confirmed Problem Esophageal ring (18203076) Esophageal ring (K22.2) Active confirmed Problem Dysphagia (69002887) Dysphagia, unspecified type (R13.10) Active confirmed Plan Of Treatment Future Test Test Name Order Date UPPER GI ENDOSCOPY BALL[place]ON DILATION OF ESOPH 12/10/2015 Insurance Providers Payer Name Payer Address Payer Phone Subscriber Number Group Number Insured Name Patient Relationship to Insured Coverage Start Date Coverage End Date MEDICARE OF [place] [address] [place] [address] [id number] AMALIAAUGUSTO DESHPANDEMOND Self - patient is the insured MEDICAID OF [facility] [address] [place] [phone] [id number] AUGUSTO EDDYMOND Self - patient is the insured Medical (General) History Medical History History ICD Code Denies MT,DM,CVA,Lung disease,renal dise ase Depression/Anxiety GERD--UGI in the past with reflux Esophageal ring--esophageal obstruction--EGD in 11/2015--meat bolus removed and a distal esophageal ring was dilated with an 18-20mm balloon
--- OUTSIDE RECORDS SUMMARY | 2025-01-08 08:23 | XMS_ITS | Data Portability ---
Author Organization [place] [facility] Address [address] [address] Care Team Providers Care Family Service Assistant Name Role Phone ABDIRASHID SAAD Primary Care Provider CAMERON BAIRD Primary Care Provider Assessment Encounter Date Assessment Date Assessment LastModified [...] prefers to have the imaging performed at [facility] and will ensure that the imaging disc [...] with the surgery and will contact the employment interviewer, Mallorie, to arrange the procedure. Counseling was provided regarding the risks and benefits of the surgery, and the patient was encouraged to address his anxiety and depression with his primary care provider to ensure emotional stability prior to the procedure. The patient expressed understanding of the risks and rationale for the surgery and plans to consult with his lpn per diem for additional emotional support. [email or web address] Not available 12/28/2024 16:06:40 Plan of Treatment Reminders Order Date Submit Date Provider Last Modified By Organization Details Last Modified Time Details Appointments None recorded. Lab None recorded. Referral None recorded. Procedures None recorded. Surgeries parotidecto my (SURG) 2024 025 [email or web address] Not available 16:12:[address], neck, w/ contrast - MD requests urgent imaging scheduling at [place] due to patient anxiety 2024 025 [email or web address] [facility] (Imaging), [address] [place] [address], [address], 15:37:44 Medication Orders None recorded. Patient TargetsNo targets recorded. Patient Instructions Encounter Date Encounter Id Patient Instructions Last Modified By Organization Details Last Modified Time 12/07/2024 [id number] - Obtain the imaging disc from [facility] after the CT scan and bring it [...] note. [email or web address] Not available 12/07/2024 16:12:58 12/28/2024 [id number] - Contact the employment interviewer, Mallorie, to arrange the procedure. - Consult with primary care provider to address anxiety and depression. - Consider meeting with a lpn per diem for emotional support prior to surgery. [email or web address] [...] contr ast No observ ation record ed. [email or web address] Not Available 12/13 09:15:04 Result Notes None recorded. 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 15:55:43 Generalized anxiety disorder 10264226 Active 2024 SHILPA LARA MD [address] [place] [address], [facility] [place], [address], [facility] - [facility] 16:02:59 Panic attack 961091270 Active 2024 SHILPA LARA MD [address] [place] [address], [place], [address], [facility] - 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 5 15:47:42 Problem Notes None recorded. Medical Equipment None Reported. Allergies Allergen ID Allergen Name Allergen Category Reaction Reaction Severity Criticality Documentation Date Start Date Code Code System Note Provider Name and Address Organization Details Recorded Time 539651 aspirin medicatio n Not available Not available Not available 12/07/2024 1191 RxNorm T[facility]NER [facility] [place] [facility] 5 15:49:24 Medications Name Sig Start Date [...] Not Available Not Available BD Regular Bevel Jackpot 18 gauge x 1 USE DIRECTED TO [...] Updated DateTime 12/07/2024 182.88 cm 27.4 kg/m2 15100.66 g [facility] [place] [facility] [place] 12/07/2024 15:49:14 Date Recorded Body height Provider Name an d Address Organization Details Last Updated DateTime 12/28/2024 182.88 cm [facility] [place] [facility] 12/28/2024 15:27:13 Social History None recorded. 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 We have discussed treatment options including observatio n as well as surgical interventi on to remove the lesion. Surgery is performed under general anesthesia at either [facility] or [facility]. The surgery is typically booked for [...] Member ID Guarantor Name 12/25/2024 2 [place] [facility] Henri Huerta [id number] Henri Huerta 12/28/2024 1 [place] B-[place]: [id number] Henri Huerta [id number] Henri Huerta Notes Date Note Type Note Provider Name and Address Organization Details Recorded Time 12/07/2024 text/html Right neck mass Onset early 2023 History 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 08/20/2024 [place] ultrasound neck Well-defined hypoechoic mass right lateral submandibular space. 31 x 24 x 16 mm. Likely a complex lymph node. 09/05/2024 [place], CT head with contrast no acute intracranial process 09/05/[address] [place] [address] temporal bone with contrast Focal dehiscence of the roof of the right superior circular canal. Opacified left eustachian tube. 10/02/2024 [place] ultrasound biopsy lymph node Salivary gland neoplasm [...] due to his condition. SHILPA LARA MD [address] [place] [address], [phone], [facility] - [facility] 12/07/2024 16:13:48 12/28/2024 text/html Right parotid mass Onset early 2023 History 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 08/20/2024 [place] ultrasound neck Well-defined hypoechoic mass right lateral submandibular space. 31 x 24 x 16 mm. Likely a complex lymph node. 09/05/2024 [place], CT head with contrast no acute intracranial process 09/05/[address] [place] [address] temporal bone with contrast Focal dehiscence of the roof of the right superior circular canal. Opacified left eustachian tube. 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 Most consistent with pleomorphic adenoma. 12/20/2024 [place], CT Angio head and neck w contrast [...] to remove the mass. SHILPA LARA MD [address] [place] [address], [phone], [place] [facility] 12/28/2024 16:07:21
== END 2025-01-08 08:55 | disposition home or self-care (01) ==
LOC: HO.HMCFM 08:05
PROVIDERS: PCP Internal Medicine; Visit Provider Internal Medicine
DX: R51.9 Headache, unspecified (principal); G89.29 Other chronic pain; R22.1 Localized swelling, mass and lump, neck; F33.2 Major depressive disorder, recurrent severe without psychotic features

== ENCOUNTER → 2025-01-08 08:04 | Outpatient (BNVA) | payer MEDICARE, MEDICAID, SELFPAY | PROVIDERS: PCP Internal Medicine; Visit Provider Internal Medicine | DX: R51.9 Headache, unspecified (principal); G89.29 Other chronic pain; R22.1 Localized swelling, mass and lump, neck; F33.2 Major depressive disorder, recurrent severe without psychotic features; F41.9 Anxiety disorder, unspecified; E29.1 Testicular hypofunction; D36.7 Benign neoplasm of other specified sites; Z79.899 Other long term (current) drug therapy | CPT/HCPCS: 99212 ==

== ENCOUNTER 2025-01-11 08:07 | Outpatient (AMB) | payer MEDICARE, MEDICAID, SELFPAY ==
--- OUTSIDE RECORDS SUMMARY | 2025-01-11 08:14 | XMS_ITS | Data Portability ---
Author Organization [place] [facility] Address [address] [address] Care Team Providers Care Mine Safety Manager Name Role Phone ABDIRASHID SAAD Primary Care Provider [phone] CAMERON BAIRD Primary Care Provider Assessment Encounter [...] prefers to have the imaging performed at [facility] and will ensure that the imaging [...] with the surgery and will contact the surgery specialist, Mallorie, to arrange the procedure. Counseling was provided regarding the risks and benefits of the surgery, and the patient was encouraged to address his anxiety and depression with his primary care provider to ensure emotional stability prior to the procedure. The patient expressed understanding of the risks and rationale for the surgery and plans to consult with his cashier associate for additional emotional support. [email or web address] Not available 12/28/2024 16:06:40 Plan of Treatment Reminders Order Date Submit Date Provider Last Modified By Organization Details Last Modified Time Details Appointments None recorded. Lab None recorded. Referral None recorded. Procedures None recorded. Surgeries parotidecto my (SURG) 2024 025 [email or web address] Not available 16:12:[address], neck, w/ contrast - MD requests urgent imaging scheduling at [facility] due to patient anxiety 2024 025 [email or web address] [facility] (Imaging), [address] [place] [address], [id number], 15:37:44 Medication Orders None recorded. Patient TargetsNo targets recorded. Patient Instructions Encounter Date Encounter Id Patient Instructions Last Modified By Organization Details Last Modified Time 12/07/2024 [id number] - Obtain the imaging disc from [facility] after the CT scan and bring [...] note. [email or web address] Not available 12/07/2024 16:12:58 12/28/2024 [id number] - Contact the surgery specialist, Mallorie, to arrange the procedure. - Consult with primary care provider to address anxiety and depression. - Consider meeting with a cashier associate for emotional support prior to surgery. [email or web address] [...] contr ast No observ ation record ed. [email or web address] Not Available 12/13 09:15:04 Result Notes None recorded. Problems Name Problem SNOMED Code Status Onset Date Resolution Date Notes Provider Name and Address Organization Details Recorded Time Neoplasm of submaxillary gland 012491719 Active 2024 SHILPA LARA MD [address] [place] [address], [place], [address], [facility] - [facility] 15:55:43 Generalized anxiety disorder 05232573 Active 2024 SHILPA LARA MD [address] [place] [address], [place], [address], [facility] - [facility] 16:02:59 Panic attack 536353951 Active 2024 SHILPA LARA MD [address] [place] [address], [place], [address], [facility] - [facility] 5 16:03:03 Neoplasm of parotid gland 374087328 Active 2024 SHILPA LARA MD [address] [facility] [address], [place], [address], [facility] - [facility] 5 15:47:42 Problem Notes None recorded. Medical Equipment None Reported. Allergies Allergen ID Allergen Name Allergen Category Reaction Reaction Severity Criticality Documentation Date Start Date Code Code System Note Provider Name and Address Organization Details Recorded Time 457777 aspirin medicatio n Not available Not available Not available 12/07/2024 1191 RxNorm [facility] [place] [facility] 5 15:49:24 Medications Name Sig Start [...] Not Available Not Available BD Regular Bevel [place] 18 gauge x 1 USE DIRECTED TO [...] Updated DateTime 12/07/2024 182.88 cm 27.4 kg/m2 28415.66 g [facility] [place] [facility] [place] 12/07/2024 15:49:14 Date Recorded Body height Provider Name an d Address Organization Details Last Updated DateTime 12/28/2024 182.88 cm [facility] [place] [facility] 12/28/2024 15:27:13 Social History None recorded. Functional Status Question Answer Note LastModified by Organizat ion Details LastModified Time What is your level of alcohol consumption? Occasional ccomi Information not available 12/07/2024 Mental Status None recorded. Family History Nothing Reported. Medical History Condition Response Cancer Y Headaches Y Anxiety Y Past Encounters Encounter ID Performer Location Encounter Start Date Encounter Closed Date Diagnosis/Indication Diagnosis SNOMED-CT Code Diagnosis ICD10 Code Diagnosis IMO Codes Diagnosis Note [id number] SHILPA LARA MD [facility] [address] [address] 12/07/2024 15:20:04 12/07/2024 16:14:16 Neoplasm of submaxillary gland 480320618 D49.0 51308035 Generalize d anxiety disorder 25463131 F41.1 760897 Panic attack 364730225 F 41.0 87498 [id number] SHILPA LARA MD [facility] [address] [address] 12/28/2024 15:02:21 12/28/2024 16:19:20 Generalized anxiety disorder 13458279 F41.1 773445 Panic attack 161042539 F 41.0 22161 Neoplasm o f parotid gland 154875651 D49.0 3cm right inferior pleomorphi c adenoma Patient has a lesion of the RIGHT parotid salivary gland. We have discussed treatment options including observatio n as well as surgical interventi on to remove the lesion. Surgery is performed under general anesthesia at either [facility] or [facility]. The surgery is typically booked for approximat [...] Member ID Guarantor Name 12/25/2024 2 [place] [facility] Henri Huerta [id number] Henri Huerta 12/28/2024 1 [place] B[place] [employer] Henri Huerta [id number] Henri Huerta Notes Date Note Type Note Provider Name and Address Organization Details Recorded Time 12/07/2024 text/html Right neck mass Onset early 2023 History 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 08/20/2024 [facility] ultrasound neck Well-defined hypoechoic mass right lateral submandibular space. 31 x 24 x 16 mm. Likely a complex lymph node. 09/05/2024 [facility], CT head with contrast no acute intracranial process 09/05/[address] [facility] [address] temporal bone with contrast Focal dehiscence of the roof of the right superior circular canal. Opacified left eustachian tube. 10/02/2024 [facility] ultrasound biopsy lymph node Salivary gland neoplasm [...] due to his condition. SHILPA LARA MD [address] [place] [address], [phone], [facility] - [facility] 12/07/2024 16:13:48 12/28/2024 text/html Right parotid mass Onset early 2023 History 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 08/20/2024 [facility] ultrasound neck Well-defined hypoechoic mass right lateral submandibular space. 31 x 24 x 16 mm. Likely a complex lymph node. 09/05/2024 [facility], CT head with contrast no acute intracranial process 09/05/[address] [facility] [address] temporal bone with contrast Focal dehiscence of the roof of the right superior circular canal. Opacified left eustachian tube. 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 Most consistent with pleomorphic adenoma. 12/20/2024 [facility], CT Angio head and neck w contrast [...] to remove the mass. SHILPA LARA MD [address] [place] [address], [phone], [place] [facility] 12/28/2024 16:07:21
--- OUTSIDE RECORDS SUMMARY | 2025-01-11 08:14 | XMS_ITS | Clinical Summary ---
Author Organization [employer] Address [address] [facility] [address] [place] [address] Care Team Providers Care Crozer Operator Name Role Phone Unavailable Primary Care [...] 11/09/2024 10:00 AM EDT Office Visit [facility] [address] [place] [address] Mere Tabares DDS 11/06/2024 11:00 AM EDT Office Visit [facility] [address] [place] [address] Mere Tabares DDS from Last 3 Months [...] [facility] [address] [place] [address]
--- OUTSIDE RECORDS SUMMARY | 2025-01-11 08:14 | XMS_ITS | Encounter Summary ---
Author Organization [employer] Address [address] [facility] 7t [place] [address] Care Team Providers Care Entry Level Manufacturing Engineer Name Role Phone Unavailable Primary Care [...]
--- OUTSIDE RECORDS SUMMARY | 2025-01-11 08:14 | XMS_ITS | Clinical Summary ---
Author Organization [facility] Address [address] [address] Phone Care Team Providers Care Manager Radiation Name Role Phone Tod Kelly MD Primary [...] file Insurance MEDICARE PART A & B [facility] MEDICARE PART A & B HEALTH ([address] [address] MEDICARE PART A & B [facility] MEDICARE PART A & B HEALTH MEDICARE PART A & B [id number] [place] [address] MEDICARE PART A & B MEDICARE PART A & B [id number] [place] [address] MEDICARE PART A & B Member Subscriber Plan / Payer (Ef fective 2007-Present) Name:Henri Huerta Member ID:[id number] Relation to Subscriber:Self Name:Henri Huerta Subscriber ID:[id number] Payer ID:[id number] Group ID:Not on file Type:Medicare Address: [employer] [address] [facility]IC[facility] PART A & B [facility] Care Teams Manager Radiation Relationship Specialty Start Date End Date Tod Kelly MD [address] [place] [address] [place] [address] PCP - General Internal Medicine 12/05/19 Additional Source Comments The information contained in this document represents components of the legal health record. It is not the complete legal health record.[facility]
--- OUTSIDE RECORDS SUMMARY | 2025-01-11 08:14 | XMS_ITS | Patient Health Record ---
Author Organization [facility] Address [address] [place] [address] Care Team Providers Care Yarn Rewinder Name Role Phone Robin (RETIRED) Tod LEHMAN Primary Care Provide r Unavailable Rico Vega Unavailable [phone] Reason For Referral No Information Medications Medication SIG (Take, Route, Frequency, Duration) Notes Start Date End Date Status Propranolol HCl 10 MG 1 tablet Orally prn Active Omeprazole 20 MG 1 capsule Orally Once a day Active Erhard Carbonate 300 MG 1 capsule Orall y twice a day Active LORazepam 0.5 MG 1 tablet as needed O rally every 6 hrs Active tylenol 1 tab Oral daily Act satish Problems Problem Type SNOMED Code ICD Code Onset Dates Problem Status W/U Status Risk Notes Problem Screening for malignant neoplasm of colon (356682435) Encounter for screening for malignant neoplasm of colon (Z12.11) Active confirmed Problem Stricture of esophagus (70277968) Esophageal obstruction (K22.2) Active confirmed Problem Screening for malignant neoplasm of rectum (083086152) Encounter for screening for malignant neoplasm of rectum (Z12.12) Active confirmed Problem Gastroesophageal reflux disease without esophagitis (732205271) Gastroesophageal reflux disease without esophagitis (K21.9) Active confirmed Problem Gastroesophageal reflux disease (760636318) Gastroesophageal reflux disease, esophagitis presence not specified (K21.9) Active confirmed Problem Esophageal ring (68232777) Esophageal ring (K22.2) Active confirmed Problem Dysphagia (39250880) Dysphagia, unspecified type (R13.10) Active confirmed Plan Of Treatment Future Test Test Name Order Date UPPER GI ENDOSCOPY BALLOOON DILATION OF ESOPH 12/10/2015 Insurance Providers Payer Name Payer Address Payer Phone Subscriber Number Group Number Insured Name Patient Relationship to Insured Coverage Start Date Coverage End Date MEDICARE OF [place] [address] [place] [id number] AMALIAAUGUSTO DESHPANDEMOND Self - patient is the insured MEDICAID OF [facility] [address] [place] [phone] [id number] AUGUSTO EDDYMOND Self - patient is the insured Medical (General) History Medical History History ICD Code Denies [place],DM,CVA,Lung disease,renal dise ase Depression/Anxiety GERD--UGI in the past with reflux Esophageal ring--esophageal obstruction--EGD in 11/2015--meat bolus removed and a distal esophageal ring was dilated with an 18-20mm balloon
--- OUTSIDE RECORDS SUMMARY | 2025-01-11 08:14 | XMS_ITS | Encounter Summary ---
Author Organization [employer] Address [address] [facility] 7t [place] [address] Care Team Providers Care Discharge Specialist Name Role Phone Unavailable Primary Care Provider [...]
--- NOTE | 2025-01-11 08:23 | A.OFFPC_ITS ---
Intake Visit Reasons: discuss medication Intake Note: Discuss medication side effects, indomethacin causing excessive crying. Patient stopped the medicaiton. Black Ash Worker Required: No Allergies aspirin (ASPIRIN) Allergy (Intermediate, Verified 01/11/25 08:23) STOMACH UPSET acetaminophen (From Fioricet) Adverse Reaction (Intermediate, Verified 01/11/25 08:23) Headache butalbital (From Fioricet) Adverse Reaction (Intermediate, Verified 01/11/25 08: 23) Headache caffeine (From Fioricet) Adverse Reaction (Intermediate, Verified 01/11/25 08:23) Headache Tobacco use date assessed: 01/11/25 Dental Screening Dental Screen Date: 01/08/25 HPI HPI Comments History of Present Illness Details The patient is a 59 year old male with a past medical history of bipolar disorder, anxiety, hyperlipidemia, GERD presenting for follow up Neuro: persistent despite multiple medication trials. Following with neurology who recommend inpatient stay. received TMS therapy for depression. Says patient reported headaches during treatment. After the visit got left sided occital neuritis. Headaches-Following with neurology. Intractable. started aimovig-has taken third injection. Feels like they have just gotten worse/more persistent. Tried fioricet which caused immediate nasal congestion and worsening headache. Tried an 18 day course of prednisone-which did not improve symptomsRecent imaging-1. Focal dehiscence of the roof of the right superior circular canal. 2. Opacified left eustachian tube possibly due to secretions. BH: Anxiety-requires lorazepam. Continues follow up psychiatry. Follows with urology post SSRI hypogonadism. hypogonadal hypogonadism. Previously Dr. Mooney and previously saw Dr Villalobos. Heme/Onc: Pleomorphic adenoma-right neck. Has ENT appt scheduled for Nov. Labs with elevated tryptase-saw [facility]. Repeat still elevated, less so. Follow up labs otherwise reassuring. he will follow up there as needed. ROS see HPI PHYSICAL EXAM: GENERAL: Alert and oriented x 3. NAD EYES: EOMI. Anicteric. HENT: Moist mucous membranes. No scleral icterus. enlarged right submandibular node LUNGS: Clear to auscultation bilaterally. CARDIOVASCULAR: Regular rate and rhythm. ABDOMEN: Soft, non-tender +bs EXTREMITIES: No edema. Non-tender. SKIN: subcutaneous 2cm mobile mass mid/lower abdomen. NEUROLOGIC: No focal neurological deficits. CN II-XII grossly intact PSYCHIATRIC: Cooperative. Appropriate mood and a [facility] Medical History Basal cell carcinoma Anemia Depression Mass of right side of neck Cervical lymphadenopathy Panic disorder Generalized anxiety disorder Major depressive disorder, recurrent severe without psychotic features Mild acid reflux Erectile dysfunction Depression Anxiety Hyperlipidemia Hypopituitarism Hypogonadism in male Tendinitis of left rotator cuff Gait abnormality Knee pain OA (osteoarthritis) of knee Thrombosed external hemorrhoid Family History Mother No problems noted. Father No problems noted. Other Mental health disorder Social History Housing: Apartment Alcohol intake: current Alcohol intake frequency: holidays/special occasions only Patient Tobacco Use Status: Never used Tobacco e-Cigarette/Vaping Use: Never Used service: No Current occupational status: disabled Current occupational exposures/hazards: No Cognitive needs: No Hearing needs: No Vision needs: Yes (reading glasses) Questionnaire Thrive Questionnaire Date Thrive assessed: 08/24/24 AUDIT C Alcohol Use Questionnaire (AUDIT-C) 1. How often do you have a drink containing alcohol?: Monthly or less 2. How many drinks containing alcohol do you have on a typical day when you are drinking?: 1 or 2 3. How often do you have six or more drinks on one occasion?: Never Total Score: 1 CHRISTOPHER-7 AMB Questionnaire CHRISTOPHER-7 Date CHRISTOPHER - 7 assessed: 08/24/24 Source: Developed by Drs. Rico Rondon, Gladis Zhang, Silvio Tucker and colleagues, with an educational jessica from [employer]. Physical exam (Primary Care) Tobacco/Smoking Status: Tobacco use Status Tobacco use date assessed 01/11/25 01/11/25 08:25 Patient Tobacco Use Status Never used Tobacco 01/11/25 08:25 e-Cigarette/Vaping Use Never Used 01/11/25 08:25 Thrive Assessment: Date of Thrive Assessment Date Thrive assessed 08/24/24 01/11/25 08:25 Telehealth Telehealth Telehealth Platform: Telephone Location of provider rendering services: practice address Location of patient: address on file Patient Identification confirmed using: Name, : Yes Telehealth method: voice only Patient verbally consented to treatment: Yes Patient verbally consented to billing insurance company: Yes Patient informed of any privacy concerns related to visit: Yes Coding Level of Care Code Est Pt Level 4 (50750) Diagnoses Chronic intractable headache, unspecified headache type R51.9; G89.29 Headache type: unspecified Headache chronicity pattern: chronic headache Intractability: intractable Chronic intractable headache, unspecified headache type R51.9; G89.29 Headache type: unspecified Intractability: intractable Assessment & Plan Assessment & Plan (1) Headache: Code(s): R51.9 - Headache, unspecified Category: Medical Qualifiers: Headache type: unspecified Headache chronicity pattern: chronic headache Intractability: intractable Qualified Code(s): R51.9 - Headache, unspecified; G89.29 - Other chronic pain (2) Chronic headache: Code(s): R51.9 - Headache, unspecified; G89.29 - Other chronic pain Category: Medical Qualifiers: Headache type: unspecified Intractability: intractable Qualified C ode(s): R51.9 - Headache, unspecified; G89.29 - Other chronic pain Plan Chronic headache which he states began during TMS treatment Wants to try indomethicin. Ordered He has migranal ordered which is under [place] process continue follow up with neurology
== END 2025-01-11 11:56 | disposition home or self-care (01) ==
LOC: HO.HMCFM 08:07
PROVIDERS: PCP Internal Medicine; Visit Provider Internal Medicine
DX: R51.9 Headache, unspecified (principal); G89.29 Other chronic pain

== ENCOUNTER → 2025-01-11 08:07 | Outpatient (BNVA) | payer MEDICARE, MEDICAID, SELFPAY | PROVIDERS: PCP Internal Medicine; Visit Provider Internal Medicine | DX: R51.9 Headache, unspecified (principal); G89.29 Other chronic pain; F41.9 Anxiety disorder, unspecified; E29.1 Testicular hypofunction; D36.7 Benign neoplasm of other specified sites | CPT/HCPCS: 99212 ==

== ENCOUNTER 2025-01-14 13:06 | Outpatient (REF) | payer MEDICARE, MEDICAID, SELFPAY ==
[2025-01-14 14:11] LABS: MANUAL DIFF FLAG NO
[2025-01-14 14:39] LABS: Hematocrit 45.6 % (42.0-52.0); Hemoglobin 14.7 g/dl (14.0-18.0); Imm Gran Abs Auto 0.02 X10*3/uL (0.00-0.03); Imm Gran Pct Auto 0.3 % (0.0-0.4); Lymphocytes Absolute Auto 1.0 X10*3/uL (1.2-4.9); Mean Corpuscular HGB Conc 32.2 g/dl (31.0-36.0); Mean Corpuscular Hemoglobin 28.6 pg (27.0-33.0); Mean Corpuscular Volume 88.7 fL (80.0-98.0); NRBC Abs Auto 0.000 X10*3/uL (0.0-0.012); NRBC Pct Auto 0.0 /100WBC (0.0-0.2); Platelet Count 207 X10*3/uL (160-400); Red Blood Count 5.14 X10*6/uL (4.60-5.80); White Blood Count 6.4 X10*3/uL (4.8-10.8)
[2025-01-14 15:07] LABS: Alanine Aminotransferase 31 U/L (0-40); Albumin Level 4.7 g/dL (3.5-5.0); Alkaline Phosphatase 44 U/L (39-117); Anion Gap 9 (12-20); Aspartate Amino Transferase 26 U/L (5-37); Blood Urea Nitrogen 17 mg/dL (9-16); Calcium 9.2 mg/dL (8.4-10.2); Carbon Dioxide 29 mmol/L (22-29); Chloride 103 mmol/L (96-108); Cholesterol 172 mg/dL (<200); Estimated Glomerular Filt Rate > 60; HDL Cholesterol 28 mg/dL (>40); Iron 52 mcg/dL (45-160); Percent Iron Saturation 14 % (15-50); Potassium 4.2 mmol/L (3.3-5.1); Sodium 137 mmol/L (135-145); Total Iron Binding Capacity 361 mcg/dL (228-428); Total Protein 7.4 g/dL (6.5-8.0); Triglycerides 353 mg/dL (<150); Unsaturated Iron Binding 309 ug/dL
== END 2025-01-14 13:07 | disposition home or self-care (01) ==
LOC: HO.LAB 13:06
PROVIDERS: Absent Provider Internal Medicine; PCP Internal Medicine; Visit Provider Nurse Practitioner Family
DX: R00.2 Palpitations (principal); G89.29 Other chronic pain; R51.9 Headache, unspecified; R94.31 Abnormal electrocardiogram [ECG] [EKG]; F32.9 Major depressive disorder, single episode, unspecified; Z13.0 Encounter for screening for diseases of the blood and blood-forming organs and certain disorders involving the immune mechanism; Z13.6 Encounter for screening for cardiovascular disorders
CPT/HCPCS: 36415; 80053; 80061; 83540; 85025; 85652; 86140; 99202

== ENCOUNTER 2025-01-14 13:06 | Outpatient (AMB) | payer MEDICARE, MEDICAID, SELFPAY ==
[2025-01-14 13:11] VITALS: BP 128/82; PULSE 79; BMI 26.6
--- NOTE | 2025-01-14 13:11 | MHC.OFFVIS ---
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 abnormal ekg/palpitation Snowboard Instructor Required: No Allergies aspirin (ASPIRIN) Allergy (Intermediate, Verified 01/14/25 13:15) STOMACH UPSET acetaminophen (From Fioricet) Adverse Reaction (Intermediate, Verified 01/14/25 13:15) Headache butalbital (From Fioricet) Adverse Reaction (Intermediate, Verified 01/14/25 13:15) Headache caffeine (From Fioricet) Adverse Reaction (Intermediate, Verified 01/14/25 13:15) Headache Medication List - Last Reconciled 01/14/25 by BECKIE Mayer dihydroergotamine (Migranal) 1 spray intranasal Q15M 2 doses [knee brace-b/l As directed] lithium carbonate ER 300 mg PO BID lorazepam take 1 tab by mouth twice a daily with an extra 1/2 tab as needed. 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 abnormal ekg/palpitation: Details: Henri is a 59-year-old male with past medical history of depression, anxiety, panic disorder who has been suffering from acute/chronic headaches, has abnormal EKG finding and recent reports of heart palpitations while on prednisone who was referred to Cardiology for evaluation. Today he presents for cardiology consultation. He says he has never had any cardiac diagnoses. He does not get chest discomfort at rest or with activity. No shortness of breath, PND, orthopnea or edema. No lightheadedness, presyncope, syncope. He did notice pounding heart while taking an 18 day course of prednisone recently. Since then he has had only intermittent heart palpitations where he can feel bursts of rapid heartbeat. This does not cause him much concern at this time. He tells me he is hoping to start a new migraine medication but needs to have cardiac clearance prior to taking. He walks the mall 3 times weekly and he tolerates it well. Nonsmoker and no illicit drug use. He uses alcohol rarely. He has no known family history of heart disease. He denies any personal history of hypertension, hyperlipidemia or diabetes. He declines the use of YESENIA during this visit as he does not believe in AI. [facility] Medical History Basal cell carcinoma Anemia Depression Mass of right side of neck Cervical lymphadenopathy Panic disorder Generalized anxiety disorder Major depressive disorder, recurrent severe without psychotic features Mild acid reflux Erectile dysfunction Depression Anxiety Hyperlipidemia Hypopituitarism Hypogonadism in male Tendinitis of left rotator cuff Gait abnormality Knee pain OA (osteoarthritis) of knee Thrombosed external hemorrhoid Family History Mother No problems noted. Father No problems noted. Other Mental health disorder Social History Housing: Apartment Alcohol intake: current Alcohol intake frequency: holidays/special occasions only Patient Tobacco Use Status: Never used Tobacco e-Cigarette/Vaping Use: Never Used service: No Current occupational status: disabled Current occupational exposures/hazards: No Cognitive needs: No Hearing needs: No Vision needs: Yes (reading glasses) Review of Systems Const Details: Severe headaches All systems reviewed & are unremarkable except as noted in HPI and below ENT Denies dizziness Card Denies chest pain, Denies chest pain at rest, Denies chest pain with activity, Denies rapid heart rate, Denies pedal edema, Denies edema, Denies leg edema, Denies lightheadedness, Denies palpitations, Denies dyspnea, Denies dyspnea on exertion and Denies orthopnea Resp Denies cough, Denies dyspnea and Denies dyspnea on exertion GI Denies hematochezia and Denies change in stool character Musc Denies abnormal gait, Denies limited range of motion, Denies muscle cramps, Denies muscle weakness, Denies numbness, Denies radiating pain into limb, Denies stiffness and Denies tingling Neuro Denies abnormal gait, Denies dizziness, Denies numbness and Denies tingling Endo Denies palpitations Physical Exam Vital Signs: Last Vital Signs Pulse 79 01/14/25 13:11 BP 128/82 01/14/25 13:11 BMI result Body Mass Index 26.6 Const General: cooperative, healthy appearing, comfortable and no acute distress Orientation/consciousness: patient oriented x3 Neck Neck: Yes normal visual inspection Resp Effort & Inspection: normal respiratory effort Auscultation: clear to auscultation bilaterally, no rales, no rhonchi and no wheezes Cardio Rate: regular rate Rhythm: regular rhythm Heart sounds: S1 normal heart sound present, S2 normal heart sound present, no gallops, no murmurs and no rubs Neuro General: patient oriented x3 Extrem General: Yes normal to inspection, No no pedal edema and No calf tenderness Psych Appearance: grossly normal Mental Status: mental status grossly normal Speech and movement: Normal speech and movement present Assessment & Plan Assessment & Plan (1) Abnormal EKG: Code(s): R94.31 - Abnormal electrocardiogram [ECG] [EKG] Category: Medical Plan: Recent EKGs reviewed: 11/26/2024 showing sinus rhythm with possible left atrial enlargement and minimal voltage criteria for LVH. EKG 12/25/2024 showing sinus bradycardia with minimal voltage criteria for LVH. No anginal symptoms, no history of hypertension. Blood pressure currently 128/82. Will check echocardiogram to assess for any structural heart disease. (2) Palpitations: Code(s): R00.2 - Palpitations Category: Medical Plan: Reports of heart palpitations while taking prednisone that did cause him concern and since that time has notice brief rapid palpitations, that are not as bothersome. Recent EKG with normal CO, QRS and QTC intervals. Checking echocardiogram as above. Discussed Holter monitor and he declines. Reviewed reduction in caffeinated beverages and maintain good hydration. (3) Chronic headache: Code(s): R51.9 - Headache, unspecified; G89.29 - Other chronic pain Category: Medical Qualifiers: Headache type: unspecified Intractability: intractable Qualified Code(s): R51.9 - Headache, unspecified; G89.29 - Other chronic pain Plan: Being followed by Neurology and PCP for acute/chronic headaches. He says it is severe and he is hoping to start on Migranal in near future. Obtaining echocardiogram as above. Unsure patient will be able to complete a exercise stress test due to his anxiety however will try. Plan to call him with test results once available. Cardiology office visit 1 month, sooner if needed. Plan Time spent on chart review, documentation, interview and assessment Orders: Orders CA echo transthoracic complete Today R00.2 - Palpitations, R94.31 - Abnormal electrocardiogram [ECG] [EKG] CA stress test Today R00.2 - Palpitations, R94.31 - Abnormal electrocardiogram [ECG] [EKG] Coding Level of Care Code New Pt Level 4 (68889) Complex EM visit Add On G2211 Diagnoses Abnormal EKG R94.31 Palpitations R00.2 Chronic intractable headache, unspecified headache type R51.9; G89.29 Headache type: unspecified Intractability: intractable Time Spent (min) 30
== END 2025-01-14 13:48 | disposition home or self-care (01) ==
LOC: HO.HCS 13:06
PROVIDERS: PCP Internal Medicine; Visit Provider Nurse Practitioner Family
DX: R94.31 Abnormal electrocardiogram [ECG] [EKG] (principal); R00.2 Palpitations; R51.9 Headache, unspecified; G89.29 Other chronic pain
CPT/HCPCS: 99204; G2211

== ENCOUNTER → 2025-01-16 07:59 | Outpatient (REF) | payer MEDICARE, MEDICAID, SELFPAY ==
--- NOTE | 2025-01-16 08:02 | CA_ITS ---
Acquisition Time: 2025-01-16 08:11:54 Total Exercise Time: 00:08:15 Test Indications: ABN EKG Medications: SEE H&P Protocol: RACHEL Max HR: 134 BPM 83% of Pred: 160 BPM Max BP: 180/80 mmHG Max Work Load: 10.1 METS Exercise stress test with exercise 8 mins 15 secs of Rachel Protocol, achieving 83% MPHR, with reports of dry mouth, no chest pain, with isolated PACs and PVCs, with normotensive response to exercise. Without any EKG changes meeting criteria for ischemia. In recovery, breathing slowly returned to baseline. Test reviewed with Dr. Carlton. Referred By: Thea Perez Electronically Signed By: Yordy Young
--- OUTSIDE RECORDS SUMMARY | 2025-01-16 08:04 | XMS_ITS | Clinical Summary ---
Author Organization [facility] Address [address] [address] Phone Care Team Providers Care Airline Operations Agent Name Role Phone Tod Kelly MD Primary [...] file Insurance MEDICARE PART A & B [facility] MEDICARE PART A & B HEALTH ([address] [address] MEDICARE PART A & B [facility] MEDICARE PART A & B HEALTH MEDICARE PART A & B [id number] [place] [address] MEDICARE PART A & B MEDICARE PART A & B [id number] [place] [address] MEDICARE PART A & B Member Subscriber Plan / Payer (Ef fective 2007-Present) Name:Henri Huerta Member ID:[id number] Relation to Subscriber:Self Name:Henri Huerta Subscriber ID:[id number] Payer ID:[id number] Group ID:Not on file Type:Medicare Address: [employer] [place] [place] [address] MED[facility] PART A & B [facility] Care Teams Airline Operations Agent Relationship Specialty Start Date End Date Tod Kelly MD [address] [place] [address] [place] [address] PCP - General Internal Medicine 12/05/19 Additional Source Comments The information contained in this document represents components of the legal health record. It is not the complete legal health record.[facility]
--- OUTSIDE RECORDS SUMMARY | 2025-01-16 08:04 | XMS_ITS | Patient Health Record ---
Author Organization [facility] Address [address] [place] [address] Care Team Providers Care Starbucks Barista Name Role Phone Robin (RETIRED) Tod LEHMAN Primary Care Provide r Unavailable Rico Vega Unavailable [phone] Reason For Referral No Information Medications Medication SIG (Take, Route, Frequency, Duration) Notes Start Date End Date Status Propranolol HCl 10 MG 1 tablet Orally prn Active Omeprazole 20 MG 1 capsule Orally Once a day Active [place] Carbonate 300 MG 1 capsule Orall y twice a day Active LORazepam 0.5 MG 1 tablet as needed O rally every 6 hrs Active tylenol 1 tab Oral daily Act satish Problems Problem Type SNOMED Code ICD Code Onset Dates Problem Status W/U Status Risk Notes Problem Screening for malignant neoplasm of colon (450402162) Encounter for screening for malignant neoplasm of colon (Z12.11) Active confirmed Problem Stricture of esophagus (82917755) Esophageal obstruction (K22.2) Active confirmed Problem Screening for malignant neoplasm of rectum (119297455) Encounter for screening for malignant neoplasm of rectum (Z12.12) Active confirmed Problem Gastroesophageal reflux disease without esophagitis (430474006) Gastroesophageal reflux disease without esophagitis (K21.9) Active confirmed Problem Gastroesophageal reflux disease (032595721) Gastroesophageal reflux disease, esophagitis presence not specified (K21.9) Active confirmed Problem Esophageal ring (89166236) Esophageal ring (K22.2) Active confirmed Problem Dysphagia (50328726) Dysphagia, unspecified type (R13.10) Active confirmed Plan Of Treatment Future Test Test Name Order Date UPPER GI ENDOSCOPY [place] DILATION OF ESOPH 12/10/2015 Insurance Providers Payer Name Payer Address Payer Phone Subscriber Number Group Number Insured Name Patient Relationship to Insured Coverage Start Date Coverage End Date MEDICARE OF [place] [address] [place] [id number] AMALIAAUGUSTO DESHPANDEMOND Self - patient is the insured MEDICAID OF [facility] [address] [place] [phone] [id number] AUGUSTO EDDYMOND Self - patient is the insured Medical (General) History Medical History History ICD Code Denies VA,DM,CVA,Lung disease,renal dise ase Depression/Anxiety GERD--UGI in the past with reflux Esophageal ring--esophageal obstruction--EGD in 11/2015--meat bolus removed and a distal esophageal ring was dilated with an 18-20mm balloon
--- OUTSIDE RECORDS SUMMARY | 2025-01-16 08:04 | XMS_ITS | Data Portability ---
Author Organization [place] [facility] Address [address] [address] Care Team Providers Care Clinical Dietetic Technician Name Role Phone ABDIRASHIDSAAD Primary Care Provider [phone] CAMERON BAIRD Primary Care Provider Assessment Encounter [...] prefers to have the imaging performed at [facility] and will ensure that the imaging disc [...] with the surgery and will contact the furnace installer helper, Mallorie, to arrange the procedure. Counseling was provided regarding the risks and benefits of the surgery, and the patient was encouraged to address his anxiety and depression with his primary care provider to ensure emotional stability prior to the procedure. The patient expressed understanding of the risks and rationale for the surgery and plans to consult with his internal control manager for additional emotional support. [email or web address] Not available 12/28/2024 16:06:40 Plan of Treatment Reminders Order Date Submit Date Provider Last Modified By Organization Details Last Modified Time Details Appointments None recorded. Lab None recorded. Referral None recorded. Procedures None recorded. Surgeries parotidecto my (SURG) 2024 025 [email or web address] Not available 16:12:[address], neck, w/ contrast - MD requests urgent imaging scheduling at [facility] due to patient anxiety 2024 025 [email or web address] [facility] (Imaging), [address] [place] [address], [address], 15:37:44 Medication Orders None recorded. Patient TargetsNo targets recorded. Patient Instructions Encounter Date Encounter Id Patient Instructions Last Modified By Organization Details Last Modified Time 12/07/2024 [id number] - Obtain the imaging disc from [facility] after the CT scan and bring it [...] note. [email or web address] Not available 12/07/2024 16:12:58 12/28/2024 [id number] - Contact the furnace installer helper, Mallorie, to arrange the procedure. - Consult with primary care provider to address anxiety and depression. - Consider meeting with a internal control manager for emotional support prior to surgery. [email or web address] [...] contr ast No observ ation record ed. [email or web address] Not Available 12/13 09:15:04 Result Notes None recorded. 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 15:55:43 Generalized anxiety disorder 20862532 Active 2024 SHILPA LARA MD [address] [place] [address], [place], [phone], [facility] - [facility] 16:02:59 Panic attack 497139830 Active 2024 SHILPA LARA MD [address] [place] [address], [place], [phone], [facility] - 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 5 15:47:42 Problem Notes None recorded. Medical Equipment None Reported. Allergies Allergen ID Allergen Name Allergen Category Reaction Reaction Severity Criticality Documentation Date Start Date Code Code System Note Provider Name and Address Organization Details Recorded Time 848590 aspirin medicatio n Not available Not available Not available 12/07/2024 1191 RxNorm [facility] [place] [facility] Not Available Not Available BD Regular Bevel Taylor 18 gauge x 1 USE DIRECTED TO [...] Updated DateTime 12/07/2024 182.88 cm 27.4 kg/m2 64710.66 g [facility] [place] [facility] [place] 12/07/2024 15:49:14 Date Recorded Body height Provider Name an d Address Organization Details Last Updated DateTime 12/28/[address] [facility] [place] [facility] [...] ICD10 Code Diagnosis IMO Codes Diagnosis Note [id number] SHILPA LARA MD [facility] [address] [address] 12/07/2024 15:20:04 12/07/2024 16:14:16 Neoplasm of submaxillary gland 457978208 D49.0 10001515 Generalize d anxiety disorder 30649552 F41.1 151904 Panic attack 315524457 F 41.0 73675 [id number] SHILPA LARA MD [facility] [address] [address] 12/28/2024 15:02:21 12/28/2024 16:19:20 Generalized anxiety disorder 70370412 F41.1 334470 Panic attack 198647405 F 41.0 44351 Neoplasm o f parotid gland 260176421 D49.0 3cm right inferior pleomorphi c adenoma Patient has a lesion of the RIGHT parotid salivary gland. We have discussed treatment options including observatio n as well as surgical interventi on to remove the lesion. Surgery is performed under general anesthesia at either [facility] or [facility]. The surgery is typically booked [...] Member ID Guarantor Name 12/25/2024 2 [place] [facility] Henri Huerta [id number] Henri Huerta 12/28/2024 1 [place] B[place]: [employer] Henri Huerta [id number] Henri Huerta Notes Date Note Type Note Provider Name and Address Organization Details Recorded Time 12/07/2024 text/html Right neck mass Onset early 2023 History 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 08/20/2024 [facility] ultrasound neck Well-defined hypoechoic mass right lateral submandibular space. 31 x 24 x 16 mm. Likely a complex lymph node. 09/05/2024 [facility], CT head with contrast no acute intracranial process 09/05/[address] [facility] [address] temporal bone with contrast Focal dehiscence of the roof of the right superior circular canal. Opacified left eustachian tube. 10/02/2024 [facility] ultrasound biopsy lymph node Salivary gland neoplasm [...] due to his condition. SHILPA LARA MD [address] [place] [address], [phone], [facility] - [facility] 12/07/2024 16:13:48 12/28/2024 text/html Right parotid mass Onset early 2023 History 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 08/20/2024 [facility] ultrasound neck Well-defined hypoechoic mass right lateral submandibular space. 31 x 24 x 16 mm. Likely a complex lymph node. 09/05/2024 [facility], CT head with contrast no acute intracranial process 09/05/[address] [facility] [address] temporal bone with contrast Focal dehiscence of the roof of the right superior circular canal. Opacified left eustachian tube. 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 12/20/2024 [facility], CT Angio head and neck w contrast [...] to remove the mass. SHILPA LARA MD [address] [place] [address], [phone], [place] [facility] 12/28/2024 16:07:21
== END ==
LOC: HO.CARD 07:59
PROVIDERS: PCP Internal Medicine; Visit Provider Nurse Practitioner Family
DX: R94.31 Abnormal electrocardiogram [ECG] [EKG] (principal); R00.2 Palpitations
CPT/HCPCS: 93017

== ENCOUNTER → 2025-01-16 08:02 | Outpatient (BNV) | payer MEDICARE, MEDICAID, SELFPAY | PROVIDERS: PCP Internal Medicine | DX: I49.1 Atrial premature depolarization (principal); I49.3 Ventricular premature depolarization | CPT/HCPCS: 93016; 93018 ==

== ENCOUNTER 2025-01-18 11:36 | Outpatient (AMB) | payer MEDICARE, MEDICAID, SELFPAY ==
--- NOTE | 2025-01-18 11:39 | MHC.PC.OV ---
Vital Signs 01/18/25 11:42 BP 124/72 Blood Pressure Location Lt brachial Position Sitting Respiration 14 Pulse 72 Pulse Source Pulse Oximeter Pulse Oximetry (%) 97 Oxygen Delivery Method Room Air Intake Visit Reasons: Anxiety Allergies aspirin (ASPIRIN) Allergy (Intermediate, Verified 01/18/25 11:41) STOMACH UPSET acetaminophen (From Fioricet) Adverse Reaction (Intermediate, Verified 01/18/25 11:41) Headache butalbital (From Fioricet) Adverse Reaction (Intermediate, Verified 01/18/25 11:41) Headache caffeine (From Fioricet) Adverse Reaction (Intermediate, Verified 01/18/25 11:41) Headache Tobacco use date assessed: 01/18/25 Dental Screening Dental Screen Date: 01/08/25 HPI HPI Comments History of Present Illness Details The patient is a 59 year old male with a past medical history of bipolar disorder, anxiety, hyperlipidemia, GERD presenting for follow up Neuro: persistent despite multiple medication trials. Tried indomethacin once recently-had strong emotional response-cried for the first time in years. Hesitant to try again bc he lives along. Following with neurology who recommend potential direct admission. Prominent temporal artery-ESR normal. received TMS therapy for depression. Says patient reported headaches during treatment. After the visit got left sided occital neuritis. Headaches-Following with neurology. Intractable. started aimovig-has taken third injection. Feels like they have just gotten worse/more persistent. Tried fioricet which caused immediate nasal congestion and worsening headache. Tried an 18 day course of prednisone-which did not improve symptomsRecent imaging-1. Focal dehiscence of the roof of the right superior circular canal. 2. Opacified left eustachian tube possibly due to secretions. CV: Abnormal EKG. Saw cardiology last week. Stress test normal. Echo next week. Reassuring. Migranal is still pending with insurance BH: Anxiety-requires lorazepam. Continues follow up psychiatry. [place] [facility] [place] hyp[place]adism. hypogonadal hypogonadism. Previously Dr. Mooney and previously saw Dr Villalobos. Heme/Onc: Pleomorphic adenoma-right neck.Saw ENT. Excision recommended. Cerumen impaction-did not tell them at that appt. Will get nurses appt today Labs with elevated tryptase-saw [facility]. Repeat still elevated, less so. Follow up labs otherwise reassuring. he will follow up there as needed. Endorses b/l lower abdominal pain, previously more right sided. U/S showed evidence of fat necrosis-He does do testosterone injections. No fevers. No vomiting. Chronic constipation. He has recently has hemorrhoids that have been more bothersome ROS see HPI PHYSICAL EXAM: GENERAL: Alert and oriented x 3. NAD EYES: EOMI. Anicteric. HENT: Moist mucous membranes. No scleral icterus. enlarged right submandibular node LUNGS: Clear to auscultation bilaterally. CARDIOVASCULAR: Regular rate and rhythm. ABDOMEN: Soft, tender to palpation right & left lower quadrant EXTREMITIES: No edema. Non-tender. SKIN: Warm, dry NEUROLOGIC: No focal neurological deficits. CN II-XII grossly intact PSYCHIATRIC: Cooperative. Appropriate mood and a [facility] Medical History Basal cell carcinoma Anemia Depression Mass of right side of neck Cervical lymphadenopathy Panic disorder Generalized anxiety disorder Major depressive disorder, recurrent severe without psychotic features Mild acid reflux Erectile dysfunction Depression Anxiety Hyperlipidemia Hypopituitarism Hypogonadism in male Tendinitis of left rotator cuff Gait abnormality Knee pain OA (osteoarthritis) of knee Thrombosed external hemorrhoid Family History Mother No problems noted. Father No problems noted. Other Mental health disorder Social History Housing: Apartment Alcohol intake: current Alcohol intake frequency: holidays/special occasions only Patient Tobacco Use Status: Never used Tobacco e-Cigarette/Vaping Use: Never Used service: No Current occupational status: disabled Current occupational exposures/hazards: No Cognitive needs: No Hearing needs: No Vision needs: Yes (reading glasses) Questionnaire Thrive Questionnaire Date Thrive assessed: 08/24/24 CHRISTOPHER-7 AMB Questionnaire CHRISTOPHER-7 Date CHRISTOPHER - 7 assessed: 08/24/24 Source: Developed by Drs. Rico Rondon, Gladis Zhang, Silvio Tucker and colleagues, with an educational jessica from [employer]. Physical exam (Primary Care) Vital Signs: Last Vital Signs Pulse 72 01/18/25 11:42 Resp 14 01/18/25 11:42 BP 124/72 01/18/25 11:42 Pulse Ox 97 01/18/25 11:42 Oxygen Delivery Method Room Air 01/18/25 11:42 Tobacco/Smoking Status: Tobacco use Status Tobacco use date assessed 01/18/25 01/18/25 11:44 Patient Tobacco Use Status Never used Tobacco 01/18/25 11:44 e-Cigarette/Vaping Use Never Used 01/18/25 11:44 Thrive Assessment: Date of Thrive Assessment Date Thrive assessed 08/24/24 01/18/25 11:44 Coding Level of Care Code Est Pt Level 4 (12334) Complex EM visit Add On G2211 Diagnoses Chronic intractable headache, unspecified headache type R51.9; G89.29 Headache type: unspecified Intractability: intractable Recurrent major depressive disorder, remission status unspecified F33.9 Active/Remission status: remission status unspecified Generalized anxiety disorder F41.1 Hypogonadotropic hypogonadism E23.0 Assessment & Plan Assessment & Plan (1) Chronic headache: Code(s): R51.9 - Headache, unspecified; G89.29 - Other chronic pain Category: Medical Qualifiers: Headache type: unspecified Intractability: intractable Qualified Code(s): R51.9 - Headache, unspecified; G89.29 - Other chronic pain (2) Major depression, recurrent: Code(s): F33.9 - Major depressive disorder, recurrent, unspecified Category: Medical Qualifiers: Active/Remission status: remission status unspecified Qualified Code(s): F33.9 - Major depressive disorder, recurrent, unspecified (3) Generalized anxiety disorder: Code(s): F41.1 - Generalized anxiety disorder Category: Medical (4) 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 - Hypopituitarism Category: Medical Plan 59 year old male presenting for follow up Ongoing anxiety Relentless GRANDE which he attributes to TMS therapy. Migranal pending Abd pain-us performed. discussed fat necrosis in setting of testosterone injections-reassurance provided. CT ordered Cerumen impaction. He followed up for nurse to flush following appt Orders: Orders CT abdomen pelvis wo/w IV con 01/18/25 R10.9 - Unspecified abdominal pain, R93.5 - Abnormal findings on diagnostic imaging of other abdominal regions, including retroperitoneum Medications: Refilled lorazepam take 1 tab by mouth twice a daily with an extra 1/2 tab as needed. Max 3 tab oral daily 85 tabs 3RF anxiety 30 days
[2025-01-18 11:42] VITALS: BP 124/72; PULSE 72; RESP 14; O2SAT 97
--- OUTSIDE RECORDS SUMMARY | 2025-01-18 14:05 | XMS_ITS | Encounter Summary ---
Author Organization [employer] Address [address] [facility] 7t [place] [address] Care Team Providers Care Vocational Rehabilitation Administrator Name Role Phone Unavailable Primary Care Provider Unavailabl e Encounter Details Date Type Department Care Team (Latest Contact Info) Description 09/05/2018 Abstract [facility] CONVERSIONS Dental, Provider, DDS Social History [...]
--- OUTSIDE RECORDS SUMMARY | 2025-01-18 14:05 | XMS_ITS | Continuity of Care Document ---
Author Organization [place] - [facility], [facility] Address [address] [place] [address] Care Team Providers Care Motion And Time Study Teacher Name Role Phone SADA MENDENHALL Primary Care Provider CAMERON BAIRD Primary Care [...] prefers to have the imaging performed at [facility] and will ensure that the imaging disc is obtained and brought to the next appointment for review. I advised the patient to call the office once the imaging is completed to schedule a follow-up appointment to discuss the results and finalize surgical plans. [email or web address] Not available 12/07/2024 16:12:58 Plan of Treatment Reminders Order Date Submit Date Provider Last Modified By Organization Details Last Modified Time Details Appointments None recorded. Lab None recorded. Referral None recorded. Procedures None recorded. Surgeries None recorded. Imaging CT, neck, w/ contrast - MD requests urgent imaging scheduling at [facility] due to patient anxiety 2024 025 [email or web address] [facility] (Imaging), [address] [facility], [place], [address], 15:37:44 Medication Orders None recorded. Patient TargetsNo targets recorded. Patient Instructions Encounter Date Encounter Id Patient Instructions Last Modified By Organization Details Last Modified Time 12/07/2024 [id number] - Obtain the imaging disc from [facility] after the CT scan and bring [...] the note. [email or web address] Not available 12/07/2024 16:12:58 Reason for Referral None Reported. Results Created Date Observation Date Name Description Value Unit Range Abnormal Flag Note LastModifiedBy Organization Detail LastModifiedTime 01/01/2012/20/2024 CT, angio gram, head, w/wo contr ast No observ ation record ed. [email or web address] Not Available 12/13 09:15:04 Result Notes None recorded. Problems Name Problem SNOMED Code Status Onset Date Resolution Date Notes Provider Name and Address Organization Details Recorded Time Neoplasm of submaxillary gland 928138852 Active 2024 SHILPA LARA MD [address] [place], [place] [address], [address], [facility] - [facility] 15:55:43 Generalized anxiety disorder 94096705 Active 2024 SHILPA LARA MD [address] [place], [place] [address], [address], [facility] - [facility] 16:02:59 Panic attack 366500486 Active 2024 SHILPA LARA MD [address] [place], [place] [address], [address], [facility] - [facility] 5 16:03:03 Neoplasm of parotid gland 661901082 Active 2024 SHILPA LARA MD [address] [place] [address] [place], [address], [facility] - [facility] 5 15:47:42 Problem Notes None recorded. Medical Equipment None Reported. Allergies Allergen ID Allergen Name Allergen Category Reaction Reaction Severity Criticality Documentation Date Start Date Code Code System Note Provider Name and Address Organization Details Recorded Time 099268 aspirin medicatio n Not available Not available Not available 12/07/2024 1191 RxNorm [facility] 5 15:49:24 Medications Name Sig Start Date [...] Not Available Not Available BD Regular Bevel [place] 18 gauge x 1 USE DIRECTED TO [...] Updated DateTime 12/07/2024 182.88 cm 27.4 kg/m2 67613.66 g TANNER GRIGGS [place] - [facility] 12/07/2024 15:49:14 Social History None recorded. Functional Status Question [...] ICD10 Code Diagnosis IMO Codes Diagnosis Note [id number] SHILPA LARA MD [facility] of [address] [address] 12/07/2024 15:20:04 12/07/2024 16:14:16 Neoplasm of submaxillary gland 304249804 D49.0 62471880 Generalize d anxiety disorder 32464464 F41.1 447447 Panic attack 079940683 F 41.0 80529 Health Concerns Section Related Observation LastModified by Organization Detai ls LastModified Time None Recorded Concern Status LastModified by Organization Details LastModified Time None Recorded Payers Encounter Date Sequence Insurance Name Policy Number Policy Murrell Covered Member ID Murrell Member ID Guarantor Name 12/07/2024 2 [place] [facility] Henri Huerta [id number] Henri Huerta 12/07/2024 1 [place] B[place] [employer] Henri Huerta [id number] Henri Huerta Notes Date Note Type Note Provider Name and Address Organization Details Recorded Time 12/07/2024 text/html Right neck mass Onset early 2023 History 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 08/20/2024 [facility] ultrasound neck Well-defined hypoechoic mass right lateral submandibular space. 31 x 24 x 16 mm. Likely a complex lymph node. 09/05/2024 [facility], CT head with contrast no acute intracranial process 09/05/[address] [facility] [address] temporal bone with contrast Focal dehiscence of the roof of the right superior circular canal. Opacified left eustachian tube. 10/02/2024 [facility] ultrasound biopsy lymph node Salivary gland neoplasm [...] due to his condition. SHILPA LARA MD [address] [place] [address], [address], [place] - [facility] 12/07/2024 16:13:48
--- OUTSIDE RECORDS SUMMARY | 2025-01-18 14:05 | XMS_ITS | Clinical Summary ---
Author Organization [employer] Address [address] [facility] 7t [place] [address] Care Team Providers Care Fashion Editor Name Role Phone Unavailable Primary Care Provider [...] 10:00 AM EDT Office Visit [facility] [address] [place] [address] Mere Tabares DDS 11/06/2024 11:00 AM EDT Office Visit [facility] [address] [place] [address] Mere Tabares DDS from Last 3 Months [...] [place] [address] [place] [address]
--- OUTSIDE RECORDS SUMMARY | 2025-01-18 14:05 | XMS_ITS | Clinical Summary ---
Author Organization [facility] Address [address] [address] Phone Care Team Providers Care Credit Reporting Clerk Name Role Phone Tod Kelly MD Primary [...] file Insurance MEDICARE PART A & B [facility] MEDICARE PART A & B HEALTH ([address] [address] MEDICARE PART A & B [facility] MEDICARE PART A & B HEALTH MEDICARE PART A & B [id number] [place] [address] MEDICARE PART A & B MEDICARE PART A & B [id number] [place] [address] MEDICARE PART A & B Member Subscriber Plan / Payer (Ef fective 2007-Present) Name:Henri Huerta Member ID:[id number] Relation to Subscriber:Self Name:Henri Huerta Subscriber ID:[id number] Payer ID:[id number] Group ID:Not on file Type:Medicare Address: [employer] [place] [address] [facility] PART A & B [facility] Care Teams Credit Reporting Clerk Relationship Specialty Start Date End Date Tod Kelly MD [address] [place] [address] [place] [address] PCP - General Internal Medicine 12/05/19 Additional Source Comments The information contained in this document represents components of the legal health record. It is not the complete legal health record.[facility]
--- OUTSIDE RECORDS SUMMARY | 2025-01-18 14:05 | XMS_ITS | Continuity of Care Document ---
Author Organization [place] - [facility], [facility] Address [address] [place] [address] Care Team Providers Care Liquid Hydrogen Plant Operator Name Role Phone SAAD MENDENHALL Primary Care Provider CAMERON BAIRD Primary Care Provider [phone] Assessment Encounter Date Assessment Date Assessment LastModified by Organization Details LastModified Time 12/28/2024 12/28/2024 The patient has been diagnosed [...] with the surgery and will contact the scheduler maintenance, Mallorie, to arrange the procedure. Counseling was provided regarding the risks and benefits of the surgery, and the patient was encouraged to address his anxiety and depression with his primary care provider to ensure emotional stability prior to the procedure. The patient expressed understanding of the risks and rationale for the surgery and plans to consult with his segregator for additional emotional support. [email or web address] Not available 12/28/2024 16:06:40 Plan of Treatment Reminders Order Date Submit Date Provider Last Modified By Organization Details Last Modified Time Details Appointments None recorded. Lab None recorded. Referral None recorded. Procedures None recorded. Surgeries parotidecto my (SURG) 2024 025 [email or web address] Not available 16:12:26 Imaging None recorded. Medication Orders None recorded. Patient TargetsNo targets recorded. Patient Instructions Encounter Date Encounter Id Patient Instructions Last Modified By Organization Details Last Modified Time 12/28/2024 [id number] - Contact the scheduler maintenance, Mallorie, to arrange the procedure. - Consult with primary care provider to address anxiety and depression. - Consider meeting with a segregator for emotional support prior to surgery. [email or web address] [...] contr ast No observ ation record ed. [email or web address] Not Available 12/13 09:15:04 Result Notes None recorded. 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 SHILPA LARA MD [address] [place] [address], [place], [address], [facility] - [facility] [place] 15:55:43 Generalized anxiety disorder 14423921 Active 2024 SHILPA LARA MD [address] [place] [address], [place], [address], [facility] - [facility] [place] 5 16:02:59 Panic attack 874202577 Active 2024 SHILPA LARA MD [address] [address], [place], [address], [facility] - [facility] [place] 5 16:03:03 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 Medical Equipment None Reported. Allergies Allergen ID Allergen Name Allergen Category Reaction Reaction Severity Criticality Documentation Date Start Date Code Code System Note Provider Name and Address Organization Details Recorded Time 955656 aspirin medicatio n Not available Not available Not available 12/07/2024 1191 RxNorm TANNER GRIGGS [facility] [place] - [facility] 5 15:49:24 Medications Name Sig Start Date [...] Not Available Not Available BD Regular Bevel [place] 18 gauge x 1 USE DIRECTED TO [...] t Available Vitals Date Recorded Body height Provider Name an d Address Organization Details Last Updated DateTime 12/28/2024 182.88 cm TANNER GRIGGS [place] - [facility] 12/28/2024 15:27:13 Social History None recorded. 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 We have discussed treatment options including observatio n as well as surgical interventi on to remove the lesion. Surgery is performed under general anesthesia at either [facility] or [facility]. 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 08/20/2024 [facility] ultrasound neck Well-defined hypoechoic mass right lateral submandibular space. 31 x 24 x 16 mm. Likely a complex lymph node. 09/05/2024 [facility], CT head with contrast no acute intracranial process 09/05/[address] [place] [address] temporal bone with contrast Focal dehiscence of the roof of the right superior circular canal. Opacified left eustachian tube. 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 12/20/2024 [place], CT Angio head and neck w contrast [...] to remove the mass. SHILPA LARA MD [address] [place] [address], [address], [facility] - [facility] 12/28/2024 16:07:21
--- OUTSIDE RECORDS SUMMARY | 2025-01-18 14:05 | XMS_ITS | Encounter Summary ---
Author Organization [employer] Address [address] [facility] 7t [place] [address] Care Team Providers Care Choke Reamer Name Role Phone Unavailable Primary Care Provider [...]
--- OUTSIDE RECORDS SUMMARY | 2025-01-18 14:05 | XMS_ITS | Patient Health Record ---
Author Organization [facility] Address [address] [place] [address] Care Team Providers Care Application Packaging Specialist Name Role Phone Robin (RETIRED) Tod LEHMAN Primary Care Provide r Unavailable Rico Vega Unavailable [phone] Reason For Referral No Information Medications Medication SIG (Take, Route, Frequency, Duration) Notes Start Date End Date Status Propranolol HCl 10 MG 1 tablet Orally prn Active Omeprazole 20 MG 1 capsule Orally Once a day Active [place] Carbonate 300 MG 1 capsule Orall y twice a day Active LORazepam 0.5 MG 1 tablet as needed O rally every 6 hrs Active tylenol 1 tab Oral daily Act satish Problems Problem Type SNOMED Code ICD Code Onset Dates Problem Status W/U Status Risk Notes Problem Screening for malignant neoplasm of colon (527001373) Encounter for screening for malignant neoplasm of colon (Z12.11) Active confirmed Problem Stricture of esophagus (52430103) Esophageal obstruction (K22.2) Active confirmed Problem Screening for malignant neoplasm of rectum (033204827) Encounter for screening for malignant neoplasm of rectum (Z12.12) Active confirmed Problem Gastroesophageal reflux disease without esophagitis (778557675) Gastroesophageal reflux disease without esophagitis (K21.9) Active confirmed Problem Gastroesophageal reflux disease (239672830) Gastroesophageal reflux disease, esophagitis presence not specified (K21.9) Active confirmed Problem Esophageal ring (48475806) Esophageal ring (K22.2) Active confirmed Problem Dysphagia (47204420) Dysphagia, unspecified type (R13.10) Active confirmed Plan Of Treatment Future Test Test Name Order Date UPPER GI ENDOSCOPY [place] DILATION OF ESOPH 12/10/2015 Insurance Providers Payer Name Payer Address Payer Phone Subscriber Number Group Number Insured Name Patient Relationship to Insured Coverage Start Date Coverage End Date MEDICARE OF [place] [address] [place] [address] [id number] AMALIAAUGUSTO DESHPANDEMOND Self - patient is the insured MEDICAID OF [facility] [address] [place] [address] [phone] [id number] AUGUSTO EDDYMOND Self - patient is the insured Medical (General) History Medical History History ICD Code Denies NC,DM,CVA,Lung disease,renal dise ase Depression/Anxiety GERD--UGI in the past with reflux Esophageal ring--esophageal obstruction--EGD in 11/2015--meat bolus removed and a distal esophageal ring was dilated with an 18-20mm balloon
--- OUTSIDE RECORDS SUMMARY | 2025-01-18 14:05 | XMS_ITS | Data Portability ---
Author Organization [place] - [facility] All[facility] Address [address] [address] Care Team Providers Care Calendering Machine Operator Name Role Phone ABDIRASHID SAAD Primary Care [...] prefers to have the imaging performed at [facility] and will ensure that the imaging [...] with the surgery and will contact the reed repairer, Mallorie, to arrange the procedure. Counseling was provided regarding the risks and benefits of the surgery, and the patient was encouraged to address his anxiety and depression with his primary care provider to ensure emotional stability prior to the procedure. The patient expressed understanding of the risks and rationale for the surgery and plans to consult with his tea plantation worker for additional emotional support. [email or web address] Not available 12/28/2024 16:06:40 Plan of Treatment Reminders Order Date Submit Date Provider Last Modified By Organization Details Last Modified Time Details Appointments None recorded. Lab None recorded. Referral None recorded. Procedures None recorded. Surgeries parotidecto my (SURG) 2024 025 [email or web address] Not available 16:12:[address], neck, w/ contrast - MD requests urgent imaging scheduling at [place] due to patient anxiety 2024 025 [email or web address] [facility] (Imaging), [address] [place] [address], [address], 15:37:44 Medication Orders None recorded. Patient TargetsNo targets recorded. Patient Instructions Encounter Date Encounter Id Patient Instructions Last Modified By Organization Details Last Modified Time 12/07/2024 [id number] - Obtain the imaging disc from [facility] after the CT scan and bring [...] note. [email or web address] Not available 12/07/2024 16:12:58 12/28/2024 [id number] - Contact the reed repairer, Mallorie, to arrange the procedure. - Consult with primary care provider to address anxiety and depression. - Consider meeting with a tea plantation worker for emotional support prior to surgery. [email or web address] [...] contr ast No observ ation record ed. [email or web address] Not Available 12/13 09:15:04 Result Notes None recorded. Problems Name Problem SNOMED Code Status Onset Date Resolution Date Notes Provider Name and Address Organization Details Recorded Time Neoplasm of submaxillary gland 040270141 Active 2024 SHILPA LARA MD [address] [place] [address], [facility] [place], [address], [facility] - [facility] 15:55:43 Generalized anxiety disorder 74184226 Active 2024 SHILPA LARA MD [address] [place] [address], [facility] [place], [address], [facility] - [facility] 16:02:59 Panic attack 311950205 Active 2024 SHILPA LARA MD [address] [place] [address], [place], [address], [facility] - [facility] 5 16:03:03 Neoplasm of parotid gland 565018496 Active 2024 SHILPA LARA MD 100 [facility] 100, [place], [address], [facility] - [facility] 5 15:47:42 Problem Notes None recorded. Medical Equipment None Reported. Allergies Allergen ID Allergen Name Allergen Category Reaction Reaction Severity Criticality Documentation Date Start Date Code Code System Note Provider Name and Address Organization Details Recorded Time 970790 aspirin medicatio n Not available Not available Not available 12/07/2024 1191 RxNorm [facility] [place] - [facility] 5 15:49:24 Medications Name Sig Start [...] Not Available Not Available BD Regular Bevel [place] 18 gauge x 1 USE DIRECTED TO [...] Updated DateTime 12/07/2024 182.88 cm 27.4 kg/m2 15903.66 g [facility] [place] - [facility] [place] 12/07/2024 15:49:14 Date Recorded Body height Provider Name an d Address Organization Details Last Updated DateTime 12/28/2024 182.88 cm [facility] [place] - [facility] 12/28/2024 15:27:13 Social History None recorded. [...] ICD10 Code Diagnosis IMO Codes Diagnosis Note [id number] SHILPA LARA MD [facility] [address] [address] 12/07/2024 15:20:04 12/07/2024 16:14:16 Neoplasm of submaxillary gland 335529627 D49.0 43402563 Generalize d anxiety disorder 77020132 F41.1 947771 Panic attack 697554743 F 41.0 21573 [id number] SHILPA LARA MD [facility] of [address] [address] 12/28/2024 15:02:21 12/28/2024 16:19:20 Generalized anxiety disorder 09251967 F41.1 783826 Panic attack 231559508 F 41.0 68560 Neoplasm o f parotid gland 110136976 D49.0 3cm right inferior pleomorphi c adenoma Patient has a lesion of the RIGHT parotid salivary gland. We have discussed treatment options including observatio n as well as surgical interventi on to remove the lesion. Surgery is performed under general anesthesia at either [facility] or [facility]. 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 08/20/2024 [place] ultrasound neck Well-defined hypoechoic mass right lateral submandibular space. 31 x 24 x 16 mm. Likely a complex lymph node. 09/05/2024 [place], CT head with contrast no acute intracranial process 09/05/[address] [place] [address] temporal bone with contrast Focal dehiscence of the roof of the right superior circular canal. Opacified left eustachian tube. 10/02/2024 [place] ultrasound biopsy lymph node Salivary gland neoplasm [...] due to his condition. SHILPA LARA MD [address] [place] [address], [address], 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 08/20/2024 [place] ultrasound neck Well-defined hypoechoic mass right lateral submandibular space. 31 x 24 x 16 mm. Likely a complex lymph node. 09/05/2024 [place], CT head with contrast no acute intracranial process 09/05/[address] [place] [address] temporal bone with contrast Focal dehiscence of the roof of the right superior circular canal. Opacified left eustachian tube. 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 12/20/2024 [place], CT Angio head and neck w contrast [...] to remove the mass. SHILPA LARA MD [address] [place] [address], [address], [place] - [facility] 12/28/2024 16:07:21
== END 2025-01-18 12:12 | disposition home or self-care (01) ==
PROVIDERS: PCP Internal Medicine; Visit Provider Internal Medicine
DX: R51.9 Headache, unspecified (principal); F33.9 Major depressive disorder, recurrent, unspecified; F41.1 Generalized anxiety disorder; E23.0 Hypopituitarism

== ENCOUNTER → 2025-01-18 11:36 | Outpatient (BNVA) | payer MEDICARE, MEDICAID, SELFPAY | PROVIDERS: PCP Internal Medicine; Visit Provider Internal Medicine | DX: R51.9 Headache, unspecified (principal); G89.29 Other chronic pain; F33.9 Major depressive disorder, recurrent, unspecified; F41.1 Generalized anxiety disorder; E23.0 Hypopituitarism; E78.5 Hyperlipidemia, unspecified; K21.9 Gastro-esophageal reflux disease without esophagitis; D36.7 Benign neoplasm of other specified sites; H61.23 Impacted cerumen, bilateral | CPT/HCPCS: 69209; 99212 ==

== ENCOUNTER → 2025-01-21 10:02 | Outpatient (REF) | payer MEDICARE, MEDICAID, OTHER, SELFPAY ==
--- NOTE | 2025-01-21 10:04 | CA_ITS ---
Transthoracic Echocardiogram Patient (Last, First, Middle): Henri Huerta, Gender: M Date of : 1965 Age: 59 Procedure Date: 01/21/2025 Procedure Type: Transthoracic Echocardiogram Location: OP Height: 182.88 cm Weight: 89.81 kg BSA: 2.12 m2 Heart Rate: 72 bpm BP: 118 / 65 mmHg Marketing Data Specialist: TIFFANIE Referring MD: Thea Perez BIOLOGIST-Sander Asbestos Shingle Inspector: Andrea Ansari MD Symptoms: R94.31 - Abnormal electrocardiogram [ECG] [EKG] Study Quality: Adequate ECG Rhythm: Sinus Conclusions: - 1. Normal LV ejection fraction 55-60% with mildly increased LV wall thickness with grade 1 diastolic dysfunction 2. Mildly dilated left atrium 3. Normal cardiac valvular Dopplers 4. No gross pericardial effusion Findings Left Ventricle Normal left ventricular size and systolic function. There is mildly increased left ventricular wall thickness. The visually estimated ejection fraction is between 55-60%. Spectral Doppler is indicative of an impaired relaxation filling pattern. E/E prime ratio is <8, consistent with normal filling pressures. Evidence suggests grade I (mild) diastolic dysfunction. Right Ventricle Normal right ventricular cavity size and systolic function. Atria The left atrium is normal in size. There is no evidence of interatrial shunt. Aortic Valve Normal aortic valve structure and function. There is no aortic valve stenosis. There is no aortic valve regurgitation. Mitral Valve Normal mitral valve structure and function. There is trace mitral valve regurgitation. There is no mitral valve stenosis. Pulmonic Valve The pulmonic valve is likely normal. There is trace pulmonic valve regurgitation. Tricuspid Valve Likely normal tricuspid valve structure and function. Tricuspid regurgitation envelope is inadequate for calculation of right ventricular systolic pressure. Normal right atrial pressure. Great Vessels All visible segments of the aorta are normal in size. The pulmonary artery was not well visualized. There is no dilatation of the ascending aorta measuring 3.30 cm. Venous The inferior vena cava is normal in size and collapses greater than 50% with inspiration. Pericardium/Pleural There is no evidence of pericardial effusion. Prior Study Comparison No prior study available for comparison. Measurements 2D Linear Measurements IVSd: 1.25 0.6-0.9/0.6-1.0 cm LVIDd: 4.48 3.9-5.3/4.2-5.9 cm LVIDd Index: 2.11 2.4-3.2/2.2-3.1 cm/m2 LVIDs: 2.61 2.0-3.6 cm LVPWd: 1.32 0.7-1.1 cm LA Diam: 4.20 2.7-3.8/3.0-4.0 cm LAIDs Index: 1.98 1.5-2.3 cm/m2 LV Mass: 270.91 67-162/88-224 g LV Mass Index: 127.79 43-95/49-115 g/m2 LVOT Diam: 2.20 3.0+(-)1.3 cm 2D Systolic Function EF 4C: 56.40 >55% EF 2C: 59.20 >55% EF BiP: 57.60 >55% Mitral Valve MV Pk E: 0.74 MV PK A: 0.76 MV Decel Time: 315.00 E/A: 1.00 E'Lateral: 8.16 E'Medial: 5.87 E/E' Med: 12.60 E/E' Lat: 9.10 PHT: 92.00 MVA PHT: 2.39 Decel Snyder: 2.35 Aortic Valve AoV Pk Alec: 1.40 AoV Mn Alec: 0.90 AoV VTI: 0.27 AoV Pk Grad: 8.00 Aov Mn Grad: 4.00 EBONY Cont.VTI: 3.07 LVOT LVOT Pk Alec: 1.06 LVOT Mn Alec: 0.77 LVOT VTI: 0.22 LVOT Pk Grad: 4.00 LVOT Mn Grad: 3.00 LVOT Diam: 2.20 LVOT Area: 3.80 Diastolic Function MV Pk E: 0.74 MV Pk A: 0.76 E/A: 1.00 E'Medial: 5.87 E/E' Med: 12.60 E' Laterial: 8.16 E/E' Lat: 9.10 Right Ventricle TAPSE (mm): 27.60 TVS' Alec: 15.20 Tricuspid Valve RA Press: 3.00 Great Vessels Aorta Sinus of Valsalva: 3.40 2.0-3.5 cm Ao Asc: 3.30 2.1-3.4 cm Ao Arch: 3.10 Pulmonary Veins Pulm Vein S/D 1.50 Pulmonary Valve PV Pk Alec: 1.40 Peak PV Grad: 8.00 Updated in Other Vendor System with Status of Final Andrea Ansari MD electronically signed on 01/21/2025 4:23:43 PM with status of Final
--- OUTSIDE RECORDS SUMMARY | 2025-01-21 11:38 | XMS_ITS | Encounter Summary ---
Author Organization [employer] Address [address] [facility] 7t [place] [address] Care Team Providers Care Manager Of Revenue Name Role Phone Unavailable Primary Care Provider Unavailabl e Encounter Details Date Type Department Care Team (Latest Contact Info) Description 09/05/2018 Abstract [facility] CONVERSIONS Dental, Provider, DDS Social History [...]
--- OUTSIDE RECORDS SUMMARY | 2025-01-21 11:38 | XMS_ITS | Clinical Summary ---
Author Organization [facility] Address [address] [address] Phone Care Team Providers Care Free Lance Artist Name Role Phone Tod Kelly MD Primary [...] patient's age to complete this topic IPV VACCINES Aged Out No longer eligi ble based on patient's age to complete this topic MENINGOCOCCAL VACCINES (ACWY) Aged Out No longer eligible based on patient's age to complete this topic MENINGOCOCCAL VACCINES (B) Aged Out N o longer eligible based on patient's age to complete this topic [place] [id number] MEDICARE PART A & B [facility] MEDICARE PART A & B HEALTH MEDICARE PART A & B [id number] [place] [address] MEDICARE PART A & B MEDICARE PART A & B [id number] [place] [address] MEDICARE PART A & B [facility] MEDICARE PART A & B [facility] MEDICARE PART A & B Member Subscriber Plan / Payer (Ef fective 2007-Present) Name:Henri Huerta Member ID:[id number] Relation to Subscriber:Self Name:Henri Huerta Subscriber ID:[id number] Payer ID:[id number] Group ID:Not on file Type:Medicare Address: [place] [address] [facility]IC[facility] PART A & B [id number] [place] [address] Care Teams Free Lance Artist Relationship Specialty Start Date End Date Tod Kelly MD [address] [place] [address] [place] [address] PCP - General Internal Medicine 12/05/19 Additional Source Comments The information contained in this document represents components of the legal health record. It is not the complete legal health record.[facility]
--- OUTSIDE RECORDS SUMMARY | 2025-01-21 11:38 | XMS_ITS | Continuity of Care Document ---
Author Organization [place] - [facility], [facility] Address [address] [place] [address] Care Team Providers Care Narrow Fabric Loom Fixer Name Role Phone SAAD MENDENHALL Primary Care [...] with the surgery and will contact the icu registered nurse, Mallorie, to arrange the procedure. Counseling was provided regarding the risks and benefits of the surgery, and the patient was encouraged to address his anxiety and depression with his primary care provider to ensure emotional stability prior to the procedure. The patient expressed understanding of the risks and rationale for the surgery and plans to consult with his restaurant hourly team member for additional emotional support. [email or web address] Not available 12/28/2024 16:06:40 Plan of Treatment Reminders Order Date Submit Date Provider Last Modified By Organization Details Last Modified Time Details Appointments None recorded. Lab None recorded. Referral None recorded. Procedures None recorded. Surgeries parotidecto my (SURG) 2024 025 [email or web address] Not available 16:12:26 Imaging None recorded. Medication Orders None recorded. Patient TargetsNo targets recorded. Patient Instructions Encounter Date Encounter Id Patient Instructions Last Modified By Organization Details Last Modified Time 12/28/2024 [id number] - Contact the icu registered nurse, Mallorie, to arrange the procedure. - Consult with primary care provider to address anxiety and depression. - Consider meeting with a restaurant hourly team member for emotional support prior to surgery. [email or web address] [...] contr ast No observ ation record ed. [email or web address] Not Available 12/13 09:15:04 Result Notes None recorded. 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 SHILPA LARA MD [address] [place] [address], [place], [address], [facility] - [facility] [place] 15:55:43 Generalized anxiety disorder 94719530 Active 2024 SHILPA LARA MD [address] [place] [address], [place], [address], [facility] - [facility] [place] 5 16:02:59 Panic attack 655782850 Active 2024 SHILPA LARA MD [address] [address], [place], [address], [facility] - [facility] [place] 5 16:03:03 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 Medical Equipment None Reported. Allergies Allergen ID Allergen Name Allergen Category Reaction Reaction Severity Criticality Documentation Date Start Date Code Code System Note Provider Name and Address Organization Details Recorded Time 353706 aspirin medicatio n Not available Not available Not available 12/07/2024 1191 RxNorm TANNER GRIG[facility] [place] - [facility] 5 15:49:24 Medications Name Sig Start [...] Not Available Not Available BD Regular Bevel [place] 18 gauge x 1 USE DIRECTED TO [...] [place] - [facility] 12/28/2024 15:27:13 Social History None recorded. [...] ICD10 Code Diagnosis IMO Codes Diagnosis Note [id number] SHILPA LARA MD [facility] of [address] [address] 12/07/2024 15:20:04 12/07/2024 16:14:16 Neoplasm of submaxillary gland 992015198 D49.0 68920853 Generalize d anxiety disorder 83691227 F41.1 840671 Panic attack 208015018 F 41.0 57278 27550 SHILPA LARA MD [facility] [address] [address] 12/28/2024 15:02:21 12/28/2024 16:19:20 Generalized anxiety disorder 07894512 F41.1 087678 Panic attack 084979323 F 41.0 [address]4026 Neoplasm o f parotid gland 387222868 D49.0 3cm right inferior pleomorphi c adenoma Patient has a lesion of the RIGHT parotid salivary gland. We have discussed treatment options including observatio n as well as surgical interventi on to remove the lesion. Surgery is performed under general anesthesia at either [facility] or [facility]. 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 08/20/2024 [place] ultrasound neck Well-defined hypoechoic mass right lateral submandibular space. 31 x 24 x 16 mm. Likely a complex lymph node. 09/05/2024 [place], CT head with contrast no acute intracranial process 09/05/[address] [place] [address] temporal bone with contrast Focal dehiscence of the roof of the right superior circular canal. Opacified left eustachian tube. 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 12/20/2024 [place], CT Angio head and neck w contrast [...] remove the mass. SHILPA LARA MD [address] [place] [address], [address], [facility] - [facility] 12/28/2024 16:07:21
--- OUTSIDE RECORDS SUMMARY | 2025-01-21 11:38 | XMS_ITS | Clinical Summary ---
Author Organization [employer] Address [address] [facility] 7t [place] [address] Care Team Providers Care Store Sales Leader Name Role Phone Unavailable Primary Care Provider [...] 11/09/2024 10:00 AM EDT Office Visit [facility] AD[facility] [address] [place] [address] Mere Tabares DDS 11/06/2024 11:00 AM EDT Office Visit [facility] [address] [place] [address] Mere Tabares DDS from Last 3 Months [...] [place] [address] [place] [address]
--- OUTSIDE RECORDS SUMMARY | 2025-01-21 11:38 | XMS_ITS | Continuity of Care Document ---
Author Organization [place] - [facility], [facility] Address [address] [place] [address] Care Team Providers Care Rag Sorter Name Role Phone SAAD MENDENHALL Primary Care [...] prefers to have the imaging performed at [facility] and will ensure that the imaging [...] - MD requests urgent imaging scheduling at [place] due to patient anxiety 2024 025 [facility] (Imaging), [address] [facility], [place], [address], 15:37:44 Medication Orders None recorded. Patient TargetsNo targets recorded. Patient Instructions Encounter Date Encounter Id Patient Instructions Last Modified By Organization Details Last Modified Time 12/07/2024 [id number] - Obtain the imaging disc from [facility] after the CT scan and bring [...] contr ast No observ ation record ed. [email or web address] Not Available 12/13 09:15:04 Result Notes None recorded. Problems Name Problem SNOMED Code Status Onset Date Resolution Date Notes Provider Name and Address Organization Details Recorded Time Neoplasm of submaxillary gland 136928998 Active 2024 SHILPA LARA MD [address] [place], [place] [address] [place], [address], [facility] - [facility] [place] 15:55:43 Generalized anxiety disorder 59297104 Active 2024 SHILPA LARA MD [address] [place], [place] [address], [address], [facility] - [facility] [place] 16:02:59 Panic attack 791025605 Active 2024 SHILPA LARA MD [address] [place], [place] [address] [place], [address], [facility] - [facility] [place] 5 16:03:03 Neoplasm of parotid gland 613426148 Active 2024 SHILPA LARA MD [address] [place] [address] [place], [address], [facility] - [facility] 5 15:47:42 Problem Notes None recorded. Medical Equipment None Reported. Allergies Allergen ID Allergen Name Allergen Category Reaction Reaction Severity Criticality Documentation Date Start Date Code Code System Note Provider Name and Address Organization Details Recorded Time 368701 aspirin medicatio n Not available Not available Not available 12/07/2024 1191 [facility] 5 15:49:24 Medications Name Sig Start [...] Not Available Not Available BD Regular Bevel [place] 18 gauge x 1 USE DIRECTED TO [...] Updated DateTime 12/07/2024 182.88 cm 27.4 kg/m2 94361.66 g TANNER GRIGGS [place] - [facility] 12/07/2024 15:49:14 Social History None recorded. Functional [...] ICD10 Code Diagnosis IMO Codes Diagnosis Note [id number] SHILPA LARA MD [facility] of [address] [address] 12/07/2024 15:20:04 12/07/2024 16:14:16 Neoplasm of submaxillary gland 302952128 D49.0 89459986 Generalize d anxiety disorder 74620682 F41.1 016073 Panic attack 075915967 F 41.0 [address]708 Health Concerns Section Related Observation LastModified by Organization Detai ls LastModified Time None Recorded Concern Status LastModified by Organization Details LastModified Time None Recorded Payers Encounter Date Sequence Insurance Name Policy Number Policy Murrell Covered Member ID Murrell Member ID Guarantor Name 12/07/2024 2 [place] [facility] Henri Huerta [id number] Henri Huerta 12/07/2024 1 [place] [employer] Henri Huerta [id number] Henri Huerta Notes Date Note Type Note Provider Name and Address Organization Details Recorded Time 12/07/2024 text/html Right neck mass Onset early 2023 History 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 08/20/2024 [place] ultrasound neck Well-defined hypoechoic mass right lateral submandibular space. 31 x 24 x 16 mm. Likely a complex lymph node. 09/05/2024 [place], CT head with contrast no acute intracranial process 09/05/[address] [place] [address] temporal bone with contrast Focal dehiscence of the roof of the right superior circular canal. Opacified left eustachian tube. 10/02/2024 [place] ultrasound biopsy lymph node Salivary gland neoplasm [...] due to his condition. SHILPA LARA MD [address] [place] [address], [address], [place] - [facility] 12/07/2024 16:13:48
--- OUTSIDE RECORDS SUMMARY | 2025-01-21 11:38 | XMS_ITS | Encounter Summary ---
Author Organization [employer] Address [address] [facility] 7t [place] [address] Care Team Providers Care Unit Controller Name Role Phone Unavailable Primary Care Provider [...]
--- OUTSIDE RECORDS SUMMARY | 2025-01-21 11:38 | XMS_ITS | Data Portability ---
Author Organization [place] - [facility] Allergy Address [address] [address] Care Team Providers Care Scrap Sawyer Name Role Phone ABDIRASHID SAAD Primary Care [...] prefers to have the imaging performed at [facility] and will ensure that the imaging [...] with the surgery and will contact the bilingual inside sales representative, Mallorie, to arrange the procedure. Counseling was provided regarding the risks and benefits of the surgery, and the patient was encouraged to address his anxiety and depression with his primary care provider to ensure emotional stability prior to the procedure. The patient expressed understanding of the risks and rationale for the surgery and plans to consult with his compliance lead for additional emotional support. [email or web address] Not available 12/28/2024 16:06:40 Plan of Treatment Reminders Order Date Submit Date Provider Last Modified By Organization Details Last Modified Time Details Appointments None recorded. Lab None recorded. Referral None recorded. Procedures None recorded. Surgeries parotidecto my (SURG) 2024 025 [email or web address] [id number] Not available 16:12:[address], neck, w/ contrast - MD requests urgent imaging scheduling at [place] due to patient anxiety 2024 025 [email or web address] [facility] (Imaging), [address] [place] [address], [address], 15:37:44 Medication Orders None recorded. Patient TargetsNo targets recorded. Patient Instructions Encounter Date Encounter Id Patient Instructions Last Modified By Organization Details Last Modified Time 12/07/2024 [id number] - Obtain the imaging disc from [facility] after the CT scan and bring [...] note. [email or web address] Not available 12/07/2024 16:12:58 12/28/2024 [id number] - Contact the bilingual inside sales representative, Mallorie, to arrange the procedure. - Consult with primary care provider to address anxiety and depression. - Consider meeting with a compliance lead for emotional support prior to surgery. [email or web address] [...] contr ast No observ ation record ed. [email or web address] Not Available 12/13 09:15:04 Result Notes None recorded. Problems Name Problem SNOMED Code Status Onset Date Resolution Date Notes Provider Name and Address Organization Details Recorded Time Neoplasm of submaxillary gland 666547017 Active 2024 SHILPA LARA MD [address] [place] [address], [place], [address], [facility] - [facility] 15:55:43 Generalized anxiety disorder 34987507 Active 2024 SHILPA LARA MD [address] [place] [address], [place], [address], [facility] - [facility] 16:02:59 Panic attack 423295916 Active 2024 SHILPA LARA MD [address] [place] [address], [place], [address], [facility] - [facility] 5 16:03:03 Neoplasm of parotid gland 721622077 Active 2024 SHILPA LARA MD 100 [facility] 100, [place], [address], [facility] - [facility] 5 15:47:42 Problem Notes None recorded. Medical Equipment None Reported. Allergies Allergen ID Allergen Name Allergen Category Reaction Reaction Severity Criticality Documentation Date Start Date Code Code System Note Provider Name and Address Organization Details Recorded Time 352447 aspirin medicatio n Not available Not available Not available 12/07/2024 1191 RxNorm TANNER GRIGGS [facility] [place] - [facility] 5 15:49:24 Medications Name Sig Start Date [...] Not Available Not Available BD Regular Bevel [place] 18 gauge x 1 USE DIRECTED TO [...] Updated DateTime 12/07/2024 182.88 cm 27.4 kg/m2 17955.66 g [facility] [place] [facility] [place] 12/07/2024 15:49:14 Date Recorded Body height Provider Name an d Address Organization Details Last Updated DateTime 12/28/2024 182.88 cm [facility] [place] - [facility] 12/28/2024 15:27:13 Social History None recorded. Functional [...] ICD10 Code Diagnosis IMO Codes Diagnosis Note [id number] SHILPA LARA MD [facility] [address] [address] 12/07/2024 15:20:04 12/07/2024 16:14:16 Neoplasm of submaxillary gland 147848054 D49.0 61871746 Generalize d anxiety disorder 50738414 F41.1 827574 Panic attack 349520066 F 41.0 91420 [id number] SHILPA LARA MD [facility] [address] [address] 12/28/2024 15:02:21 12/28/2024 16:19:20 Generalized anxiety disorder 02389819 F41.1 789800 Panic attack 126666515 F 41.0 25108 Neoplasm o f parotid gland 218691946 D49.0 3cm right inferior pleomorphi c adenoma Patient has a lesion of the RIGHT parotid salivary gland. We have discussed treatment options including observatio n as well as surgical interventi on to remove the lesion. Surgery is performed under general anesthesia at either [facility] or [facility]. 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 08/20/2024 [place] ultrasound neck Well-defined hypoechoic mass right lateral submandibular space. 31 x 24 x 16 mm. Likely a complex lymph node. 09/05/2024 [place], CT head with contrast no acute intracranial process 09/05/[address] [place] [address] temporal bone with contrast Focal dehiscence of the roof of the right superior circular canal. Opacified left eustachian tube. 10/02/2024 [place] ultrasound biopsy lymph node Salivary gland neoplasm [...] due to his condition. 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 08/20/2024 [place] ultrasound neck Well-defined hypoechoic mass right lateral submandibular space. 31 x 24 x 16 mm. Likely a complex lymph node. 09/05/2024 [place], CT head with contrast no acute intracranial process 09/05/[address] [place] [address] temporal bone with contrast Focal dehiscence of the roof of the right superior circular canal. Opacified left eustachian tube. 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 12/20/2024 [place], CT Angio head and neck w contrast [...] to remove the mass. SHILPA LARA MD [address] [place] [address], [phone], [place] - [facility] 12/28/2024 16:07:21
== END ==
LOC: HO.CARD 10:02
PROVIDERS: PCP Internal Medicine; Visit Provider Nurse Practitioner Family
DX: R00.2 Palpitations (principal); R94.31 Abnormal electrocardiogram [ECG] [EKG]
CPT/HCPCS: 93306

== ENCOUNTER → 2025-01-21 10:04 | Outpatient (BNV) | payer MEDICARE, MEDICAID, OTHER, SELFPAY | PROVIDERS: PCP Internal Medicine; Visit Provider Internal Medicine Cardiovascular Disease | DX: R94.31 Abnormal electrocardiogram [ECG] [EKG] (principal) | CPT/HCPCS: 93306 ==

== ENCOUNTER 2025-02-05 15:53 | Outpatient (REF) | payer MEDICARE, MEDICAID, SELFPAY ==
--- NOTE | ~2025-02-05 | CT_ITS ---
EXAMINATION: CT ABDOMEN AND PELVIS WITHOUT CONTRAST CLINICAL INFORMATION: Unspecified abdominal pain. COMPARISON: None available. TECHNIQUE: Multidetector volumetric imaging was performed from the superior aspect of the liver through the pubic symphysis. Sagittal and coronal reformatted images were obtained on the technologist's workstation. This CT examination was performed using dose optimization techniques as appropriate, variously including the following: *Automated exposure control *Adjustment of mA and/or kV according to patient size (this includes techniques or standardized protocols for targeted exams where dose is matched to indication/reason for exam; i.e. extremities or head) *Use of iterative reconstruction technique FINDINGS: LUNG BASES: There is a small fat-containing Bochdalek hernia in the posterior left diaphragm. Lung bases are otherwise clear. Heart size is normal. There are no effusions. There is a small to moderate sized paraesophageal hiatus hernia present. LIVER, GALLBLADDER, AND BILIARY TREE: The unenhanced liver is normal in size, shape, and attenuation. No focal hepatic lesion or biliary ductal dilatation is present. The gallbladder is unremarkable with no evidence of radiopaque gallstones, gallbladder wall thickening, or obvious pericholecystic inflammatory changes. PANCREAS: Unremarkable. SPLEEN: Unremarkable. ADRENAL GLANDS: Unremarkable. KIDNEYS AND URETERS: The unenhanced kidneys are normal in size, shape, and attenuation. No hydronephrosis, hydroureter, or calculi seen. No perinephric stranding. There is an 11 mm cyst in the midpole of the right kidney. BLADDER: Completely contracted, limiting evaluation. No gross abnormality. GASTROINTESTINAL TRACT: Small to moderate sized paraesophageal hiatus hernia. Remainder of the stomach appears normal. The duodenal sweep appears normal. The small bowel is normal in caliber and course. No wall thickening or inflammation grossly. Normal appendix is visualized. The colon is normal in course and caliber throughout. There is no wall thickening or inflammation seen. The rectum is normal. ABDOMINAL WALL: No significant hernia is appreciated. LYMPH NODES: There is no abnormal lymphadenopathy present. VASCULAR: Unremarkable. PELVIC VISCERA: The prostate is mildly enlarged, measuring diameter of 5.0 cm. OSSEOUS STRUCTURES: No suspicious lytic or blastic bone lesion is present. Degenerative changes with levoconvex scoliosis of the imaged spine. Mild degenerative changes in both of the hip joints. CT/CT abdomen pelvis wo IV con IMPRESSION: 1. There is no acute finding in the abdomen or pelvis. 2. There are ancillary findings as discussed in the body of the report. Electronically signed by: Manuelito Harden MD 02/05/2025 04:24 PM JEY TYLER
--- OUTSIDE RECORDS SUMMARY | 2025-02-05 19:20 | XMS_ITS | Clinical Summary ---
Author Organization [facility] Address [address] [address] Phone Care Team Providers Care Photoresist Contact Printer Name Role Phone Tod Kelly MD Primary [...] file Insurance MEDICARE PART A & B [facility] MEDICARE PART A & B HEALTH ([address] [address] MEDICARE PART A & B [facility] MEDICARE PART A & B HEALTH MEDICARE PART A & B [id number] [place] [address] MEDICARE PART A & B MEDICARE PART A & B [id number] [place] [address] MEDICARE PART A & B Member Subscriber Plan / Payer (Ef fective 2007-Present) Name:Henri Huerta Member ID:[id number] Relation to Subscriber:Self Name:Henri Huerta Subscriber ID:[id number] Payer ID:[id number] Group ID:Not on file Type:Medicare Address: [place] [address] [facility] PART A & B [facility] Care Teams Photoresist Contact Printer Relationship Specialty Start Date End Date Tod Kelly MD [address] [place] [address] [place] [address] PCP - General Internal Medicine 12/05/19 Additional Source Comments The information contained in this document represents components of the legal health record. It is not the complete legal health record.[facility]
--- OUTSIDE RECORDS SUMMARY | 2025-02-05 19:20 | XMS_ITS | Continuity of Care Document ---
Author Organization [place] - [facility], [facility] Address [address] [place] [address] Care Team Providers Care Public Relations Supervisor Name Role Phone SAAD MENDENHALL Primary Care [...] with the surgery and will contact the senior data quality analyst, Mallorie, to arrange the procedure. Counseling was provided regarding the risks and benefits of the surgery, and the patient was encouraged to address his anxiety and depression with his primary care provider to ensure emotional stability prior to the procedure. The patient expressed understanding of the risks and rationale for the surgery and plans to consult with his technical publications writer for additional emotional support. [email or web address] Not available 12/28/2024 16:06:40 Plan of Treatment Reminders Order Date Submit Date Provider Last Modified By Organization Details Last Modified Time Details Appointments None recorded. Lab None recorded. Referral None recorded. Procedures None recorded. Surgeries parotidecto my (SURG) 2024 025 [email or web address] Not available 16:12:26 Imaging None recorded. Medication Orders None recorded. Patient TargetsNo targets recorded. Patient Instructions Encounter Date Encounter Id Patient Instructions Last Modified By Organization Details Last Modified Time 12/28/2024 [id number] - Contact the senior data quality analyst, Mallorie, to arrange the procedure. - Consult with primary care provider to address anxiety and depression. - Consider meeting with a technical publications writer for emotional support prior to surgery. [email or web address] [...] contr ast No observ ation record ed. [email or web address] Not Available 12/13 09:15:04 Result Notes None recorded. Problems Name Problem SNOMED Code Status Onset Date Resolution Date Notes Provider Name and Address Organization Details Recorded Time Neoplasm of submaxillary gland 103468263 Active 2024 SHILPA LARA MD [address] [place] [address], [place], [address], [facility] - [facility] [place] 15:55:43 Generalized anxiety disorder 36740496 Active 2024 SHILPA LARA MD [address] [place] [address], [place], [address], [facility] - [facility] [place] 5 16:02:59 Panic attack 041554617 Active 2024 SHILPA LARA MD [address] [place] [address], [place], [address], [facility] - [facility] [place] 5 16:03:03 Neoplasm of parotid gland 656328627 Active 2024 SHILPA LARA MD [address] [address], [place], [address], [facility] - [facility] [place] 5 15:47:42 Problem Notes None recorded. Medical Equipment None Reported. Allergies Allergen ID Allergen Name Allergen Category Reaction Reaction Severity Criticality Documentation Date Start Date Code Code System Note Provider Name and Address Organization Details Recorded Time 808421 aspirin medicatio n Not available Not available Not available 12/07/2024 1191 RxNorm TANNER GRIGGS [facility] [place] - [facility] 5 15:49:24 Medications Name Sig Start [...] Not Available Not Available BD Regular Bevel [place] 18 gauge x 1 USE DIRECTED TO [...] [place] - [facility] 12/28/2024 15:27:13 Social History None recorded. [...] ICD10 Code Diagnosis IMO Codes Diagnosis Note [id number] SHILPA LARA MD [facility] [address] [address] 12/07/2024 15:20:04 12/07/2024 16:14:16 Neoplasm of submaxillary gland 076955151 D49.0 80089847 Generalize d anxiety disorder 76727817 F41.1 144681 Panic attack 776916660 F 41.0 04199 [id number] SHILPA LARA MD [facility] [address] [address] 12/28/2024 15:02:21 12/28/2024 16:19:20 Generalized anxiety disorder 63859624 F41.1 434366 Panic attack 231422589 F 41.0 [address]8523 Neoplasm o f parotid gland 841588932 D49.0 3cm right inferior pleomorphi c adenoma Patient has a lesion of the RIGHT parotid salivary gland. We have discussed treatment options including observatio n as well as surgical interventi on to remove the lesion. Surgery is performed under general anesthesia at either [facility] or [facility]. 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 08/20/2024 [place] ultrasound neck Well-defined hypoechoic mass right lateral submandibular space. 31 x 24 x 16 mm. Likely a complex lymph node. 09/05/2024 [place], CT head with contrast no acute intracranial process 09/05/[address] [place] [address] temporal bone with contrast Focal dehiscence of the roof of the right superior circular canal. Opacified left eustachian tube. 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 12/20/2024 [place], CT Angio head and neck w contrast [...] to remove the mass. SHILPA LARA MD [address] [place] [address], [address], [facility] - [facility] 12/28/2024 16:07:21
--- OUTSIDE RECORDS SUMMARY | 2025-02-05 19:20 | XMS_ITS | Continuity of Care Document ---
Author Organization [place] - [facility], [facility] Address [address] [place] [address] Care Team Providers Care Patient Services Technician Name Role Phone SAAD MENDENHALL Primary Care [...] prefers to have the imaging performed at [facility] and will ensure that the imaging [...] - MD requests urgent imaging scheduling at [place] due to patient anxiety 2024 025 [email or web address] [facility] (Imaging), 4 [facility], [place], [address], 15:37:44 Medication Orders None recorded. Patient TargetsNo targets recorded. Patient Instructions Encounter Date Encounter Id Patient Instructions Last Modified By Organization Details Last Modified Time 12/07/2024 [id number] - Obtain the imaging disc from [facility] after the CT scan and bring [...] contr ast No observ ation record ed. [email or web address] Not Available 12/13 09:15:04 Result Notes None recorded. 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 SHILPA LARA MD [address] [place], [place] [address] [place], [address], [facility] - [facility] [place] 15:55:43 Generalized anxiety disorder 03739829 Active 2024 SHILPA LARA MD [address] [place], [place] [address], [address], [facility] - [facility] [place] 16:02:59 Panic attack 976480040 Active 2024 SHILPA LARA MD [address] [place], [place] [address], [address], [facility] - [facility] [place] 5 16:03:03 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 Medical Equipment None Reported. Allergies Allergen ID Allergen Name Allergen Category Reaction Reaction Severity Criticality Documentation Date Start Date Code Code System Note Provider Name and Address Organization Details Recorded Time 079126 aspirin medicatio n Not available Not available Not available 12/07/2024 1191 RxNorm [facility] 5 15:49:24 Medications Name Sig Start [...] Not Available Not Available BD Regular Bevel [place] 18 gauge x 1 USE DIRECTED TO [...] Updated DateTime 12/07/2024 182.88 cm 27.4 kg/m2 71212.66 g TANNER GRIGGS [place] - [facility] 12/07/2024 15:49:14 Social History None recorded. [...] ICD10 Code Diagnosis IMO Codes Diagnosis Note [id number] SHILPA LARA MD [facility] of [address] [address] 12/07/2024 15:20:04 12/07/2024 16:14:16 Neoplasm of submaxillary gland 263610170 D49.0 13406829 Generalize d anxiety disorder 72041455 F41.1 155288 Panic attack 655524237 F 41.0 04189 Health Concerns Section Related Observation LastModified by Organization Detai ls LastModified Time None Recorded Concern Status LastModified by Organization Details LastModified Time None Recorded Payers Encounter Date Sequence Insurance Name Policy Number Policy Murrell Covered Member ID Murrell Member ID Guarantor Name 12/07/2024 2 [place] Huerta [id number] Henri Huerta 12/07/2024 1 MEDICARE B-[place] [employer] Henri Huerta [id number] Henri Huerta Notes Date Note Type Note Provider Name and Address Organization Details Recorded Time 12/07/2024 text/html Right neck mass Onset early 2023 History 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 08/20/2024 [place] ultrasound neck Well-defined hypoechoic mass right lateral submandibular space. 31 x 24 x 16 mm. Likely a complex lymph node. 09/05/2024 [place], CT head with contrast no acute intracranial process 09/05/[address] [place] [address] temporal bone with contrast Focal dehiscence of the roof of the right superior circular canal. Opacified left eustachian tube. 10/02/2024 [place] ultrasound biopsy lymph node Salivary gland neoplasm [...] due to his condition. SHILPA LARA MD [address] [place] [address], [address], [place] - [facility] 12/07/2024 16:13:48
--- OUTSIDE RECORDS SUMMARY | 2025-02-05 19:20 | XMS_ITS | Encounter Summary ---
Author Organization [employer] Address [address] [facility] [address] [place] [address] Care Team Providers Care Clam Treader Name Role Phone Unavailable Primary Care Provider [...]
--- OUTSIDE RECORDS SUMMARY | 2025-02-05 19:20 | XMS_ITS | Clinical Summary ---
Author Organization [employer] Address [address] [facility] [address] [place] [address] Care Team Providers Care Security Police Officer Name Role Phone Unavailable Primary Care [...] Description 11/09/2024 10:00 AM EDT Office Visit [facility] [address] [place] [address] Mere Tabares DDS 11/06/2024 11:00 AM EDT Office Visit [facility] [address] [place] [address] Mere Tabares DDS from Last 3 Months [...] [place] [address] [place] [address]
--- OUTSIDE RECORDS SUMMARY | 2025-02-05 19:20 | XMS_ITS | Data Portability ---
Author Organization [place] [facility] Address [address] [address] Care Team Providers Care Computer Systems Design Analyst Name Role Phone ABDIRASHID SAAD Primary Care [...] prefers to have the imaging performed at [facility] and will ensure that the imaging [...] with the surgery and will contact the etymology professor, Mallorie, to arrange the procedure. Counseling was provided regarding the risks and benefits of the surgery, and the patient was encouraged to address his anxiety and depression with his primary care provider to ensure emotional stability prior to the procedure. The patient expressed understanding of the risks and rationale for the surgery and plans to consult with his child care attendant school for additional emotional support. [email or web address] Not available 12/28/2024 16:06:40 Plan of Treatment Reminders Order Date Submit Date Provider Last Modified By Organization Details Last Modified Time Details Appointments None recorded. Lab None recorded. Referral None recorded. Procedures None recorded. Surgeries parotidecto my (SURG) 2024 025 [email or web address] Not available 16:12:[address], neck, w/ contrast - MD requests urgent imaging scheduling at [facility] due to patient anxiety 2024 025 [email or web address] [facility] (Imaging), [address] [place] [address], [id number], 15:37:44 Medication Orders None recorded. Patient TargetsNo targets recorded. Patient Instructions Encounter Date Encounter Id Patient Instructions Last Modified By Organization Details Last Modified Time 12/07/2024 [id number] - Obtain the imaging disc from [facility] after the CT scan and bring [...] note. [email or web address] Not available 12/07/2024 16:12:58 12/28/2024 [id number] - Contact the etymology professor, Mallorie, to arrange the procedure. - Consult with primary care provider to address anxiety and depression. - Consider meeting with a child care attendant school for emotional support prior to surgery. [email or web address] [...] contr ast No observ ation record ed. [email or web address] Not Available 12/13 09:15:04 Result Notes None recorded. Problems Name Problem SNOMED Code Status Onset Date Resolution Date Notes Provider Name and Address Organization Details Recorded Time Neoplasm of submaxillary gland 527762026 Active 2024 SHILPA LARA MD [address] [place] [address], [place], [phone], [facility] - [facility] 15:55:43 Generalized anxiety disorder 75829567 Active 2024 SHILPA LARA MD [address] [place] [address], [place], [address], [facility] - [facility] 16:02:59 Panic attack 497008720 Active 2024 SHILPA LARA MD [address] [place] [address], [place], [address], [facility] - [facility] 5 16:03:03 Neoplasm of parotid gland 234011447 Active 2024 SHILPA LARA MD 100 [facility] 100, [place], [address], [facility] - [facility] 5 15:47:42 Problem Notes None recorded. Medical Equipment None Reported. Allergies Allergen ID Allergen Name Allergen Category Reaction Reaction Severity Criticality Documentation Date Start Date Code Code System Note Provider Name and Address Organization Details Recorded Time 535096 aspirin medicatio n Not available Not available Not available 12/07/2024 1191 RxNorm TANNER GRIGGS [facility] [place] [facility] 5 15:49:24 Medications Name Sig Start [...] Not Available Not Available BD Regular Bevel [place] 18 gauge x 1 USE DIRECTED TO [...] Updated DateTime 12/07/2024 182.88 cm 27.4 kg/m2 39351.66 g [facility] [place] [facility] [place] 12/07/2024 15:49:14 Date Recorded Body height Provider Name an d Address Organization Details Last Updated DateTime 12/28/2024 182.88 cm [facility] [place] [facility] 12/28/2024 15:27:13 Social History None recorded. [...] ICD10 Code Diagnosis IMO Codes Diagnosis Note [id number] SHILPA LARA MD [facility] [address] [address] 12/07/2024 15:20:04 12/07/2024 16:14:16 Neoplasm of submaxillary gland 711689286 D49.0 68570531 Generalize d anxiety disorder 59562769 F41.1 113371 Panic attack 758652678 F 41.0 82736 [id number] SHILPA LARA MD [facility] [address] [address] 12/28/2024 15:02:21 12/28/2024 16:19:20 Generalized anxiety disorder 12539186 F41.1 474755 Panic attack 031919429 F 41.0 22284 Neoplasm o f parotid gland 951600589 D49.0 3cm right inferior pleomorphi c adenoma Patient has a lesion of the RIGHT parotid salivary gland. We have discussed treatment options including observatio n as well as surgical interventi on to remove the lesion. Surgery is performed under general anesthesia at either [facility] or [facility]. The surgery is typically booked [...] Name 12/25/2024 2 [place] [facility] Henri Huerta [id number] Henri Huerta 12/28/2024 1 [place] [employer] Henri Huerta [id number] Henri Huerta Notes Date Note Type Note Provider Name and Address Organization Details Recorded Time 12/07/2024 text/html Right neck mass Onset early 2023 History 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 08/20/2024 [facility] neck Well-defined hypoechoic mass right lateral submandibular space. 31 x 24 x 16 mm. Likely a complex lymph node. 09/05/2024 [facility], CT head with contrast no acute intracranial process 09/05/[address] temporal bone with contrast Focal dehiscence of the roof of the right superior circular canal. Opacified left eustachian tube. 10/02/2024 [facility] ultrasound biopsy lymph node Salivary gland neoplasm [...] due to his condition. SHILPA LARA MD [address] [place] [address], [phone], [facility] - [facility] 12/07/2024 16:13:48 12/28/2024 text/html Right parotid mass Onset early 2023 History 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 08/20/2024 [facility] ultrasound neck Well-defined hypoechoic mass right lateral submandibular space. 31 x 24 x 16 mm. Likely a complex lymph node. 09/05/2024 [facility], CT head with contrast no acute intracranial process 09/05/[address] temporal bone with contrast Focal dehiscence of the roof of the right superior circular canal. Opacified left eustachian tube. 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 12/20/2024 [facility], CT Angio head and neck w contrast [...] to remove the mass. SHILPA LARA MD [address] [place] [address], [phone], [place] [facility] 12/28/2024 16:07:21
--- OUTSIDE RECORDS SUMMARY | 2025-02-05 19:20 | XMS_ITS | Encounter Summary ---
Author Organization [employer] Address [address] [facility] [address] [place] [address] Care Team Providers Care Safety Assistant Name Role Phone Unavailable Primary Care Provider [...]
--- OUTSIDE RECORDS SUMMARY | 2025-02-05 19:20 | XMS_ITS | Patient Health Record ---
Author Organization [facility] Address [address] [place] [address] Care Team Providers Care Beer Merchant Name Role Phone Robin (RETIRED) Tod LEHMAN Primary Care Provide r Unavailable Rico Vega Unavailable [phone] Reason For Referral No Information Medications Medication SIG (Take, Route, Frequency, Duration) Notes Start Date End Date Status Propranolol HCl 10 MG Tablet 1 tablet Orally prn Active Omeprazole 20 MG Tablet Delayed Release 1 capsule Orally Once a day Active [place] Carbonate 300 MG Capsule 1 capsule Orally twice a day Active LORazepam 0.5 MG Tablet 1 tablet as need ed Orally every 6 hrs Active tylenol 1 tab Oral daily Act satish Social History Social History Additional Details Category Social Info Options Details Miscellaneous: Marital status: single Occupation: On Disability Section Notes: Nonsmoker; no sig alcohol Nonsmoker; no sig alcohol Problems Problem Type SNOMED Code ICD Code Onset Dates Problem Status W/U Status Risk Notes Problem Screening for malignant neoplasm of colon (644918728) Encounter for screening for malignant neoplasm of colon (Z12.11) Active confirmed Problem Stricture of esophagus (78276570) Esophageal obstruction (K22.2) Active confirmed Problem Screening for malignant neoplasm of rectum (125342289) Encounter for screening for malignant neoplasm of rectum (Z12.12) Active confirmed Problem Gastroesophageal reflux disease without esophagitis (386747632) Gastroesophageal reflux disease without esophagitis (K21.9) Active confirmed Problem Gastroesophageal reflux disease (744995963) Gastroesophageal reflux disease, esophagitis presence not specified (K21.9) Active confirmed Problem Esophageal ring (35683858) Esophageal ring (K22.2) Active confirmed Problem Dysphagia (36158414) Dysphagia, unspecified type (R13.10) Active confirmed Plan Of Treatment Future Test Test Name Order Date UPPER GI ENDOSCOPY BALLOOON DILATION OF ESOPH 12/10/2015 Insurance Providers Payer Name Payer Address Payer Phone Subscriber Number Group Number Insured Name Patient Relationship to Insured Coverage Start Date Coverage End Date MEDICARE OF [place] [address] [place] [id number] [phone] [id number] GISELA EDDY Self - patient is the insured MEDICAID OF [facility] [address] [place] [phone] [id number] GISELA EDDY Self - patient is the insured Medical (General) History Medical History History ICD Code Denies MD,DM,CVA,Lung disease,renal dise ase Depression/Anxiety GERD--UGI in the past with reflux Esophageal ring--esophageal obstruction--EGD in 11/2015--meat bolus removed and a distal esophageal ring was dilated with an 18-20mm balloon
== END 2025-02-05 15:54 | disposition home or self-care (01) ==
LOC: HO.CT 15:53
PROVIDERS: Visit Provider Internal Medicine
DX: R93.5 Abnormal findings on diagnostic imaging of other abdominal regions, including retroperitoneum (principal); R10.9 Unspecified abdominal pain
CPT/HCPCS: 74176

== ENCOUNTER → 2025-02-05 15:55 | Outpatient (BNV) | payer MEDICARE, MEDICAID, SELFPAY | PROVIDERS: Visit Provider Radiology Diagnostic Radiology | DX: R10.9 Unspecified abdominal pain (principal) | CPT/HCPCS: 74176 ==

== ENCOUNTER 2025-02-19 10:40 | Outpatient (AMB) | payer MEDICARE, MEDICAID, SELFPAY ==
[2025-02-19 10:42] VITALS: BP 130/82; PULSE 84; BMI 26.5
--- NOTE | 2025-02-19 10:42 | MHC.OFFVIS ---
Vital Signs 02/19/25 10:42 Height 6 ft Weight 195 lb 5.273 oz BMI 26.5 BP 130/82 Blood Pressure Location Lt brachial Position Sitting Pulse 84 Pulse Source Pulse Oximeter Intake Visit Reasons: r/s 02/22/25 1 mo followup/echo Orchid Worker Required: No Allergies aspirin (ASPIRIN) Allergy (Intermediate, Verified 02/19/25 10:45) STOMACH UPSET acetaminophen (From Fioricet) Adverse Reaction (Intermediate, Verified 02/19/25 10:45) Headache butalbital (From Fioricet) Adverse Reaction (Intermediate, Verified 02/19/25 10:45) Headache caffeine (From Fioricet) Adverse Reaction (Intermediate, Verified 02/19/25 10:45) Headache Medication List - Last Reconciled 02/19/25 by BECKIE Mayer dihydroergotamine (Migranal) 1 spray intranasal Q15M 2 doses [knee brace-b/l As directed] lithium carbonate ER 300 mg PO BID lorazepam take 1 tab by mouth twice a daily with an extra 1/2 tab as needed. Max 3 tab oral daily 30 days needle (disp) 18 G (BD Regular Bevel [place]) As directed - draw up testosterone needle (disp) 25 gauge (BD Regular Bevel [place]) As directed for weekly Testosterone injection omeprazole 20 mg PO DAILY safety needles (BD SafetyGlide Needle) As directed syringe (disposable) (BD Bulk Syringe Slip Tip) As directed tadalafil 20 mg PO DAILY 90 days testosterone cypionate (Depo-Testosterone) 150 mg (0.75 mL) subcut QWEEK 4 weeks HPI HPI r/s 02/22/25 1 mo followup/echo: Details: Henri is a 59-year-old male with past medical history of depression, anxiety, panic disorder who has been suffering from acute/chronic headaches, has abnormal EKG finding and recent reports of heart palpitations while on prednisone who was referred to Cardiology for evaluation. On last visit an echocardiogram and exercise stress test were ordered. He now presents for follow-up. Today he reports no chest discomfort at rest or with activity. No shortness of breath, PND, orthopnea or edema. No lightheadedness, presyncope, syncope. He did notice pounding heart while taking an 18 day course of prednisone recently. Since then he has had only intermittent heart palpitations where he can feel bursts of rapid heartbeat lasting about 5 beats then resolving. This does not cause him much concern since it is so brief. He has not been able to start Migrinal medication yet due to issues obtaining it. He denies any personal history of hypertension, hyperlipidemia or diabetes. He declines the use of YESENIA during this visit as he does not believe in AI. COUNTS INCLUDE 234 BEDS AT THE [facility] Medical History Basal cell carcinoma Anemia Depression Mass of right side of neck Cervical lymphadenopathy Panic disorder Generalized anxiety disorder Major depressive disorder, recurrent severe without psychotic features Mild acid reflux Erectile dysfunction Depression Anxiety Hyperlipidemia Hypopituitarism Hypogonadism in male Tendinitis of left rotator cuff Gait abnormality Knee pain OA (osteoarthritis) of knee Thrombosed external hemorrhoid Family History Mother No problems noted. Father No problems noted. Other Mental health disorder Social History Housing: Apartment Alcohol intake: current Alcohol intake frequency: holidays/special occasions only Patient Tobacco Use Status: Never used Tobacco e-Cigarette/Vaping Use: Never Used service: No Current occupational status: disabled Current occupational exposures/hazards: No Cognitive needs: No Hearing needs: No Vision needs: Yes (reading glasses) Review of Systems Const Details: high anxiety All systems reviewed & are unremarkable except as noted in HPI and below ENT Denies dizziness Card Denies chest pain, Denies chest pain at rest, Denies chest pain with activity, Denies rapid heart rate, Denies pedal edema, Denies edema, Denies leg edema, Denies lightheadedness, Denies palpitations, Denies dyspnea, Denies dyspnea on exertion and Denies orthopnea Resp Denies cough, Denies dyspnea and Denies dyspnea on exertion GI Denies hematochezia and Denies change in stool character Musc Denies abnormal gait, Denies limited range of motion, Denies muscle cramps, Denies muscle weakness, Denies numbness, Denies radiating pain into limb, Denies stiffness and Denies tingling Neuro Denies abnormal gait, Denies dizziness, Denies numbness and Denies tingling Endo Denies palpitations Physical Exam Vital Signs: Last Vital Signs Pulse 84 02/19/25 10:42 BP 130/82 02/19/25 10:42 BMI result Body Mass Index 26.5 Const General: cooperative, healthy appearing, comfortable and no acute distress Orientation/consciousness: patient oriented x3 Neck Neck: Yes normal visual inspection Resp Effort & Inspection: normal respiratory effort Auscultation: clear to auscultation bilaterally, no rales, no rhonchi and no wheezes Cardio Rate: regular rate Rhythm: regular rhythm Heart sounds: S1 normal heart sound present, S2 normal heart sound present, no gallops, no murmurs and no rubs Neuro General: patient oriented x3 Psych Appearance: grossly normal Mental Status: mental status grossly normal Speech and movement: Normal speech and movement present Assessment & Plan Assessment & Plan (1) Abnormal EKG: Code(s): R94.31 - Abnormal electrocardiogram [ECG] [EKG] Category: Medical Plan: Recent EKGs reviewed: 11/26/2024 showing sinus rhythm with possible left atrial enlargement and minimal voltage criteria for LVH. EKG 12/25/2024 showing sinus bradycardia with minimal voltage criteria for LVH. No anginal symptoms, no history of hypertension. Echocardiogram done 01/21/2025 showed EF 55-60%, mild increase in the LV wall thickness, grade 1 diastolic dysfunction, mildly dilated left atrium. Exercise stress test done 01/16/2025 with exercise 8 minutes 15 seconds, isolated PACs, no EKG changes of ischemia. Test results reviewed with him. He has no significant symptoms at this time. No need for further evaluation or treatment at present. (2) Palpitations: Code(s): R00.2 - Palpitations Category: Medical Plan: Reports of heart palpitations while taking prednisone that did cause him concern and since that time has notice brief rapid palpitations, that are not as bothersome. Recent EKG with normal AR, QRS and QTC intervals. Previously Discussed Holter monitor and he declines. He did have PACs noted at time of stress test. No indication for med management at this time. Reviewed anxiety/stress control, reduction in caffeinated beverages and maintain good hydration. (3) Chronic headache: Code(s): R51.9 - Headache, unspecified; G89.29 - Other chronic pain Category: Medical Qualifiers: Headache type: unspecified Intractability: intractable Qualified Code(s): R51.9 - Headache, unspecified; G89.29 - Other chronic pain Plan: Being followed by Neurology and PCP for acute/chronic headaches. He says it is severe and he is hoping to start on Migranal in near future. He has been cleared from Cardiology in his now waiting to receive it from the pharmacy. Plan Time spent on chart review, documentation, interview and assessment Coding Level of Care Code Est Pt Level 3 (51616) Complex visit Add On G2211 Diagnoses Abnormal EKG R94.31 Palpitations R00.2 Chronic intractable headache, unspecified headache type R51.9; G89.29 Headache type: unspecified Intractability: intractable Time Spent (min) 24
== END 2025-02-19 11:02 | disposition home or self-care (01) ==
LOC: HO.HCS 10:41
PROVIDERS: PCP Internal Medicine; Visit Provider Nurse Practitioner Family
DX: R94.31 Abnormal electrocardiogram [ECG] [EKG] (principal); R00.2 Palpitations; R51.9 Headache, unspecified; G89.29 Other chronic pain
CPT/HCPCS: 99213; G2211

== ENCOUNTER → 2025-02-19 10:40 | Outpatient (BNVA) | payer MEDICARE, MEDICAID, SELFPAY | PROVIDERS: PCP Internal Medicine; Visit Provider Nurse Practitioner Family | DX: R94.31 Abnormal electrocardiogram [ECG] [EKG] (principal); R00.2 Palpitations; R51.9 Headache, unspecified; G89.29 Other chronic pain | CPT/HCPCS: 99212 ==

== ENCOUNTER 2025-03-11 10:07 | Outpatient (REF) | payer MEDICARE, MEDICAID, SELFPAY ==
--- OUTSIDE RECORDS SUMMARY | 2025-03-11 11:22 | XMS_ITS | Continuity of Care Document ---
Author Organization [place] - [facility], [facility] Address [address] [place] [address] Care Team Providers Care Ornamenter Hand Name Role Phone SAAD MENDENHALL Primary Care Provider [phone] CAMERON BAIRD Primary Care Provider Assessment Encounter [...] with the surgery and will contact the plastic surgery assistant, Mallorie, to arrange the procedure. Counseling was provided regarding the risks and benefits of the surgery, and the patient was encouraged to address his anxiety and depression with his primary care provider to ensure emotional stability prior to the procedure. The patient expressed understanding of the risks and rationale for the surgery and plans to consult with his drafter civil (cad) for additional emotional support. [email or web address] Not available 12/28/2024 16:06:40 Plan of Treatment Reminders Order Date Submit Date Provider Last Modified By Organization Details Last Modified Time Details Appointments None recorded. Lab None recorded. Referral None recorded. Procedures None recorded. Surgeries parotidecto my (SURG) 2024 025 [email or web address] Not available 16:12:26 Imaging None recorded. Medication Orders None recorded. Patient TargetsNo targets recorded. Patient Instructions Encounter Date Encounter Id Patient Instructions Last Modified By Organization Details Last Modified Time 12/28/2024 [id number] - Contact the plastic surgery assistant, Mallorie, to arrange the procedure. - Consult with primary care provider to address anxiety and depression. - Consider meeting with a drafter civil (cad) for emotional support prior to surgery. [email or web address] [...] contr ast No observ ation record ed. [email or web address] Not Available 12/13 09:15:04 Result Notes None recorded. 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 [place] 15:55:43 Generalized anxiety disorder 33963031 Active 2024 SHILPA LARA MD [address] [place] [address], [place], [address], [facility] - [facility] [place] 5 16:02:59 Panic attack 509415308 Active 2024 SHILPA LARA MD [address] [address], [place], [address], 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 - [facility] [place] 5 15:47:42 Problem Notes None recorded. Medical Equipment None Reported. Allergies Allergen ID Allergen Name Allergen Category Reaction Reaction Severity Criticality Documentation Date Start Date Code Code System Note Provider Name and Address Organization Details Recorded Time 212716 aspirin medicatio n Not available Not available Not available 12/07/2024 1191 RxNorm TANNER GRIG[facility] [place] - [facility] 5 15:49:24 Medications Name Sig Start Date [...] Not Available Not Available BD Regular Bevel [place] 18 gauge x 1 USE DIRECTED TO [...] [place] [facility] 12/28/2024 15:27:13 Social History None recorded. 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 We have discussed treatment options including observatio n as well as surgical interventi on to remove the lesion. Surgery is performed under general anesthesia at either [facility] or [facility]. 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 08/20/2024 [place] ultrasound neck Well-defined hypoechoic mass right lateral submandibular space. 31 x 24 x 16 mm. Likely a complex lymph node. 09/05/2024 [place], CT head with contrast no acute intracranial process 09/05/[address] [place] [address] temporal bone with contrast Focal dehiscence of the roof of the right superior circular canal. Opacified left eustachian tube. 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 12/20/2024 [place], CT Angio head and neck w contrast [...] to remove the mass. SHILPA LARA MD [address] [place] [address], [phone], [facility] - [facility] 12/28/2024 16:07:21
--- OUTSIDE RECORDS SUMMARY | 2025-03-11 11:22 | XMS_ITS | Encounter Summary ---
Author Organization [employer] Address [address] [facility] 7t [place] [address] Care Team Providers Care Hurl Shaker Name Role Phone Unavailable Primary Care Provider [...]
--- OUTSIDE RECORDS SUMMARY | 2025-03-11 11:22 | XMS_ITS | Data Portability ---
Author Organization [place] - [facility] Address [address] [address] Care Team Providers Care School Supervisor Name Role Phone ABDIRASHID SAAD Primary Care [...] prefers to have the imaging performed at [facility] and will ensure that the imaging [...] with the surgery and will contact the ticket broker, Mallorie, to arrange the procedure. Counseling was provided regarding the risks and benefits of the surgery, and the patient was encouraged to address his anxiety and depression with his primary care provider to ensure emotional stability prior to the procedure. The patient expressed understanding of the risks and rationale for the surgery and plans to consult with his line prep cook for additional emotional support. [email or web address] Not available 12/28/2024 16:06:40 Plan of Treatment Reminders Order Date Submit Date Provider Last Modified By Organization Details Last Modified Time Details Appointments None recorded. Lab None recorded. Referral None recorded. Procedures None recorded. Surgeries parotidecto my (SURG) 2024 025 9 Not available 16:12:[address], neck, w/ contrast - MD requests urgent imaging scheduling at [place] due to patient anxiety 2024 025 [email or web address] [facility] (Imaging), [address] [place] [address], [address], 15:37:44 Medication Orders None recorded. Patient TargetsNo targets recorded. Patient Instructions Encounter Date Encounter Id Patient Instructions Last Modified By Organization Details Last Modified Time 12/07/2024 [id number] - Obtain the imaging disc from [facility] after the CT scan and bring [...] note. [email or web address] Not available 12/07/2024 16:12:58 12/28/2024 [id number] - Contact the ticket broker, Mallorie, to arrange the procedure. - Consult with primary care provider to address anxiety and depression. - Consider meeting with a line prep cook for emotional support prior to surgery. [email or web address] [...] contr ast No observ ation record ed. [email or web address] Not Available 12/13 09:15:04 Result Notes None recorded. Problems Name Problem SNOMED Code Status Onset Date Resolution Date Notes Provider Name and Address Organization Details Recorded Time Neoplasm of submaxillary gland 569536445 Active 2024 SHILPA LARA MD [address] [place] [address], [place], [address], [facility] - [facility] 15:55:43 Generalized anxiety disorder 40235468 Active 2024 SHILPA LARA MD [address] [place] [address], [place], [address], [facility] - [facility] 16:02:59 Panic attack 264689100 Active 2024 SHILPA LARA MD [address] [place] [address], [place], [address], [facility] - [facility] 5 16:03:03 Neoplasm of parotid gland 119347814 Active 2024 SHILPA LARA MD [address] [facility] [address], [place], [address], [facility] - [facility] 5 15:47:42 Problem Notes None recorded. Medical Equipment None Reported. Allergies Allergen ID Allergen Name Allergen Category Reaction Reaction Severity Criticality Documentation Date Start Date Code Code System Note Provider Name and Address Organization Details Recorded Time 699348 aspirin medicatio n Not available Not available Not available 12/07/2024 1191 RxNorm TANNER GRIG[facility] [place] - [facility] 5 15:49:24 Medications Name Sig Start [...] Not Available Not Available BD Regular Bevel [place] 18 gauge x 1 USE DIRECTED TO [...] Updated DateTime 12/07/2024 182.88 cm 27.4 kg/m2 73564.66 g [facility] [place] - [facility] [place] 12/07/2024 15:49:14 Date Recorded Body height Provider Name an d Address Organization Details Last Updated DateTime 12/28/2024 182.88 cm TANNER [facility] [place] - [facility] 12/28/2024 15:27:13 Social History None recorded. 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 We have discussed treatment options including observatio n as well as surgical interventi on to remove the lesion. Surgery is performed under general anesthesia at either [facility] or [facility]. 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 08/20/2024 [place] ultrasound neck Well-defined hypoechoic mass right lateral submandibular space. 31 x 24 x 16 mm. Likely a complex lymph node. 09/05/2024 [place], CT head with contrast no acute intracranial process 09/05/[address] [place] [address] temporal bone with contrast Focal dehiscence of the roof of the right superior circular canal. Opacified left eustachian tube. 10/02/2024 [place] ultrasound biopsy lymph node Salivary gland neoplasm [...] due to his condition. SHILPA LARA MD [address] [place] [address], [phone], 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 08/20/2024 [place] ultrasound neck Well-defined hypoechoic mass right lateral submandibular space. 31 x 24 x 16 mm. Likely a complex lymph node. 09/05/2024 [place], CT head with contrast no acute intracranial process 09/05/[address] [place] [address] temporal bone with contrast Focal dehiscence of the roof of the right superior circular canal. Opacified left eustachian tube. 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 12/20/2024 [place], CT Angio head and neck w contrast [...] to remove the mass. SHILPA LARA MD [address] [place] [address], [address], [place] - [facility] 12/28/2024 16:07:21
--- OUTSIDE RECORDS SUMMARY | 2025-03-11 11:22 | XMS_ITS | Clinical Summary ---
Author Organization [employer] Address [address] [facility] 7t [place] [address] Care Team Providers Care Full Charge Bookkeeper Name Role Phone Unavailable Primary Care Provider [...] Associated Diagnosis Comments PROPHYLAXIS - ADULT Routine 08/01/2024 1 :00 PM EDT PERIODIC ORAL EVALUATION - ESTABLISHED PATIENT Routine 08/01/2024 1:00 PM EDT INTRAORAL - COMPLETE SERIES OF RADIOGRAPHIC IMAGES Routine 11/11/2023 11:00 AM EDT from Last 3 Months or Most Recently Relevant to Health Maintenance Insurance [facility] MEDICAID STAND ADULT
--- OUTSIDE RECORDS SUMMARY | 2025-03-11 11:22 | XMS_ITS | Encounter Summary ---
Author Organization [employer] Address [address] [facility] 7t [place] [address] Care Team Providers Care Platform Power Technician Name Role Phone Unavailable Primary Care [...]
--- OUTSIDE RECORDS SUMMARY | 2025-03-11 11:22 | XMS_ITS | Clinical Summary ---
Author Organization [facility] Address [address] [address] Phone Care Team Providers Care Funeral Director And Embalmer Name Role Phone Tod Kelly MD Primary [...] file Insurance MEDICARE PART A & B [facility] MEDICARE PART A & B HEALTH ([address] [address] MEDICARE PART A & B [facility] MEDICARE PART A & B HEALTH MEDICARE PART A & B [id number] [place] [address] MEDICARE PART A & B MEDICARE PART A & B [id number] [place] [address] MEDICARE PART A & B Member Subscriber Plan / Payer (Ef fective 2007-Present) Name:Henri Huerta Member ID:[id number] Relation to Subscriber:Self Name:Henri Huerta Subscriber ID:[id number] Payer ID:[id number] Group ID:Not on file Type:Medicare Address: [employer] [address] [facility] A & B [facility] Care Teams Funeral Director And Embalmer Relationship Specialty Start Date End Date Tod Kelly MD [address] [place] [address] [place] [address] PCP - General Internal Medicine 12/05/19 Additional Source Comments The information contained in this document represents components of the legal health record. It is not the complete legal health record.[facility]
--- OUTSIDE RECORDS SUMMARY | 2025-03-11 11:23 | XMS_ITS | Patient Health Record ---
Author Organization [facility] Address [address] [place] [address] Care Team Providers Care Medical Technologist Chief Name Role Phone Robin (RETIRED) Tod LEHMAN Primary Care Provide r Unavailable Rico Vega Unavailable [phone] Reason For Referral No Information Medications Medication SIG (Take, Route, Frequency, Duration) Notes Start Date End Date Status Propranolol HCl 10 MG Tablet 1 tablet Orally prn Active Omeprazole 20 MG Tablet Delayed Release 1 capsule Orally Once a day Active Alsen Carbonate 300 MG Capsule 1 capsule Orally [...] Problem Screening for malignant neoplasm of colon (555354071) Encounter for screening for malignant neoplasm of colon (Z12.11) Active confirmed Problem Stricture of esophagus (48637921) Esophageal obstruction (K22.2) Active confirmed Problem Screening for malignant neoplasm of rectum (773342211) Encounter for screening for malignant neoplasm of rectum (Z12.12) Active confirmed Problem Gastroesophageal reflux disease without esophagitis (271432442) Gastroesophageal reflux disease without esophagitis (K21.9) Active confirmed Problem Gastroesophageal reflux disease (418781850) Gastroesophageal reflux disease, esophagitis presence not specified (K21.9) Active confirmed Problem Esophageal ring (87068253) Esophageal ring (K22.2) Active confirmed Problem Dysphagia (07166893) Dysphagia, unspecified type (R13.10) Active confirmed Plan Of Treatment Future Test Test Name Order Date UPPER GI ENDOSCOPY [place] DILATION OF ESOPH 12/10/2015 Insurance Providers Payer Name Payer Address Payer Phone Subscriber Number Group Number Insured Name Patient Relationship to Insured Coverage Start Date Coverage End Date MEDICARE OF [place] [address] [place] [address] [id number] GISELA EDDY Self - patient is the insured MEDICAID OF [facility] [address] [place] [phone] [id number] GISELA EDDY Self - patient is the insured Medical (General) History Medical History History ICD Code Denies [place],DM,CVA,Lung disease,renal dise ase Depression/Anxiety GERD--UGI in the past with reflux Esophageal ring--esophageal obstruction--EGD in 11/2015--meat bolus removed and a distal esophageal ring was dilated with an 18-20mm balloon
[2025-03-11 11:53] LABS: Prostate Specific Antigen 1.69 ng/mL (<0.05-4.0)
== END 2025-03-11 10:08 ==
LOC: HO.LAB 10:07
PROVIDERS: PCP Internal Medicine; Visit Provider Urology
DX: E23.0 Hypopituitarism (principal); Z12.5 Encounter for screening for malignant neoplasm of prostate
CPT/HCPCS: 36415; 84153; 84403